=== PATIENT | male | born 1970 | race Caucasian/White ===

== ENCOUNTER 2018-03-02 12:40 | Inpatient (IN) | payer OTHER, MEDICARE ==
[~2018-03-02] VITALS: Ht 177.8 cm; Wt 139.7 kg
[~2018-03-02 12:40] MED LIST: ASTEPRO205.5 MCG1 NASB; AUGMENTIN 875875 MG PO; DULERA1 AR1 INH; FLONASE ALLERG9.9 ML NAS; LEVAQUIN750 M1 PO; MEDROL4 M2 PO; PERCOCET 325 MG1 TA2 PO; PROAIR HFA8.5 GM INH; SINGULAIR10 M1 PO; SPIRIVA18 MCG INH; TRAMADOL HCL50 M1 PO
[2018-03-02 13:38] LABS: ABSOLUTE BASOPHIL COUNT 0.1 /CUMM (0.0-0.2); ABSOLUTE EOSINOPHIL COUNT 0.1 /CUMM (0.0-0.7); ABSOLUTE GRANULOCYTE CT 12.2 /CUMM (1.4-6.5); ABSOLUTE MONOCYTE COUNT 0.9 /CUMM (0.10-0.60); BASOPHIL % 0.6 % (0.0-2.0); EOSINOPHIL % 0.7 % (0-5); HEMATOCRIT 30.9 % (42-52); MEAN CORPUSCULAR HGB 24.2 PG (27.0-31.0); MEAN CORPUSCULAR HGB CONC 31.9 G/DL (33.0-37.0); MEAN CORPUSCULAR VOLUME 75.9 FL (80.0-94.0); MEAN PLATELET VOLUME 7.9 FL (7.4-10.4); PLATELET COUNT 544 /CUMM (130-400); RED BLOOD CELL CT 4.07 /CUMM (4.70-6.10); WHITE BLOOD CELL COUNT 14.3 /CUMM (4.8-10.8)
--- NOTE | 2018-03-02 13:55 | ULTRASOUND REPORT ---
EXAMINATION: US PLEURAL EFFUSION CLINICAL INFORMATION: Shortness of breath and cough. Whiteout of the left hemithorax on chest radiograph. COMPARISON: Same day chest x-ray. Chest CT 07/09/2017 TECHNIQUE: Grayscale imaging was obtained of the left chest FINDINGS: There is only a small left-sided pleural effusion identified by ultrasound imaging. The majority of the left hemithorax appears to represent a combination of consolidation with likely superimposed mass. IMPRESSION: small left-sided pleural effusion. The majority of the left hemithorax appears to represent a combination of consolidation with likely superimposed mass. The patient will require chest CT with IV contrast for further characterization. This was discussed with Joshua Patiño.
--- NOTE | 2018-03-02 14:07 | ED GENERAL ADULT ---
History of Present Illness General Chief Complaint: Dyspnea (COPD, CHF, Other) Stated Complaint: SIB DR. LATIF FOR ?COLLAPSED LUNG Source: patient, old records, Dr Ortiz Exam Limitations: no limitations Vital Signs & Intake/Output Vital Signs & Intake/Output Vital Signs Date Time Temp Pulse Resp B/P B/P Pulse O2 O2 Flow FiO2 Mean Ox Delivery Rate 03/02 1405 97 Nasal 2.0L Cannula 03/02 1308 Nasal 2.0L Cannula 03/02 1246 99.2 106 24 103/70 98 Nasal 2.0L Cannula Allergies Coded Allergies: codeine (Intermediate, MIGRAINES 10/16/15) Reconcile Medications Albuterol Sulfate (Proair Hfa) 0.09 MG/Actuation YARELI 0.09 MG INH Q4 HRS NEEDED PRN COPD (Reported) Azelastine HCl (Astepro) 205.5 MCG (0.15 %) SPRAY.PUMP 2 SPRAY NASB BID CONGESTION (Reported) Fluticasone Propionate (Flonase) 50 MCG/ACTUATION SPRAY.SUSP 1 SPRAY CORRIE BID NASAL BLOCKAGE (Reported) Levofloxacin (Levaquin) 750 MG TABLET 1 TAB PO DAILY pneumonia Methylprednisolone. (Medrol) 4 MG TAB.DS.PK 1 DP PO AD breathing MOMETASONE/FORMOTEROL (Dulera 200 Mcg/5 Mcg Inhaler) 200 MCG-5 MCG/ACTUATION HFA.AER.AD 2 PUF INH BID COPD (Reported) Montelukast Sodium (Singulair) 10 MG TABLET 10 MG PO QHS ASTHMA (Reported) Tiotropium [place] (Spiriva) 18 MCG CAP.W.DEV 18 MCG INH DAILY COPD (Reported ) Tramadol HCl 50 MG TABLET 1 TAB PO TIDPRN BACK PAIN (Reported) Triage Note: SIB DR NOYOLA FOR SOB AND QUESTION OF COLLASPED LUNG. SENT RIGHT IN AFTER CXR. PT HAS HX OF LUNG CA. 02 SAT 98% ON 2LNC IN TRIAGE Triage Nurses Notes Reviewed? yes HPI: This is a 47-year-old male with past medical history significant for COPD on home oxygen, complicated by non-small cell lung cancer for which the patient is not currently undergoing treatment. Patient arrives with 1 month of progressive dyspnea and cough and wheezing. He was seen as an outpatient today by Dr. Ortiz, was found to have a white out of the left side of his chest on outside x-ray. He was sent here for evaluation of possible left sided effusion versus consolidation versus obstructive process in the bronchial tree. Patient arrives complaining of ongoing cough and shortness of breath. He denies any fever/ chills/chest pain. He does complain of some mild epigastric discomfort secondary to increased work of breathing. Past History Travel History Traveled to [place] past 21 day No Medical History Any Pertinent Medical History? 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 No Review of Systems Review of Systems Constitutional: Reports: malaise, weakness. Denies: chills, diaphoresis, fever. EENTM: Reports: no symptoms. Respiratory: Reports: cough, short of breath, sputum production, wheezing. Denies: hemoptysis, orthopnea. Cardiovascular: Reports: no symptoms. GI: Reports: see HPI. Denies: diarrhea, nausea, vomiting. Musculoskeletal: Reports: no symptoms. Skin: Reports: no symptoms. Neurological/Psychological: Reports: no symptoms. Hematologic/Endocrine: Reports: no symptoms. Immunologic/Allergic: Reports: no symptoms. Physical Exam Physical Exam General Appearance: well developed/nourished, alert, mild distress, obese Head: atraumatic, normal appearance Eyes: Bilateral: normal appearance. Ears, Nose, Throat: normal pharynx, normal ENT inspection Neck: normal inspection, supple, full range of motion Respiratory: chest non-tender, decreased LS to the left side diffusely w prolonged expiratory phase, expiratory wheezing and increased WOB Cardiovascular: regular rate/rhythm, edema, normal peripheral pulses Gastrointestinal: normal bowel sounds, soft, non-tender Back: normal inspection, normal range of motion Extremities: normal inspection, normal capillary refill, normal range of motion Neurologic/Psych: no motor/sensory deficits, awake, alert, oriented x 3 Skin: intact, warm/dry, pallor Core Measures ACS in differential dx? Yes CVA/TIA Diagnosis: No Sepsis Present: Yes Sepsis Focused Exam Completed? Yes Progress Differential Diagnoses I considered the following diagnoses in my evaluation of the patient: In this patient with lung cancer and recurrent pneumonia, concern for recurrent pneumonia, pericardial/pleural effusion, metabolic derangement, COPD exacerbation in addition to ACS all considered. Most likely pneumonia with concomitant reactive airway exacerbation in this patient. Low concern for pulmonary embolism or thoracic aortic disease based on exam and history. Plan of Care: Orders Procedure Date/time Status Regular Diet 03/02 D Active LACTIC ACID 03/02 1559 Active BLOOD CULTURE 03/02 1412 Active Code Status 03/02 1403 Active ED Holding Orders 03/02 1401 Active Admit to inpatient 03/02 1400 Active LACTIC ACID 03/02 1301 Complete B-TYPE NATRIURETIC PEP (BNP) 03/02 1301 Complete XRY-CHEST XRAY, TWO VIEWS 03/02 1248 Active TROPONIN LEVEL 03/02 1248 Complete PARTIAL THROMBOPLASTIN TIME 03/02 1248 Active PROTHROMBIN TIME 03/02 1248 Active COMPREHENSIVE METABOLIC PANEL 03/02 1248 Complete CBC WITHOUT DIFFERENTIAL 03/02 1248 Active EKG 03/02 1248 Active Current Medications Sig/Harman Start time Last Medication Dose Stop Time Status Admin Ceftazidime 1,000 MG IQ8 03/02 1600 UNVr (Fortaz) Sodium Chloride 1,000 ML BOLUS ONE 03/02 1415 UNVr (Normal Saline 0.9%) 03/02 1514 Albuterol Sulfate 3 ML ONCE ONE 03/02 1400 UNVr 03/02 (Proventil) 03/02 1401 1405 Ipratropium [place] 2.5 ML ONCE ONE 03/02 1400 UNVr 03/02 (Atrovent) 03/02 1401 1405 Methylprednisolone 125 MG ONCE ONE 03/02 1400 UNVr 03/02 (Solu Medrol) 03/02 1401 1407 Vancomycin HCl 1,000 MG ONCE ONE 03/02 1400 UNir Sodium Chloride 250 ML 03/02 1459 (Normal Saline 0.9%) Laboratory Tests 03/02/18 1352: PT Pending, INR Pending, APTT Pending 03/02/18 1301: Anion Gap 13, Estimated GFR > 60, BUN/Creatinine Ratio 25.0, Glucose 115 H, Lactic Acid 2.4 H, Calcium 9.6, Total Bilirubin 0.4, AST 34, ALT 47, Alkaline Phosphatase 158 H, Troponin I < 0.01, [id number] Pept 383 H, Total Protein 7.5, Albumin 3.2 L, Globulin 4.3 H, Albumin/Globulin Ratio 0.7 L, CBC w Diff MAN DIFF ORDERED, RBC 4.07 L, MCV 75.9 L, MCH 24.2 L, MCHC 31.9 L, RDW 21.0 H, MPV 7.9, Gran % 85.0 H, Lymphocytes % 7.2 L, Monocytes % 6.5, Eosinophils % 0.7, Basophils % 0.6, Absolute Granulocytes 12.2 H, Segmented Neutrophils Pending, Absolute Lymphocytes 1.0 L, Absolute Monocytes 0.9 H, Absolute Eosinophils 0.1, Absolute Basophils 0.1 03/02/18 1259: Lactic Acid Cancelled, [id number] Pept Cancelled Microbiology 03/02 141 BLOOD: Blood Culture - ORD 03/02 1412 BLOOD: Blood Culture - ORD Plan for ultrasound of chest, labs, EKG, IV fluids, DuoNeb and steroids, reassessment, discussion with . Leukocytosis, microcytic anemia, elevated lactate are all noted. Appears consistent with systemic inflammatory reaction/sepsis secondary to pneumonia given white out of left lung. Will start broad-spectrum antibiotics, admit to [facility]. Plan for frequent reassessment and symptom control with DuoNeb, steroids, chest physiotherapy/possible bronchoscopy as inpatient. Decreased amplitude on EKG mildly concerning for worsening of the patient's known pericardial effusion. This is discussed with on-call hospitalist. I have suggested inpatient cardiology consultation. 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 Initial ED EKG: normal axis, Lower amplitude than prior w diffuse TW flattening Departure Departure Time of Disposition: 1413 Disposition: STILL A PATIENT Condition: Stable Clinical Impression Primary Impression: HCAP (healthcare-associated pneumonia) Referrals: Jose Lafleur MD (PCP/Family) Departure Forms: Customer Survey General Discharge Information Admission Note Spoke With: Julieta Corona MD Documentation of Exam: Documentation of any treatments & extenuating circumstances including Concerns Regarding Discharge (functional status, medication knowledge or non-compliance, living conditions, etc.) that warrant an admission rather than observation: IV antibiotics, close monitoring and frequent reassessment, possible bronchoscopy, chest physiotherapy, possible cardiology consultation. Critical Care Note Critical Care Note Critical Care Time: non-applicable
[2018-03-02 14:13] LABS: PT 19.3 SEC (9.4-12.5); PTT 28 SEC (25-37)
--- NOTE | 2018-03-02 14:17 | History & Physical ---
PortilloTiesha 03/02/18 1416: General Information and HPI MD Statement: I have seen and personally examined SID DOCKERY and documented this H&P. The patient is a 47 year old M who presented with a patient stated chief complaint of [Shortness of Breath]. Source of Information: patient, family ( and Mother) Exam Limitations: no limitations History of Present Illness: Patient is a 47-year-old male with a past medical history of stage III non-small cell lung cancer of LLL status post chemotherapy with Braxan 1 year ago, radiation therapy 6 months ago, COPD on 2 L of home oxygen, sleep apnea on CPAP, spinal stenosis, bronchitis. Patient is presenting with complaints of cough with clear/white sputum, shortness of breath with walking and talking, low-grade fevers, chest tightness for the past 1 month. Patient went to see Dr. Ortiz this morning who referred him to the ED for chest x-ray due to the symptoms. Since the beginning of January patient has been feeling as mentioned above. Patient saw Dr. Carbone (PCP) in the beginning of January for similar symptoms of chest tightness shortness of breath low-grade fevers ranging from 100.1-100.2 for about 3-4 nights per week. Patient was prescribed Z-Fox for 5 days upon completion of course since he felt good for 1-2 days. On January [address] aguilar for similar complaints of productive cough chest tightness low-grade fevers was given antibiotics and Medrol for 7 days with taper. Towards the end of January about 2-3 weeks ago patient went back to Dr. Landrum for similar symptoms once again, was given antibiotic which patient does not recall for 7 days. This morning patient went to Dr. Ortiz for presenting symptoms, was sent to emergency department for an chest x-ray. Patient is also complaining of pain in his chest at the end of his sternum which is been going on for 1 week, is constant, steady, about 5 out of 10. Patient believed he had pulled a muscle, has not have any aggravating or alleviating factors. Allergies/Medications Home Med list Albuterol Sulfate (Proair Hfa) 90 MCG HFA.AER.AD 2 PUF INH Q4-6 PRN PRN COPD (Reported) Albuterol Sulfate 2.5 MG/3 ML (0.083 %) VIAL.NEB 1 Vial INH/JOSE Q4P PRN SHORTNESS OF BREATH (Reported) Azelastine HCl (Astepro) 205.5 MCG (0.15 %) SPRAY.PUMP 2 SPRAY NASB BID CONGESTION (Reported) Budesonide/Formoterol Fumarate (Symbicort 160-4.5 Mcg Inhaler) 160 MCG-4.5 MCG/ ACTUATION HFA.AER.AD 2 PUF INH BID BREATHING PROBLEMS (Reported) Fluticasone Propionate (Flonase Allergy Relief) 50 MCG/ACTUATION SPRAY.SUSP 1 SPRAY CORRIE BID ALLERGIES (Reported) Montelukast Sodium (Singulair) 10 MG TABLET 1 TAB PO QPM ASTHMA (Reported) Tiotropium [place] (Spiriva) 18 MCG CAP.W.DEV 1 CAP INH DAILY COPD (Reported) Tramadol HCl 50 MG TABLET 1 TAB PO TIDPRN BACK PAIN (Reported) Compliance With Home Meds: GOOD Past History Travel History Traveled to [place] past 21 day No Medical History Neurological: NONE EENT: NONE Cardiovascular: NONE Respiratory: COPD, emphysema, obstructive sleep apnea, Stage III non-small cell lung cancer Gastrointestinal: NONE Hepatic: NONE Renal: NONE Musculoskeletal: NONE, spinal stenosis Psychiatric: NONE Endocrine: NONE Blood Disorders: NONE 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 Home Who Do You Live With? spouse Services at Home: None (2.0 L), Oxygen Primary Language: Hungarian Smoking Status: Former Smoker (Currently Smokes Marijuana) ETOH Use: occasional use Illicit Drug Use: marijuana Functional Ability ADLs Independent: dressing, eating, toileting, bathing. Ambulation: independent IADLs Independent: shopping, housework, finances, food prep, telephone, transportation , medication admin. Review of Systems Review of Systems Constitutional: Reports: fever. Denies: chills, diaphoresis. EENTM: Reports: double vision. Denies: throat pain. Cardiovascular: Reports: chest pain, orthopena. Denies: palpitations, syncope. Respiratory: Reports: cough, orthopnea, short of breath, sputum production. GI: Reports: constipation. Exam & Diagnostic Data Last 24 Hrs of Vital Signs/I&O Vital Signs Date Time Temp Pulse Resp B/P B/P Pulse O2 O2 Flow FiO2 Mean Ox Delivery Rate 03/02 1621 96 Nasal 2.0L Cannula 03/02 1621 99.0 89 18 148/72 96 Nasal 2.0L Cannula 03/02 1537 98.3 98 22 128/63 98 Nasal 2.0L Cannula 03/02 1405 97 Nasal 2.0L Cannula 03/02 1308 Nasal 2.0L Cannula 03/02 1246 99.2 106 24 103/70 98 Nasal 2.0L Cannula Intake & Output 03/02 1600 03/02 0800 03/02 0000 Intake Total Output Total Balance Patient 288 lb Weight Weight Reported by Patient Measurement Method Physical Exam General Appearance Alert, Oriented X3, Cooperative, Mild Distress Skin No Rashes Sepsis Skin Exam (color): Normal for Ethnicity HEENT Atraumatic, PERRLA, EOMI Neck Supple, No LAD Cardiovascular Regular Rate, Normal S1, Normal S2 Lungs Clear to Auscultation, Normal Air Movement Abdomen Normal Bowel Sounds, Soft, No Tenderness, Hepatomegaly Neurological Normal Speech Extremities No Cyanosis, No Edema, Normal Pulses Vascular Normal Pulses, Pulses Symmetrical Sepsis Peripheral Pulse Location: Dorsalis Pedis Sepsis Peripheral Pulse Exam: Normal Assessment/Plan Assessment: Patient is a 47-year-old male with a past medical history of stage III non-small cell lung cancer of LLL status post chemotherapy with Braxan 1 year ago, radiation therapy 6 months ago, COPD on 2 L of home oxygen, sleep apnea on CPAP, spinal stenosis, bronchitis. Patient is presenting with complaints of cough with clear/white sputum, shortness of breath with walking and talking, low-grade fevers, chest tightness for the past 1 month Problem List: 1. Sepsis 2. Pneumonia 3. Infectious Bronchiolitis 4. Pericardian Effusion 5. Anemia 6. COPD 7. Sleep Apnea 8. Spinal Stenosis #Sepsis Patient meets sepsis criteria with: Elevated: HR, RR, Lactate level, WBC. Source is of pulmonary origin. Plan: - activate sepsis protocol - trend lactate until normal #Pneumonia Concern for gram negative bacteria as cause. Failed multiple outpatient therapies. Plan: - Ceftazidime 2000mg - Vancomycin 1000mg - Azithromycin 500mg #Infectious Bronchiolitis - f/u sputum culture #Pericardial effusion Low Voltage EKG, Moderate pericardian effusion on TTE on 03/02/18 Plan: -Cardiology consult - monitor patient for signs of hemodynamic instability #Acute on Chronic Anemia current H/H at 9.9/30.9 PLan: - order Iron Panel - Order Fecal Occult #COPD Plan: - IV Methyprednisolon 40mg BID - Guaifenesin/Codeine 10mL - Spiriva - Singular 10mg - Nebulizer - TRC #Obstructive Sleep Apnea -Continue CPAP #Spinal Stenosis Plan: -Tramadol 50mg As Ranked By This Provider Problem List: 1. Pneumonia Core Measures/Misc (05/09) Acute Coronary Syndrome ACS Diagnosis: No Congestive Heart Failure Congestive Heart Failure Diagnosis No Cerebrovascular Accident CVA/TIA Diagnosis: No VTE (View Protocol) VTE Risk Factors Cancer/chemo/othr therapy No Mechanical VTE Prophylaxis d/t N/A MechProphylax Ordered No VTE Pharm Prophylaxis d/t NA PharmProphylax ordered Sepsis (View protocol) Sepsis Present: Yes If YES complete Sepsis Event Note If YES complete Sepsis Event Note Abdirahman Garcia MD 03/02/18 1434: General Information and HPI Allergies/Medications Allergies: Coded Allergies: No Known Allergies (03/02/18) Core Measures/Misc (05/09) Sepsis (View protocol) If YES complete Sepsis Event Note If YES complete Sepsis Event Note Resident Review Statement Resident Statement: examined this patient, discussed with art gallery internship, agreed with art gallery internship, discussed with family, reviewed EMR data (avail), discussed with nursing , discussed with case mgmt, reviewed images, amended to note Other Findings: Mr. Dockery is a 47-year-old male with past medical history of COPD on 2 L nasal cannula, MARCI on CPAP followed by Dr. Ortiz, and non-small small cell lung cancer of the left lower lobe status post radiation 6 months ago and chemotherapy 1 year ago followed by Dr. Pink who presents with a productive cough, shortness of breath, and fever of 1 month duration. Patient initially went to his primary care doctor and he received a course of azithromycin but did not see much improvement. He then went to Dr. Bowen and received a steroid and another course of antibiotics. This again resulted in little improvement so the patient represented to his primary care doctor and got a third course of antibiotics. He then went to Dr. Ortiz today who sent him in for chest x-ray and found a complete whiteout of the left hemithorax. He was then sent in to the emergency room for further evaluation. He endorses occasional headaches relieved by Tylenol and Advil as as as well as one episode of transient double vision and chronic constipation. Denies any sore throat, chest pain, or recent travel. Uses medical marijuana, is a former smoker, and denies alcohol use. Of note the patient had a recent PET/CT scan on 02/24/2018 that revealed a left lower lung mass that now appears centrally necrotic, a small to moderate pericardial effusion that increased in size, a right lower lobe nodular opacity is nonspecific but favored inflammatory/infectious etiology. On presentation, vital signs were T 99.2, HR 106, RR 24, BP 103/70, saturating 98% on 2 L nasal cannula.. General: Patient appears stated age, alert and orientedx3. HEENT: PERRL. No goiter. No palpable lymph nodes. Missing teeth and poor dentition Cardiovascular: Regular rate and rhythm, no murmurs, rubs, or gallops. Lungs: Hollow sounds on the left. Abdomen: Normal bowel sounds. Mildly tender in the right upper quadrant with hepatomegaly. Skin: No rashes. Neuro: CN II-XII intact without any focal deficits. Ext: 1+ pitting edema, pulses normal. Laboratories were significant for white blood cell count 14.3, hemoglobin 9.9, MCV 75.9, platelets 544, glucose 115, lactic acid 2.4, alkaline phosphatase 158, BNP 383. Ultrasound of the chest showed a small left-sided effusion concerning for consolidation with underlying mass. Chest x-ray showed complete left white out of the left hemithorax. He will be admitted to general medicine and treated for the following problems: 1. Sepsis with lactic acidosis secondary to pneumonia 2. Pericardial effusion 3. Microcytic anemia 4. Chronic respiratory failure #Sepsis with lactic acidosis secondary to pneumonia: Patient presents from the community but given the duration of his symptoms and his underlying malignancy there is concern for gram-negative pneumonia and so we will give him broad- spectrum coverage. He does meet 3/4 SIRS criteria (tachycardia, tachypnea, leukocytosis). -Blood cultures, sputum culture, urinary antigens -30 mL/kg IV fluid bolus -Vancomycin and ceftazidine -Pulmonology consult -Oncology consult -Trend lactic acid -TRC nebs -CTA chest -Methylprednisone 40 mg every 12 -Guaifenesin/codeine for cough #Pericardial effusion: Patient's EKG shows low voltage and recent PET/CT scan shows mild to moderate pericardial effusion. Possibly a malignant vs infectious effusion. -TTE -Consider cardiology consult if moderate to large effusion is present, may need drainage #Microcytic anemia: No signs of active bleeding, likely chronic disease related. -Iron studies -Stool guaiac #Chronic medical problems -Continue home medications DVT prophylaxis with enoxaparin Regular diet Full code Tino Salcedo MD 03/02/18 2210: Core Measures/Misc (05/09) Sepsis (View protocol) If YES complete Sepsis Event Note If YES complete Sepsis Event Note Attending MD Review Statement Attending Statement Attending MD Statement: examined this patient, discuss w/resident/PA/TRAIN DISPATCHER, agreed w/resident/PA/TRAIN DISPATCHER, discussed with family, reviewed EMR data (avail), reviewed images, amended to note Attending Assessment/Plan: The patient is a 47 yo male with h/o COPD (on chronic 2L nasal oxygen), MARCI (on CPAP at night), and inoperable stage III non-small cell lung ca (LLL and mediastinal nodes) who presented in the [facility] ED after being seen by his pulmonary physician (Dr. Ortiz) with increased dyspnea, and cough/fever as OP. CXR showed opacification of left lung (?atelectasis/collapse, LLL mass, sm effusion). The patient had over last month been seen by his PCP and Dr. Henry and treated with courses of 2 antibiotics (one was Zithromax) and a Medrol dosepak without improvement. He stated he did have fevers at home (?family said up to 101). Has some chest discomfort with coughing and cough is primarily non- productive. He has not required an increase in his usual 2L/min nasal oxygen. He also described some visual symptoms/diplopia on lateral gaze earlier. He had completed last chemotherapy (Braxan - prior reaction to Taxol) [address] Reeves. Last XRT with Dr. Vargas was 6 months ago. He did have a PET/CT scan at [facility] done 02/24 (ordered by Dr. Reeves after follow-up visit). Physical Exam: VS: T 99.2, P 105-89 (post hydration), R 24-18, BP 103/70-148/72, PO 96-98% on 2L nasal HEENT: eyes- PERRL, EOMI ace- dry mucosa, poor dentition Neck: no bruits/JVD Chest: diminished BS diffusely (more in left lung), minimal wheeze (post aerosol & Medrol IV in ED) Cor: RRR nl S1, S2 w/o murm, heart sounds not distant Abd: BS+, soft, NT, liver sl firm and enlarged 4FB below CM Ext: tra edema, pulses 2+ Neuro: alert & oriented x 3, non-focal exam Labs/Tests- as above Impression/Plan: #Sepsis- patient with fever (?101), leukocytosis with left shift, tachycardia and tachypnea, and elevated lactate level with source of infection pneumonia. Meets sepsis criteria. Plan: Admit to medicine and follow sepsis pathway/orders. IV fluids as per sepsis protocol. Payton-culture and IV antibiotics begun in ED (Vanco/Cetaz per Dr. Ortiz) . Follow VS closely- if decompensates transfer to ICU. Check urinary Legionella/strep. #Pneumonia LLL- presume left lung pneumonia. Spoke with Dr. Reeves's office and PET/CT done at [facility] 02/24 did also show ? RLL inflammatory nodularity? Has been on courses of antibiotics x 2 recently and suspect post obstructive pneumonia due to LLL mass. Although this was acquired in the community have concern regarding potential gram negative pneumonia/sepsis. Plan: IV Vanco/Ceftaz as above. Attempt to obtain sputum culture. If post obstructive pneumonia may consider endobronchial stenting. #Pericardial Effusion- noted effusion on PET/CT report from [facility] and on prior CT. EKG today shows no acute ST-T changes or rhythm disturbance, however decreased voltage. No clinical tamponade. Suspect malignant effusion. Plan: CT of chest today and ECHO in morning- pending this will need Cardiology evaluation. May need pericardiocentesis/pericardial window. #COPD- patient had not had an increase in oxygen requirement. Some wheeze, however better post aerosol and IV Medrol in ED. Plan: Will continue nebs and IV Medrol 40 mg 12h. Pulmonary consult- Dr. Ortiz. #Chronic Hypoxic Respiratory Failure- on 2 L oxygen. Plan: Continue oxygen and monitory pulse ox. #Obstructive Sleep Apnea - uses CPAP at night. Plan: Continue CPAP. #Stage III Non-Small Cell Cancer- recent PET/CT shows a decrease in SUV of primary LLL mass and persistent uptake in mediastinal nodes c/w active disease. Completed chemo 1 year ago and XRT 6 months ago. Plan: Will need to discuss with Dr. Reeves any plans for further therapy, once above stabilized. #Chronic Back Pain- secondary to spinal stenosis per patient. Takes prn Tramadol. Plan: Continue prn Tramadol. #Diplopia- none at present. Concern regarding potential brain metastases. Plan: Pending clinical course may consider MRI of brain.
[2018-03-02] MEDS ORDERED: SYMBICORT 16010.2 GM INH (14:57)
[2018-03-02] MEDS ORDERED: ALBUTEROL2.5 MG/3 M INH/SOL (15:00)
--- NOTE | 2018-03-02 16:16 | Admission Certification ---
Admission Certification Certification Statement - As attending physician, I certify that at the time of - admission, based on clinical presentation, severity of - symptoms, need for further diagnostic testing and - therapeutic interventions, and risk of adverse outcomes - without in-hospital treatment, in my clinical assessment, - this patient requires an acute hospital stay for a minimum - of two nights or longer. I have also considered psychsocial - factors such as support system, advanced age, financial - issues, cognitive issues, and failed out-patient treatments, - past re-admission history, safety of patient, and lack of - compliance as applicable. Specific rationale supporting this admission is: The patient presents with fever, leukocytosis, tachycardia/tachypnea, left lung opacification and elevated lactate level c/w sepsis secondary to pneumonia. Has COPD, stage 3 lung ca with pericardial effusion. Needs admit for culture, IV Abx to cover gram neg pneumonia (has been on po abs)- Vanco/Ceftaz, IV solumedrol, aerosol, etc.
[2018-03-02 16:21] VITALS: BP 148/72
--- NOTE | 2018-03-02 17:06 | CT SCAN REPORT ---
EXAMINATION: CT ANGIOGRAM OF THE CHEST WITH CONTRAST (CT PULMONARY ANGIOGRAM FOR PE) CLINICAL INFORMATION: Shortness of breath. Left chest completely opacified on radiograph. Evaluate for pneumonia, cancer, collapsed lung and/or pulmonary embolism. COMPARISON: CXR from 03/02/2018. Chest CT from 07/09/2017. TECHNIQUE: Prior to contrast administration, noncontrast localization images were obtained. Subsequently, multidetector volumetric imaging was performed from the thoracic inlet to below the diaphragms following the administration of 95 mL Optiray 320 intravenous contrast. No contrast reaction reported. Sagittal, coronal, and MIP oblique sagittal reformatted images were obtained on the CT workstation, uploaded to PACS, and reviewed. DLP: Total exam dose-length product 941 mGy-cm FINDINGS: QUALITY OF STUDY/CONTRAST BOLUS: Satisfactory. PULMONARY ARTERIES: Pulmonary arteries are normal in caliber. No embolic filling defects are identified in the main, lobar or segmental vessels. THORACIC AORTA: Mild atherosclerotic calcification of the thoracic aorta without aneurysm or dissection. LUNGS AND PLEURA: The moderate centrilobular emphysema in the right lung has an upper lobe predominance. Mild atelectasis in dependent aspect of right upper lobe. There are some new clustered micronodular opacities in the medial aspect of the posterior right upper lobe. Chronic findings include old 0.3 cm noncalcified nodules of the lateral segment of the right middle lobe adjacent to the major fissure (image 222, series 2) and within the right lower lobe (image 330, series 2). Multiple new clustered nodules are seen in the lateral right lower lobe, likely secondary to infectious bronchiolitis (images 255-280, series 2). Small right pleural effusion produces compressive atelectasis of right lower lobe. At the left hilum, the distal mainstem bronchus is occluded, left lung completely collapsed, and there is associated left-sided shift of the cardiomediastinal structures. It is not possible to measure the size of the previously noted centrally located mass of the left lower lobe due to the pulmonary collapse. Small loculated left pleural effusion is similar in size compared to 07/09/2017 and is surrounded by thickened visceral and parietal pleura. CARDIOVASCULAR: The heart size is normal. No inward bowing of the interventricular septum. [id number] pericardial effusion has increased in size compared to 07/09/2017.. MEDIASTINUM: The esophagus has normal wall thickness. The visualized portion of the thyroid gland is unremarkable. No mediastinal mass. LYMPHATICS: No pathologic sized axillary lymph nodes. The assessment of left hilar lymphadenopathy is limited by the pulmonary collapse. Within the superior mediastinum, a mildly enlarged right paratracheal lymph node is 1 cm short axis dimension, unchanged compared to 07/09/2017 (image 97, series 2). At the level of the aortic arch, a large right paratracheal lymph node with fatty hilum has a transverse dimension of 1.8 cm, unchanged. The other mediastinal lymph nodes remain stable in size, as well. UPPER ABDOMEN: No contrast reflux into the inferior vena cava. No acute findings in the partially visualized solid or hollow viscera of the upper abdomen. CHEST WALL/BONES: Bilateral gynecomastia. No aggressive osseous lesions within the thorax. There is an old epidermal inclusion cyst within subcutaneous tissues of the upper back. IMPRESSION: 1. No pulmonary embolism. 2. At the level of the left hilum, the distal left mainstem bronchus is occluded and left lung completely collapsed. The loculated left pleural effusion remains similar in size compared to 07/09/2017. 3. Within the right lung, there are some new micronodules in the posteromedial aspect of the right upper lobe and in the lateral right lower lobe. These are likely secondary to active infectious bronchiolitis. New, small right pleural effusion is present. 4. Pericardial effusion has increased in size compared to 07/09/2017.
--- NOTE | 2018-03-02 18:54 | ECHOCARDIOGRAM REPORT ---
SID GOMEZ Age: 47 : 1970 Gender: M Exam Date: 03/02/2018 16:51 Exam Location: [address] [place] [address] Ht (in): 70 Wt (lb): 288 BSA: 2.60 BP: 103 / 70 Ordering Physician: Abdirahman Garcia MD Referring Physician: Abdirahman Garcia MD Technologist: Estephanie Juarez [facility] Room Number: 209-01 Indications: PERICARDIAL EFFUSION Rhythm: Sinus Technical Quality: Fair FINDINGS Left Ventricle Normal size left ventricle. Mild concentric left ventricular hypertrophy. No obvious regional wall motion abnormalities. Normal left ventricular ejection fraction visually estimated at 65%. Right Ventricle Normal right ventricular size and function. Right Atrium Normal right atrial size. Left Atrium Normal left atrial size. Mitral Valve Mild mitral annular calcification. Structurally normal mitral valve leaflets with normal excursion. Trace mitral regurgitation. Aortic Valve Aortic valve not well visualized, grossly normal. No aortic valve stenosis or regurgitation. Tricuspid Valve Tricuspid valve not well visualized, grossly normal. Trace tricuspid regurgitation. Unable to estimate the right ventricular systolic pressure. Pulmonic Valve Pulmonic valve not well visualized, grossly normal. Trace pulmonic regurgitation. Pericardium Moderate pericardial effusion. Partial right atrial diastolic collapse consistent with early tamponade physiology. Great Vessels Normal size aortic root. Dilated inferior vena cava. CONCLUSIONS Normal size left ventricle. Mild concentric left ventricular hypertrophy. No obvious regional wall motion abnormalities. Normal left ventricular ejection fraction visually estimated at 65%. Normal right ventricular size and function. Normal atral size. Trace mitral regurgitation. Trace tricuspid regurgitation. Unable to estimate the right ventricular systolic pressure. Trace pulmonic regurgitation. Partial right atrial diastolic collapse consistent with early tamponade physiology. Dilated inferior vena cava. Armen Sampson M.D. (Electronically Signed) Final Date: 02 March 2018 18:52 MEASUREMENTS (Male / Female) Normal Values 2D ECHO LV Diastolic Diameter PLAX 3.9 cm 4.2 - 5.9 / 3.9 - 5.3 cm LV Systolic Diameter PLAX 2.4 cm 2.1 - 4.0 cm LV Fractional Shortening PLAX 38.5 % 25 - 46 % LV Ejection Fraction 2D Teich 69.4 % IVS Diastolic Thickness 1.2 cm LVPW Diastolic Thickness 1.2 cm LV Relative Wall Thickness 0.6 RV Internal Dim ED PLAX 3.0 cm 1.9 - 3.8 cm LVOT Diameter 2.2 cm Aortic Root Diameter 3.5 cm LA Systolic Diameter LX 4.1 cm 3.0 - 4.0 / 2.7 - 3.8 cm Ascending Aorta Diameter 3.1 cm DOPPLER AV Peak Velocity 154.0 cm/s AV Peak Gradient 9.5 mmHg AV Mean Velocity 101.0 cm/s AV Mean Gradient 5.0 mmHg AV Velocity Time Integral 21.1 cm LVOT Peak Velocity 123.0 cm/s LVOT Peak Gradient 6.1 mmHg LVOT Mean Velocity 73.2 cm/s LVOT Mean Gradient 3.0 mmHg LVOT Velocity Time Integral 16.3 cm LVOT Stroke Volume 62.0 cm AV Area Cont Eq vti 2.9 cm AV Area Cont Eq pk 3.0 cm MV Peak Velocity 106.0 cm/s MV Peak Gradient 4.5 mmHg MV Mean Velocity 59.7 cm/s MV Mean Gradient 2.0 mmHg Mitral E Point Velocity 95.8 cm/s Mitral A Point Velocity 101.0 cm/s Mitral E to A Ratio 0.9 MV PHT Velocity 111.0 cm/s MV Deceleration [place] 757.0 cm/s MV Pressure Half Time 44.0 ms MV Area PHT 5.0 cm MV Deceleration Time 306.0 ms PV Peak Velocity 102.0 cm/s PV Peak Gradient 4.2 mmHg PV Mean Velocity 71.3 cm/s PV Mean Gradient 2.0 mmHg PV Velocity Time Integral 19.2 cm LV E' Lateral Velocity 16.2 cm/s Mitral E to LV E' Lateral Ratio 5.9 LV E' Septal Velocity 12.2 cm/s Mitral E to LV E' Septal Ratio 7.9
--- NOTE | 2018-03-02 19:26 | Cons- Cardiology ---
General Information and HPI Consulting Request Date of Consult: 03/02/18 Requested By: Tino Salcedo MD Reason for Consult: Pericardial effusion. Source of Information: patient, old records Exam Limitations: no limitations History of Present Illness: Mr. Carlos Alberto Dockery is a 47-year-old male with a history of obstructive sleep apnea on CPAP, long-standing heavy tobacco use, COPD on 2 L home oxygen, and stage III non-small cell lung carcinoma of left lower lobe status post chemotherapy with Braxan last year and radiation therapy 6 months ago who was referred to the ED by his cold header (ePggy Valdes M.D.) this morning after relating complaints of productive cough of clear to whitish sputum, shortness of breath, chest tightness, and intermittent low-grade fevers (100.1-100.2) over the past month with persistence of the symptoms despite antimicrobial and steroid therapy who we are asked to evaluate after his CXR revealed complete white out of the left hemithorax, mild leftward shift of the trachea, a combination of consolidation and pleural fluid and the follow-up chest CTA revealed no pulmonary embolism, but a completely collapsed left lung, a loculated left pleural effusion, new right micronodules, small right pleural effusion, and an enlarging pericardial effusion when compared to his last chest CT from June 2017. The chest discomfort has been nonexertional, intermittent, mild ("5/10"), and is exacerbated by coughing. Allergies/Medications Allergies: Coded Allergies: No Known Allergies (03/02/18) Home Med List: Albuterol Sulfate (Proair Hfa) 90 MCG HFA.AER.AD 2 PUF INH Q4-6 PRN PRN COPD (Reported) Albuterol Sulfate 2.5 MG/3 ML (0.083 %) VIAL.NEB 1 Vial INH/JOSE Q4P PRN SHORTNESS OF BREATH (Reported) Azelastine HCl (Astepro) 205.5 MCG (0.15 %) SPRAY.PUMP 2 SPRAY [place] BID CONGESTION (Reported) Budesonide/Formoterol Fumarate (Symbicort 160-4.5 Mcg Inhaler) 160 MCG-4.5 MCG/ ACTUATION HFA.AER.AD 2 PUF INH BID BREATHING PROBLEMS (Reported) Fluticasone Propionate (Flonase Allergy Relief) 50 MCG/ACTUATION SPRAY.SUSP 1 SPRAY [place] BID ALLERGIES (Reported) Montelukast Sodium (Singulair) 10 MG TABLET 1 TAB PO QPM ASTHMA (Reported) Tiotropium [place] (Spiriva) 18 MCG CAP.W.DEV 1 CAP INH DAILY COPD (Reported) Tramadol HCl 50 MG TABLET 1 TAB PO TIDPRN BACK PAIN (Reported) Review of Systems Review of Systems: 14 point system review was obtained was noncontributory, other than as above. 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 Home Who Do You Live With? spouse Services at Home: None (2.0 L), Oxygen Primary Language: Libyan Smoking Status: Former Smoker (Currently Smokes Marijuana) ETOH Use: occasional use Illicit Drug Use: marijuana Functional Ability ADLs Independent: dressing, eating, toileting, bathing. Ambulation: independent IADLs Independent: shopping, housework, finances, food prep, telephone, transportation , medication admin. Exam & Diagnostic Data Vital Signs and I&O Vital Signs Date Time Temp Pulse Resp B/P B/P Pulse O2 O2 Flow FiO2 Mean Ox Delivery Rate 03/02 1903 Nasal 2.0L Cannula 03/02 1621 96 Nasal 2.0L Cannula 03/02 1621 99.0 89 18 148/72 96 Nasal 2.0L Cannula 03/02 1537 98.3 98 22 128/63 98 Nasal 2.0L Cannula 03/02 1405 97 Nasal 2.0L Cannula 03/02 1308 Nasal 2.0L Cannula 03/02 1246 99.2 106 24 103/70 98 Nasal 2.0L Cannula Intake & Output 03/02 1600 03/02 0800 03/02 0000 03/01 1600 03/01 0800 03/01 0000 Intake Total Output Total Balance Patient 288 lb Weight Weight Reported by Patient Measurement Method Physical Exam: Well-developed, obese middle-aged male in no acute distress with nasal oxygen in place. Vital signs: See above. HEENT: Normocephalic, atraumatic, EOMI, moist mucous membranes. Neck: No JVD, no bruits. Lungs: Decreased breath sounds bilaterally left greater than right. Heart: S1, S2 (both distant). PMI not well felt. No murmur, gallop, or rub. Abdomen: Soft, nontender, positive bowel sounds. Extremities: No edema. Labs/Christian Results: Laboratory Tests 03/02 03/02 03/02 1900 1739 1644 Chemistry Lactic Acid (0.7 - 2.1 mmol/L) Cancelled 1.4 Urines Urine Color (YEL,AMB,STR) YEL Urine Clarity (CLEAR) CLEAR Urine pH (5.0 - 8.0) 6.0 Ur Specific [place] (1.001 - 1.035) 1.020 Urine Protein (NEG,<30 MG/DL) TRACE H Urine Ketones (NEG) NEG Urine Nitrite (NEG) NEG Urine Bilirubin (NEG) NEG Urine Urobilinogen (0.1 - 1.0 EU/dl) 0.2 Ur Leukocyte Esterase (NEG) NEG Ur Microscopic SEDIMENT EXAMINED Urine WBC (0 - 2 /HPF) RARE Ur Epithelial Cells (NONE,FEW) RARE Urine Mucus (FEW,NONE) RARE Urine Hemoglobin (NEG) NEG Urine Glucose (N MG/DL) NEG 03/02 03/02 03/02 1352 1301 1259 Chemistry Sodium (137 - 145 mmol/L) 137 Potassium (3.5 - 5.1 mmol/L) 4.4 Chloride (98 - 107 mmol/L) 99 Carbon Dioxide (22 - 30 mmol/L) 25 Anion Gap (5 - 16) 13 BUN (9 - 20 mg/dL) 15 Creatinine (0.7 - 1.2 mg/dL) 0.6 L Estimated GFR (>60 ml/min) > 60 BUN/Creatinine Ratio (7 - 25 %) 25.0 Glucose (65 - 99 mg/dL) 115 H Lactic Acid (0.7 - 2.1 mmol/L) 2.4 H Cancelled Calcium (8.4 - 10.2 mg/dL) 9.6 Iron (49 - 181 ug/dL) 27 L TIBC (261 - 462 ug/dL) 283 Ferritin (17.9 - 464 ng/mL) 394.0 Total Bilirubin (0.2 - 1.3 mg/dL) 0.4 AST (17 - 59 U/L) 34 ALT (21 - 72 U/L) 47 Alkaline Phosphatase (< 127 U/L) 158 H Troponin I (<0.11 ng/ml) < 0.01 Wuj-P-Hmkkpinocmb Pept (<125 pg/mL) 383 H Cancelled Total Protein (6.3 - 8.2 g/dL) 7.5 Albumin (3.5 - 5.0 g/dL) 3.2 L Globulin (1.9 - 4.2 gm/dL) 4.3 H Albumin/Globulin Ratio (1.1 - 2.2 %) 0.7 L Coagulation PT (9.4 - 12.5 SEC) 19.3 H INR (0.90 - 1.17) 1.76 H APTT (25 - 37 SEC) 28 Hematology CBC w Diff MAN DIFF ORDERED WBC (4.8 - 10.8 /CUMM) 14.3 H RBC (4.70 - 6.10 /CUMM) 4.07 L Hgb (14.0 - 18.0 G/DL) 9.9 L Hct (42 - 52 %) 30.9 L MCV (80.0 - 94.0 FL) 75.9 L MCH (27.0 - 31.0 PG) 24.2 L MCHC (33.0 - 37.0 G/DL) 31.9 L RDW (11.5 - 14.5 %) 21.0 H Plt Count (130 - 400 /CUMM) 544 H MPV (7.4 - 10.4 FL) 7.9 Gran % (42.2 - 75.2 %) 85.0 H Lymphocytes % (20.5 - 51.1 %) 7.2 L Monocytes % (1.7 - 9.3 %) 6.5 Eosinophils % (0 - 5 %) 0.7 Basophils % (0.0 - 2.0 %) 0.6 Absolute Granulocytes (1.4 - 6.5 /CUMM) 12.2 H Segmented Neutrophils (42.2 - 75.2 %) 77 H Band Neutrophils (0.0 - 5.0 %) 7 H Absolute Lymphocytes (1.2 - 3.4 /CUMM) 1.0 L Lymphocytes (20.5 - 51.1 %) 8 L Monocytes (1.7 - 9.3 %) 7 Absolute Monocytes (0.10 - 0.60 /CUMM) 0.9 H Eosinophils (0 - 5.0 %) 1 Absolute Eosinophils (0.0 - 0.7 /CUMM) 0.1 Absolute Basophils (0.0 - 0.2 /CUMM) 0.1 Platelet Estimate (ADEQUATE) INCREASED Polychromasia 2+ Hypochromic-Microcytic 2+ Anisocytosis 1+ Microcytic Cells 1+ Diagnostic Data EKG Results 03/02/2018: Sinus tachycardia, probable left atrial abnormality, diffuse low voltage, poor right precordial R-wave progression, & nondiagnostic T waves. Lower voltage and faster rate since previous tracing from 07/27/2016. CXR Results 03/02/2018: Complete white out of the left hemithorax. Mild leftward shift of the trachea suggests a combination of consolidation and pleural fluid. Other Results Chest CTA 03/02/2018: 1. No pulmonary embolism. 2. At the level of the left hilum, the distal left mainstem bronchus is occluded and left lung completely collapsed. The loculated left pleural effusion remains similar in size compared to 07/09/2017. 3. Within the right lung, there are some new micronodules in the posteromedial aspect of the right upper lobe and in the lateral right lower lobe. These are likely secondary to active infectious bronchiolitis. New, small right pleural effusion is present. 4. Pericardial effusion has increased in size compared to 07/09/2017. Chest ultrasound 03/02/2018: 1. Small left-sided pleural effusion. The majority of the left hemithorax appears to represent a combination of consolidation with likely superimposed mass. 2. The patient will require chest CT with IV contrast for further characterization. This was discussed with Joshua Patiño. Assessment/Plan Assessment/Plan [id number] w/ hx of MARCI on CPAP, heavy tobacco use, COPD on home O2, & stage III non-small cell lung ca of LLL s/p chemo & radiation Rx who was referred to the ED by his cold header this a.m. w/ c/o productive cough, SOB, CP, & low- grade fevers for the past month w/ persistence of Sxs despite Abx & steroid Rx who we are asked to evaluate after his CXR revealed complete white out of the left hemithorax, mild leftward shift of the trachea, a combination of consolidation & pleural fluid and the follow-up chest CTA revealed no PE, but a completely collapsed L lung, a loculated L pleural effusion, new R micronodules, a small R pleural effusion, and an enlarging pericardial effusion. Recommendations: * Consider telemetry or ICU transfer given the potential for hemodynamic compromise from the enlarging pericardial effusion. * Echocardiogram to assess for tamponade physiology secondary to the enlarging pericardial effusion. * A call has been placed for a CT surgical consultation with Yan Beauchamp M.D. * Make n.p.o. after midnight, in case an urgent pericardial window is required. * Pulmonary consultation. * DVT prophylaxis. Further recommendations will follow, Thank you. Consult Acknowledgment - Thank you for your consult request.
[2018-03-02 21:16] VITALS: BP 116/70
[2018-03-03 06:15] VITALS: BP 120/70
--- NOTE | 2018-03-03 07:26 | PN- Housestaff ---
Subjective Follow-up For: Shortness of breath Subjective: Patient seen and examined at bedside has CPAP machine on, no acute events overnight. Afebrile. Patient states he is feeling better today, breathing is better, cough is better, is nonproductive. Denies shortness of breath, fevers, night sweats, chills, headache, blurred vision. Review of Systems Constitutional: Denies: chills, diaphoresis, fever. EENTM: Denies: visual changes. Cardiovascular: Denies: chest pain, orthopena. Respiratory: Reports: cough. Denies: orthopnea, short of breath. Gastrointestinal: Denies: abdominal pain, constipation, diarrhea. Objective Last 24 Hrs of Vital Signs/I&O Vital Signs Date Time Temp Pulse Resp B/P B/P Pulse O2 O2 Flow FiO2 Mean Ox Delivery Rate 03/03 0615 98.1 74 20 120/70 98 Nasal 2.0L Cannula 03/03 0045 73 98 03/03 0044 96 Nasal 2.0L Cannula 03/03 0000 100 Nasal 2.0L Cannula 03/02 2116 98.0 83 20 116/70 100 03/02 1903 Nasal 2.0L Cannula 03/02 1621 96 Nasal 2.0L Cannula 03/02 1621 99.0 89 18 148/72 96 Nasal 2.0L Cannula 03/02 1537 98.3 98 22 128/63 98 Nasal 2.0L Cannula 03/02 1405 97 Nasal 2.0L Cannula 03/02 1308 Nasal 2.0L Cannula 03/02 1246 99.2 106 24 103/70 98 Nasal 2.0L Cannula Intake & Output 03/03 0800 03/03 0000 03/02 1600 Intake Total 800 2660 Output Total 300 Balance 800 2360 Intake, IV 800 2300 Intake, Oral 0 360 Output, Urine 300 Patient 288 lb 288 lb Weight Weight Reported by Patient Reported by Patient Measurement Method Physical Exam General Appearance: Alert, Oriented X3, Cooperative Skin: No Rashes HEENT: Atraumatic, EOMI, CPAP in place Neck: Supple Cardiovascular: Normal S1, Normal S2, Low pitched heart sounds Lungs: Normal Air Movement, Wheezing appreciated bilat. in lower lung carrera Abdomen: Normal Bowel Sounds, Soft, No Tenderness Neurological: Normal Speech Extremities: No Cyanosis, Normal Pulses, +1 pitting edema bilat Assessment/Plan Assessment: Patient is a 47-year-old male with a past medical history of stage III non-small cell lung cancer of LLL status post chemotherapy with Braxan 1 year ago, radiation therapy 6 months ago, COPD on 2 L of home oxygen, sleep apnea on CPAP, spinal stenosis, bronchitis. Patient is presenting with complaints of cough with clear/white sputum, shortness of breath with walking and talking, low-grade fevers, chest tightness for the past 1 month Problem List: 1. Sepsis 2. Pneumonia 3. Infectious Bronchiolitis 4. Pericardian Effusion 5. Anemia 6. COPD 7. Sleep Apnea 8. Spinal Stenosis #Sepsis Patient meets sepsis criteria with: Elevated: HR, RR, Lactate level, WBC. Source is of pulmonary origin. Plan: - activate sepsis protocol - Lactate normalized on 03/02/18 1.4 - continue ABx - No growth 2/2 blood cultures after day 1 #Pneumonia Concern for gram negative bacteria as cause. Failed multiple outpatient therapies. Neg. Strep Pneumo and Legionella. Plan: - Ceftazidime 2000mg - Vancomycin 1000mg - Azithromycin 500mg #Infectious Bronchiolitis - f/u sputum culture #Pericardial effusion Low Voltage EKG, Moderate pericardian effusion on TTE on 03/02/18 Plan: - Cardiac Window placement on 03/03/18 w/ Dr. Braden - monitor patient for signs of hemodynamic instability #Acute on Chronic Anemia current H/H at 9.9/30.9 PLan: - order Iron Panel - Order Fecal Occult #COPD Plan: - IV Methyprednisolon 40mg BID - Guaifenesin/Codeine 10mL - Spiriva - Singular 10mg - Nebulizer - TRC #Obstructive Sleep Apnea -Continue CPAP #Spinal Stenosis Plan: -Tramadol 50mg Patient was transferred to ICU due to concern of hemodynamic collapse, per Cardiology rec's Problem List: 1. Shortness of breath Pain Ratin Pain Location: n/a Pain Goal: Remain pain free Pain Plan: tramadol Tomorrow's Labs & Rationales: CBC, BEP
--- NOTE | 2018-03-03 07:39 | Event Note ---
Event Note Event Note: S: Mr. Dockery is a 47-year-old male who presented with about one-month history of productive cough, chest tightness, and fevers found to have a complete whiteout on left side on chest x-ray with subsequent CTA revealing the distal left mainstem bronchus occluded with left lung completely collapsed and TTE revealing partial right atrial diastolic collapse consistent with early tamponade physiology in the setting of stable hemodynamics. B: Mr. Dockery is a 47-year-old male with past medical history of stage III non- small cell lung cancer status post radiation and chemotherapy followed by Dr. Pink and COPD on 2 L of home oxygen followed by Dr. Ortiz. A/R: After consulting pulmonology and cardiology, the plan is to perform a bronchoscopy today and possible pericardial window depending on cardiology assessment. Patient will need ICU monitoring post operatively so we will transfer the patient now to the ICU for further care and cardiac monitoring. Patient is currently on vancomycin and ceftazidine as well as methylprednisone [address] Ortiz, Dr. Sampson and Dr. Beauchamp have been consulted and will be following the patient. He is currently n.p.o. for bronchoscopy. Family has been called, left a message on answering machine.
[2018-03-03 08:00] VITALS: BP 118/84
[2018-03-03 08:11] LABS: PT 18.5 SEC (9.4-12.5)
[2018-03-03 08:19] LABS: ABSOLUTE BASOPHIL COUNT 0 /CUMM (0.0-0.2); ABSOLUTE EOSINOPHIL COUNT 0 /CUMM (0.0-0.7); ABSOLUTE GRANULOCYTE CT 9.5 /CUMM (1.4-6.5); ABSOLUTE LYMPH COUNT 0.6 /CUMM (1.2-3.4); ABSOLUTE MONOCYTE COUNT 0.5 /CUMM (0.10-0.60); BASOPHIL % 0 % (0.0-2.0); EOSINOPHIL % 0 % (0-5); HEMATOCRIT 29.3 % (42-52); MEAN CORPUSCULAR HGB 24.1 PG (27.0-31.0); MEAN CORPUSCULAR HGB CONC 31.2 G/DL (33.0-37.0); MEAN CORPUSCULAR VOLUME 77.2 FL (80.0-94.0); MEAN PLATELET VOLUME 7.8 FL (7.4-10.4); PLATELET COUNT 496 /CUMM (130-400); RBC DISTRIBUTION WIDTH 22.1 % (11.5-14.5); RED BLOOD CELL CT 3.79 /CUMM (4.70-6.10); WHITE BLOOD CELL COUNT 10.5 /CUMM (4.8-10.8)
--- NOTE | 2018-03-03 09:42 | Cons- CRCU ---
See Addendum General Information and HPI Consulting Request Date of Consult: 03/03/18 Requested By: Dr. Tino Salcedo Reason for Consult: Left lung collapse and pericardial effusion History of Present Illness: 47 year old male with past medical history of MARCI on CPAP, former smoker, COPD with chronic hypoxemic respiratory failure on 2L home oxygen, and stage III non small cell lung cancer LLL s/p chemoradiation therapy with paclitaxel was sent into the ED by his warp tester with upper respiratory complaints of productive cough, fever, dyspnea, and chest pain for the past month despite azithromycin and steroids after his chest x-ray revealed complete opacification of the left hemithorax, leftward tracheal shift of the trachea. He reported occasional headaches managed with OTC analgesics and one episode transient double vision and chronic constipation. He denied sore throat, chest pain, or recent travel on review of systems. He quit smoking 1-2 years ago, except for occasional cigar and smoking medical marijuana. The patient had a recent PET/CT scan on 02/24 that revealed a left lower lung mass that now appears centrally necrotic, a small to moderate pericardial effusion that increased in size, a right lower lobe nodular opacity is nonspecific but favored inflammatory/infectious etiology. Vital signs were T 99.2, HR 106, RR 24, BP 103/70, saturating 98% on 2 L nasal cannula. Laboratories were significant for white blood cell count 14.3, hemoglobin 9.9, MCV 75.9, platelets 544, glucose 115, lactic acid 2.4, alkaline phosphatase 158, proBNP 383. CTA showed consolidation and pleural fluid, a complete left lung collapse, loculated left pleural effusion, new right nodules, and an enlarging pericardial effusion. Echocardiogram was performed and showed normal LVEF, mild LVH, and moderate pericardial effusion with partial right atrial diastolic collapse consistent with early tamponade physiology. The patient has now been transferred to critical care perioperatively for planned KI, bronchoscopy, and pericardial window today. Allergies/Medications Allergies: Coded Allergies: No Known Allergies (03/02/18) Home Med List: Albuterol Sulfate (Proair Hfa) 90 MCG HFA.AER.AD 2 PUF INH Q4-6 PRN PRN COPD (Reported) Albuterol Sulfate 2.5 MG/3 ML (0.083 %) VIAL.NEB 1 Vial INH/JOSE Q4P PRN SHORTNESS OF BREATH (Reported) Azelastine HCl (Astepro) 205.5 MCG (0.15 %) SPRAY.PUMP 2 SPRAY [place] BID CONGESTION (Reported) Budesonide/Formoterol Fumarate (Symbicort 160-4.5 Mcg Inhaler) 160 MCG-4.5 MCG/ ACTUATION HFA.AER.AD 2 PUF INH BID BREATHING PROBLEMS (Reported) Fluticasone Propionate (Flonase Allergy Relief) 50 MCG/ACTUATION SPRAY.SUSP 1 SPRAY [place] BID ALLERGIES (Reported) Montelukast Sodium (Singulair) 10 MG TABLET 1 TAB PO QPM ASTHMA (Reported) Tiotropium [place] (Spiriva) 18 MCG CAP.W.DEV 1 CAP INH DAILY COPD (Reported) Tramadol HCl 50 MG TABLET 1 TAB PO TIDPRN BACK PAIN (Reported) Current Medications: Current Medications Sig/Harman Start time Last Medication Dose Route Stop Time Status Admin Acetaminophen 1,000 MG Q8P PRN 03/02 1500 AC 03/02 PO 2104 Albuterol Sulfate 3 ML EVERY 4 HRS/AWAKE 03/02 2000 AC 03/03 INH 1104 Albuterol Sulfate 2 PUF Q4-6 PRN PRN 03/02 1515 AC INH Albuterol Sulfate 3 ML ONCE ONE 03/02 1400 DC 03/02 INH 03/02 1401 1405 Azithromycin 500 MG DAILY 03/03 0900 DC Sodium Chloride 250 ML IV Budesonide/ 2 PUF BID 03/02 2100 AC 03/03 Formoterol Fumarate INH 0836 Ceftazidime 1,000 MG IQ8 03/02 1600 CAN IV Ceftazidime 2,000 MG IQ8 03/02 1600 AC 03/03 IV 0838 Ceftriaxone Sodium 1,000 MG DAILY 03/03 0900 CAN IV Docusate Sodium 100 MG BID PRN 03/02 1500 AC PO Enoxaparin Sodium 40 MG DAILY 03/03 0900 DC SC Fluticasone 2 SPRAY DAILY 03/03 0900 DC Propionate CORRIE Fluticasone 2 SPRAY 2100 03/02 2100 AC 03/02 Propionate CORRIE 2224 Guaifenesin/Codeine 10 ML Q4P PRN 03/02 1500 AC Phosphate PO Ipratropium [place] 2.5 ML ONCE ONE 03/02 1400 DC 03/02 INH 03/02 1401 1405 Lactated Ringer's 1,000 ML .Q10H 03/02 1930 AC 03/03 IV 03/03 1529 0939 Lactated Ringer's 1,000 ML Q1H 03/02 1730 DC 07 IV 03/02 1929 2150 Lactated Ringer's 1,000 ML .Q10H 03/02 1715 CAN IV 03/03 2314 Lactated Ringer's 2,919.05 ML ONCE 03/02 1500 CAN IV Lidocaine 1 ML .STK-MED ONE 03/02 1350 DC ID 03/02 1351 Methylprednisolone 40 MG Q12 03/03 0900 AC 03/03 IV 0838 Methylprednisolone 0 .STK-MED ONE 03/02 1403 DC .ROUTE Methylprednisolone 125 MG ONCE ONE 03/02 1400 DC 07 IV 03/02 1401 1407 Montelukast Sodium 10 MG QPM 03/02 2100 AC 03/02 PO 2100 Polyethylene Glycol 17 GM AT BEDTIME PRN 03/02 1500 AC PO Senna/Docusate Sodium 1 TAB AT BEDTIME PRN 03/02 1500 AC PO Sodium Chloride 1,000 ML BOLUS ONE 03/02 1415 DC 03/02 IV 03/02 1514 1436 Tiotropium [place] 1 PUF DAILY 03/03 0900 AC 03/03 INH 0835 Tramadol HCl 50 MG Q8P PRN 03/02 1530 AC 03/03 PO 0837 Vancomycin HCl 1,000 MG Q12 03/03 0900 AC 03/03 Sodium Chloride 250 ML IV 1029 Vancomycin HCl 1,000 MG ONCE ONE 03/02 1530 DC 07 Sodium Chloride 250 ML IV 03/02 1629 1750 Vancomycin HCl 1,000 MG ONCE ONE 03/02 1400 DC 03/02 Sodium Chloride 250 ML IV 03/02 1459 1436 Review of Systems Review of Systems Constitutional: Reports: chills, fever, malaise. EENTM: Reports: double vision. Denies: nasal congestion, nasal pain, throat pain. Cardiovascular: Reports: chest pain. Denies: orthopena, palpitations. Respiratory: Reports: cough, short of breath, sputum production, wheezing. GI: Reports: constipation. Denies: abdominal pain, diarrhea, nausea, vomiting. Genitourinary: Denies: dysuria, frequency. Musculoskeletal: Reports: back pain. Skin: Reports: see HPI. Neurological/Psychological: Reports: no symptoms. Hematologic/Endocrine: Reports: no symptoms. Immunologic/Allergic: Reports: no symptoms. 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 Home Who Do You Live With? spouse Services at Home: None (2.0 L), Oxygen Primary Language: Micronesian Smoking Status: Former Smoker (Currently Smokes Marijuana) ETOH Use: occasional use Illicit Drug Use: marijuana Functional Ability ADLs Independent: dressing, eating, toileting, bathing. Ambulation: independent IADLs Independent: shopping, housework, finances, food prep, telephone, transportation , medication admin. Exam & Diagnostic Data Last 24 Hrs of Vital Signs/I&O Vital Signs Date Time Temp Pulse Resp B/P B/P Pulse O2 O2 Flow FiO2 Mean Ox Delivery Rate 03/03 0745 96 Nasal 2.0L Cannula 03/03 0615 98.1 74 20 120/70 98 Nasal 2.0L Cannula 03/03 0045 73 98 03/03 0044 96 Nasal 2.0L Cannula 03/03 0000 100 Nasal 2.0L Cannula 03/02 2116 98.0 83 20 116/70 100 03/02 1903 Nasal 2.0L Cannula 03/02 1621 96 Nasal 2.0L Cannula 03/02 1621 99.0 89 18 148/72 96 Nasal 2.0L Cannula 03/02 1537 98.3 98 22 128/63 98 Nasal 2.0L Cannula 03/02 1405 97 Nasal 2.0L Cannula 03/02 1308 Nasal 2.0L Cannula 03/02 1246 99.2 106 24 103/70 98 Nasal 2.0L Cannula Intake & Output 03/03 1600 03/03 0800 03/03 0000 Intake Total 800 2660 Output Total 300 Balance 800 2360 Intake, IV 800 2300 Intake, Oral 0 360 Output, Urine 300 Patient 130.635 kg Weight Weight Reported by Patient Measurement Method Physical Exam General Appearance: well developed/nourished, no apparent distress, alert, comfortable, obese, on 2L NC Respiratory: diminished breath sounds L>R, minimal wheezing, R lung rhonchi Cardiovascular: regular rate/rhythm, normal peripheral pulses Gastrointestinal: normal bowel sounds, soft, non-tender Extremities: normal inspection, normal range of motion, trace b/l LE edema Neurologic/Psych: no motor/sensory deficits Last 48 Hrs of Labs/Christian: Laboratory Tests 03/03/18 0730: Anion Gap 11, Estimated GFR > 60, BUN/Creatinine Ratio 28.0 H, Calcium 9.7, Phosphorus 3.5, Magnesium 1.9, PT 18.5 H, INR 1.69 H, CBC w Diff NO MAN DIFF REQ, RBC 3.79 L, MCV 77.2 L, MCH 24.1 L, MCHC 31.2 L, RDW 22.1 H, MPV 7.8, Gran % 90.0 H, Lymphocytes % 5.3 L, Monocytes % 4.7, Eosinophils % 0, Basophils % 0, Absolute Granulocytes 9.5 H, Absolute Lymphocytes 0.6 L, Absolute Monocytes 0.5, Absolute Eosinophils 0, Absolute Basophils 0 03/02/18 1900: Lactic Acid Cancelled 03/02/18 1739: Urine Color YEL, Urine Clarity CLEAR, Urine pH 6.0, Ur Specific [place] 1.020, Urine Protein TRACE H, Urine Ketones NEG, Urine Nitrite NEG, Urine Bilirubin NEG, Urine Urobilinogen 0.2, Ur Leukocyte Esterase NEG, Ur Microscopic SEDIMENT EXAMINED, Urine WBC RARE, Ur Epithelial Cells RARE, Urine Mucus RARE, Urine Hemoglobin NEG, Urine Glucose NEG 03/02/18 1644: Lactic Acid 1.4 03/02/18 1352: PT 19.3 H, INR 1.76 H, APTT 28 03/02/18 1301: Anion Gap 13, Estimated GFR > 60, BUN/Creatinine Ratio 25.0, Glucose 115 H, Lactic Acid 2.4 H, Calcium 9.6, Iron 27 L, TIBC 283, Ferritin 394.0, Total Bilirubin 0.4, AST 34, ALT 47, Alkaline Phosphatase 158 H, Troponin I < 0.01, Pgc-P-Xlvriyjaffo Pept 383 H, Total Protein 7.5, Albumin 3.2 L, Globulin 4.3 H, Albumin/Globulin Ratio 0.7 L, CBC w Diff MAN DIFF ORDERED, RBC 4.07 L, MCV 75.9 L, MCH 24.2 L, MCHC 31.9 L, RDW 21.0 H, MPV 7.9, Gran % 85.0 H, Lymphocytes % 7.2 L, Monocytes % 6.5, Eosinophils % 0.7, Basophils % 0.6, Absolute Granulocytes 12.2 H, Segmented Neutrophils 77 H, Band Neutrophils 7 H, Absolute Lymphocytes 1.0 L, Lymphocytes 8 L, Monocytes 7, Absolute Monocytes 0.9 H, Eosinophils 1, Absolute Eosinophils 0.1, Absolute Basophils 0.1, Platelet Estimate INCREASED, Polychromasia 2+, Hypochromic-Microcytic 2+, Anisocytosis 1+, Microcytic Cells 1+ 03/02/18 1259: Lactic Acid Cancelled, [id number]-C-Debuufqqfjc Pept Cancelled Microbiology 03/02 1739 URINE ROUT: Legionella Antigen - COMP 03/02 1739 URINE ROUT: Streptococcus pneumoniae Antigen (M - COMP Assessment/Plan CRCU Impression/Plan: 47 year old male with past medical history of MARCI on CPAP, former smoker, COPD with chronic hypoxemic respiratory failure on 2L home oxygen, and stage III non small cell lung cancer LLL s/p chemoradiation therapy was sent into the ED by his warp tester with upper respiratory complaints of productive cough, fever, dyspnea, and chest pain for the past month despite antibiotics and steroids after his chest x-ray revealed complete opacification of the left hemithorax, leftward tracheal shift of the trachea. CTA showed consolidation and pleural fluid, a complete left lung collapse, loculated left pleural effusion, new right nodules, and an enlarging pericardial effusion. Echocardiogram was performed and showed normal LVEF, mild LVH, and moderate pericardial effusion with partial right atrial diastolic collapse consistent with early tamponade physiology. The patient has now been transferred to critical care perioperatively for planned KI, bronchoscopy, and pericardial window today. Sepsis with lactic acidemia secondary to pneumonia Leukocytosis with bandemia, tachycardia, tachypnea, lactic acidemia, and opacity on cxr Failed two outpatient courses of antibiotics Fever previously at home, Afebrile from admission, currently on solumedrol and antibiotics Leukocytosis and bandemia improved on today's labs 14.3 -> 10.5, 7 -> 0 Sputum cultures, many squamous cells poor specimen Blood cultures pending Strep pneumo and legionella urinary antigens negative Currently on Vancomycin 1g IV Q12H and Ceftazidime 2g IV Q8H Likely post obstructive pneumonia Loculated left pleural effusion and left lung collapse Plan for bronchoscopy today, probably left distal mainstem obstruction either endobronchial lesion or mucous plugging Pulmonology/critical care consulted Enlarging pericardial effusion Suspected malignant effusion NPO for pericardial window today Low voltage EKG Normotensive Echocardiogram shows moderate pericardial effusion with partial right atrial diastolic collapse consistent with early tamponade physiology Cardiology and Cardiothoracic surgery consulted, appreciate recommendations Intraoperative KI planned today for pericardial window/bronchoscopy Stage III non small cell cancer: PET/CT done at [place] 02/24 Decrease in uptake (25 -> 17 per pt) of primary LLL mass Persistent uptake in mediastinal nodes Completed chemotherapy with paclitaxel 1 year ago and radiation therapy 6 months ago COPD with chronic hypoxemic respiratory failure: Solumedrol 40mg iv q12 TRC evaluation, nebulized albuterol and ipatropium Continue singulair, spiriva, and symbicort On baseline oxygen with no respiratory distress MARCI: Continue nocturnal CPAP Microcytic anemia: Ferritin and TIBC normal, serum iron low Chronic back pain/spinal stenosis: Continue tramadol for analgesia NPO for bronchoscopy/pericardial window DVT ppx-lovenox held preprocedure Full code Consult Acknowledgment - Thank you for your consult request.
--- NOTE | 2018-03-03 15:30 | Cons- Thoracic Surgery ---
General Information and HPI Consulting Request Date of Consult: 03/02/18 Requested By: Flaca Ortiz MD Reason for Consult: Pericardial effusion with early tamponade physiology Source of Information: patient, family, PCP Exam Limitations: no limitations History of Present Illness: The patient is a 47-year-old gentleman who is known to me. I was involved in his initial diagnosis of his stage III left lower lobe lung cancer. He has been treated with chemotherapy and radiation therapy. A recent PET scan had shown what appeared to be stable disease but with some evidence of possible necrosis of the primary tumor. Patient was being seen in the office by his reading recovery teacher yesterday and was sent to the emergency room for evaluation because of a fairly significant resting dyspnea. Evaluation is included CT scan and echocardiogram which is shown a complete obstruction of the left distal mainstem bronchus along with complete consolidation of the left lung and a significant pericardial effusion. Echocardiogram has shown evidence of early tamponade physiology. Cardiothoracic surgical evaluation is asked for help in management and treatment. Allergies/Medications Allergies: Coded Allergies: No Known Allergies (03/02/18) Home Med List: Albuterol Sulfate (Proair Hfa) 90 MCG HFA.AER.AD 2 PUF INH Q4-6 PRN PRN COPD (Reported) Albuterol Sulfate 2.5 MG/3 ML (0.083 %) VIAL.NEB 1 Vial INH/JOSE Q4P PRN SHORTNESS OF BREATH (Reported) Azelastine HCl (Astepro) 205.5 MCG (0.15 %) SPRAY.PUMP 2 SPRAY NASB BID CONGESTION (Reported) Budesonide/Formoterol Fumarate (Symbicort 160-4.5 Mcg Inhaler) 160 MCG-4.5 MCG/ ACTUATION HFA.AER.AD 2 PUF INH BID BREATHING PROBLEMS (Reported) Fluticasone Propionate (Flonase Allergy Relief) 50 MCG/ACTUATION SPRAY.SUSP 1 SPRAY CORRIE BID ALLERGIES (Reported) Montelukast Sodium (Singulair) 10 MG TABLET 1 TAB PO QPM ASTHMA (Reported) Tiotropium [place] (Spiriva) 18 MCG CAP.W.DEV 1 CAP INH DAILY COPD (Reported) Tramadol HCl 50 MG TABLET 1 TAB PO TIDPRN BACK PAIN (Reported) Current Medications: Current Medications Sig/Harman Start time Last Medication Dose Route Stop Time Status Admin Acetaminophen 1,000 MG Q8P PRN 03/02 1500 AC 03/03 PO 1140 Albuterol Sulfate 3 ML EVERY 4 HRS/AWAKE 03/02 2000 AC 03/03 INH 1104 Albuterol Sulfate 2 PUF Q4-6 PRN PRN 03/02 1515 AC INH Azithromycin 500 MG DAILY 03/03 0900 DC Sodium Chloride 250 ML IV Budesonide/ 2 PUF BID 03/02 2100 AC 03/03 Formoterol Fumarate INH 0836 Ceftazidime 2,000 MG IQ8 03/02 1600 AC 03/03 IV 0838 Docusate Sodium 100 MG BID PRN 03/02 1500 AC PO Enoxaparin Sodium 40 MG DAILY 03/03 0900 DC SC Fluticasone 2 SPRAY DAILY 03/03 0900 DC Propionate CORRIE Fluticasone 2 SPRAY 2100 03/02 2100 AC 03/02 Propionate CORRIE 2224 Guaifenesin/Codeine 10 ML Q4P PRN 03/02 1500 AC Phosphate PO Lactated Ringer's 1,000 ML .Q10H 03/02 1930 AC 03/03 IV 03/03 1529 0939 Lactated Ringer's 1,000 ML Q1H 03/02 1730 DC 03/02 IV 03/02 1929 2150 Lactated Ringer's 1,000 ML .Q10H 03/02 1715 CAN IV 03/03 2314 Lactated Ringer's 2,919.05 ML ONCE 03/02 1500 CAN IV Methylprednisolone 40 MG Q12 03/03 0900 AC 03/03 IV 0838 Montelukast Sodium 10 MG QPM 03/02 2100 AC 03/02 PO 2100 Polyethylene Glycol 17 GM AT BEDTIME PRN 03/02 1500 AC PO Senna/Docusate Sodium 1 TAB AT BEDTIME PRN 03/02 1500 AC PO Tiotropium [place] 1 PUF DAILY 03/03 0900 AC 03/03 INH 0835 Tramadol HCl 50 MG Q8P PRN 03/02 1530 AC 03/03 PO 0837 Vancomycin HCl 1,000 MG Q12 03/03 0900 AC 03/03 Sodium Chloride 250 ML IV 1029 Vancomycin HCl 1,000 MG ONCE ONE 03/02 1530 DC 03/02 Sodium Chloride 250 ML IV 03/02 1629 1750 Past History Medical History Blood Transfusion Hx: No Neurological: NONE EENT: NONE Cardiovascular: NONE Respiratory: COPD, emphysema, obstructive sleep apnea, Stage III non-small cell lung cancer Gastrointestinal: NONE Hepatic: NONE Renal: NONE Musculoskeletal: NONE, spinal stenosis Psychiatric: NONE Endocrine: NONE Blood Disorders: NONE 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 Home Who Do You Live With? spouse Services at Home: None (2.0 L), Oxygen Primary Language: Maltese Smoking Status: Former Smoker (Currently Smokes Marijuana) ETOH Use: occasional use Illicit Drug Use: marijuana Functional Ability ADLs Independent: dressing, eating, toileting, bathing. Ambulation: independent IADLs Independent: shopping, housework, finances, food prep, telephone, transportation , medication admin. Review of Systems Review of Systems: He has had significant dyspnea. He has had fevers at home. There is some pleuritic type chest pain on the left side. He is having no anginal type chest pain. He has a cough and there is no hemoptysis. The rest of his 12 point review of systems is on Exam & Diagnostic Data Vital Signs and I&O Vital Signs Date Time Temp Pulse Resp B/P B/P Pulse O2 O2 Flow FiO2 Mean Ox Delivery Rate 03/03 0745 96 Nasal 2.0L Cannula 03/03 0615 98.1 74 20 120/70 98 Nasal 2.0L Cannula 03/03 0045 73 98 03/03 0044 96 Nasal 2.0L Cannula 03/03 0000 100 Nasal 2.0L Cannula 03/02 2116 98.0 83 20 116/70 100 03/02 1903 Nasal 2.0L Cannula 03/02 1621 96 Nasal 2.0L Cannula 03/02 1621 99.0 89 18 148/72 96 Nasal 2.0L Cannula 03/02 1537 98.3 98 22 128/63 98 Nasal 2.0L Cannula Intake & Output 03/03 1600 03/03 0800 03/03 0000 03/02 1600 03/02 0800 03/02 0000 Intake Total 800 2660 Output Total 300 Balance 800 2360 Intake, IV 800 2300 Intake, Oral 0 360 Output, Urine 300 Patient 288 lb 288 lb Weight Weight Reported by Patient Reported by Patient Measurement Method Physical Exam: On physical examination he appears well. His skin is warm and well perfused no suspicious lesions noted. The sclerae are anicteric and his mucous membranes are moist. There is no cervical or subclavicular lymphadenopathy. His breath sounds are diminished to absent on the left side with no wheezes or rhonchi noted on the right. The cardiac exam shows a regular rhythm and rate with no murmurs or sounds. He is tachycardic with a heart rate of 95. The abdomen is soft and nontender with no masses. The periphery shows no cyanosis clubbing or edema. His neurologic exam is grossly normal motor sensory function. Last 24 Hours of Labs: Laboratory Tests 03/03 03/03 03/03 1442 UNK 0730 Chemistry Sodium (137 - 145 mmol/L) 137 Potassium (3.5 - 5.1 mmol/L) 4.8 Chloride (98 - 107 mmol/L) 102 Carbon Dioxide (22 - 30 mmol/L) 25 Anion Gap (5 - 16) 11 BUN (9 - 20 mg/dL) 14 Creatinine (0.7 - 1.2 mg/dL) 0.5 L Estimated GFR (>60 ml/min) > 60 BUN/Creatinine Ratio (7 - 25 %) 28.0 H Calcium (8.4 - 10.2 mg/dL) 9.7 Phosphorus (2.5 - 4.5 mg/dL) 3.5 Magnesium (1.6 - 2.3 mg/dL) 1.9 Coagulation PT (9.4 - 12.5 SEC) 18.5 H INR (0.90 - 1.17) 1.69 H Hematology CBC w Diff NO MAN DIFF REQ WBC (4.8 - 10.8 /CUMM) 10.5 RBC (4.70 - 6.10 /CUMM) 3.79 L Hgb (14.0 - 18.0 G/DL) 9.1 L Hct (42 - 52 %) 29.3 L MCV (80.0 - 94.0 FL) 77.2 L MCH (27.0 - 31.0 PG) 24.1 L MCHC (33.0 - 37.0 G/DL) 31.2 L RDW (11.5 - 14.5 %) 22.1 H Plt Count (130 - 400 /CUMM) 496 H MPV (7.4 - 10.4 FL) 7.8 Gran % (42.2 - 75.2 %) 90.0 H Lymphocytes % (20.5 - 51.1 %) 5.3 L Monocytes % (1.7 - 9.3 %) 4.7 Eosinophils % (0 - 5 %) 0 Basophils % (0.0 - 2.0 %) 0 Absolute Granulocytes (1.4 - 6.5 /CUMM) 9.5 H Absolute Lymphocytes (1.2 - 3.4 /CUMM) 0.6 L Absolute Monocytes (0.10 - 0.60 /CUMM) 0.5 Absolute Eosinophils (0.0 - 0.7 /CUMM) 0 Absolute Basophils (0.0 - 0.2 /CUMM) 0 Other Body Source Fluid WBC Pending Fld Total RBCs Counted Pending Fluid Tot Bilirubin Pending Fluid Amylase Pending 03/02 03/02 03/02 1900 1739 1644 Chemistry Lactic Acid (0.7 - 2.1 mmol/L) Cancelled 1.4 Urines Urine Color (YEL,AMB,STR) YEL Urine Clarity (CLEAR) CLEAR Urine pH (5.0 - 8.0) 6.0 Ur Specific [place] (1.001 - 1.035) 1.020 Urine Protein (NEG,<30 MG/DL) TRACE H Urine Ketones (NEG) NEG Urine Nitrite (NEG) NEG Urine Bilirubin (NEG) NEG Urine Urobilinogen (0.1 - 1.0 EU/dl) 0.2 Ur Leukocyte Esterase (NEG) NEG Ur Microscopic SEDIMENT EXAMINED Urine WBC (0 - 2 /HPF) RARE Ur Epithelial Cells (NONE,FEW) RARE Urine Mucus (FEW,NONE) RARE Urine Hemoglobin (NEG) NEG Urine Glucose (N MG/DL) NEG Imaging Results: CT scan of the chest shows a fairly large circumferential pericardial effusion and complete consolidation of the left lung with an obstructed distal left mainstem bronchus. Echocardiography shows diastolic collapse of the right atrium with features consistent with early tamponade physiology and a concentric circumferential pericardial effusion. Assessment/Plan Assessment/Plan 47-year-old advanced lung cancer with left lung consolidative collapse and a significant pericardial effusion. I suspect that the pericardial effusion is neoplastic and given the physiology seen on echocardiography a pericardial window is indicated. The plan will be for the patient to go to the operating room on 03/03/2018 with intraoperative transesophageal echocardiogram. We will do a bronchoscopy with Dr. Reagan for evaluation of the distal left bronchus and then a subxiphoid pericardial window for drainage of the effusion and obtaining pericardium and fluid for evaluation. The general plan is for a 5 day chest tube drainage to allow for the development of an obliteration of the pericardial space. Risks and benefits of the procedure including cardiac perforation and bleeding of been explained to the patient and he understands and agrees. Consult Acknowledgment - Thank you for your consult request.
--- NOTE | 2018-03-03 15:33 | Operative Report ---
Operative/Inv Procedure Report Surgery Date: 03/03/18 Name of Procedure: Bronchoscopy with bronchoalveolar lavage Pre-Operative Diagnosis: Left lung cancer with lobar collapse Post-Operative Diagnosis: Same Estimated Blood Loss: scant Surgeon/Purchasing Analyst: Flaca Ortiz MD Anesthesia: general endotracheal tube Operative/Procedure Note Note: After placement of monitoring lines and induction of general anesthesia a fiberoptic bronchoscopy was performed through the endotracheal tube. Throughout the airway there was a significant amount of thick appearing secretions that were cleared on the right side easily. On the right side the endobronchial anatomy was normal. On the left side in the distal mainstem bronchus there was a an occlusive thrombus with evidence of some tissue attached to it. This was removed and sent to pathology for further evaluation. Once that was removed it was obvious that there was a significant amount of mucosal disease obstructing both the right upper and right lower lobe. Given the fact that the patient had a known diagnosis of lung cancer biopsies were not taken as there was clearly some oozing from the mucosa and again both lumens were completely obstructed. A bronchoalveolar lavage was done with lidocaine with epinephrine and the fluid was sent for cytology. At the end of the procedure there was no evidence of any oozing or obstruction of the bronchus. The procedure continued as part of the same anesthetic. CC: Flaca Ortiz MD; Lala MURRAY,Justin Jung
--- NOTE | 2018-03-03 15:36 | Operative Report ---
Operative/Inv Procedure Report Surgery Date: 03/03/18 Name of Procedure: Pericardial window with intraoperative transesophageal echocardiogram Pre-Operative Diagnosis: Pericardial effusion with early tamponade physiology Post-Operative Diagnosis: Same Estimated Blood Loss: less than 50ml Surgeon/Conceptor: MD Gabrielle Maldonado Anesthesia: general endotracheal tube Operative/Procedure Note Note: Upon termination of the bronchoscopy the patient's chest and upper abdomen were prepped and draped in a sterile fashion. The procedure was done in its entirety under transesophageal echocardiogram which will be a separate dictation. Incision was made over the lower lower sternal border and carried down to rectus fascia. Fascia was divided in the midline and the xiphoid was freed and resected to allow for better exposure. The diaphragmatic attachments to the undersurface of the sternal edge were divided with electrocautery and this allowed grasping of the pericardium directly. The pericardium was incised and approximately 500 cc of serosanguineous nonclotting fluid was removed and echocardiography showed that cardiac function remains normal. The fluid was sent for cytology cell count chemistries and culture. A small section of anterior pericardium was resected and sent for permanent histology. The pericardium was drained with a 36 Tajik angled chest tube. The fascia was closed in the midline with [id number] Vicryl suture and the skin edges were approximated with running subcuticular suture. The patient tolerated the procedure well and was returned to the intensive care unit extubated in stable condition. CC: Diana MURRAY,Flaca Woods; Lala MURRAY,Justin Jung
--- NOTE | 2018-03-03 16:33 | RADIOLOGY REPORT ---
EXAMINATION: XR PORTABLE CHEST CLINICAL INFORMATION: Status post pericardial window. Chest tube in pericardial space. COMPARISON: CXR and chest CT from 03/02/2018 TECHNIQUE: Portable frontal view of the chest was obtained. FINDINGS: There is a right chest wall medication port with central catheter extending into the distal superior vena cava. The right lung remains well expanded. Again noted is complete opacification of the left hemithorax and left-sided shift of the cardiomediastinal silhouette. No pneumothorax or pneumomediastinum. The pericardial drainage tube is poorly visualized. The drainage tube appears to project over the midline of the lower chest. IMPRESSION: 1. The left hemithorax remains completely opacified. 2. The pericardial drainage tube is suboptimally visualized.
--- NOTE | 2018-03-03 17:37 | PN- Thoracic Surgery ---
Subjective Subjective: PT IN BED ON HUMIDIFIED NASAL O2. PT COMPLAINTS OF SIGNIFICANT INCISIONAL PAIN WHEN HE COUGHS. SAYS OVERALL SHORTNESS OF BREATH HAS IMPROVED SINCE BEFORE THE SURGERY. dENIES CHEST PAIN, CARDOZA OR DIZZINESS. Objective Vital Signs and I&Os Vital Signs Date Time Temp Pulse Resp B/P B/P Pulse O2 O2 Flow FiO2 Mean Ox Delivery Rate 03/03 0745 96 Nasal 2.0L Cannula 03/03 0615 98.1 74 20 120/70 98 Nasal 2.0L Cannula 03/03 0045 73 98 03/03 0044 96 Nasal 2.0L Cannula 03/03 0000 100 Nasal 2.0L Cannula 03/02 2116 98.0 83 20 116/70 100 03/02 1903 Nasal 2.0L Cannula Intake & Output 03/03 1600 03/03 0800 03/03 0000 03/02 1600 03/02 0800 03/02 0000 Intake Total 800 2660 Output Total 300 Balance 800 2360 Intake, IV 800 2300 Intake, Oral 0 360 Output, Urine 300 Patient 288 lb 288 lb Weight Weight Reported by Patient Reported by Patient Measurement Method Physical Exam: GEN- NAD RESP- COARSE BREATH SOUNDS WITH END EXPIRATORY WHEEZES. BREATH SOUNDS ARE DISTANT ON BRANDON LEFT. CARDIAC- RRR ABD- SOFT, TENDER AROUND INCISION. MINIMAL SANG DRAINAGE ON DRESSING. PERICARDIAL CHEST TUBE IN PLACE AT MIDLINE, ON SUCTION, 70CC SANG DRAINAGE IN PLEURAVAC. Current Medications: Current Medications Sig/Harman Start time Last Medication Dose Route Stop Time Status Admin Acetaminophen 1,000 MG Q6H 03/03 2100 UNVr PO Acetaminophen 1,000 MG ONCE ONE 03/03 1645 DC IV 03/03 1646 Acetaminophen 1,000 MG Q8P PRN 03/02 1500 DC 03/03 PO 1140 Albuterol Sulfate 3 ML EVERY 4 HRS/AWAKE 03/02 2000 AC 03/03 INH 1104 Albuterol Sulfate 2 PUF Q4-6 PRN PRN 03/02 1515 AC INH Azithromycin 500 MG DAILY 03/03 0900 DC Sodium Chloride 250 ML IV Budesonide/ 2 PUF BID 03/02 2100 AC 03/03 Formoterol Fumarate INH 0836 Ceftazidime 2,000 MG IQ8 03/02 1600 AC 03/03 IV 0838 Docusate Sodium 100 MG BID 03/03 2100 UNVr PO Docusate Sodium 100 MG BID PRN 03/02 1500 r PO 03/03 2059 Enoxaparin Sodium 40 MG DAILY 03/03 0900 DC SC Fluticasone 2 SPRAY DAILY 03/03 0900 DC Propionate CORRIE Fluticasone 2 SPRAY 2100 03/02 2100 AC 03/02 Propionate CORRIE 2224 Guaifenesin/Codeine 10 ML Q4P PRN 03/02 1500 AC Phosphate PO Heparin Sodium 5,000 UNIT Q8 03/04 0600 UNVr (Porcine) SC Hydromorphone HCl 0.6 MG Q2 HRS NEEDED PRN 03/03 1715 DC IV Hydromorphone HCl 0.4 MG Q10MIN PRN 03/03 1645 DC IV Hydromorphone HCl 0.6 MG Q10MIN PRN 03/03 1645 DC IV Hydromorphone HCl 0.2 MG Q10MIN PRN 03/03 1630 DC IV Lactated Ringer's 1,000 ML .[id number] 03/03 1645 AC IV Lactated Ringer's 1,000 ML .Q10H 03/02 1930 DC 03/03 IV 03/03 1529 0939 Lactated Ringer's 1,000 ML Q1H 03/02 1730 DC 03/02 IV 03/02 1929 2150 Methylprednisolone 40 MG Q12 03/03 0900 AC 03/03 IV 0838 Montelukast Sodium 10 MG QPM 03/02 2100 AC 03/02 PO 2100 Morphine Sulfate 2 MG Q4P PRN 03/03 1730 UNVr IV Morphine Sulfate 2 MG Q4P PRN 03/03 1545 DC 03/03 IV 1555 Ondansetron HCl 4 MG ONCE PRN 03/03 1645 AC IV Oxycodone HCl 5 MG Q6 PRN 03/03 1730 UNVr PO Oxycodone HCl 10 MG Q6H PRN 03/03 1730 UNVr PO Polyethylene Glycol 17 GM AT BEDTIME PRN 03/02 1500 AC PO Senna/Docusate Sodium 1 TAB AT BEDTIME PRN 03/02 1500 AC PO Tiotropium [place] 1 PUF DAILY 03/03 0900 AC 03/03 INH 0835 Tramadol HCl 50 MG Q8P PRN 03/02 1530 AC 03/03 PO 0837 Trimethobenzamide HCl 200 MG ONCE PRN 03/03 1645 AC IM Vancomycin HCl 1,000 MG Q12 03/03 0900 AC 03/03 Sodium Chloride 250 ML IV 1029 Results Last 48 Hours of Labs: Laboratory Tests 03/03 03/03 03/03 1442 UNK 0730 Chemistry Sodium (137 - 145 mmol/L) 137 Potassium (3.5 - 5.1 mmol/L) 4.8 Chloride (98 - 107 mmol/L) 102 Carbon Dioxide (22 - 30 mmol/L) 25 Anion Gap (5 - 16) 11 BUN (9 - 20 mg/dL) 14 Creatinine (0.7 - 1.2 mg/dL) 0.5 L Estimated GFR (>60 ml/min) > 60 BUN/Creatinine Ratio (7 - 25 %) 28.0 H Calcium (8.4 - 10.2 mg/dL) 9.7 Phosphorus (2.5 - 4.5 mg/dL) 3.5 Magnesium (1.6 - 2.3 mg/dL) 1.9 Coagulation PT (9.4 - 12.5 SEC) 18.5 H INR (0.90 - 1.17) 1.69 H Hematology CBC w Diff NO MAN DIFF REQ WBC (4.8 - 10.8 /CUMM) 10.5 RBC (4.70 - 6.10 /CUMM) 3.79 L Hgb (14.0 - 18.0 G/DL) 9.1 L Hct (42 - 52 %) 29.3 L MCV (80.0 - 94.0 FL) 77.2 L MCH (27.0 - 31.0 PG) 24.1 L MCHC (33.0 - 37.0 G/DL) 31.2 L RDW (11.5 - 14.5 %) 22.1 H Plt Count (130 - 400 /CUMM) 496 H MPV (7.4 - 10.4 FL) 7.8 Gran % (42.2 - 75.2 %) 90.0 H Lymphocytes % (20.5 - 51.1 %) 5.3 L Monocytes % (1.7 - 9.3 %) 4.7 Eosinophils % (0 - 5 %) 0 Basophils % (0.0 - 2.0 %) 0 Absolute Granulocytes (1.4 - 6.5 /CUMM) 9.5 H Absolute Lymphocytes (1.2 - 3.4 /CUMM) 0.6 L Lymphocytes (%) 15 Absolute Monocytes (0.10 - 0.60 /CUMM) 0.5 Absolute Eosinophils (0.0 - 0.7 /CUMM) 0 Absolute Basophils (0.0 - 0.2 /CUMM) 0 % Normal PMNs (%) 85 Misc Hematology Test (%) Other Body Source Fluid WBC (0 - 5 /CUMM) 1000 H Fld Total RBCs Counted (0 /CUMM) [id number] H Fluid Tot Bilirubin (mg/dL) 5.4 Fluid Amylase (U/L) 31 03/02 03/02 03/02 1900 1739 1644 Chemistry Lactic Acid (0.7 - 2.1 mmol/L) Cancelled 1.4 Urines Urine Color (YEL,AMB,STR) YEL Urine Clarity (CLEAR) CLEAR Urine pH (5.0 - 8.0) 6.0 Ur Specific [place] (1.001 - 1.035) 1.020 Urine Protein (NEG,<30 MG/DL) TRACE H Urine Ketones (NEG) NEG Urine Nitrite (NEG) NEG Urine Bilirubin (NEG) NEG Urine Urobilinogen (0.1 - 1.0 EU/dl) 0.2 Ur Leukocyte Esterase (NEG) NEG Ur Microscopic SEDIMENT EXAMINED Urine WBC (0 - 2 /HPF) RARE Ur Epithelial Cells (NONE,FEW) RARE Urine Mucus (FEW,NONE) RARE Urine Hemoglobin (NEG) NEG Urine Glucose (N MG/DL) NEG 03/02 03/02 03/02 1352 1301 1259 Chemistry Sodium (137 - 145 mmol/L) 137 Potassium (3.5 - 5.1 mmol/L) 4.4 Chloride (98 - 107 mmol/L) 99 Carbon Dioxide (22 - 30 mmol/L) 25 Anion Gap (5 - 16) 13 BUN (9 - 20 mg/dL) 15 Creatinine (0.7 - 1.2 mg/dL) 0.6 L Estimated GFR (>60 ml/min) > 60 BUN/Creatinine Ratio (7 - 25 %) 25.0 Glucose (65 - 99 mg/dL) 115 H Lactic Acid (0.7 - 2.1 mmol/L) 2.4 H Cancelled Calcium (8.4 - 10.2 mg/dL) 9.6 Iron (49 - 181 ug/dL) 27 L TIBC (261 - 462 ug/dL) 283 Ferritin (17.9 - 464 ng/mL) 394.0 Total Bilirubin (0.2 - 1.3 mg/dL) 0.4 AST (17 - 59 U/L) 34 ALT (21 - 72 U/L) 47 Alkaline Phosphatase (< 127 U/L) 158 H Troponin I (<0.11 ng/ml) < 0.01 [id number] Pept (<125 pg/mL) 383 H Cancelled Total Protein (6.3 - 8.2 g/dL) 7.5 Albumin (3.5 - 5.0 g/dL) 3.2 L Globulin (1.9 - 4.2 gm/dL) 4.3 H Albumin/Globulin Ratio (1.1 - 2.2 %) 0.7 L Coagulation PT (9.4 - 12.5 SEC) 19.3 H INR (0.90 - 1.17) 1.76 H APTT (25 - 37 SEC) 28 Hematology CBC w Diff MAN DIFF ORDERED WBC (4.8 - 10.8 /CUMM) 14.3 H RBC (4.70 - 6.10 /CUMM) 4.07 L Hgb (14.0 - 18.0 G/DL) 9.9 L Hct (42 - 52 %) 30.9 L MCV (80.0 - 94.0 FL) 75.9 L MCH (27.0 - 31.0 PG) 24.2 L MCHC (33.0 - 37.0 G/DL) 31.9 L RDW (11.5 - 14.5 %) 21.0 H Plt Count (130 - 400 /CUMM) 544 H MPV (7.4 - 10.4 FL) 7.9 Gran % (42.2 - 75.2 %) 85.0 H Lymphocytes % (20.5 - 51.1 %) 7.2 L Monocytes % (1.7 - 9.3 %) 6.5 Eosinophils % (0 - 5 %) 0.7 Basophils % (0.0 - 2.0 %) 0.6 Absolute Granulocytes (1.4 - 6.5 /CUMM) 12.2 H Segmented Neutrophils (42.2 - 75.2 %) 77 H Band Neutrophils (0.0 - 5.0 %) 7 H Absolute Lymphocytes (1.2 - 3.4 /CUMM) 1.0 L Lymphocytes (20.5 - 51.1 %) 8 L Monocytes (1.7 - 9.3 %) 7 Absolute Monocytes (0.10 - 0.60 /CUMM) 0.9 H Eosinophils (0 - 5.0 %) 1 Absolute Eosinophils (0.0 - 0.7 /CUMM) 0.1 Absolute Basophils (0.0 - 0.2 /CUMM) 0.1 Platelet Estimate (ADEQUATE) INCREASED Polychromasia 2+ Hypochromic-Microcytic 2+ Anisocytosis 1+ Microcytic Cells 1+ Assessment/Plan Assessment/Plan 46YO M WITH HX OF LEFT LUNG CA NOW HERE WITH PERICARDIAL EFFUSION SP PERICARDIAL WINDOW AND BRONCH. STABLE IN CRITICAL CARE UNIT POST-OP CXR SHOWED CONTINUED WHITE OUT OF LEFT LUNG AND NO PNEUMOTHORAX OR PNEUMOMEDIASTINUM. PAIN MANGEMENT CLEAR LIQUIDS OK TONGIHT CONT 24H SILVERIO-OP ABX DVT PPX- HSQ AND ALPS CONT PERICARDIAL CHEST TUBE TO SUCTION FOR 5 DAYS IS DRESSING CHANGE POD2 CONTINUE PRIMARY MANAGEMENT BY MEDICAL TEAM, SURGERY WILL FOLLOW Core Measures Venous Thromboembolism VTE Risk Factors Cancer/chemo/othr therapy No Mechanical VTE Prophylaxis d/t N/A MechProphylax Ordered No VTE Pharm Prophylaxis d/t NA PharmProphylax ordered
--- NOTE | 2018-03-03 18:25 | PN- Cardiology ---
Subjective Subjective: In ICU s/p pericardial window under KI guidance earlier. Complaining of incisional pain especially with cough. Breathing improved overall since prior to procedure. Objective Vital Signs and I&Os Vital Signs Date Time Temp Pulse Resp B/P B/P Pulse O2 O2 Flow FiO2 Mean Ox Delivery Rate 03/03 0745 96 Nasal 2.0L Cannula 03/03 0615 98.1 74 20 120/70 98 Nasal 2.0L Cannula 03/03 0045 73 98 03/03 0044 96 Nasal 2.0L Cannula 03/03 0000 100 Nasal 2.0L Cannula 03/02 2116 98.0 83 20 116/70 100 03/02 1903 Nasal 2.0L Cannula Intake & Output 03/03 1600 03/03 0800 03/03 0000 03/02 1600 03/02 0800 03/02 0000 Intake Total 800 2660 Output Total 300 Balance 800 2360 Intake, IV 800 2300 Intake, Oral 0 360 Output, Urine 300 Patient 288 lb 288 lb Weight Weight Reported by Patient Reported by Patient Measurement Method Physical Exam: Well-developed, obese middle-aged male in no acute distress with nasal oxygen in place. Vital signs: See above. HEENT: Normocephalic, atraumatic, EOMI, moist mucous membranes. Neck: No JVD, no bruits. Lungs: Decreased breath sounds bilaterally left greater than right. Heart: S1, S2. PMI not well felt. No murmur, gallop, or rub. Abdomen: Soft, nontender, positive bowel sounds. Extremities: No edema. Current Medications: Current Medications Sig/Harman Start time Last Medication Dose Route Stop Time Status Admin Acetaminophen 1,000 MG TID 03/03 2100 AC PO Acetaminophen 1,000 MG ONCE ONE 03/03 1645 DC 03/03 IV 03/03 1646 1730 Acetaminophen 1,000 MG Q8P PRN 03/02 1500 DC 03/03 PO 1140 Albuterol Sulfate 3 ML EVERY 4 HRS/AWAKE 03/02 2000 AC 03/03 INH 1545 Albuterol Sulfate 2 PUF Q4-6 PRN PRN 03/02 1515 AC INH Azithromycin 500 MG DAILY 03/03 0900 DC Sodium Chloride 250 ML IV Budesonide/ 2 PUF BID 03/02 2100 AC 03/03 Formoterol Fumarate INH 0836 Ceftazidime 2,000 MG IQ8 07/11 1600 AC 03/03 IV 1742 Docusate Sodium 100 MG BID 03/03 2100 AC PO Docusate Sodium 100 MG BID PRN 03/02 1500 AC PO 03/03 2059 Enoxaparin Sodium 40 MG DAILY 03/03 0900 DC SC Fluticasone 2 SPRAY DAILY 03/03 0900 DC Propionate CORRIE Fluticasone 2 SPRAY 2100 03/02 2100 AC 03/02 Propionate CORRIE 2224 Gabapentin 300 MG Q8 03/03 1743 AC PO Guaifenesin/Codeine 10 ML Q4P PRN 03/02 1500 AC Phosphate PO Heparin Sodium 5,000 UNIT Q8 03/04 0600 AC (Porcine) SC Hydromorphone HCl 0.6 MG Q2 HRS NEEDED PRN 03/03 1715 DC 03/03 IV 1730 Hydromorphone HCl 0.4 MG Q10MIN PRN 03/03 1645 DC IV Hydromorphone HCl 0.6 MG Q10MIN PRN 03/03 1645 DC IV Hydromorphone HCl 0.2 MG Q10MIN PRN 03/03 1630 DC IV Lactated Ringer's 1,000 ML .[id number] 03/03 1645 AC 03/03 IV 1731 Lactated Ringer's 1,000 ML .Q10H 03/02 1930 DC 03/03 IV 03/03 1529 0939 Lactated Ringer's 1,000 ML Q1H 03/02 1730 DC 03/02 IV 03/02 1929 2150 Methylprednisolone 40 MG Q12 03/03 0900 AC 03/03 IV 0838 Montelukast Sodium 10 MG QPM 03/02 2100 AC 03/02 PO 2100 Morphine Sulfate 2 MG Q4P PRN 03/03 1730 AC IV Morphine Sulfate 2 MG Q4P PRN 03/03 1545 DC 03/03 IV 1555 Ondansetron HCl 4 MG ONCE PRN 03/03 1645 AC IV Oxycodone HCl 5 MG Q6P PRN 03/03 1730 AC PO Oxycodone HCl 10 MG Q6P PRN 03/03 1730 AC PO Polyethylene Glycol 17 GM AT BEDTIME PRN 03/02 1500 AC PO Senna/Docusate Sodium 1 TAB AT BEDTIME PRN 03/02 1500 AC PO Tiotropium [place] 1 PUF DAILY 03/03 0900 AC 03/03 INH 0835 Tramadol HCl 50 MG Q8P PRN 03/02 1530 AC 03/03 PO 0837 Trimethobenzamide HCl 200 MG ONCE PRN 03/03 1645 AC IM Vancomycin HCl 1,000 MG Q12 03/03 0900 AC 03/03 Sodium Chloride 250 ML IV 1029 Results Last 48 Hrs of Labs/Mics: Laboratory Tests 03/03/18 1442: Lymphocytes 15, % Normal PMNs 85, Misc Hematology Test , Fluid WBC 1000 H, Fld Total RBCs Counted 546677 H 03/03/18 1000: Fluid Tot Bilirubin 5.4, Fluid Amylase 31 03/03/18 0730: Anion Gap 11, Estimated GFR > 60, BUN/Creatinine Ratio 28.0 H, Calcium 9.7, Phosphorus 3.5, Magnesium 1.9, PT 18.5 H, INR 1.69 H, CBC w Diff NO MAN DIFF REQ, RBC 3.79 L, MCV 77.2 L, MCH 24.1 L, MCHC 31.2 L, RDW 22.1 H, MPV 7.8, Gran % 90.0 H, Lymphocytes % 5.3 L, Monocytes % 4.7, Eosinophils % 0, Basophils % 0, Absolute Granulocytes 9.5 H, Absolute Lymphocytes 0.6 L, Absolute Monocytes 0.5, Absolute Eosinophils 0, Absolute Basophils 0 03/02/18 1900: Lactic Acid Cancelled 03/02/18 1739: Urine Color YEL, Urine Clarity CLEAR, Urine pH 6.0, Ur Specific [place] 1.020, Urine Protein TRACE H, Urine Ketones NEG, Urine Nitrite NEG, Urine Bilirubin NEG, Urine Urobilinogen 0.2, Ur Leukocyte Esterase NEG, Ur Microscopic SEDIMENT EXAMINED, Urine WBC RARE, Ur Epithelial Cells RARE, Urine Mucus RARE, Urine Hemoglobin NEG, Urine Glucose NEG 03/02/18 1644: Lactic Acid 1.4 03/02/18 1352: PT 19.3 H, INR 1.76 H, APTT 28 03/02/18 1301: Anion Gap 13, Estimated GFR > 60, BUN/Creatinine Ratio 25.0, Glucose 115 H, Lactic Acid 2.4 H, Calcium 9.6, Iron 27 L, TIBC 283, Ferritin 394.0, Total Bilirubin 0.4, AST 34, ALT 47, Alkaline Phosphatase 158 H, Troponin I < 0.01, Sdw-X-Gujrmpajhay Pept 383 H, Total Protein 7.5, Albumin 3.2 L, Globulin 4.3 H, Albumin/Globulin Ratio 0.7 L, CBC w Diff MAN DIFF ORDERED, RBC 4.07 L, MCV 75.9 L, MCH 24.2 L, MCHC 31.9 L, RDW 21.0 H, MPV 7.9, Gran % 85.0 H, Lymphocytes % 7.2 L, Monocytes % 6.5, Eosinophils % 0.7, Basophils % 0.6, Absolute Granulocytes 12.2 H, Segmented Neutrophils 77 H, Band Neutrophils 7 H, Absolute Lymphocytes 1.0 L, Lymphocytes 8 L, Monocytes 7, Absolute Monocytes 0.9 H, Eosinophils 1, Absolute Eosinophils 0.1, Absolute Basophils 0.1, Platelet Estimate INCREASED, Polychromasia 2+, Hypochromic-Microcytic 2+, Anisocytosis 1+, Microcytic Cells 1+ 03/02/18 1259: Lactic Acid Cancelled, Vzp-N-Apjowykwhuv Pept Cancelled Microbiology 03/02 173 URINE ROUT: Legionella Antigen - COMP 03/02 1739 URINE ROUT: Streptococcus pneumoniae Antigen (M - COMP Recent Imaging Studies: CXR 03/03/2018: 1. The left hemithorax remains completely opacified. 2. The pericardial drainage tube is suboptimally visualized. Assessment/Plan Assessment/Plan [id number] w/ hx of MARCI on CPAP, heavy tobacco use, COPD on home O2, & stage III non-small cell lung ca of LLL s/p chemo & radiation Rx who was referred to the ED by his air traffic control specialist this a.m. w/ c/o productive cough, SOB, CP, & low- grade fevers for the past month w/ persistence of Sxs despite Abx & steroid Rx who we were asked to evaluate after his CXR revealed complete white out of the left hemithorax, mild leftward shift of the trachea, a combination of consolidation & pleural fluid and the follow-up chest CTA revealed no PE, but a completely collapsed L lung, a loculated L pleural effusion, new R micronodules, a small R pleural effusion, and an enlarging pericardial effusion. CT surgery was consulted and agreed with the recommendation for a pericardial window for his pericardial effusion with early tamponade physiology. The pericardial window was successfully performed earlier today under [facility] guidance. Recommendations: * Continue ICU management. * Follow-up pericardial pathology. * Repeat ECG. Continue telemetry? Not applicable (In ICU.)
[2018-03-04] VITALS: BP 108/58
[2018-03-04 04:53] LABS: ABSOLUTE BASOPHIL COUNT 0 /CUMM (0.0-0.2); ABSOLUTE EOSINOPHIL COUNT 0 /CUMM (0.0-0.7); ABSOLUTE GRANULOCYTE CT 23.8 /CUMM (1.4-6.5); ABSOLUTE LYMPH COUNT 0.4 /CUMM (1.2-3.4); ABSOLUTE MONOCYTE COUNT 0.6 /CUMM (0.10-0.60); BASOPHIL % 0 % (0.0-2.0); EOSINOPHIL % 0 % (0-5); GRANULOCYTE % 95.9 % (42.2-75.2); HEMATOCRIT 28.4 % (42-52); MEAN CORPUSCULAR HGB 24.4 PG (27.0-31.0); MEAN CORPUSCULAR HGB CONC 31.7 G/DL (33.0-37.0); MEAN PLATELET VOLUME 7.7 FL (7.4-10.4); PLATELET COUNT 408 /CUMM (130-400); RBC DISTRIBUTION WIDTH 22.1 % (11.5-14.5); RED BLOOD CELL CT 3.69 /CUMM (4.70-6.10)
[2018-03-04 04:59] LABS: WHITE BLOOD CELL COUNT 24.8 /CUMM (4.8-10.8)
--- NOTE | 2018-03-04 07:31 | PN- Resident CRCU ---
Subjective HPI/CRCU Issues: enlarging pericardial effusion with early tamponade physiology left endobronchial lesion with complete left lung collapse copd chronic hypoxemic respiratory failure 24 Hour Events: POD#1 s/p bronchoscopy, KI, and pericardial window subxiphoid chest tube put out 60cc overnight and 50cc post procedure, total 110cc pain is well controlled currently CPAP overnight slept well, currently being transitioned to nasal cannula after nebulized meds no new complaints afebrile, new leukocytosis on ceftaz/vanc, likely reactive from surgery Objective Vital Signs & I&O Last 8 Hrs of Vitals and I&O: Temp 97.0, HR 65, BP 108/58, RR 22, SpO2 94% on 5L Exam General Appearance: well developed/nourished, alert, awake, comfortable, obese Respiratory: chest non-tender, no respiratory distress, diminished breath sounds L>R, subxyphoid chest tube 60cc output overnight, right chest wall port, no erythema Cardiovascular: regular rate/rhythm, normal peripheral pulses Gastrointestinal: normal bowel sounds, soft, non-tender Extremities: normal inspection, normal capillary refill, normal range of motion, no edema Current Medications: Current Medications Sig/Harman Start time Last Medication Dose Route Stop Time Status Admin Acetaminophen 1,000 MG TID 03/03 2100 AC 03/03 PO 2013 Acetaminophen 1,000 MG ONCE ONE 03/03 1645 DC 03/03 IV 03/03 1646 1730 Acetaminophen 975 MG .STK-MED ONE 03/03 1138 DC PO 03/03 1139 Acetaminophen 1,000 MG Q8P PRN 03/02 1500 DC 03/03 PO 1140 Albuterol Sulfate 3 ML EVERY 4 HRS/AWAKE 03/02 2000 AC 03/04 INH 0801 Albuterol Sulfate 2 PUF Q4-6 PRN PRN 03/02 1515 AC INH Azithromycin 500 MG DAILY 03/03 0900 DC Sodium Chloride 250 ML IV Budesonide/ 2 PUF BID 03/02 2100 AC 03/03 Formoterol Fumarate INH 2014 Ceftazidime 2,000 MG IQ8 03/02 1600 AC 03/03 IV 2357 Docusate Sodium 100 MG BID 03/03 2100 AC 03/03 PO 2015 Docusate Sodium 100 MG BID PRN 03/02 1500 DC PO 03/03 2059 Enoxaparin Sodium 40 MG DAILY 03/03 0900 DC SC Fentanyl Citrate 200 MCG .STK-MED ONE 03/03 1248 DC IM 03/03 1249 Fluticasone 2 SPRAY DAILY 03/03 0900 DC Propionate CORRIE Fluticasone 2 SPRAY 2100 03/02 2100 AC 03/03 Propionate CORRIE 2016 Gabapentin 300 MG Q8 03/03 1743 AC 03/04 PO 0430 Guaifenesin/Codeine 10 ML Q4P PRN 03/02 1500 AC Phosphate PO Heparin Sodium 5,000 UNIT Q8 03/04 0600 AC 03/04 (Porcine) SC 0430 Hydromorphone HCl 0.6 MG Q2 HRS NEEDED PRN 03/03 1715 DC 03/03 IV 1730 Hydromorphone HCl 0.4 MG Q10MIN PRN 03/03 1645 DC IV Hydromorphone HCl 0.6 MG Q10MIN PRN 03/03 1645 DC IV Hydromorphone HCl 0.2 MG Q10MIN PRN 03/03 1630 DC IV Lactated Ringer's 1,000 ML .[id number] 03/03 1645 AC 03/04 IV 0430 Lactated Ringer's 1,000 ML .Q10H 03/02 1930 DC 07 IV 03/03 1529 0939 Methylprednisolone 40 MG Q12 03/03 0900 AC 03/03 IV 2013 Midazolam HCl 2 MG .STK-MED ONE 03/03 1249 DC IM 03/03 1250 Montelukast Sodium 10 MG QPM 03/02 2100 AC 03/03 PO 2014 Morphine Sulfate 2 MG Q4P PRN 03/03 1730 AC IV Morphine Sulfate 2 MG Q4P PRN 03/03 1545 DC 03/03 IV 1555 Ondansetron HCl 4 MG ONCE PRN 03/03 1645 AC IV Oxycodone HCl 5 MG Q6P PRN 03/03 1730 AC PO Oxycodone HCl 10 MG Q6P PRN 03/03 1730 AC 03/04 PO 0430 Polyethylene Glycol 17 GM AT BEDTIME PRN 03/02 1500 AC PO Senna/Docusate Sodium 1 TAB AT BEDTIME PRN 03/02 1500 AC PO Tiotropium [place] 1 PUF DAILY 03/03 0900 AC 03/03 INH 0835 Tramadol HCl 50 MG Q8P PRN 03/02 1530 AC 03/03 PO 0837 Trimethobenzamide HCl 200 MG ONCE PRN 03/03 1645 AC IM Vancomycin HCl 1,000 MG Q12 03/03 0900 AC 03/03 Sodium Chloride 250 ML IV 2016 CXR Findings: Right-sided Port-A-Cath with the tip at the cavoatrial junction is in stable position. Pericardial drainage tube is not well visualized. Stable complete opacification of the left hemithorax noted again. Right lung demonstrates vascular congestion and interstitial edema. This has increased over the interval. Slightly improved left-sided Cardia mediastinal shift. No acute osseous abnormality. IMPRESSION: 1. Persistent opacification left hemithorax. 2. Increasing vascular congestion and interstitial edema right lung. Impression/Plan Impression/Problem List Impression: 47 year old male with past medical history of MARCI on CPAP, former smoker, COPD with chronic hypoxemic respiratory failure on 2L home oxygen, and stage III non small cell lung cancer LLL s/p chemoradiation therapy was sent into the ED by his vp delivery with upper respiratory complaints of productive cough, fever, dyspnea, and chest pain for the past month despite antibiotics and steroids after his chest x-ray revealed complete opacification of the left hemithorax, leftward tracheal shift of the trachea. CTA showed consolidation and pleural fluid, a complete left lung collapse, loculated left pleural effusion, new right nodules, and an enlarging pericardial effusion. Echocardiogram was performed and showed normal LVEF, mild LVH, and moderate pericardial effusion with partial right atrial diastolic collapse consistent with early tamponade physiology. The patient has now been transferred to critical care perioperatively, currently POD #1 s/p KI, bronchoscopy, and pericardial window. Sepsis with lactic acidemia secondary to pneumonia Leukocytosis with bandemia, tachycardia, tachypnea, lactic acidemia, and opacity on cxr Failed two outpatient courses of antibiotics Fever previously at home, Afebrile from admission, currently on solumedrol and antibiotics Sputum cultures, many squamous cells poor specimen Blood cultures negative, Strep pneumo and legionella urinary antigens negative Currently on Vancomycin 1g IV Q12H and Ceftazidime 2g IV Q8H Likely post obstructive pneumonia with loculated left pleural effusion and left lung collapse Pulmonology/critical care consulted s/p bronchoscopy yesterday, friable endobronchial obstruction without biopsies performed Check chest x-ray Enlarging pericardial effusion Suspected malignant effusion Echocardiogram shows moderate pericardial effusion Partial right atrial diastolic collapse consistent with early tamponade physiology s/p pericardial window POD1, monitor chest tube output Follow up cardiology and CT surgery recommendations Follow up cytology and cultures of pericardial fluid Continue antibiotics Stage III non small cell cancer: PET/CT done at [place] 02/24 Decrease in uptake (25 -> 17 per pt) of primary LLL mass Persistent uptake in mediastinal nodes Completed chemotherapy with paclitaxel 1 year ago and radiation therapy 6 months ago COPD with chronic hypoxemic respiratory failure: Continue Solumedrol 40mg iv q12 TRC evaluation, nebulized albuterol and ipatropium Continue singulair, spiriva, and symbicort On baseline oxygen with no respiratory distress MARCI: Continue nocturnal CPAP Microcytic anemia: Ferritin and TIBC normal, serum iron low Chronic back pain/spinal stenosis: Continue analgesics Full liquid diet, advance as tolerated DVT ppx-heparin sc Full code Problem List: 1. HCAP (healthcare-associated pneumonia) 2. Lung cancer 3. Pneumonia 4. Sepsis 5. Pericardial effusion Pain Ratin Pain Location: post operative chest pain Tomorrow's Labs & Rationales: cbc, icu Plan DVT/Prophylaxis: mechanical, pharmacological
--- NOTE | 2018-03-04 07:58 | PN- CRCU ---
Diana MURRAY,[place] 03/04/18 0737: Subjective HPI/Critical Care Issues: The patient is sleeping comfortably on BiPAP, but arousable, alert and oriented. He continues to have discomfort at the incision site. He has an ongoing cough but has no hemoptysis. He is afebrile on steroids. There were no overnight events. No issues with chest tube. He wants to get up and get dressed today. Objective Current Medications: Current Medications Sig/Harman Start time Last Medication Dose Route Stop Time Status Admin Acetaminophen 1,000 MG TID 03/03 2100 AC 03/03 PO 2013 Acetaminophen 1,000 MG ONCE ONE 03/03 1645 DC 03/03 IV 03/03 1646 1730 Acetaminophen 975 MG .STK-MED ONE 03/03 1138 DC PO 03/03 1139 Acetaminophen 1,000 MG Q8P PRN 03/02 1500 DC 03/03 PO 1140 Albuterol Sulfate 3 ML EVERY 4 HRS/AWAKE 03/02 2000 AC 03/03 INH 2000 Albuterol Sulfate 2 PUF Q4-6 PRN PRN 03/02 1515 AC INH Azithromycin 500 MG DAILY 03/03 0900 DC Sodium Chloride 250 ML IV Budesonide/ 2 PUF BID 03/02 2100 AC 03/03 Formoterol Fumarate INH 2014 Ceftazidime 2,000 MG IQ8 03/02 1600 AC 03/03 IV 2357 Docusate Sodium 100 MG BID 03/03 2100 AC 03/03 PO 2015 Docusate Sodium 100 MG BID PRN 03/02 1500 DC PO 03/03 2059 Enoxaparin Sodium 40 MG DAILY 03/03 0900 DC SC Fentanyl Citrate 200 MCG .STK-MED ONE 03/03 1248 DC IM 03/03 1249 Fluticasone 2 SPRAY DAILY 03/03 0900 DC Propionate CORRIE Fluticasone 2 SPRAY 2100 03/02 2100 AC 03/03 Propionate CORRIE 2016 Gabapentin 300 MG Q8 03/03 1743 AC 03/04 PO 0430 Guaifenesin/Codeine 10 ML Q4P PRN 03/02 1500 AC Phosphate PO Heparin Sodium 5,000 UNIT Q8 03/04 0600 AC 03/04 (Porcine) SC 0430 Hydromorphone HCl 0.6 MG Q2 HRS NEEDED PRN 03/03 1715 DC 03/03 IV 1730 Hydromorphone HCl 0.4 MG Q10MIN PRN 03/03 1645 DC IV Hydromorphone HCl 0.6 MG Q10MIN PRN 03/03 1645 DC IV Hydromorphone HCl 0.2 MG Q10MIN PRN 03/03 1630 DC IV Lactated Ringer's 1,000 ML .[id number] 03/03 1645 AC 03/04 IV 0430 Lactated Ringer's 1,000 ML .Q10H 03/02 1930 DC 07 IV 03/03 1529 0939 Methylprednisolone 40 MG Q12 03/03 0900 AC 03/03 IV 2013 Midazolam HCl 2 MG .STK-MED ONE 03/03 1249 DC IM 03/03 1250 Montelukast Sodium 10 MG QPM 03/02 2100 AC 03/03 PO 2014 Morphine Sulfate 2 MG Q4P PRN 03/03 1730 AC IV Morphine Sulfate 2 MG Q4P PRN 03/03 1545 DC 03/03 IV 1555 Ondansetron HCl 4 MG ONCE PRN 03/03 1645 AC IV Oxycodone HCl 5 MG Q6P PRN 03/03 1730 AC PO Oxycodone HCl 10 MG Q6P PRN 03/03 1730 AC 03/04 PO 0430 Polyethylene Glycol 17 GM AT BEDTIME PRN 03/02 1500 AC PO Senna/Docusate Sodium 1 TAB AT BEDTIME PRN 03/02 1500 AC PO Tiotropium [place] 1 PUF DAILY 03/03 0900 AC 03/03 INH 0835 Tramadol HCl 50 MG Q8P PRN / 1530 AC 03/03 PO 0837 Trimethobenzamide HCl 200 MG ONCE PRN 03/03 1645 AC IM Vancomycin HCl 1,000 MG Q12 03/03 0900 AC 03/03 Sodium Chloride 250 ML IV 2016 Vital Signs & I&O Last 24 Hrs of Vitals and I&O: Vital Signs Date Time Temp Pulse Resp B/P B/P Pulse O2 O2 Flow FiO2 Mean Ox Delivery Rate 03/04 0556 65 97 03/04 0400 97 BIPAP 8L 03/04 0310 58 96 03/04 0144 92 03/04 0017 63 96 03/04 0015 64 97 03/04 0000 97 BIPAP 6.0L 03/04 0000 97.0 64 24 108/58 97 BIPAP 6.0L 03/039 65 95 03/03 2005 96 Nasal 45% Cannula 03/03 2000 96 Nasal 4.0L Cannula 03/03 1600 97 Nasal 2.0L Cannula 03/03 1545 93 Nasal 55% Cannula 03/03 1200 96 Nasal 2.0L Cannula 03/03 0800 95 Nasal 2.0L Cannula 03/03 0800 96.7 76 32 118/84 95 Nasal 2.0L Cannula 03/03 0745 96 Nasal 2.0L Cannula Intake & Output 03/04 0800 03/04 0000 03/03 1600 Intake Total 667 1419 850 Output Total 1470 660 Balance -803 759 850 Intake, IV 567 619 850 Intake, Oral 100 800 Number 0 0 Bowel Movements Output, Chest 20 60 Tube Drainage Output, Urine 1450 600 Physical Exam General Appearance: well developed/nourished, no apparent distress, alert, comfortable, obese Respiratory: diminished breath sounds L>R, minimal wheezing, R lung rhonchi Cardiovascular: regular rate/rhythm, normal peripheral pulses Gastrointestinal: normal bowel sounds, soft, non-tender Extremities: normal inspection, normal range of motion, trace b/l LE edema Neurologic/Psych: no motor/sensory deficits Impression/Plan Impression/Plan Impression/Plan: 1. Sepsis with lactic acidemia secondary to post obstructive pneumonia. 2. Loculated left pleural effusion and left lung collapse, bronchoscopy () showed an occlusive thrombus with some evidence of tissue attached to it and possible endobronchial lesion. 3. Pericardial effusion with early tamponade physiology, s/p pericardial window with intraoperative transesophageal echocardiogram (03/03/18). 4. Oxygen dependent COPD. 5. Chronic hypoxemic respiratory failure. 6. Severe obstructive sleep apnea, on nocturnal positive airway pressure. 7. Stage III non-small cell lung cancer of the left lower lobe, status post chemoradiation. The patient had a PET scan approximately 2 weeks ago that failed to demonstrate any evidence of disease recurrence. There was persistent uptake in the mediastinal nodes reported on that study. 8. Microcytic anemia. 9. Morbid obesity. 10. Severe chronic back pain. 11. Increased leukocytosis which may be related to steroids. Recommendations: * Continue nebs/TRC, and inhaler therapy (Symbicort 2 puffs every 12 hours). * Add Spiriva 1 inhalation every morning. First dose today. * Oxygen for saturations greater than 92%. Can use PAP or high flow/nasal cannula. * Begin incentive spirometry. * Continue Solu-Medrol 40 mg every 12 hours. * Out of bed to chair as tolerated. Increase activity. * Follow-up cultures. * Continue antibiotics pending culture results. Will de-escalate therapy as soon as possible when culture data is available. * Follow-up cytology results. * Check a post bronchoscopy chest x-ray today. * Continue with pain control, being careful to avoid oversedation. * Advance diet. * Monitor off IV fluids. * DVT prophylaxis at all times. * Downgrade vital signs.
[2018-03-04 08:00] VITALS: BP 110/70
--- NOTE | 2018-03-04 10:23 | RADIOLOGY REPORT ---
EXAMINATION: XR PORTABLE CHEST CLINICAL INFORMATION: Left lung collapse COMPARISON: Chest x-ray dated 03/03/2018 TECHNIQUE: Portable frontal view of the chest was obtained. FINDINGS: Right-sided Port-A-Cath with the tip at the cavoatrial junction is in stable position. Pericardial drainage tube is not well visualized. Stable complete opacification of the left hemithorax noted again. Right lung demonstrates vascular congestion and interstitial edema. This has increased over the interval. Slightly improved left-sided Cardia mediastinal shift. No acute osseous abnormality. IMPRESSION: 1. Persistent opacification left hemithorax. 2. Increasing vascular congestion and interstitial edema right lung.
--- NOTE | 2018-03-04 14:54 | PN- Thoracic Surgery ---
Surgical Brief Attending Note Brief Attending Note: Doing well. Chest tube to remain until Wednesday regardless of drainage. OK to [facility].
[2018-03-04 16:00] VITALS: BP 108/70
--- NOTE | 2018-03-04 18:41 | PN- Cardiology ---
Subjective Subjective: Some mild incisional pain POD #1. Chest discomfort he has been experiencing for several months has completely resolved. Had some brief paroxysms of atrial fibrillation intraoperatively and earlier today. Presently in sinus rhythm. Objective Vital Signs and I&Os Vital Signs Date Time Temp Pulse Resp B/P B/P Pulse O2 O2 Flow FiO2 Mean Ox Delivery Rate 03/04 1622 97 Nasal 4.0L Cannula 03/04 1200 95 Nasal 4.0L Cannula 03/04 0859 94 Nasal 5.0L Cannula 03/04 0800 96 Nasal 4.0L Cannula 03/04 0800 98.4 70 20 110/70 96 Nasal 4.0L Cannula 03/04 0556 65 97 03/04 0400 97 BIPAP 8L 03/04 0310 58 96 03/04 0144 92 03/04 0017 63 96 03/04 0015 64 97 03/04 0000 97 BIPAP 6.0L 03/04 0000 97.0 64 24 108/58 97 BIPAP 6.0L 03/03 2059 65 95 03/03 2005 96 Nasal 45% Cannula 03/03 2000 96 Nasal 4.0L Cannula Intake & Output 03/04 1600 03/04 0800 03/04 0000 03/03 1600 03/03 0800 03/03 0000 Intake Total 1363 185 2139 365 154 8228 Output Total 600 1470 660 300 Balance 600 -803 759 808 925 1046 Intake, IV 600 567 619 121 761 8503 Intake, Oral 600 100 800 0 360 Number 0 0 0 Bowel Movements Output, Chest 20 60 Tube Drainage Output, Urine 600 1450 600 300 Patient 288 lb 288 lb Weight Weight Reported by Patient Measurement Method Physical Exam: Well-developed, obese middle-aged male in no acute distress with nasal oxygen in place. Vital signs: See above. HEENT: Normocephalic, atraumatic, EOMI, moist mucous membranes. Neck: No JVD, no bruits. Lungs: Decreased breath sounds bilaterally left greater than right. Heart: S1, S2. PMI not well felt. No murmur, gallop, or rub. Abdomen: Soft, nontender, positive bowel sounds. Extremities: No edema. Current Medications: Current Medications Sig/Harman Start time Last Medication Dose Route Stop Time Status Admin Acetaminophen 1,000 MG TID 03/03 2100 AC 03/04 PO 1422 Albuterol Sulfate 3 ML EVERY 4 HRS/AWAKE 03/02 2000 AC 03/04 INH 1619 Albuterol Sulfate 2 PUF Q4-6 PRN PRN 03/02 1515 AC INH Budesonide/ 2 PUF BID 03/02 2100 AC 03/04 Formoterol Fumarate INH 0819 Ceftazidime 2,000 MG IQ8 03/02 1600 AC 03/04 IV 0820 Docusate Sodium 100 MG BID 03/03 2100 AC 03/04 PO 0819 Docusate Sodium 100 MG BID PRN 03/02 1500 DC PO 03/03 205 Fluticasone 2 SPRAY 2100 03/02 2100 AC 03/03 Propionate CORRIE 2016 Gabapentin 300 MG Q8 03/03 1743 AC 03/04 PO 1422 Guaifenesin/Codeine 10 ML Q4P PRN 03/02 1500 AC Phosphate PO Heparin Sodium 5,000 UNIT Q8 03/04 0600 AC 03/04 (Porcine) SC 1422 Lactated Ringer's 1,000 ML .[id number] 03/03 1645 AC 03/04 IV 0430 Methylprednisolone 40 MG Q12 03/03 0900 AC 03/04 IV 0820 Montelukast Sodium 10 MG QPM 03/02 2100 AC 03/03 PO 2014 Morphine Sulfate 2 MG Q4P PRN 03/03 1730 AC IV Ondansetron HCl 4 MG ONCE PRN 03/03 1645 AC IV Oxycodone HCl 10 MG .STK-MED ONE 03/04 0428 DC PO 03/04 0429 Oxycodone HCl 5 MG Q6P PRN 03/03 1730 AC 03/04 PO 1618 Oxycodone HCl 10 MG Q6P PRN 03/03 1730 AC 03/04 PO 0945 Polyethylene Glycol 17 GM AT BEDTIME PRN 03/02 1500 AC PO Senna/Docusate Sodium 1 TAB AT BEDTIME PRN 03/02 1500 AC PO Tiotropium [place] 1 PUF DAILY 03/03 0900 AC 03/04 INH 0820 Tramadol HCl 50 MG Q8P PRN 03/02 1530 AC 03/03 PO 0837 Trimethobenzamide HCl 200 MG ONCE PRN 03/03 1645 AC IM Vancomycin HCl 1,000 MG Q12 03/03 0900 AC 03/04 Sodium Chloride 250 ML IV 0826 Results Last 48 Hrs of Labs/Mics: Laboratory Tests 03/04/18 0425: Anion Gap 7, Estimated GFR > 60, Glucose 132 H, Calcium 9.3, Phosphorus 3.2, Magnesium 1.8, Total Bilirubin 0.3, AST 24, ALT 59, Albumin 2.6 L, CBC w Diff MAN DIFF ORDERED, RBC 3.69 L, MCV 77.0 L, MCH 24.4 L, MCHC 31.7 L, RDW 22.1 H, MPV 7.7, Gran % 95.9 H, Lymphocytes % 1.6 L, Monocytes % 2.5, Eosinophils % 0, Basophils % 0, Absolute Granulocytes 23.8 H, Segmented Neutrophils 99 H, Absolute Lymphocytes 0.4 L, Monocytes 1 L, Absolute Monocytes 0.6, Absolute Eosinophils 0, Absolute Basophils 0, Platelet Estimate , Polychromasia 1+, Hypochromic-Microcytic 1+, Poikilocytosis 1+, Anisocytosis 1+, Microcytic Cells 1+, Ovalocytes 1+, Stomatocytes FEW, Fld Total RBCs Counted 100 03/03/18 1442: Lymphocytes 15, % Normal PMNs 85, [facility] , Fluid WBC 1000 H, Fld Total RBCs Counted [id number] H 03/03/18 1000: Fluid Tot Bilirubin 5.4, Fluid Amylase 31 03/03/18 0730: Anion Gap 11, Estimated GFR > 60, BUN/Creatinine Ratio 28.0 H, Calcium 9.7, Phosphorus 3.5, Magnesium 1.9, PT 18.5 H, INR 1.69 H, CBC w Diff NO MAN DIFF REQ, RBC 3.79 L, MCV 77.2 L, MCH 24.1 L, MCHC 31.2 L, RDW 22.1 H, MPV 7.8, Gran % 90.0 H, Lymphocytes % 5.3 L, Monocytes % 4.7, Eosinophils % 0, Basophils % 0, Absolute Granulocytes 9.5 H, Absolute Lymphocytes 0.6 L, Absolute Monocytes 0.5, Absolute Eosinophils 0, Absolute Basophils 0 03/02/18 1900: Lactic Acid Cancelled Recent Imaging Studies: CXR 03/04/2018: 1. Persistent opacification left hemithorax. 2. Increasing vascular congestion and interstitial edema right lung. 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 w/ c/o productive cough, SOB, CP, & low- grade fevers for the past month w/ persistence of Sxs despite Abx & steroid Rx who we were asked to evaluate after his CXR revealed complete white out of the left hemithorax, mild leftward shift of the trachea, a combination of consolidation & pleural fluid and the follow-up chest CTA revealed no PE, but a completely collapsed L lung, a loculated L pleural effusion, new R micronodules, a small R pleural effusion, and an enlarging pericardial effusion. Clinically and hemodynamically stable POD #1 s/p pericardial window for pericardial effusion w/ early tamponade physiology. Recommendations: * Stable for transfer to telemetry from cardiac standpoint. * Can gently diurese if vascular congestion persists off IV fluids. * Replete magnesium and maintain at or above 2.0 mg/dl, given PAF. * Continue to follow-up on CT surgery and pulmonary recommendations. * Continue DVT prophylaxis. Continue telemetry? Not applicable (In ICU.)
[2018-03-05] VITALS: BP 126/68
[2018-03-05 05:48] LABS: ABSOLUTE BASOPHIL COUNT 0 /CUMM (0.0-0.2); ABSOLUTE EOSINOPHIL COUNT 0 /CUMM (0.0-0.7); ABSOLUTE LYMPH COUNT 0.3 /CUMM (1.2-3.4); ABSOLUTE MONOCYTE COUNT 0.4 /CUMM (0.10-0.60); BASOPHIL % 0 % (0.0-2.0); EOSINOPHIL % 0 % (0-5); GRANULOCYTE % 95.9 % (42.2-75.2); HEMATOCRIT 29.4 % (42-52); MEAN CORPUSCULAR HGB 24.5 PG (27.0-31.0); MEAN CORPUSCULAR HGB CONC 31.5 G/DL (33.0-37.0); MEAN CORPUSCULAR VOLUME 77.6 FL (80.0-94.0); MEAN PLATELET VOLUME 8.1 FL (7.4-10.4); PLATELET COUNT 395 /CUMM (130-400); RBC DISTRIBUTION WIDTH 21.6 % (11.5-14.5); RED BLOOD CELL CT 3.79 /CUMM (4.70-6.10); WHITE BLOOD CELL COUNT 16.7 /CUMM (4.8-10.8)
--- NOTE | 2018-03-05 07:35 | PN- CRCU ---
Subjective HPI/Critical Care Issues: The patient is awake and alert. He continues to have pain at his incision site. He also has a congested cough. Despite this, the patient feels that he is breathing better. He feels significantly improved since admission. There were no overnight events reported. Objective Current Medications: Current Medications Sig/Harman Start time Last Medication Dose Route Stop Time Status Admin Acetaminophen 1,000 MG .STK-MED ONE 03/04 2052 DC PO 03/04 2053 Acetaminophen 1,000 MG TID 03/03 2100 AC 03/04 PO 214 Albuterol Sulfate 3 ML EVERY 4 HRS/AWAKE 03/02 2000 AC 03/04 INH 1931 Albuterol Sulfate 2 PUF Q4-6 PRN PRN 03/02 1515 AC INH Budesonide/ 2 PUF BID 03/02 2100 AC 03/04 Formoterol Fumarate INH 2253 Ceftazidime 2,000 MG IQ8 03/02 1600 AC 03/05 IV 0033 Docusate Sodium 100 MG .STK-MED ONE 03/04 2053 DC PO 03/04 2054 Docusate Sodium 100 MG BID 03/03 2100 AC 03/04 PO 214 Fluticasone 2 SPRAY 2100 03/02 2100 AC 03/04 Propionate CORRIE 2253 Furosemide 20 MG ONCE ONE 03/04 1900 DC 03/04 IV 03/04 1901 1902 Gabapentin 300 MG Q8 03/03 1743 AC 03/05 PO 0643 Guaifenesin/Codeine 10 ML Q4P PRN 03/02 1500 AC Phosphate PO Heparin Sodium 5,000 UNIT Q8 03/04 0600 AC 03/05 (Porcine) SC 0641 Lactated Ringer's 1,000 ML .[id number] 03/03 1645 DC 03/04 IV 0430 Magnesium Sulfate 1 GM ONCE ONE 03/04 1900 DC 03/04 Dextrose/Water 100 ML IV 03/04 2259 2040 Methylprednisolone 40 MG Q12 03/03 0900 AC 03/04 IV 2158 Montelukast Sodium 10 MG QPM 03/02 2100 AC 03/04 PO 2146 Morphine Sulfate 2 MG Q4P PRN 03/03 1730 AC IV Ondansetron HCl 4 MG ONCE PRN 03/03 1645 AC IV Oxycodone HCl 5 MG Q6P PRN 03/03 1730 AC 03/04 PO 1618 Oxycodone HCl 10 MG Q6P PRN 03/03 1730 AC 03/04 PO 2251 Polyethylene Glycol 17 GM AT BEDTIME PRN 03/02 1500 AC PO Senna/Docusate Sodium 1 TAB AT BEDTIME PRN 03/02 1500 AC PO Tiotropium Mobile 1 PUF DAILY 03/03 09 AC 03/04 INH 0820 Tramadol HCl 50 MG Q8P PRN 03/02 1530 AC 03/03 PO 0837 Trimethobenzamide HCl 200 MG ONCE PRN 03/03 1645 AC IM Vancomycin HCl 1,000 MG Q12 03/03 0900 AC 03/04 Sodium Chloride 250 ML IV 2243 Vital Signs & I&O Last 24 Hrs of Vitals and I&O: Vital Signs Date Time Temp Pulse Resp B/P B/P Pulse O2 O2 Flow FiO2 Mean Ox Delivery Rate 03/05 0558 52 95 03/05 0400 94 CPAP 10L 03/05 0328 61 93 03/05 0212 59 96 03/05 0026 72 94 03/05 0023 68 88 03/05 0000 97.1 64 22 126/68 94 BIPAP 5.0L 03/05 0000 94 BIPAP 6.0L 03/04 2000 92 Nasal 5.0L Cannula 03/04 1622 97 Nasal 4.0L Cannula 03/04 1600 98.8 70 20 108/70 98 Nasal 3.0L Cannula 03/04 1200 95 Nasal 4.0L Cannula 03/04 0859 94 Nasal 5.0L Cannula 03/04 0800 96 Nasal 4.0L Cannula 03/04 0800 98.4 70 20 110/70 96 Nasal 4.0L Cannula Intake & Output 03/05 0800 03/05 0000 03/04 1600 Intake Total 395 039 6849 Output Total 1150 1230 600 Balance -894 -358 600 Intake, IV 156 532 600 Intake, Oral 100 340 600 Number 0 Bowel Movements Output, Chest 0 30 Tube Drainage Output, Urine 1150 1200 600 Patient 288 lb Weight Physical Exam General Appearance: well developed/nourished, no apparent distress, alert, comfortable, obese Respiratory: diminished breath sounds L>R, minimal wheezing, R lung rhonchi Cardiovascular: regular rate/rhythm, normal peripheral pulses Gastrointestinal: normal bowel sounds, soft, non-tender Extremities: normal inspection, normal range of motion, trace b/l LE edema Neurologic/Psych: no motor/sensory deficits Results Last 24 Hrs of Lab Results: Laboratory Tests 03/05/18 0445: Anion Gap 7, Estimated GFR > 60, Glucose 124 H, Calcium 9.4, Phosphorus 3.0, Magnesium 2.2, Total Bilirubin 0.2, AST 14 L, ALT 48, Albumin 2.8 L, CBC w Diff MAN DIFF ORDERED, RBC 3.79 L, MCV 77.6 L, MCH 24.5 L, MCHC 31.5 L, RDW 21.6 H, MPV 8.1, Gran % 95.9 H, Lymphocytes % 1.9 L, Monocytes % 2.2, Eosinophils % 0, Basophils % 0, Absolute Granulocytes 16.0 H, Absolute Lymphocytes 0.3 L, Absolute Monocytes 0.4, Absolute Eosinophils 0, Absolute Basophils 0, Platelet Estimate ADEQUATE, Polychromasia 1+, Basophilic Stippling 1+ Last 24 Hrs of Micro Results: Cultures remain negative to date. Diagnostic Data CXR Findings: 1. Persistent opacification left hemithorax. 2. Increasing vascular congestion and interstitial edema right lung. Impression/Plan Impression/Plan Impression/Plan: 1. Post obstructive pneumonia. 2. Loculated left pleural effusion and left lung collapse, bronchoscopy () showed an occlusive thrombus with some evidence of tissue attached to it and possible endobronchial lesion. 3. Pericardial effusion with early tamponade physiology, s/p pericardial window with intraoperative transesophageal echocardiogram (03/03/18). 4. Oxygen dependent COPD. 5. Chronic hypoxemic respiratory failure. 6. Severe obstructive sleep apnea, on nocturnal positive airway pressure. 7. Stage III non-small cell lung cancer of the left lower lobe, status post chemoradiation. The patient had a PET scan approximately 2 weeks ago that failed to demonstrate any evidence of disease recurrence. There was persistent uptake in the mediastinal nodes reported on that study. 8. Microcytic anemia. 9. Morbid obesity. 10. Severe chronic back pain. 11. Increased leukocytosis which may be related to steroids. Recommendations: * Advance to regular diet MANINDER. * Continue nebs/TRC, and inhaler therapy (Symbicort 2 puffs every 12 hours, Spiriva 1 inhalation every morning). * Oxygen for saturations greater than 92%. Can use PAP or high flow/nasal cannula. * incentive spirometry. * Change to prednisone 40 mg daily. Will taper off quickly. * Out of bed to chair as tolerated. Increase activity. * Follow-up cultures. * Continue antibiotics pending culture results. Will de-escalate therapy as soon as possible when culture data is available. * Follow-up cytology results. * Continue with pain control, being careful to avoid oversedation. * DVT prophylaxis at all times. * Out of bed to chair, ambulate daily.
[2018-03-05 08:00] VITALS: BP 110/60
--- NOTE | 2018-03-05 11:17 | PN- Cardiology ---
Subjective Subjective: The patient is doing well at the present time. Continues to complain of some discomfort at the tube site. Otherwise doing well. No significant arrhythmias detected. Objective Vital Signs and I&Os Vital Signs Date Time Temp Pulse Resp B/P B/P Pulse O2 O2 Flow FiO2 Mean Ox Delivery Rate 03/05 08 97.8 52 22 110/60 96 CPAP 10L 03/05 0800 98 CPAP 10L 03/05 0558 52 95 03/05 0400 94 CPAP 10L 03/05 0328 61 93 03/05 0212 59 96 03/05 0026 72 94 03/05 0023 68 88 03/05 0000 97.1 64 22 126/68 94 BIPAP 5.0L 03/05 0000 94 BIPAP 6.0L 03/04 2000 92 Nasal 5.0L Cannula 03/04 1622 97 Nasal 4.0L Cannula 03/04 1600 98.8 70 20 108/70 98 Nasal 3.0L Cannula 03/04 1200 95 Nasal 4.0L Cannula Intake & Output 03/05 0800 03/05 0000 03/04 1600 03/04 0800 03/04 0000 Intake Total 147 280 0503 667 1419 Output Total 1150 3779 794 9951 660 Balance -894 -358 600 -803 759 Intake, IV 156 532 600 567 619 Intake, Oral 100 340 600 100 800 Number 0 0 0 Bowel Movements Output, Chest 0 30 20 60 Tube Drainage Output, Urine 1150 3441 279 4645 600 Patient 288 lb Weight Physical Exam: General Appearance: well developed/nourished, alert, awake, oriented Head: normal HEENT: Normal Neck: supple, JVP normal, carotid upstrokes normal bilaterally, no masses or thyromegaly Respiratory: chest non-tender, clear to auscultation and percussion bilaterally Cardiovascular: regular rate/rhythm, normal S1, S2, 1/6 systolic murmur Abdomen: normal bowel sounds, soft, non-tender Extremities: normal inspection, no edema Vascular: Pulses are 2+ and equal bilaterally Neurologic: Grossly normal/nonfocal Current Medications: Current Medications Sig/Harman Start time Last Medication Dose Route Stop Time Status Admin Acetaminophen 975 MG ONCE ONE 03/05 0900 DC 03/05 PO 03/05 0901 0859 Acetaminophen 1,000 MG .STK-MED ONE 03/04 2052 DC PO 03/04 2053 Acetaminophen 1,000 MG TID 03/03 2100 AC 03/04 PO 2147 Albuterol Sulfate 3 ML EVERY 4 HRS/AWAKE 03/02 2000 AC 03/05 INH 0834 Albuterol Sulfate 2 PUF Q4-6 PRN PRN 03/02 1515 AC INH Budesonide/ 2 PUF BID 03/02 2100 AC 03/05 Formoterol Fumarate INH 0906 Ceftazidime 2,000 MG IQ8 03/02 1600 AC 03/05 IV 0859 Docusate Sodium 100 MG .STK-MED ONE 03/04 2053 DC PO 03/04 205 Docusate Sodium 100 MG BID 03/03 2100 AC 03/05 PO 0909 Fluticasone 1 SPRAY BID 03/05 2100 AC Propionate CORRIE Fluticasone 2 SPRAY 2100 03/02 2100 DC 03/04 Propionate CORRIE 2253 Furosemide 20 MG ONCE ONE 03/04 1900 DC 03/04 IV 03/04 1901 1902 Gabapentin 300 MG Q8 03/03 1743 AC 03/05 PO 0643 Guaifenesin/Codeine 10 ML Q4P PRN 03/02 1500 AC Phosphate PO Heparin Sodium 5,000 UNIT Q8 03/04 0600 AC 03/05 (Porcine) SC 0641 Lactated Ringer's 1,000 ML .[id number] 03/03 1645 DC 03/04 IV 0430 Magnesium Sulfate 1 GM ONCE ONE 03/04 1900 DC 03/04 Dextrose/Water 100 ML IV 03/04 2259 2040 Methylprednisolone 40 MG Q12 03/03 0900 AC 03/05 IV 0901 Montelukast Sodium 10 MG QPM 03/02 2100 AC 03/04 PO 2146 Morphine Sulfate 2 MG Q4P PRN 03/03 1730 AC IV Ondansetron HCl 4 MG ONCE PRN 03/03 1645 AC IV Oxycodone HCl 5 MG ONCE ONE 03/05 0915 DC 03/05 PO 03/05 0916 0912 Oxycodone HCl 5 MG Q6P PRN 03/03 1730 AC 03/05 PO 0859 Oxycodone HCl 10 MG Q6P PRN 03/03 1730 AC 03/04 PO 2251 Polyethylene Glycol 17 GM AT BEDTIME PRN 03/02 1500 AC PO Senna/Docusate Sodium 1 TAB AT BEDTIME PRN 07/11 1500 AC PO Tiotropium Dunlap 1 PUF DAILY 03/03 0900 AC 03/05 INH 0912 Tramadol HCl 50 MG Q8P PRN 03/02 1530 AC 03/03 PO 0837 Trimethobenzamide HCl 200 MG ONCE PRN 03/03 1645 AC IM Vancomycin HCl 1,000 MG Q12 03/03 0900 AC 03/05 Sodium Chloride 250 ML IV 0901 Results Last 48 Hrs of Labs/Mics: Laboratory Tests 03/05/18 0445: Anion Gap 7, Estimated GFR > 60, Glucose 124 H, Calcium 9.4, Phosphorus 3.0, Magnesium 2.2, Total Bilirubin 0.2, AST 14 L, ALT 48, Albumin 2.8 L, CBC w Diff MAN DIFF ORDERED, RBC 3.79 L, MCV 77.6 L, MCH 24.5 L, MCHC 31.5 L, RDW 21.6 H, MPV 8.1, Gran % 95.9 H, Lymphocytes % 1.9 L, Monocytes % 2.2, Eosinophils % 0, Basophils % 0, Absolute Granulocytes 16.0 H, Absolute Lymphocytes 0.3 L, Absolute Monocytes 0.4, Absolute Eosinophils 0, Absolute Basophils 0, Platelet Estimate ADEQUATE, Polychromasia 1+, Basophilic Stippling 1+ 03/04/18 0425: Anion Gap 7, Estimated GFR > 60, Glucose 132 H, Calcium 9.3, Phosphorus 3.2, Magnesium 1.8, Total Bilirubin 0.3, AST 24, ALT 59, Albumin 2.6 L, CBC w Diff MAN DIFF ORDERED, RBC 3.69 L, MCV 77.0 L, MCH 24.4 L, MCHC 31.7 L, RDW 22.1 H, MPV 7.7, Gran % 95.9 H, Lymphocytes % 1.6 L, Monocytes % 2.5, Eosinophils % 0, Basophils % 0, Absolute Granulocytes 23.8 H, Segmented Neutrophils 99 H, Absolute Lymphocytes 0.4 L, Monocytes 1 L, Absolute Monocytes 0.6, Absolute Eosinophils 0, Absolute Basophils 0, Platelet Estimate , Polychromasia 1+, Hypochromic-Microcytic 1+, Poikilocytosis 1+, Anisocytosis 1+, Microcytic Cells 1+, Ovalocytes 1+, Stomatocytes FEW, Fld Total RBCs Counted 100 03/03/18 1442: Lymphocytes 15, % Normal PMNs 85, Misc Hematology Test , Fluid WBC 1000 H, Fld Total RBCs Counted [id number] H Assessment/Plan Assessment/Plan Assessment: 1. Day #2 post pericardial drainage and window 2. Stage III non-small cell lung cancer with left lung collapse and loculated left pleural effusion 3. Atrial and ventricular ectopy 4. Microcytic anemia Recommendations: -Continue as per the CT surgical team -Okay to transfer to [address] [place] [address] telemetry from my perspective -Maintain telemetry monitoring for now. Continue telemetry? Yes
--- NOTE | 2018-03-05 11:28 | PN- Resident CRCU ---
Impression/Plan Plan DVT/Prophylaxis: mechanical, pharmacological
[2018-03-05 15:11] VITALS: BP 152/74
--- NOTE | 2018-03-05 19:10 | Transfer of Care Summary ---
Hospital Course Course Hospital Course: Reason for ICU admission: Pt was transferred to ICU perioperatively for planned KI, bronchoscopy, and pericardial window on 03/03 with diagnoses of sepsis with lactic acidemia 2/2 pneumonia, pleural effusion and pericardial effusion History of presenting illness: 47 y/o M with PMH of MARCI on CPAP, former smoker, COPD with chronic hypoxemic respiratory failure on 2L home oxygen, and stage III non small cell lung cancer LLL s/p chemorads c/o productive cough, fever, dyspnea, and chest pain for the past month. Interval events in the ICU: No interval events. POD#2. Patient remained afebrile with residual pain from surgical wound on the chest. Mechanical ventilation: No NIPPV: No Antibiotics plan: Vancomycin (day #3) Catheters/ Lines plan: Chest tube in place Things to be followed up in the floor: early ambulation, prednisone taper, follow up cultures and BAL cytology, incentive spirometry, advance to regular diet Nutrition: full liquid DVT prophylaxis:mechanical Code status: FULL CODE Significant Procedures: Surgery Date: 03/03/18 Name of Procedure: Pericardial window with intraoperative transesophageal echocardiogram Pre-Operative Diagnosis: Pericardial effusion with early tamponade physiology Post-Operative Diagnosis: Same Estimated Blood Loss: less than 50ml Surgeon/Crankshaft Grinder: MD Gabrielle Maldonado Anesthesia: general endotracheal tube Operative/Procedure Note Note: Upon termination of the bronchoscopy the patient's chest and upper abdomen were prepped and draped in a sterile fashion. The procedure was done in its entirety under transesophageal echocardiogram which will be a separate dictation. Incision was made over the lower lower sternal border and carried down to rectus fascia. Fascia was divided in the midline and the xiphoid was freed and resected to allow for better exposure. The diaphragmatic attachments to the undersurface of the sternal edge were divided with electrocautery and this allowed grasping of the pericardium directly. The pericardium was incised and approximately 500 cc of serosanguineous nonclotting fluid was removed and echocardiography showed that cardiac function remains normal. The fluid was sent for cytology cell count chemistries and culture. A small section of anterior pericardium was resected and sent for permanent histology. The pericardium was drained with a 36 Amharic angled chest tube. The fascia was closed in the midline with [id number] Vicryl suture and the skin edges were approximated with running subcuticular suture. The patient tolerated the procedure well and was returned to the intensive care unit extubated in stable condition. Pertinent Lab Results: Intake & Output 03/05 1600 03/05 0800 03/05 0000 Intake Total 256 872 Output Total 1150 1230 Balance -894 -358 Intake, IV 156 532 Intake, Oral 100 340 Output, Chest 0 30 Tube Drainage Output, Urine 1150 1200 Vital Signs Date Time Temp Pulse Resp B/P B/P Pulse O2 O2 Flow FiO2 Mean Ox Delivery Rate 03/05 1705 93 Nasal 5.0L Cannula 03/05 1511 98.4 80 18 152/74 94 03/05 1331 93 Nasal 5.0L Cannula 03/05 0800 97.8 52 22 110/60 96 CPAP 10L 03/05 0800 98 CPAP 10L 03/05 0558 52 95 03/05 0400 94 CPAP 10L 03/05 0328 61 93 03/05 0212 59 96 03/05 0026 72 94 03/05 0023 68 88 03/05 0000 97.1 64 22 126/68 94 BIPAP 5.0L 03/05 0000 94 BIPAP 6.0L 03/04 2000 92 Nasal 5.0L Cannula Laboratory Tests 03/05/18 0445: Anion Gap 7, Estimated GFR > 60, Glucose 124 H, Calcium 9.4, Phosphorus 3.0, Magnesium 2.2, Total Bilirubin 0.2, AST 14 L, ALT 48, Albumin 2.8 L, CBC w Diff MAN DIFF ORDERED, RBC 3.79 L, MCV 77.6 L, MCH 24.5 L, MCHC 31.5 L, RDW 21.6 H, MPV 8.1, Gran % 95.9 H, Lymphocytes % 1.9 L, Monocytes % 2.2, Eosinophils % 0, Basophils % 0, Absolute Granulocytes 16.0 H, Absolute Lymphocytes 0.3 L, Absolute Monocytes 0.4, Absolute Eosinophils 0, Absolute Basophils 0, Platelet Estimate ADEQUATE, Polychromasia 1+, Basophilic Stippling 1+ Assessment/Plan: 47 y/o M with PMH of MARCI on CPAP, former smoker, COPD with chronic hypoxemic respiratory failure on 2L home oxygen, and stage III NSCLC s/p chemorads with paclitaxel came to the ED c/o productive cough, fever, dyspnea, and chest pain for the past month. CXR at the time showed complete opacification of the left hemithorax and leftward tracheal shift of the trachea. PET/CT scan on 02/24/2018 showed a left lower lung mass that now appears centrally necrotic, a small to moderate pericardial effusion that increased in size and a right lower lobe nodular opacity likely inflammatory/infectious etiology. Pt was tachycardic, afebrile, tachypneic with a BP of 103/70 pm admit. Pertinent labs showed leukocytosis and anemia with lactic acidemia. CTA showed consolidation and pleural fluid, a complete left lung collapse, loculated left pleural effusion, new right nodules, and an enlarging pericardial effusion. Echocardiogram was performed and showed normal LVEF, mild LVH, and moderate pericardial effusion with partial right atrial diastolic collapse consistent with early tamponade physiology. The patient was transferred to critical care perioperatively for planned KI, bronchoscopy, and pericardial window on 03/03. Patient tolerated well the procedure, stating drastic improvement of symptomatology and only c/o residual pain from surgical wound. Currently on POD# 2 with no acute complains. Sepsis with lactic acidemia secondary to pneumonia, s/p bronchoscopy Leukocytosis with bandemia, now on downward trend, tachycardia, tachypnea, lactic acidemia now resolved. Failed two outpatient courses of antibiotics -Prednisone taper -Vancomycin day #3 -s/p bronchoscopy, friable endobronchial obstruction without biopsies performed -f/u cultures -Legionella/strep pneumo urinary ag negative Pericardial effusion s/p pericardial window, likely malignant etiology -f/u cardiology and CT surgery recommendations -f/uollow up cytology and cultures of pericardial fluid -Continue antibiotics Stage III NSCLC -PET/CT done at [facility] 02/24 -Decrease in uptake (25 -> 17 per pt) of primary LLL mass -Persistent uptake in mediastinal nodes -Completed chemotherapy with paclitaxel 1 year ago and radiation therapy 6 months ago COPD with chronic hypoxemic respiratory failure: -Prednisone taper -TRC evaluation, nebulized albuterol and ipatropium -Continue symbicort 2 puffs q12, Spiriva 1 inhalation every morning MARCI: -Oxygen therapy for O2 sat goal > 92% Advance to regular diet DVT ppx-heparin sc Full code
[2018-03-05 22:03] VITALS: BP 148/62
[2018-03-06 06:47] VITALS: BP 118/62
--- NOTE | 2018-03-06 07:45 | PN- Thoracic Surgery ---
Subjective Subjective: No acute overnight events reported. Has been using cpap. Has been receiving trc breathing treatments with good effect. Denies worsening chest pain and shortness of breath. Acknowledges incisional discomfort but states is tolerable. Objective Vital Signs and I&Os Vital Signs Date Time Temp Pulse Resp B/P B/P Pulse O2 O2 Flow FiO2 Mean Ox Delivery Rate 03/06 0647 97.6 55 20 118/62 98 BIPAP 03/06 0053 54 94 03/06 0000 Nasal 3.0L Cannula 03/05 2305 90 99 03/05 2203 97.9 72 18 148/62 95 Nasal Cannula 03/05 1705 93 Nasal 5.0L Cannula 03/05 1511 98.4 80 18 152/74 94 03/05 1331 93 Nasal 5.0L Cannula 03/05 0800 97.8 52 22 110/60 96 CPAP 10L 03/05 0800 98 CPAP 10L Intake & Output 03/06 0800 /15 0000 /14 1600 14 0800 03/05 0000 03/04 1600 Intake Total 120 370 300 508 117 8628 Output Total 1170 214 721 6911 1230 600 Balance -1050 -530 -100 -894 -358 600 Intake, IV 250 156 532 600 Intake, Oral 120 120 300 100 340 600 Number 0 Bowel Movements Output, Chest 20 0 30 Tube Drainage Output, Urine 1150 677 990 6803 1200 600 Patient 288 lb Weight Physical Exam: General: Alert and oriented x3, no acute distress, in good spirits Cardiac: RRR, s1s2 Pulm: Non-labored respiratory effort, cough remains productive, breath sounds faint on left side, cta right side, chest tube with serous appearing output, lessening Abdomen: Incisional tenderness, non-distended Extremities: Moves all extremities, skin warm and well perfused, bilateral calves soft and non-tender, alps in place. Assessment/Plan Assessment/Plan This is a 47 year old male, POD 3 s/p pericardial window for effusion From surgical standpoint, plan remains to continue chest tube to low wall suction until wednesday regardless of drainage.
[2018-03-06 08:03] LABS: ABSOLUTE BASOPHIL COUNT 0 /CUMM (0.0-0.2); ABSOLUTE EOSINOPHIL COUNT 0 /CUMM (0.0-0.7); ABSOLUTE GRANULOCYTE CT 14.7 /CUMM (1.4-6.5); ABSOLUTE LYMPH COUNT 0.4 /CUMM (1.2-3.4); ABSOLUTE MONOCYTE COUNT 0.6 /CUMM (0.10-0.60); BASOPHIL % 0 % (0.0-2.0); EOSINOPHIL % 0 % (0-5); GRANULOCYTE % 93.4 % (42.2-75.2); HEMATOCRIT 31.8 % (42-52); MEAN CORPUSCULAR HGB 24.6 PG (27.0-31.0); MEAN CORPUSCULAR HGB CONC 31.3 G/DL (33.0-37.0); MEAN CORPUSCULAR VOLUME 78.5 FL (80.0-94.0); MEAN PLATELET VOLUME 8.3 FL (7.4-10.4); PLATELET COUNT 419 /CUMM (130-400); RED BLOOD CELL CT 4.06 /CUMM (4.70-6.10); WHITE BLOOD CELL COUNT 15.8 /CUMM (4.8-10.8)
--- NOTE | 2018-03-06 08:30 | PN- Housestaff ---
See Addendum Rowdy MURRAY,Liliam 03/06/18 0830: Subjective Follow-up For: Postop day 3 patient had pericardial window done. Subjective: Patient seen and examined at bedside no overnight events. Patient is afebrile. Patient denies shortness of breath. Patient is on 4 l of oxygen. He denies cough, chest pain, shortness of breath, palpitations. Review of Systems Constitutional: Reports: no symptoms. Objective Last 24 Hrs of Vital Signs/I&O Vital Signs Date Time Temp Pulse Resp B/P B/P Pulse O2 O2 Flow FiO2 Mean Ox Delivery Rate 03/06 1155 96 Nasal 4.0L Cannula 03/06 0647 97.6 55 20 118/62 98 BIPAP 03/06 0053 54 94 03/06 0000 Nasal 3.0L Cannula 03/05 2305 90 99 03/05 2203 97.9 72 18 148/62 95 Nasal Cannula 03/05 1705 93 Nasal 5.0L Cannula 03/05 1511 98.4 80 18 152/74 94 Intake & Output 03/06 1600 03/06 0800 03/06 0000 Intake Total 120 370 Output Total 1170 900 Balance -1050 -530 Intake, IV 250 Intake, Oral 120 120 Output, Chest 20 Tube Drainage Output, Urine 1150 900 Physical Exam General Appearance: Alert, Oriented X3, Cooperative, No Acute Distress Cardiovascular: Regular Rate, Normal S1, Normal S2 Lungs: b/l wheeze Abdomen: Normal Bowel Sounds, Soft, No Tenderness, No Hepatospenomegaly Neurological: Normal Speech, Strength at 5/5 X4 Ext Current Medications: Current Medications Sig/Harman Start time Last Medication Dose Route Stop Time Status Admin Acetaminophen 1,000 MG .STK-MED ONE 03/05 2058 DC PO 03/05 2059 Acetaminophen 1,000 MG .STK-MED ONE 03/05 1438 DC PO 03/05 143 Acetaminophen 1,000 MG TID 03/03 2100 AC 03/06 PO 0942 Albuterol Sulfate 3 ML EVERY 4 HRS/AWAKE 03/02 2000 AC 03/06 INH 1153 Albuterol Sulfate 2 PUF Q4-6 PRN PRN 03/02 1515 AC INH Budesonide/ 2 PUF BID 03/02 2100 AC 03/06 Formoterol Fumarate INH 0939 Ceftazidime 2,000 MG IQ8 03/02 1600 AC 03/06 IV 0900 Docusate Sodium 100 MG .STK-MED ONE 03/05 2059 DC PO 03/05 2100 Docusate Sodium 100 MG BID 03/03 2100 AC 03/06 PO 0941 Fluticasone 1 SPRAY BID 03/05 2100 AC 03/06 Propionate CORRIE 0941 Gabapentin 300 MG Q8 03/03 1743 AC 03/06 PO 0623 Guaifenesin/Codeine 10 ML Q4P PRN 03/02 1500 AC Phosphate PO Heparin Sodium 5,000 UNIT Q8 03/04 0600 AC 03/06 (Porcine) SC 0623 Methylprednisolone 40 MG Q12 03/03 0900 AC 03/06 IV 0942 Montelukast Sodium 10 MG QPM 03/02 2100 AC 03/05 PO 2103 Morphine Sulfate 2 MG Q4P PRN 03/03 1730 AC IV Ondansetron HCl 4 MG ONCE PRN 03/03 1645 AC IV Oxycodone HCl 5 MG Q6P PRN 03/03 1730 AC 03/05 PO 0859 Oxycodone HCl 10 MG Q6P PRN 03/03 1730 AC 03/06 PO 0623 Polyethylene Glycol 17 GM AT BEDTIME PRN 07 1500 AC 03/06 PO 0947 Senna/Docusate Sodium 1 TAB AT BEDTIME PRN 03/02 1500 AC PO Tiotropium [place] 1 PUF DAILY 03/03 0900 AC 03/06 INH 1000 Tramadol HCl 50 MG Q8P PRN 03/02 1530 AC 03/03 PO 0837 Trimethobenzamide HCl 200 MG ONCE PRN 03/03 1645 AC IM Vancomycin HCl 1,000 MG Q12 03/03 0900 AC 03/06 Sodium Chloride 250 ML IV 1000 Last 24 Hrs of Lab/Christian Results Last 24 Hrs of Labs/Mics: Laboratory Tests 03/06/18 0630: Anion Gap 10, Estimated GFR > 60, BUN/Creatinine Ratio 20.0, CBC w Diff MAN DIFF ORDERED, RBC 4.06 L, MCV 78.5 L, MCH 24.6 L, MCHC 31.3 L, RDW 22.0 H, MPV 8.3, Gran % 93.4 H, Lymphocytes % 2.5 L, Monocytes % 4.1, Eosinophils % 0, Basophils % 0, Absolute Granulocytes 14.7 H, Absolute Lymphocytes 0.4 L, Absolute Monocytes 0.6, Absolute Eosinophils 0, Absolute Basophils 0, Platelet Estimate VERIFIED BY SMEAR, Polychromasia 1+, Hypochromic-Microcytic 1+, Basophilic Stippling SLIGHT, Anisocytosis 1+, Microcytic Cells 1+ Assessment/Plan Assessment: Patient is a 47-year-old male with a past medical history of stage III non-small cell lung cancer of LLL status post chemotherapy with Braxan 1 year ago, radiation therapy 6 months ago, COPD on 2 L of home oxygen, sleep apnea on CPAP, spinal stenosis, bronchitis. Patient is presenting with complaints of cough with clear/white sputum, shortness of breath with walking and talking, low-grade fevers, chest tightness for the past 1 month Problem List: 1. Sepsis-resolved 2. Postobstructive pneumonia with loculated left pleural effusion and left lung collapse. 3. Stage III non-small cell lung cancer of the left lower lobe status post chemoradiation 4. Pericardian Effusion status post pericardial window 5. Anemia 6. COPD-oxygen dependent 7. Sleep Apnea on nocturnal positive airway pressure 8. Spinal Stenosis #Sepsis Patient meets sepsis criteria with: Elevated: HR, RR, Lactate level, WBC. Source is of pulmonary origin. * Patient is on 4 L. Continue TRC nebulization. Keep oxygen saturation more than 92%. Use CPAP the night. * Encouraged to use incentive spirometry. * Continue vancomycin and ceftazidime-appreciate pulmonology follow-up * Continue p.o. prednisone. * Appreciate surgery follow-up. * Follow-up cytology. * Continue gabapentin, morphine for breakthrough pain * Out of bed as tolerated. * Code-full code * Diet-heart healthy diet Problem List: 1. Pericardial effusion Pain Ratin Pain Location: none Pain Goal: Remain pain free Pain Plan: tylenol Tomorrow's Labs & Rationales: cbc,bep Matias MURRAY,Tino 03/06/18 1553: Attending MD Review Statement Attending Statement Attending MD Statement: examined this patient, discuss w/resident/PA/DINKEY ENGINE FIRER, agreed w/resident/PA/DINKEY ENGINE FIRER, discussed with family, reviewed EMR data (avail), discussed with nursing, amended to note Attending Assessment/Plan: The patient was seen and discussed with house staff, nursing and family. Appreciate Pulmonary and Cardiology follow-up. Agree with decrease in Prednisone , ambulate, etc. Await pathology report from thoracentesis. Lab never received sputum cultures from bronch. AFB smear negative.
--- NOTE | 2018-03-06 09:53 | PN- Pulmonary ---
Subjective HPI/Critical Care Issues: The patient is awake and alert. He is coughing up thick hopper sputum. He feels better overall. He is less short of breath. His pain is better controlled. Objective Current Medications: Current Medications Sig/Harman Start time Last Medication Dose Route Stop Time Status Admin Acetaminophen 1,000 MG .STK-MED ONE 03/05 2058 DC PO 03/05 2059 Acetaminophen 1,000 MG .STK-MED ONE 03/05 1438 DC PO 03/05 1439 Acetaminophen 1,000 MG TID 03/03 2100 AC 03/06 PO 0942 Albuterol Sulfate 3 ML EVERY 4 HRS/AWAKE 03/02 2000 AC 03/06 INH 0755 Albuterol Sulfate 2 PUF Q4-6 PRN PRN 03/02 1515 AC INH Budesonide/ 2 PUF BID 03/02 2100 AC 03/06 Formoterol Fumarate INH 0939 Ceftazidime 2,000 MG IQ8 03/02 1600 AC 03/06 IV 0900 Docusate Sodium 100 MG .STK-MED ONE 03/05 2059 DC PO 03/05 2100 Docusate Sodium 100 MG BID 03/03 2100 AC 03/06 PO 0941 Fluticasone 1 SPRAY BID 03/05 2100 AC 03/06 Propionate CORRIE 0941 Fluticasone 2 SPRAY 2100 03/02 2100 DC 03/04 Propionate CORRIE 2253 Gabapentin 300 MG Q8 03/03 1743 AC 03/06 PO 0623 Guaifenesin/Codeine 10 ML Q4P PRN 03/02 1500 AC Phosphate PO Heparin Sodium 5,000 UNIT Q8 03/04 0600 AC 03/06 (Porcine) SC 0623 Methylprednisolone 40 MG Q12 03/03 0900 AC 03/06 IV 0942 Montelukast Sodium 10 MG QPM / 2100 AC 03/05 PO 2103 Morphine Sulfate 2 MG Q4P PRN 03/03 1730 AC IV Ondansetron HCl 4 MG ONCE PRN 03/03 1645 AC IV Oxycodone HCl 5 MG Q6P PRN 03/03 1730 AC 03/05 PO 0859 Oxycodone HCl 10 MG Q6P PRN 03/03 1730 AC 03/06 PO 0623 Polyethylene Glycol 17 GM AT BEDTIME PRN 03/02 1500 AC PO Senna/Docusate Sodium 1 TAB AT BEDTIME PRN 07/11 1500 AC PO Tiotropium [place] 1 PUF DAILY 03/03 09 AC 03/05 INH 0912 Tramadol HCl 50 MG Q8P PRN 03/02 1530 AC 03/03 PO 0837 Trimethobenzamide HCl 200 MG ONCE PRN 03/03 1645 AC IM Vancomycin HCl 1,000 MG Q12 03/03 09 AC 03/05 Sodium Chloride 250 ML IV 2206 Vital Signs & I&O Last 24 Hrs of Vitals and I&O: Vital Signs Date Time Temp Pulse Resp B/P B/P Pulse O2 O2 Flow FiO2 Mean Ox Delivery Rate 03/06 0647 97.6 55 20 118/62 98 BIPAP 03/06 0053 54 94 03/06 0000 Nasal 3.0L Cannula 03/05 2305 90 99 03/05 2203 97.9 72 18 148/62 95 Nasal Cannula 03/05 1705 93 Nasal 5.0L Cannula 03/05 1511 98.4 80 18 152/74 94 03/05 1331 93 Nasal 5.0L Cannula Intake & Output 03/06 1600 03/06 0800 03/06 0000 Intake Total 120 370 Output Total 1170 900 Balance -1050 -530 Intake, IV 250 Intake, Oral 120 120 Output, Chest 20 Tube Drainage Output, Urine 1150 900 Physical Exam General Appearance: well developed/nourished, no apparent distress, alert, comfortable, obese Respiratory: diminished breath sounds L>R, minimal wheezing, R lung rhonchi Cardiovascular: regular rate/rhythm, normal peripheral pulses Gastrointestinal: normal bowel sounds, soft, non-tender Extremities: normal inspection, normal range of motion, trace b/l LE edema Neurologic/Psych: no motor/sensory deficits Results Last 24 Hrs of Lab Results: Laboratory Tests 03/06/18 0630: Anion Gap 10, Estimated GFR > 60, BUN/Creatinine Ratio 20.0, CBC w Diff MAN DIFF ORDERED, RBC 4.06 L, MCV 78.5 L, MCH 24.6 L, MCHC 31.3 L, RDW 22.0 H, MPV 8.3, Gran % 93.4 H, Lymphocytes % 2.5 L, Monocytes % 4.1, Eosinophils % 0, Basophils % 0, Absolute Granulocytes 14.7 H, Absolute Lymphocytes 0.4 L, Absolute Monocytes 0.6, Absolute Eosinophils 0, Absolute Basophils 0, Platelet Estimate VERIFIED BY SMEAR, Polychromasia 1+, Hypochromic-Microcytic 1+, Basophilic Stippling SLIGHT, Anisocytosis 1+, Microcytic Cells 1+ Impression/Plan Impression/Plan Impression/Plan: 1. Post obstructive pneumonia. 2. Loculated left pleural effusion and left lung collapse, bronchoscopy () showed an occlusive thrombus with some evidence of tissue attached to it and possible endobronchial lesion. 3. Pericardial effusion with early tamponade physiology, s/p pericardial window with intraoperative transesophageal echocardiogram (03/03/18). 4. Oxygen dependent COPD. 5. Chronic hypoxemic respiratory failure. 6. Severe obstructive sleep apnea, on nocturnal positive airway pressure. 7. Stage III non-small cell lung cancer of the left lower lobe, status post chemoradiation. The patient had a PET scan approximately 2 weeks ago that failed to demonstrate any evidence of disease recurrence. There was persistent uptake in the mediastinal nodes reported on that study. 8. Microcytic anemia. 9. Morbid obesity. 10. Severe chronic back pain. 11. Increased leukocytosis which may be related to steroids, improving. Recommendations: * Continue nebs/TRC, and inhaler therapy (Symbicort 2 puffs every 12 hours, Spiriva 1 inhalation every morning). * Oxygen for saturations greater than 92%. Can use PAP or high flow/nasal cannula. * Incentive spirometry. * Decrease prednisone to 30 mg daily, will continue to taper off quickly. * Out of bed to chair as tolerated. Increase activity. * Follow-up cultures. * Continue antibiotics pending culture results. * Follow-up cytology results. * Continue with pain control, being careful to avoid oversedation. * DVT prophylaxis at all times.
[2018-03-06 14:34] VITALS: BP 150/62
--- NOTE | 2018-03-06 14:42 | PN- Cardiology ---
Subjective Subjective: Stable. Sitting in bedside chair. Feels better today. Objective Vital Signs and I&Os Vital Signs Date Time Temp Pulse Resp B/P B/P Pulse O2 O2 Flow FiO2 Mean Ox Delivery Rate 03/06 1434 97.1 83 20 150/62 92 03/06 1155 96 Nasal 4.0L Cannula 03/06 0647 97.6 55 20 118/62 98 BIPAP 03/06 0053 54 94 03/06 0000 Nasal 3.0L Cannula 03/05 2305 90 99 03/05 2203 97.9 72 18 148/62 95 Nasal Cannula 03/05 1705 93 Nasal 5.0L Cannula 03/05 1511 98.4 80 18 152/74 94 Intake & Output 03/06 1600 03/06 0800 03/06 0000 03/05 1600 03/05 0800 03/05 0000 Intake Total 120 370 300 256 872 Output Total 1170 602 882 8589 1230 Balance -1050 -530 -100 -894 -358 Intake, IV 250 156 532 Intake, Oral 120 120 300 100 340 Output, Chest 20 0 30 Tube Drainage Output, Urine 1150 453 479 8270 1200 Current Medications: Current Medications Sig/Harman Start time Last Medication Dose Route Stop Time Status Admin Acetaminophen 1,000 MG .STK-MED ONE 03/05 2058 DC PO 03/05 2059 Acetaminophen 1,000 MG TID 03/03 2100 AC 03/06 PO 1432 Albuterol Sulfate 3 ML EVERY 4 HRS/AWAKE 03/02 2000 AC 03/06 INH 1153 Albuterol Sulfate 2 PUF Q4-6 PRN PRN 03/02 1515 AC INH Budesonide/ 2 PUF BID 03/02 2100 AC 03/06 Formoterol Fumarate INH 0939 Ceftazidime 2,000 MG IQ8 03/02 1600 AC 03/06 IV 0900 Docusate Sodium 100 MG .STK-MED ONE 03/05 2059 DC PO 03/05 2100 Docusate Sodium 100 MG BID 03/03 2100 AC 03/06 PO 0941 Fluticasone 1 SPRAY BID 03/05 2100 AC 03/06 Propionate CORRIE 0941 Gabapentin 300 MG Q8 03/03 1743 AC 03/06 PO 1430 Guaifenesin/Codeine 10 ML Q4P PRN 03/02 1500 AC Phosphate PO Heparin Sodium 5,000 UNIT Q8 03/04 0600 AC 03/06 (Porcine) SC 1432 Methylprednisolone 40 MG Q12 03/03 0900 DC 03/06 IV 0942 Montelukast Sodium 10 MG QPM 03/02 2100 AC 03/05 PO 2103 Morphine Sulfate 2 MG Q4P PRN 03/03 1730 AC IV Ondansetron HCl 4 MG ONCE PRN 03/03 1645 AC IV Oxycodone HCl 5 MG Q6P PRN 03/03 1730 AC 03/05 PO 0859 Oxycodone HCl 10 MG Q6P PRN 03/03 1730 AC 03/06 PO 0623 Polyethylene Glycol 17 GM AT BEDTIME PRN 03/02 1500 AC 03/06 PO 0947 Prednisone 40 MG DAILY 03/07 09 AC PO Senna/Docusate Sodium 1 TAB AT BEDTIME PRN 03/02 1500 AC PO Tiotropium [place] 1 PUF DAILY 03/03 0900 AC 03/06 INH 1000 Tramadol HCl 50 MG Q8P PRN 03/02 1530 AC 03/03 PO 0837 Trimethobenzamide HCl 200 MG ONCE PRN 03/03 1645 AC IM Vancomycin HCl 1,000 MG Q12 03/03 0900 AC 03/06 Sodium Chloride 250 ML IV 1000 Results Last 48 Hrs of Labs/Mics: Laboratory Tests 03/06/18 0630: Anion Gap 10, Estimated GFR > 60, BUN/Creatinine Ratio 20.0, CBC w Diff MAN DIFF ORDERED, RBC 4.06 L, MCV 78.5 L, MCH 24.6 L, MCHC 31.3 L, RDW 22.0 H, MPV 8.3, Gran % 93.4 H, Lymphocytes % 2.5 L, Monocytes % 4.1, Eosinophils % 0, Basophils % 0, Absolute Granulocytes 14.7 H, Absolute Lymphocytes 0.4 L, Absolute Monocytes 0.6, Absolute Eosinophils 0, Absolute Basophils 0, Platelet Estimate VERIFIED BY SMEAR, Polychromasia 1+, Hypochromic-Microcytic 1+, Basophilic Stippling SLIGHT, Anisocytosis 1+, Microcytic Cells 1+ 03/05/18 0445: Anion Gap 7, Estimated GFR > 60, Glucose 124 H, Calcium 9.4, Phosphorus 3.0, Magnesium 2.2, Total Bilirubin 0.2, AST 14 L, ALT 48, Albumin 2.8 L, CBC w Diff MAN DIFF ORDERED, RBC 3.79 L, MCV 77.6 L, MCH 24.5 L, MCHC 31.5 L, RDW 21.6 H, MPV 8.1, Gran % 95.9 H, Lymphocytes % 1.9 L, Monocytes % 2.2, Eosinophils % 0, Basophils % 0, Absolute Granulocytes 16.0 H, Absolute Lymphocytes 0.3 L, Absolute Monocytes 0.4, Absolute Eosinophils 0, Absolute Basophils 0, Platelet Estimate ADEQUATE, Polychromasia 1+, Basophilic Stippling 1+ Assessment/Plan Assessment/Plan Assessment: 1. Day #3 post pericardial drainage and window 2. Stage III non-small cell lung cancer with left lung collapse and loculated left pleural effusion 3. Atrial and ventricular ectopy 4. Microcytic anemia Recommendations: -Continue as per the CT surgical team -Maintain telemetry monitoring for now. -Also continue as per pulmonary. Possible follow-up bronchoscopy pending Continue telemetry? Yes
[2018-03-06 23:36] VITALS: BP 132/62
--- NOTE | 2018-03-07 06:54 | PN- Housestaff ---
Subjective Follow-up For: Pericardial window, POD #4 Pneumonia w/ sepsis Subjective: Patient seen resting comfortably in the bed, using the CPAP. Patient says he is feeling the best he has in months, but admits he still has a bit to go before he 's ready to go home. He has some incisional pain at the chest tube site when he coughs, and he has a frequent productive cough. He is aware that the chest tube will continue in place with drainage through tomorrow. He reports that his shortness of breath is improving, and denies any orthopnea, edema or pressure- like chest pain. The patient reports that he is working on getting out of bed to the chair and to the restroom when possible. Review of Systems Constitutional: Denies: chills, malaise. Cardiovascular: Reports: chest pain (At incision site w/ cough). Denies: orthopena, palpitations, peripheral edema, syncope. Respiratory: Reports: cough, short of breath, sputum production. Gastrointestinal: Denies: abdominal pain, nausea, vomiting. Objective Last 24 Hrs of Vital Signs/I&O Vital Signs Date Time Temp Pulse Resp B/P B/P Pulse O2 O2 Flow FiO2 Mean Ox Delivery Rate 03/07 0004 57 95 03/06 2336 98.1 77 18 132/62 96 Nasal 3.0L Cannula 03/06 2300 78 98 03/06 2124 Nasal 4.0L Cannula 03/06 1815 95 Nasal 4.0L Cannula 03/06 1434 97.1 83 20 150/62 92 03/06 1155 96 Nasal 4.0L Cannula 03/06 0800 Nasal 4.0L Cannula Intake & Output 03/07 0800 03/07 0000 03/06 1600 Intake Total 240 360 600 Output Total 2 30 Balance 238 330 600 Intake, Oral 240 360 600 Output, Chest 2 30 Tube Drainage Patient 146.284 kg Weight Physical Exam General Appearance: Alert, Oriented X3, Cooperative, No Acute Distress HEENT: PERRLA, EOMI Neck: Supple, No JVD Cardiovascular: Regular Rate, Normal S1, Normal S2, No Murmurs Lungs: Congestion and wheezing in the upper lung carrera, with congestion throughout the R lung; Diminished air sounds in the lower lung carrera on the left side Abdomen: Soft, No Tenderness Neurological: Normal Speech, Strength at 5/5 X4 Ext Extremities: No Clubbing, No Cyanosis, No Edema Current Medications: Current Medications Sig/Harman Start time Last Medication Dose Route Stop Time Status Admin Acetaminophen 1,000 MG .STK-MED ONE 03/06 2050 DC PO 03/06 2051 Acetaminophen 1,000 MG .STK-MED ONE 03/06 142 DC PO 03/06 142 Acetaminophen 1,000 MG .STK-MED ONE 03/06 921 DC PO 03/06 922 Acetaminophen 1,000 MG TID 03/03 2100 AC 03/06 PO 2053 Albuterol Sulfate 3 ML EVERY 4 HRS/AWAKE 03/02 2000 AC 03/06 INH 2200 Albuterol Sulfate 2 PUF Q4-6 PRN PRN 03/02 1515 AC INH Budesonide/ 2 PUF BID 03/02 2100 AC 03/06 Formoterol Fumarate INH 2054 Ceftazidime 2,000 MG IQ8 03/02 1600 AC 03/06 IV 2301 Docusate Sodium 100 MG .STK-MED ONE 03/06 2050 DC PO 03/06 2051 Docusate Sodium 100 MG .STK-MED ONE 03/06 921 DC PO 03/06 922 Docusate Sodium 100 MG BID 03/03 2100 AC 03/06 PO 2053 Fluticasone 1 SPRAY BID 03/05 2100 AC 03/06 Propionate CORRIE 2051 Gabapentin 300 MG Q8 03/03 1743 AC 03/07 PO 0541 Guaifenesin/Codeine 10 ML Q4P PRN 03/02 1500 AC Phosphate PO Heparin Sodium 5,000 UNIT Q8 03/04 0600 AC 03/07 (Porcine) SC 0541 Methylprednisolone 40 MG Q12 03/03 0900 DC 03/06 IV 0942 Montelukast Sodium 10 MG QPM 03/02 2100 AC 03/06 PO 205 Morphine Sulfate 2 MG Q4P PRN 03/03 1730 AC IV Ondansetron HCl 4 MG ONCE PRN 03/03 1645 AC IV Oxycodone HCl 5 MG Q6P PRN 03/03 1730 AC 03/05 PO 0859 Oxycodone HCl 10 MG Q6P PRN 03/03 1730 AC 03/06 PO 2301 Polyethylene Glycol 17 GM AT BEDTIME PRN 03/02 1500 AC 03/06 PO 0947 Prednisone 40 MG DAILY 03/07 0900 DC PO Prednisone 30 MG DAILY 03/07 0900 AC PO Senna/Docusate Sodium 1 TAB AT BEDTIME PRN 03/02 1500 AC 03/06 PO 2053 Tiotropium [place] 1 PUF DAILY 03/03 0900 AC 03/06 INH 1000 Tramadol HCl 50 MG Q8P PRN 03/02 1530 AC 03/03 PO 08 Trimethobenzamide HCl 200 MG ONCE PRN 03/03 1645 AC IM Vancomycin HCl 1,000 MG Q12 03/03 09 AC 03/06 Sodium Chloride 250 ML IV 2054 Assessment/Plan Assessment: Patient is a 47 year old male with a history of COPD, sleep apnea, stage 3 non- small cell lung cancer and post-obstructive pneumonia in the left lower lobe. Patient is POD #4 s/p pericardial window with chest tube draining. 1. Sepsis-resolved steroid use 2. Postobstructive pneumonia with loculated left pleural effusion and left lung collapse. starting tonight unclear 3. Stage III non-small cell lung cancer of the left lower lobe status post chemoradiation months ago 4. Pericardian Effusion status post pericardial window 5. Anemia respiratory failure/COPD, anemia of chronic disease 6. COPD-oxygen dependent 7. Sleep Apnea on nocturnal positive airway pressure 8. Constipation help alleviate constipation Problem List: 1. Pericardial effusion 2. Pneumonia 3. Sepsis 4. Lung cancer Pain Ratin (At incision, upon coughing) Pain Location: Chest tube site, central chest Pain Goal: Pain 4 or less Pain Plan: Oxycodone, Tylenol, Morphine Tomorrow's Labs & Rationales: CBC & BEP
[2018-03-07 07:13] VITALS: BP 110/52
--- NOTE | 2018-03-07 07:28 | Patient Discharge Instructions ---
Discharge Instructions General Discharge Information You were seen/treated for: Post-obstructive pneumonia, pericardial effusion, COPD, paroxysmal atrial fibrillation You had these procedures: Peridardiocentesis, bronchoscopy, trans-esophageal echocardiogram Watch for these problems: If you have increased shortness of breath or difficulty breathing, chest pain, dizziness/fainting, please seek care at your nearest emergency department Special Instructions: Please follow-up with your primary care doctor, psychologist experimental, decision analyst, cardiothoracic surgeon, and oncologist about your recent hospital stay. Diet Continue normal diet: Yes Recommended Diet: Regular Activity Full Activity/No Limits: No Activity Self Limited: Yes Acute Coronary Syndrome Inclusion Criteria At DC or during hospital stay patient has or had the following: ACS DIAGNOSIS No Discharge Core Measures Meds if any: Prescribed or Continued at Discharge Meds if any: NOT Prescribed or Continued at Discharge Congestive Heart Failure Inclusion Criteria At DC or during hospital stay patient has or had the following: CHF DIAGNOSIS No Discharge Core Measures Meds if any: Prescribed or Continued at Discharge Meds if any: NOT Prescribed or Continued at Discharge Cerebrovascular accident Inclusion Criteria At DC or during hospital stay patient has or had the following: CVA/TIA Diagnosis No Discharge Core Measures Meds if any: Prescribed or Continued at Discharge Meds if any: NOT Prescribed or Continued at Discharge Venous thromboembolism Inclusion Criteria VTE Diagnosis No VTE Type NONE VTE Confirmed by (Test) NONE Discharge Core Measures - Per Current guidelines, there needs to be overlap - treatment for the first 5 days of Warfarin therapy. - If discharged on Warfarin prior to 5 days of - overlap therapy, the patient will need to be - assessed for post discharge needs including - *Post discharge parental anticoagulation - *Warfarin and/or parental anticoagulation education - *Follow up date to check INR post discharge At least 5 days overlap therapy as Inpatient No (Not on coumadin) Meds if any: Prescribed or Continued at Discharge Note: Overlap Therapy is Warfarin and Anticoagulant Meds if any: NOT Prescribed or Continued at Discharge
[2018-03-07 08:21] LABS: ABSOLUTE BASOPHIL COUNT 0 /CUMM (0.0-0.2); ABSOLUTE EOSINOPHIL COUNT 0.1 /CUMM (0.0-0.7); ABSOLUTE GRANULOCYTE CT 11.5 /CUMM (1.4-6.5); ABSOLUTE LYMPH COUNT 0.9 /CUMM (1.2-3.4); ABSOLUTE MONOCYTE COUNT 0.8 /CUMM (0.10-0.60); BASOPHIL % 0.1 % (0.0-2.0); EOSINOPHIL % 0.5 % (0-5); HEMATOCRIT 30.2 % (42-52); MEAN CORPUSCULAR HGB 24.7 PG (27.0-31.0); MEAN CORPUSCULAR HGB CONC 31.7 G/DL (33.0-37.0); MEAN CORPUSCULAR VOLUME 77.9 FL (80.0-94.0); MEAN PLATELET VOLUME 8.5 FL (7.4-10.4); PLATELET COUNT 371 /CUMM (130-400); RBC DISTRIBUTION WIDTH 22.5 % (11.5-14.5); RED BLOOD CELL CT 3.87 /CUMM (4.70-6.10); WHITE BLOOD CELL COUNT 13.3 /CUMM (4.8-10.8)
--- NOTE | 2018-03-07 08:36 | PN- Thoracic Surgery ---
Subjective Subjective: PT IN BED, STATES MINIMASL INCISIONAL PAIN. SHORTNESDS OF BREATH CONTINUES TO IMPROVE WITH BREATHING TREATMENTS. DENIES CP. AMBULATING. TOLERATING DIET. NO BM IN SEVERAL DAYS Objective Vital Signs and I&Os Vital Signs Date Time Temp Pulse Resp B/P B/P Pulse O2 O2 Flow FiO2 Mean Ox Delivery Rate 03/07 713 98.4 60 20 110/52 98 03/07 0004 57 95 03/06 2336 98.1 77 18 132/62 96 Nasal 3.0L Cannula 03/06 2300 78 98 03/06 2124 Nasal 4.0L Cannula 03/06 1815 95 Nasal 4.0L Cannula 03/06 1434 97.1 83 20 150/62 92 03/06 1155 96 Nasal 4.0L Cannula Intake & Output 03/07 1600 03/07 0800 03/07 0000 03/06 1600 03/06 0800 03/06 0000 Intake Total 240 360 600 120 370 Output Total 2 30 1170 900 Balance 238 330 600 -1050 -530 Intake, IV 250 Intake, Oral 240 360 600 120 120 Output, Chest 2 30 20 Tube Drainage Output, Urine 1150 900 Patient 323 lb Weight Physical Exam: GEN- NAD RESP-RHONCHI WORSE ON LEFT, BREATH SOUNDS DISTAL ON LEFT SIDE CARDIAC- RRR ABD- OBESE, SOFT, NT. DRESSING WITH MINIMAL DRAINAGE, INCISION CLEAN AND DRY, NO SIGNS OF INFECTION. CHEST TUBE IN PLACE IN EPIGASTRIC AREA- 2CC SEROSANG DRAINAGE OVERNIGHT, ON LCWS. CLEAN DRY DRESSING APPLIED Current Medications: Current Medications Sig/Harman Start time Last Medication Dose Route Stop Time Status Admin Acetaminophen 1,000 MG .STK-MED ONE 03/06 2050 DC PO 03/06 2051 Acetaminophen 1,000 MG .STK-MED ONE 03/06 1425 DC PO 03/06 1426 Acetaminophen 1,000 MG .STK-MED ONE 03/06 0921 DC PO 03/06 0922 Acetaminophen 1,000 MG TID 03/03 2100 AC 03/07 PO 0830 Albuterol Sulfate 3 ML EVERY 4 HRS/AWAKE 03/02 2000 AC 03/07 INH 0818 Albuterol Sulfate 2 PUF Q4-6 PRN PRN 03/02 1515 AC INH Bisacodyl 5 MG ONCE ONE 03/07 0830 UNVr PO 03/07 0831 Budesonide/ 2 PUF BID 03/02 2100 AC 03/07 Formoterol Fumarate INH 0831 Ceftazidime 2,000 MG IQ8 03/02 1600 AC 03/07 IV 0829 Docusate Sodium 100 MG .STK-MED ONE 03/06 2050 DC PO 03/06 2051 Docusate Sodium 100 MG .STK-MED ONE 03/06 0921 DC PO 03/06 09 Docusate Sodium 100 MG BID 03/03 2100 AC 03/06 PO 205 Fluticasone 1 SPRAY BID 03/05 2100 AC 03/07 Propionate CORRIE 0830 Gabapentin 300 MG Q8 03/03 1743 AC 03/07 PO 0541 Guaifenesin/Codeine 10 ML Q4P PRN 03/02 1500 AC Phosphate PO Heparin Sodium 5,000 UNIT Q8 03/04 0600 AC 03/07 (Porcine) SC 0541 Methylprednisolone 40 MG Q12 03/03 0900 DC 03/06 IV 0942 Montelukast Sodium 10 MG QPM 03/02 2100 AC 03/06 PO 2052 Morphine Sulfate 2 MG Q4P PRN 03/03 1730 AC IV Ondansetron HCl 4 MG ONCE PRN 03/03 1645 AC IV Oxycodone HCl 5 MG Q6P PRN 03/03 1730 AC 03/05 PO 0859 Oxycodone HCl 10 MG Q6P PRN 03/03 1730 AC 03/07 PO 0829 Polyethylene Glycol 17 GM AT BEDTIME PRN 03/02 1500 AC 03/06 PO 0947 Prednisone 40 MG DAILY 03/07 0900 DC PO Prednisone 30 MG DAILY 03/07 0900 AC 03/07 PO 0829 Senna/Docusate Sodium 1 TAB AT BEDTIME PRN 03/02 1500 AC 03/06 PO 2053 Tiotropium [place] 1 PUF DAILY 03/03 0900 AC 03/07 INH 0831 Tramadol HCl 50 MG Q8P PRN 03/02 1530 AC 03/03 PO 0837 Trimethobenzamide HCl 200 MG ONCE PRN 03/03 1645 AC IM Vancomycin HCl 1,000 MG Q12 03/03 0900 AC 03/07 Sodium Chloride 250 ML IV 0830 Results Last 48 Hours of Labs: Laboratory Tests 03/07 03/06 0629 0630 Chemistry Sodium (137 - 145 mmol/L) 139 140 Potassium (3.5 - 5.1 mmol/L) 4.4 4.9 Chloride (98 - 107 mmol/L) 99 99 Carbon Dioxide (22 - 30 mmol/L) 36 H 31 H Anion Gap (5 - 16) 5 10 BUN (9 - 20 mg/dL) 16 14 Creatinine (0.7 - 1.2 mg/dL) 0.5 L 0.7 Estimated GFR (>60 ml/min) > 60 > 60 BUN/Creatinine Ratio (7 - 25 %) 32.0 H 20.0 Hematology CBC w Diff Pending MAN DIFF ORDERED WBC (4.8 - 10.8 /CUMM) Pending 15.8 H RBC (4.70 - 6.10 /CUMM) Pending 4.06 L Hgb (14.0 - 18.0 G/DL) Pending 10.0 L Hct (42 - 52 %) Pending 31.8 L MCV (80.0 - 94.0 FL) Pending 78.5 L MCH (27.0 - 31.0 PG) Pending 24.6 L MCHC (33.0 - 37.0 G/DL) Pending 31.3 L RDW (11.5 - 14.5 %) Pending 22.0 H Plt Count (130 - 400 /CUMM) Pending 419 H MPV (7.4 - 10.4 FL) Pending 8.3 Gran % (42.2 - 75.2 %) 93.4 H Lymphocytes % (20.5 - 51.1 %) 2.5 L Monocytes % (1.7 - 9.3 %) 4.1 Eosinophils % (0 - 5 %) 0 Basophils % (0.0 - 2.0 %) 0 Absolute Granulocytes (1.4 - 6.5 /CUMM) 14.7 H Absolute Lymphocytes (1.2 - 3.4 /CUMM) 0.4 L Absolute Monocytes (0.10 - 0.60 /CUMM) 0.6 Absolute Eosinophils (0.0 - 0.7 /CUMM) 0 Absolute Basophils (0.0 - 0.2 /CUMM) 0 Platelet Estimate (ADEQUATE) VERIFIED BY SMEAR Polychromasia 1+ Hypochromic-Microcytic 1+ Basophilic Stippling SLIGHT Anisocytosis 1+ Microcytic Cells 1+ Assessment/Plan Assessment/Plan This is a 47 year old male, POD 4 s/p pericardial window for effusion. chest tube left in pericardial space. dressing changed today From surgical standpoint, plan remains to continue chest tube to low wall suction until wednesday regardless of drainage. Core Measures Venous Thromboembolism VTE Risk Factors Cancer/chemo/othr therapy No Mechanical VTE Prophylaxis d/t N/A MechProphylax Ordered No VTE Pharm Prophylaxis d/t NA PharmProphylax ordered
--- NOTE | 2018-03-07 09:34 | PN- Pulmonary ---
Subjective HPI/Critical Care Issues: The patient is awake and alert. He continues to have a congested cough, productive of hopper sputum. He feels that his breathing has improved overall. The patient complains of constipation and he has not moved his bowels in 5 days. He offers no other complaints today. Objective Current Medications: Current Medications Sig/Harman Start time Last Medication Dose Route Stop Time Status Admin Acetaminophen 1,000 MG .STK-MED ONE 03/06 2050 DC PO 03/06 2051 Acetaminophen 1,000 MG .STK-MED ONE 03/06 1425 DC PO 03/06 142 Acetaminophen 1,000 MG TID 03/03 2100 AC 03/07 PO 0830 Albuterol Sulfate 3 ML EVERY 4 HRS/AWAKE 03/02 2000 AC 03/07 INH 0818 Albuterol Sulfate 2 PUF Q4-6 PRN PRN 03/02 1515 AC INH Bisacodyl 10 MG DAILY NEEDED PRN 03/07 2000 AC WI Bisacodyl 5 MG ONCE ONE 03/07 0830 DC PO 03/07 0831 Budesonide/ 2 PUF BID 03/02 2100 AC 03/07 Formoterol Fumarate INH 0831 Ceftazidime 2,000 MG IQ8 03/02 1600 AC 03/07 IV 0829 Docusate Sodium 100 MG .STK-MED ONE 03/06 2050 DC PO 03/06 2051 Docusate Sodium 100 MG BID 03/03 2100 AC 03/06 PO 205 Fluticasone 1 SPRAY BID 03/05 2100 AC 03/07 Propionate CORRIE 0830 Gabapentin 300 MG Q8 03/03 1743 AC 03/07 PO 0541 Guaifenesin/Codeine 10 ML Q4P PRN 03/02 1500 AC Phosphate PO Heparin Sodium 5,000 UNIT Q8 03/04 0600 AC 03/07 (Porcine) SC 0541 Methylprednisolone 40 MG Q12 03/03 0900 DC 03/06 IV 0942 Montelukast Sodium 10 MG QPM 03/02 2100 AC 03/06 PO 205 Morphine Sulfate 2 MG Q4P PRN 03/03 1730 AC IV Ondansetron HCl 4 MG ONCE PRN 03/03 1645 AC IV Oxycodone HCl 5 MG Q6P PRN 03/03 1730 AC 03/05 PO 0859 Oxycodone HCl 10 MG Q6P PRN 03/03 1730 AC 03/07 PO 0829 Polyethylene Glycol 17 GM AT BEDTIME PRN 03/02 1500 AC 03/06 PO 0947 Prednisone 40 MG DAILY 03/07 0900 DC PO Prednisone 30 MG DAILY 03/07 0900 AC 03/07 PO 0829 Senna/Docusate Sodium 1 TAB AT BEDTIME PRN 03/02 1500 AC 03/06 PO 205 Tiotropium [place] 1 PUF DAILY 03/03 09 AC 03/07 INH 0831 Tramadol HCl 50 MG Q8P PRN 03/02 1530 AC 03/03 PO 0837 Trimethobenzamide HCl 200 MG ONCE PRN 03/03 1645 AC IM Vancomycin HCl 1,000 MG Q12 03/03 09 AC 03/07 Sodium Chloride 250 ML IV 0830 Vital Signs & I&O Last 24 Hrs of Vitals and I&O: Vital Signs Date Time Temp Pulse Resp B/P B/P Pulse O2 O2 Flow FiO2 Mean Ox Delivery Rate 03/07 0818 95 Nasal 6.0L Cannula 03/07 0713 98.4 60 20 110/52 98 03/07 0004 57 95 03/06 2336 98.1 77 18 132/62 96 Nasal 3.0L Cannula 03/06 2300 78 98 03/06 2124 Nasal 4.0L Cannula 03/06 1815 95 Nasal 4.0L Cannula 03/06 1434 97.1 83 20 150/62 92 03/06 1155 96 Nasal 4.0L Cannula Intake & Output 03/07 1600 03/07 0800 03/07 0000 Intake Total 240 360 Output Total 2 30 Balance 238 330 Intake, Oral 240 360 Output, Chest 2 30 Tube Drainage Patient 323 lb Weight Physical Exam General Appearance: well developed/nourished, no apparent distress, alert, comfortable, obese Respiratory: diminished breath sounds L>R, minimal wheezing, R lung rhonchi Cardiovascular: regular rate/rhythm, normal peripheral pulses Gastrointestinal: normal bowel sounds, soft, non-tender Extremities: normal inspection, normal range of motion, trace b/l LE edema Neurologic/Psych: no motor/sensory deficits Results Last 24 Hrs of Lab Results: Laboratory Tests 03/07/18 0629: Anion Gap 5, Estimated GFR > 60, BUN/Creatinine Ratio 32.0 H, CBC w Diff Pending, WBC Pending, RBC Pending, Hgb Pending, Hct Pending, MCV Pending, MCH Pending, MCHC Pending, RDW Pending, Plt Count Pending, MPV Pending, Gran % Pending, Lymphocytes % Pending, Monocytes % Pending, Eosinophils % Pending, Basophils % Pending, Absolute Granulocytes Pending, Absolute Lymphocytes Pending , Absolute Monocytes Pending, Absolute Eosinophils Pending, Absolute Basophils Pending Impression/Plan Impression/Plan Impression/Plan: 1. Post obstructive pneumonia, cultures negative so far. 2. Loculated left pleural effusion and left lung collapse, bronchoscopy () endobronchial lesion. Will need further work up. 3. Pericardial effusion with early tamponade physiology, s/p pericardial window with intraoperative transesophageal echocardiogram (03/03/18). 4. Oxygen dependent COPD. 5. Chronic hypoxemic respiratory failure. 6. Severe obstructive sleep apnea, on nocturnal positive airway pressure. 7. Stage III non-small cell lung cancer of the left lower lobe, status post chemoradiation. The patient had a PET scan approximately 2 weeks ago that failed to demonstrate any evidence of disease recurrence. There was persistent uptake in the mediastinal nodes reported on that study. 8. Microcytic anemia. 9. Morbid obesity. 10. Severe chronic back pain. 11. Increased leukocytosis which may be related to steroids, improving. 12. Constipation. Recommendations: * Bowel regimen for constipation - consider 1 dose of lactulose this morning. * Pericardial drain to be removed tomorrow per surgery. * Check a PA and lateral CXR post catheter removal tomorrow. * Continue nebs/TRC, and inhaler therapy (Symbicort 2 puffs every 12 hours, Spiriva 1 inhalation every morning). * Oxygen for saturations greater than 92%. * Incentive spirometry. * Decrease prednisone to 20 mg daily, will continue to taper off quickly. * Out of bed to chair as tolerated. * PT for ambulation when tube is out. * Change to oral antibiotics - augmentin x 7 days. * Follow-up cytology results. * Continue with pain control, being careful to avoid oversedation. * DVT prophylaxis at all times.
[2018-03-07 09:36] LABS: GRANULOCYTE % 86.7 % (42.2-75.2)
--- NOTE | 2018-03-07 09:55 | PN- Att Addend ---
Attending Addendum Attending Brief Note Patient seen and examined. Agree with graphic design intern's note. This is a 47-year-old male with past medical history of stage III non-small cell lung CA who was admitted with complete opacification of the left hemithorax and pericardial tamponade. He is status post a and now has a chest tube in the pericardia in the pericardial space. He was on Vanco and ceftaz and we spoke to Dr. Ortiz and will narrow the antibiotics down to Augmentin. The plan is for the chest tube to come out tomorrow Wednesday and for a follow-up chest x-ray. We are actively working on optimizing pain regimen and bowel movements.
[2018-03-07 15:14] VITALS: BP 138/60
--- NOTE | 2018-03-07 17:43 | PN- Cardiology ---
Subjective Subjective: No complaints except for some minor incisional discomfort. Continues to feel as though his breathing has significantly improved. Objective Vital Signs and I&Os Vital Signs Date Time Temp Pulse Resp B/P B/P Pulse O2 O2 Flow FiO2 Mean Ox Delivery Rate 03/07 1514 98.1 68 18 138/60 95 03/07 1150 93 Nasal 4.0L Cannula 03/07 0818 95 Nasal 6.0L Cannula 03/07 0800 97 Nasal 4.0L Cannula 03/07 0713 98.4 60 20 110/52 98 03/07 0004 57 95 03/06 2336 98.1 77 18 132/62 96 Nasal 3.0L Cannula 03/06 2300 78 98 03/06 2124 Nasal 4.0L Cannula 03/06 1815 95 Nasal 4.0L Cannula Intake & Output 03/07 1600 03/07 0800 03/07 0000 03/06 1600 03/06 0800 03/06 0000 Intake Total 750 240 360 600 120 370 Output Total 750 2 30 1170 900 Balance 0 238 330 600 -1050 -530 Intake, IV 250 250 Intake, Oral 500 240 360 600 120 120 Output, Chest 2 30 20 Tube Drainage Output, Urine 750 1150 900 Patient 323 lb Weight Physical Exam: Well-developed, obese middle-aged male in no acute distress with nasal oxygen in place. Vital signs: See above. HEENT: Normocephalic, atraumatic, EOMI, moist mucous membranes. Neck: No JVD, no bruits. Lungs: Decreased breath sounds bilaterally left greater than right. Heart: S1, S2. PMI not well felt. No murmur, gallop, or rub. Abdomen: Soft, nontender, positive bowel sounds. Extremities: No edema. Current Medications: Current Medications Sig/Harman Start time Last Medication Dose Route Stop Time Status Admin Acetaminophen 1,000 MG .STK-MED ONE 03/07 826 DC PO 03/07 827 Acetaminophen 1,000 MG .STK-MED ONE 03/06 2050 DC PO 03/06 2051 Acetaminophen 1,000 MG TID 03/03 2100 AC 03/07 PO 1446 Albuterol Sulfate 3 ML EVERY 4 HRS/AWAKE 03/02 2000 AC 03/07 INH 1148 Albuterol Sulfate 2 PUF Q4-6 PRN PRN 03/02 1515 AC INH Amoxicillin/ 875 MG Q12 03/08 0900 DC Clavulanate Potassium PO Amoxicillin/ 875 MG Q12 03/07 2100 AC Clavulanate Potassium PO Bisacodyl 10 MG DAILY NEEDED PRN 03/07 2000 AC RI Bisacodyl 5 MG ONCE ONE 03/07 0830 DC 03/07 PO 03/07 0831 1045 Budesonide/ 2 PUF BID 03/02 2100 AC 03/07 Formoterol Fumarate INH 0831 Ceftazidime 2,000 MG IQ8 03/02 1600 DC 03/07 IV 0829 Docusate Sodium 100 MG .STK-MED ONE 03/06 2050 DC PO 03/06 205 Docusate Sodium 100 MG BID 03/03 2100 AC 03/07 PO 1045 Fluticasone 1 SPRAY BID 03/05 2100 AC 03/07 Propionate CORRIE 0830 Gabapentin 300 MG Q8 03/03 1743 AC 03/07 PO 1446 Guaifenesin/Codeine 10 ML Q4P PRN 03/02 1500 AC Phosphate PO Heparin Sodium 5,000 UNIT Q8 03/04 0600 AC 03/07 (Porcine) SC 1447 Lactulose 20 GM DAILY 03/07 0945 AC 03/07 PO 1045 Montelukast Sodium 10 MG QPM 03/02 2100 AC 03/06 PO 2053 Morphine Sulfate 2 MG Q4P PRN 03/03 1730 AC IV Ondansetron HCl 4 MG ONCE PRN 03/03 1645 AC IV Oxycodone HCl 5 MG Q6P PRN 03/03 1730 DC 03/05 PO 0859 Oxycodone HCl 10 MG Q6P PRN 03/03 1730 DC 03/07 PO 0829 Polyethylene Glycol 17 GM AT BEDTIME PRN 03/02 1500 DC 03/06 PO 0947 Prednisone 20 MG DAILY 03/08 0900 AC PO Prednisone 30 MG DAILY 03/07 0900 DC 03/07 PO 0829 Senna/Docusate Sodium 1 TAB AT BEDTIME PRN 03/02 1500 AC 03/06 PO 2054 Tiotropium [place] 1 PUF DAILY 03/03 0900 AC 03/07 INH 0831 Tramadol HCl 50 MG Q8P PRN 07 1530 AC 03/07 PO 1446 Trimethobenzamide HCl 200 MG ONCE PRN 03/03 1645 AC IM Vancomycin HCl 1,000 MG Q12 03/03 0900 DC 03/07 Sodium Chloride 250 ML IV 0830 Results Last 48 Hrs of Labs/Mics: Laboratory Tests 03/07/18 0629: Anion Gap 5, Estimated GFR > 60, BUN/Creatinine Ratio 32.0 H, CBC w Diff NO MAN DIFF REQ, RBC 3.87 L, MCV 77.9 L, MCH 24.7 L, MCHC 31.7 L, RDW 22.5 H, MPV 8.5, Gran % 86.7 H, Lymphocytes % 6.9 L, Monocytes % 5.8, Eosinophils % 0.5, Basophils % 0.1, Absolute Granulocytes 11.5 H, Absolute Lymphocytes 0.9 L, Absolute Monocytes 0.8 H, Absolute Eosinophils 0.1, Absolute Basophils 0 03/06/18 0630: Anion Gap 10, Estimated GFR > 60, BUN/Creatinine Ratio 20.0, CBC w Diff MAN DIFF ORDERED, RBC 4.06 L, MCV 78.5 L, MCH 24.6 L, MCHC 31.3 L, RDW 22.0 H, MPV 8.3, Gran % 93.4 H, Lymphocytes % 2.5 L, Monocytes % 4.1, Eosinophils % 0, Basophils % 0, Absolute Granulocytes 14.7 H, Absolute Lymphocytes 0.4 L, Absolute Monocytes 0.6, Absolute Eosinophils 0, Absolute Basophils 0, Platelet Estimate VERIFIED BY SMEAR, Polychromasia 1+, Hypochromic-Microcytic 1+, Basophilic Stippling SLIGHT, Anisocytosis 1+, Microcytic Cells 1+ Assessment/Plan Assessment/Plan [id number]-o-[id number]-m w/ hx of MARCI on CPAP, heavy tobacco use, COPD on home O2, & stage III non-small cell lung ca of LLL s/p chemo & radiation Rx who was 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 w/ c/o productive cough, SOB, CP, & low- grade fevers for the past month w/ persistence of Sxs despite Abx & steroid Rx who we were asked to evaluate after his CXR revealed complete white out of the left hemithorax, mild leftward shift of the trachea, a combination of consolidation & pleural fluid and the follow-up chest CTA revealed no PE, but a completely collapsed L lung, a loculated L pleural effusion, new R micronodules, a small R pleural effusion, and an enlarging pericardial effusion. Clinically and hemodynamically stable POD #4 s/p pericardial window for pericardial effusion w/ early tamponade physiology. Recommendations: * Clinically and hemodynamically stable from a cardiac standpoint. * Continue to follow-up on CT surgery and pulmonary recommendations. * Continue DVT prophylaxis. Continue telemetry? Yes * Replete magnesium and maintain at or above 2.0 mg/dl, given PAF. * Continue to follow-up on CT surgery and pulmonary recommendations. * Continue DVT prophylaxis. 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 w/ c/o productive cough, SOB, CP, & low- grade fevers for the past month w/ persistence of Sxs despite Abx & steroid Rx who we were asked to evaluate after his CXR revealed complete white out of the left hemithorax, mild leftward shift of the trachea, a combination of consolidation & pleural fluid and the follow-up chest CTA revealed no PE, but a completely collapsed L lung, a loculated L pleural effusion, new R micronodules, a small R pleural effusion, and an enlarging pericardial effusion. Clinically and hemodynamically stable POD #4 s/p pericardial window for pericardial effusion w/ early tamponade physiology. 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 Be considered for transfer to [facility] for bronchial stent. Recommendations: * Clinically and hemodynamically stable from a cardiac standpoint. * Continue to follow-up on CT surgery and pulmonary recommendations. * Continue DVT prophylaxis. Continue telemetry? Yes
[2018-03-07 21:34] VITALS: BP 146/80
[2018-03-08 06:48] VITALS: BP 130/74
--- NOTE | 2018-03-08 07:05 | PN- Housestaff ---
Neftaly Bal 03/08/18 0703: Subjective Follow-up For: Pericardial window, POD #5 Pneumonia w/ Sepsis Tele-Events Since Last Visit: Normal sinus rhythm overnight, rate 67-91 Subjective: Patient seen resting comfortably in the bed, removed his CPAP for the interview. Currently complaining of improved shortness of breath, continued cough that is also improving with less mucus brought up. Still complaining of some chest pain upon coughing at the incision site. Overnight patient had 2 bowel movements, and has been up to the bathroom to urinate frequently as well. Patient is on 3 L nasal cannula and tolerating well. Denies palpations, dizziness, orthopnea. Review of Systems Constitutional: Denies: chills, diaphoresis, fever. Cardiovascular: Reports: chest pain (at incision site). Denies: edema, palpitations, syncope. Respiratory: Reports: cough, short of breath, sputum production. Denies: orthopnea. Gastrointestinal: Denies: abdominal pain, nausea, vomiting. Objective Last 24 Hrs of Vital Signs/I&O Vital Signs Date Time Temp Pulse Resp B/P B/P Pulse O2 O2 Flow FiO2 Mean Ox Delivery Rate 03/08 0648 98.4 70 20 130/74 98 CPAP 03/08 0048 73 95 03/07 2305 84 98 03/07 2226 94 Nasal 3.0L Cannula 03/07 2134 98.1 91 20 146/80 95 03/07 1845 96 Nasal 4.0L Cannula 03/07 1514 98.1 68 18 138/60 95 03/07 1150 93 Nasal 4.0L Cannula 03/07 0818 95 Nasal 6.0L Cannula 03/07 0800 97 Nasal 4.0L Cannula 03/07 0713 98.4 60 20 110/52 98 Intake & Output 03/08 0800 03/08 0000 03/07 1600 Intake Total 360 300 750 Output Total 2 0 750 Balance 358 300 0 Intake, IV 250 Intake, Oral 360 300 500 Output, Chest 0 Tube Drainage Output, Stool 2 Output, Urine 750 Patient 143.59 kg Weight Physical Exam General Appearance: Alert, Oriented X3, Cooperative, No Acute Distress HEENT: Atraumatic, PERRLA, EOMI Neck: Supple, No JVD, +2 Carotid Pulse wo Bruit Cardiovascular: Regular Rate, Normal S1, Normal S2, No Murmurs Lungs: Improved aeration of the lower left lung field compared to yesterday, diffuse wheezes appreciated throughout, worst in the right lung carrera Abdomen: Normal Bowel Sounds, Soft, No Tenderness Neurological: Normal Gait, Normal Speech, Strength at 5/5 X4 Ext, Normal Tone Extremities: No Clubbing, No Cyanosis Current Medications: Current Medications Sig/Harman Start time Last Medication Dose Route Stop Time Status Admin Acetaminophen 1,000 MG .STK-MED ONE 03/07 194 DC PO 03/07 194 Acetaminophen 1,000 MG .STK-MED ONE 03/07 08 DC PO 03/07 0827 Acetaminophen 1,000 MG TID 03/03 2100 AC 03/07 PO 2028 Albuterol Sulfate 3 ML EVERY 4 HRS/AWAKE 03/02 2000 AC 03/07 INH 2225 Albuterol Sulfate 2 PUF Q4-6 PRN PRN 03/02 1515 AC INH Amoxicillin/ 875 MG Q12 03/08 0900 DC Clavulanate Potassium PO Amoxicillin/ 875 MG Q12 03/07 2100 AC 03/07 Clavulanate Potassium PO 2028 Bisacodyl 10 MG DAILY NEEDED PRN 03/07 2000 AC NC Bisacodyl 5 MG ONCE ONE 03/07 0830 DC 03/07 PO 03/07 0831 1045 Budesonide/ 2 PUF BID 03/02 2100 AC 03/07 Formoterol Fumarate INH 2234 Ceftazidime 2,000 MG IQ8 03/02 1600 DC 03/07 IV 0829 Docusate Sodium 100 MG BID 03/03 2100 AC 03/07 PO 2028 Fluticasone 1 SPRAY BID 03/05 2100 AC 03/07 Propionate CORRIE 2234 Gabapentin 300 MG Q8 03/03 1743 AC 03/08 PO 0535 Guaifenesin/Codeine 10 ML Q4P PRN 03/02 1500 AC Phosphate PO Heparin Sodium 5,000 UNIT Q8 03/04 0600 AC 03/08 (Porcine) SC 0535 Lactulose 20 GM DAILY 03/07 0945 AC 03/07 PO 1045 Montelukast Sodium 10 MG QPM 03/02 2100 AC 03/07 PO 2234 Morphine Sulfate 2 MG Q4P PRN 03/03 1730 AC IV Ondansetron HCl 4 MG ONCE PRN 03/03 1645 AC IV Oxycodone HCl 5 MG Q6P PRN 03/03 1730 DC 03/05 PO 0859 Oxycodone HCl 10 MG Q6P PRN 03/03 1730 DC 03/07 PO 0829 Polyethylene Glycol 17 GM AT BEDTIME PRN 03/02 1500 DC 03/06 PO 0947 Prednisone 20 MG DAILY 03/08 0900 AC PO Prednisone 30 MG DAILY 03/07 0900 DC 03/07 PO 0829 Senna/Docusate Sodium 1 TAB .STK-MED ONE 03/07 1942 DC PO 03/07 194 Senna/Docusate Sodium 1 TAB AT BEDTIME PRN 03/02 1500 AC 03/07 PO 202 Tiotropium [place] 1 PUF DAILY 03/03 0900 AC 03/07 INH 0831 Tramadol HCl 50 MG Q8P PRN 03/02 1530 AC 03/07 PO 2235 Trimethobenzamide HCl 200 MG ONCE PRN 03/03 1645 AC IM Vancomycin HCl 1,000 MG Q12 03/03 0900 DC 03/07 Sodium Chloride 250 ML IV 0830 Assessment/Plan Assessment: Patient is a 47 year old male with a history of COPD, sleep apnea, stage 3 non- small cell lung cancer and post-obstructive pneumonia in the left lower lobe. Patient is POD #4 s/p pericardial window with chest tube draining. 1. Sepsis-resolved steroid use 2. Postobstructive pneumonia with loculated left pleural effusion and left lung collapse. unclear 3. Stage III non-small cell lung cancer of the left lower lobe status post chemoradiation months ago of thrombus with attached tissue was identified as squamous cell carcinoma 4. Pericardian Effusion status post pericardial window 5. Anemia respiratory failure/COPD, anemia of chronic disease 6. COPD-oxygen dependent for discharge 7. Sleep Apnea on nocturnal positive airway pressure 8. Constipation (resolved) Problem List: 1. Pericardial effusion 2. Pneumonia 3. Sepsis 4. Lung cancer Pain Ratin Pain Location: Chest, incision site Pain Goal: Pain 4 or less Pain Plan: tramadol Tomorrow's Labs & Rationales: Magnesium, keep above 2.0 Cj MURRAY,Julieta 03/08/18 0959: Attending MD Review Statement Attending Statement Attending MD Statement: examined this patient, discuss w/resident/PA/LIABILITY CLAIMS MANAGER, agreed w/resident/PA/LIABILITY CLAIMS MANAGER, reviewed EMR data (avail), discussed with nursing, discussed with case mgmt, reviewed images Attending Assessment/Plan: Patient is feeling much better. His chest tube was taken out. We are awaiting a PA and lateral chest x-ray today. He's also had loose bowel movements and we are de-escalating the bowel regimen. We have him on by mouth Augmentin as per pulmonary and a steroid taper.
--- NOTE | 2018-03-08 08:19 | PN- Pulmonary ---
Subjective HPI/Critical Care Issues: The patient is awake and alert. He reports feeling significantly improved overall. His pericardial drain remains in place. He is less short of breath. His oxygen requirement is slowly improving. There were no overnight events reported. Objective Current Medications: Current Medications Sig/Harman Start time Last Medication Dose Route Stop Time Status Admin Acetaminophen 1,000 MG .STK-MED ONE 03/07 194 DC PO 03/07 194 Acetaminophen 1,000 MG .STK-MED ONE 03/07 08 DC PO 03/07 0827 Acetaminophen 1,000 MG TID 03/03 2100 AC 03/07 PO 2028 Albuterol Sulfate 3 ML EVERY 4 HRS/AWAKE 03/02 2000 AC 03/08 INH 0804 Albuterol Sulfate 2 PUF Q4-6 PRN PRN 03/02 1515 AC INH Amoxicillin/ 875 MG Q12 03/08 0900 DC Clavulanate Potassium PO Amoxicillin/ 875 MG Q12 03/07 2100 AC 03/07 Clavulanate Potassium PO 2028 Bisacodyl 10 MG DAILY NEEDED PRN 03/07 2000 AC NC Bisacodyl 5 MG ONCE ONE 03/07 0830 DC 03/07 PO 03/07 0831 1045 Budesonide/ 2 PUF BID 03/02 2100 AC 03/07 Formoterol Fumarate INH 2234 Ceftazidime 2,000 MG IQ8 03/02 1600 DC 03/07 IV 0829 Docusate Sodium 100 MG BID 03/03 2100 AC 03/07 PO 2028 Fluticasone 1 SPRAY BID 03/05 2100 AC 03/07 Propionate CORRIE 2234 Gabapentin 300 MG Q8 03/03 1743 AC 03/08 PO 0535 Guaifenesin/Codeine 10 ML Q4P PRN 03/02 1500 AC Phosphate PO Heparin Sodium 5,000 UNIT Q8 03/04 0600 AC 03/08 (Porcine) SC 0535 Lactulose 20 GM DAILY 03/07 0945 AC 03/07 PO 1045 Montelukast Sodium 10 MG QPM 03/02 2100 AC 03/07 PO 2234 Morphine Sulfate 2 MG Q4P PRN 03/03 1730 AC IV Ondansetron HCl 4 MG ONCE PRN 03/03 1645 AC IV Oxycodone HCl 5 MG Q6P PRN 03/03 1730 DC 03/05 PO 0859 Oxycodone HCl 10 MG Q6P PRN 03/03 1730 DC 03/07 PO 0829 Polyethylene Glycol 17 GM AT BEDTIME PRN 03/02 1500 DC 03/06 PO 0947 Prednisone 20 MG DAILY 03/08 09 AC PO Prednisone 30 MG DAILY 03/07 0900 DC 03/07 PO 0829 Senna/Docusate Sodium 1 TAB .STK-MED ONE 03/07 1942 DC PO 03/07 194 Senna/Docusate Sodium 1 TAB AT BEDTIME PRN 03/02 1500 AC 03/07 PO 202 Tiotropium [place] 1 PUF DAILY 03/03 0900 AC 03/07 INH 0831 Tramadol HCl 50 MG Q8P PRN 03/02 1530 AC 03/07 PO 2235 Trimethobenzamide HCl 200 MG ONCE PRN 03/03 1645 AC IM Vancomycin HCl 1,000 MG Q12 03/03 09 DC 03/07 Sodium Chloride 250 ML IV 0830 Vital Signs & I&O Last 24 Hrs of Vitals and I&O: Vital Signs Date Time Temp Pulse Resp B/P B/P Pulse O2 O2 Flow FiO2 Mean Ox Delivery Rate 03/08 0809 92 Nasal 3.0L Cannula 03/08 0648 98.4 70 20 130/74 98 CPAP 03/08 0048 73 95 03/07 2305 84 98 03/07 2226 94 Nasal 3.0L Cannula 03/07 2134 98.1 91 20 146/80 95 03/07 1845 96 Nasal 4.0L Cannula 03/07 1514 98.1 68 18 138/60 95 03/07 1150 93 Nasal 4.0L Cannula 03/07 0818 95 Nasal 6.0L Cannula Intake & Output 03/08 1600 03/08 0800 03/08 0000 Intake Total 360 300 Output Total 2 0 Balance 358 300 Intake, Oral 360 300 Output, Chest 0 Tube Drainage Output, Stool 2 Patient 317 lb Weight Physical Exam General Appearance: well developed/nourished, no apparent distress, alert, comfortable, obese Respiratory: diminished breath sounds L>R, minimal wheezing, R lung rhonchi Cardiovascular: regular rate/rhythm, normal peripheral pulses Gastrointestinal: normal bowel sounds, soft, non-tender Extremities: normal inspection, normal range of motion, trace b/l LE edema Neurologic/Psych: no motor/sensory deficits Impression/Plan Impression/Plan Impression/Plan: 1. Post obstructive pneumonia, cultures negative so far. 2. Loculated left pleural effusion and left lung collapse, bronchoscopy () endobronchial lesion. Will need further work up. 3. Pericardial effusion with early tamponade physiology, s/p pericardial window with intraoperative transesophageal echocardiogram (03/03/18). 4. Oxygen dependent COPD. 5. Chronic hypoxemic respiratory failure. 6. Severe obstructive sleep apnea, on nocturnal positive airway pressure. 7. Stage III non-small cell lung cancer of the left lower lobe, status post chemoradiation. Followed by Dr. Reeves. 8. Microcytic anemia. 9. Morbid obesity. 10. Severe chronic back pain. 11. Increased leukocytosis which may be related to steroids, improving. 12. Constipation -improved with bowel regimen. Recommendations: * Pericardial drain to be removed today per surgery. * Check a PA and lateral CXR post catheter removal today. * Continue nebs/TRC, and inhaler therapy (Symbicort 2 puffs every 12 hours, Spiriva 1 inhalation every morning). * Oxygen for saturations greater than 92%. * Incentive spirometry. * Prednisone to 20 mg daily, will continue to taper off quickly. * Out of bed to chair as tolerated. * PT for ambulation when tube is out. * Change to oral antibiotics - augmentin x 7 days. * Follow-up cytology results. * Continue with pain control, being careful to avoid oversedation. * DVT prophylaxis at all times.
--- NOTE | 2018-03-08 09:05 | PN- Thoracic Surgery ---
Subjective Subjective: Pt is sitting in bed eating, says everyday he feels his breathing gets a little bit better. Last ngiht he unintentionally pulled on the tube while he was out of bed and complained of tenderness around the tube site. Denies CP. Denies fevers. Objective Vital Signs and I&Os Vital Signs Date Time Temp Pulse Resp B/P B/P Pulse O2 O2 Flow FiO2 Mean Ox Delivery Rate 03/08 0823 92 Nasal 3.0L Cannula 03/08 0809 92 Nasal 3.0L Cannula 03/08 0648 98.4 70 20 130/74 98 CPAP 03/08 0048 73 95 03/07 2305 84 98 03/07 2226 94 Nasal 3.0L Cannula 03/07 2134 98.1 91 20 146/80 95 03/07 1845 96 Nasal 4.0L Cannula 03/07 1514 98.1 68 18 138/60 95 03/07 1150 93 Nasal 4.0L Cannula Intake & Output 03/08 1600 03/08 0800 03/08 0000 03/07 1600 03/07 0800 03/07 0000 Intake Total 360 300 750 240 360 Output Total 2 0 750 2 30 Balance 358 300 0 238 330 Intake, IV 250 Intake, Oral 360 300 500 240 360 Output, Chest 0 2 30 Tube Drainage Output, Stool 2 Output, Urine 750 Patient 317 lb 323 lb Weight Physical Exam: gen- NAD, mild dyspnea with talking resp- gen rhonchi on the right with some end expiratory wheezes. breath sounds heard at the left lung apex but not breath sounds heard in the left middle and lower lung cardiac- RRR abd- soft, NT. midline incision clean and dry, no erythema or drainage, no signs of infection. CT in pericardial space- 52cc/24h serosang drainage in perivac. No surrounding erythema or drainage Tube was pulled, occlusive dressing placed and covered with clean dry dressing. pt tolerated procedure well Current Medications: Current Medications Sig/Harman Start time Last Medication Dose Route Stop Time Status Admin Acetaminophen 1,000 MG .STK-MED ONE 03/07 1942 DC PO 03/07 1943 Acetaminophen 1,000 MG TID 03/03 2100 AC 03/07 PO 2027 Albuterol Sulfate 3 ML EVERY 4 HRS/AWAKE 03/02 2000 AC 03/08 INH 0804 Albuterol Sulfate 2 PUF Q4-6 PRN PRN 03/02 1515 AC INH Amoxicillin/ 875 MG Q12 03/08 0900 DC Clavulanate Potassium PO Amoxicillin/ 875 MG Q12 03/07 2100 AC 03/08 Clavulanate Potassium PO 0825 Bisacodyl 10 MG DAILY NEEDED PRN 03/07 2000 AC NH Budesonide/ 2 PUF BID 03/02 2100 AC 03/08 Formoterol Fumarate INH 0825 Ceftazidime 2,000 MG IQ8 03/02 1600 DC 03/07 IV 0829 Docusate Sodium 100 MG BID 03/03 2100 AC 03/07 PO 2028 Fluticasone 1 SPRAY BID 03/05 2100 AC 03/08 Propionate CORRIE 0825 Gabapentin 300 MG Q8 03/03 1743 AC 03/08 PO 0535 Guaifenesin/Codeine 10 ML Q4P PRN 03/02 1500 AC Phosphate PO Heparin Sodium 5,000 UNIT Q8 03/04 0600 AC 03/08 (Porcine) SC 0535 Lactulose 20 GM DAILY 03/07 0945 AC 03/07 PO 1045 Montelukast Sodium 10 MG QPM 03/02 2100 AC 03/07 PO 2234 Morphine Sulfate 2 MG Q4P PRN 03/03 1730 AC IV Ondansetron HCl 4 MG ONCE PRN 03/03 1645 AC IV Oxycodone HCl 5 MG Q6P PRN 03/03 1730 DC 03/05 PO 0859 Oxycodone HCl 10 MG Q6P PRN 03/03 1730 DC 03/07 PO 0829 Polyethylene Glycol 17 GM AT BEDTIME PRN 03/02 1500 DC 03/06 PO 0947 Prednisone 20 MG DAILY 03/08 0900 AC 03/08 PO 0825 Prednisone 30 MG DAILY 03/07 0900 DC 03/07 PO 0829 Senna/Docusate Sodium 1 TAB .STK-MED ONE 03/07 1942 DC PO 03/07 194 Senna/Docusate Sodium 1 TAB AT BEDTIME PRN 03/02 1500 AC 03/07 PO 2027 Tiotropium [place] 1 PUF DAILY 03/03 0900 AC 03/07 INH 0831 Tramadol HCl 50 MG Q8P PRN 03/02 1530 AC 03/08 PO 0825 Trimethobenzamide HCl 200 MG ONCE PRN 03/03 1645 AC IM Vancomycin HCl 1,000 MG Q12 03/03 0900 DC 03/07 Sodium Chloride 250 ML IV 0830 Results Last 48 Hours of Labs: Laboratory Tests 03/07 0629 Chemistry Sodium (137 - 145 mmol/L) 139 Potassium (3.5 - 5.1 mmol/L) 4.4 Chloride (98 - 107 mmol/L) 99 Carbon Dioxide (22 - 30 mmol/L) 36 H Anion Gap (5 - 16) 5 BUN (9 - 20 mg/dL) 16 Creatinine (0.7 - 1.2 mg/dL) 0.5 L Estimated GFR (>60 ml/min) > 60 BUN/Creatinine Ratio (7 - 25 %) 32.0 H Hematology CBC w Diff NO MAN DIFF REQ WBC (4.8 - 10.8 /CUMM) 13.3 H RBC (4.70 - 6.10 /CUMM) 3.87 L Hgb (14.0 - 18.0 G/DL) 9.6 L Hct (42 - 52 %) 30.2 L MCV (80.0 - 94.0 FL) 77.9 L MCH (27.0 - 31.0 PG) 24.7 L MCHC (33.0 - 37.0 G/DL) 31.7 L RDW (11.5 - 14.5 %) 22.5 H Plt Count (130 - 400 /CUMM) 371 MPV (7.4 - 10.4 FL) 8.5 Gran % (42.2 - 75.2 %) 86.7 H Lymphocytes % (20.5 - 51.1 %) 6.9 L Monocytes % (1.7 - 9.3 %) 5.8 Eosinophils % (0 - 5 %) 0.5 Basophils % (0.0 - 2.0 %) 0.1 Absolute Granulocytes (1.4 - 6.5 /CUMM) 11.5 H Absolute Lymphocytes (1.2 - 3.4 /CUMM) 0.9 L Absolute Monocytes (0.10 - 0.60 /CUMM) 0.8 H Absolute Eosinophils (0.0 - 0.7 /CUMM) 0.1 Absolute Basophils (0.0 - 0.2 /CUMM) 0 Assessment/Plan Assessment/Plan This is a 47 year old male, POD 5 s/p pericardial window for effusion. chest tube left in pericardial space pulled out today and covered with clean dry dressing. Minimal pericardial drainage over last 24hrs, 50cc. From surgical standpoint, pt is stable. will need daily dry dressing changes Cont primary medical management FU with Dr. Beauchamp as outpatient in [address] Beauchamp agrees with above plan Surgery is signing off for now, please reconsult if needed Core Measures Venous Thromboembolism VTE Risk Factors Cancer/chemo/othr therapy No Mechanical VTE Prophylaxis d/t N/A MechProphylax Ordered No VTE Pharm Prophylaxis d/t NA PharmProphylax ordered
[2018-03-08] MEDS ORDERED: AMOX-CLAV 875-1 EACH PO (10:18)
--- NOTE | 2018-03-08 13:17 | RADIOLOGY REPORT ---
EXAMINATION: XR CHEST CLINICAL INFORMATION: Shortness of breath. Pericardial effusion. COMPARISON: Several prior chest x-rays, most recent of which is dated 03/04/2018. CTA of the chest dated 03/02/2018. TECHNIQUE: 2 views of the chest were obtained. FINDINGS: Right jugular Port-A-Cath is in place with tip in the cavoatrial junction region. Multiple EKG leads overlie the chest. There is complete whiteout of the left hemithorax, unchanged from prior study, consistent with previously demonstrated left-sided pleural effusion and left lung collapse. The right lung remains fully expanded and demonstrates central vascular congestion. Previously seen pulmonary edema has significantly improved. No significant right-sided pleural effusion is seen. No pneumothorax is noted. Bony structures are grossly unremarkable. IMPRESSION: 1. Port-A-Cath tip at the cavoatrial junction. 2. No change in left lung collapse and associated left pleural effusion. 3. Improving pulmonary edema.
[2018-03-08 14:44] VITALS: BP 124/58
--- NOTE | 2018-03-08 16:22 | Discharge Summary ---
Visit Information Visit Dates Admission Date: 03/02/18 Discharge Date: 03/09/18 Hospital Course Course Attending Physician: Julieta Corona MD Primary Care Physician: Jose Lafleur MD Consulting Request: Consulting Specialty: Pulmonary Disease Hospital Course: Mr. Dockery is a 47-year-old male with past medical history of COPD on 2 L nasal cannula, MARCI on CPAP followed by Dr. Ortiz, and non-small small cell lung cancer of the left lower lobe status post radiation 6 months ago and chemotherapy 1 year ago followed by Dr. Pink who presents with a productive cough, shortness of breath, and fever of 1 month duration. Patient initially went to his primary care doctor and he received a course of azithromycin but did not see much improvement. He then went to Dr. Bowen and received a steroid and another course of antibiotics. This again resulted in little improvement so the patient represented to his primary care doctor and got a third course of antibiotics. He then went to Dr. Ortiz today who sent him in for chest x-ray and found a complete whiteout of the left hemithorax. He was then sent in to the emergency room for further evaluation. He endorses occasional headaches relieved by Tylenol and Advil as as as well as one episode of transient double vision and chronic constipation. Denies any sore throat, chest pain, or recent travel. Uses medical marijuana, is a former smoker, and denies alcohol use. Of note the patient had a recent PET/CT scan on 02/24/2018 that revealed a left lower lung mass that now appears centrally necrotic, a small to moderate pericardial effusion that increased in size, a right lower lobe nodular opacity is nonspecific but favored inflammatory/infectious etiology. On presentation, vital signs were T 99.2, HR 106, RR 24, BP 103/70, saturating 98% on 2 L nasal cannula. Assessment and plan 47 y/o M with PMH of MARCI on CPAP, former smoker, COPD with chronic hypoxemic respiratory failure on 2L home oxygen, and stage III NSCLC s/p chemorads with paclitaxel came to the ED c/o productive cough, fever, dyspnea, and chest pain for the past month. CXR at the time showed complete opacification of the left hemithorax and leftward tracheal shift of the trachea. PET/CT scan on 02/24/2018 showed a left lower lung mass that now appears centrally necrotic, a small to moderate pericardial effusion that increased in size and a right lower lobe nodular opacity likely inflammatory/infectious etiology. Pt was tachycardic, afebrile, tachypneic with a BP of 103/70 pm admit. Pertinent labs showed leukocytosis and anemia with lactic acidemia. CTA showed consolidation and pleural fluid, a complete left lung collapse, loculated left pleural effusion, new right nodules, and an enlarging pericardial effusion. Echocardiogram was performed and showed normal LVEF, mild LVH, and moderate pericardial effusion with partial right atrial diastolic collapse consistent with early tamponade physiology. Patient underwent a pericardial window along with bronchoscopy in the on 03 March. Hospital course 1. Sepsis-resolved negative. He was switched to p.o. Augmentin 2. Postobstructive pneumonia with loculated left pleural effusion and left lung collapse. unclear differentiated squamous cell carcinoma. Reports attached. 3. Stage III non-small cell lung cancer of the left lower lobe status post chemoradiation months ago of thrombus with attached tissue was identified as squamous cell carcinoma 4. Pericardian Effusion status post pericardial window 5. Anemia 6. COPD-oxygen dependent and Spiriva. 7. Sleep Apnea on nocturnal positive airway pressure 8. Constipation (resolved) Patient is being transferred to [place] for interventional bronchoscopy with possible stent placement in his left mainstem bronchus as he has complete collapse of the left lung. Allergies: Coded Allergies: No Known Allergies (03/02/18) Pertinent Lab Results: Chest ultrasound March 02 small left-sided pleural effusion. The majority of the left hemithorax appears to represent a combination of consolidation with likely superimposed mass. CTA March 02 1. No pulmonary embolism. 2. At the level of the left hilum, the distal left mainstem bronchus is occluded and left lung completely collapsed. The loculated left pleural effusion remains similar in size compared to 07/09/2017. 3. Within the right lung, there are some new micronodules in the posteromedial aspect of the right upper lobe and in the lateral right lower lobe. These are likely secondary to active infectious bronchiolitis. New, small right pleural effusion is present. 4. Pericardial effusion has increased in size compared to 07/09/2017. Echocardiogram March 02 Normal size left ventricle. Mild concentric left ventricular hypertrophy. No obvious regional wall motion abnormalities. Normal left ventricular ejection fraction visually estimated at 65%. Normal right ventricular size and function. Normal atral size. Trace mitral regurgitation. Trace tricuspid regurgitation. Unable to estimate the right ventricular systolic pressure. Trace pulmonic regurgitation. Partial right atrial diastolic collapse consistent with early tamponade physiology. Dilated inferior vena cava. March 03 chest x-ray 1. The left hemithorax remains completely opacified. 2. The pericardial drainage tube is suboptimally visualized. March 08 Chest x-ray 1. Port-A-Cath tip at the cavoatrial junction. 2. No change in left lung collapse and associated left pleural effusion. 3. Improving pulmonary edema. Pathology Collapsed lung, pericardial effusion with early tamponade physiology; H/O left lung lower lobe biopsy with SCC, [id number], see also [id number] DIAGNOSIS A. LEFT BRONCHIAL MASS, BIOPSY: MUCOID MATERIAL AND BLOOD CLOT CONTAINING FRAGMENTS OF NON-SMALL CELL CARCINOMA, CONSISTENT WITH POORLY DIFFERENTIATED SQUAMOUS CELL CARCINOMA. NOTE: Dr. Arin Laureano has reviewed specimen A and agrees with the above interpretation. B. XIPHOID PROCESS, RESECTION: BENIGN BONE AND CARTILAGE, AND ATTACHED ADIPOSE, SKELETAL MUSCLE, AND FIBROUS TISSUE. C. PORTION OF PERICARDIUM, EXCISION: REACTIVE MESOTHELIAL CELLS, WITH ACUTE AND CHRONIC INFLAMMATION, AND ADJACENT FIBROADIPOSE TISSUE WITH CHRONIC INFLAMMATION AND HISTIOCYTIC INFILTRATION. 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 within 1-2 weeks of discharge and let them know about your recent admission at [facility] Medications at Discharge Discharge Medications: Continue taking these medications: Montelukast Sodium (Singulair) 10 MG TABLET 1 Tablet ORAL Every night Tiotropium [place] (Spiriva) 18 MCG CAP.W.DEV 1 Capsule Inhale through mouth DAILY Albuterol Sulfate (Proair Hfa) 90 MCG HFA.AER.AD 2 Puff Inhale through mouth EVERY 4-6 HOURS NEEDED as needed for COPD Fluticasone Propionate (Flonase Allergy Relief) 50 MCG/ACTUATION SPRAY.SUSP 1 [place] In the nose TWICE DAILY Tramadol HCl (Tramadol HCl) 50 MG TABLET 1 Tablet ORAL THREE TIMES A DAY NEEDED Qty = 60 Azelastine HCl (Astepro) 205.5 MCG (0.15 %) SPRAY.PUMP 2 [place] Both sides of nose TWICE DAILY Qty = 30 Budesonide/Formoterol Fumarate (Symbicort 160-4.5 Mcg Inhaler) 160 MCG-4.5 MCG/ ACTUATION HFA.AER.AD 2 Puff Inhale through mouth TWICE DAILY Albuterol Sulfate (Albuterol Sulfate) 2.5 MG/3 ML (0.083 %) VIAL.NEB 1 Vial Inhale Solution EVERY 4 HOURS NEEDED as needed for SHORTNESS OF BREATH Start taking the following new medications: Amoxicillin/Clavulanate [place] (Amox-Clav 875-125 MG Tablet) 875 MG-125 MG TABLET 875 Milligram ORAL EVERY 12 HOURS Qty = 7 No Refills Copies To: Diana MURRAY,Flaca Woods; Camilla MURRAY,Armen Hayes; Miquel MURRAY,Jose Messi
--- NOTE | 2018-03-08 20:14 | PN- Cardiology ---
Subjective Subjective: Clinically continues to feel improved, but disappointed to learn that the reason for the left lung collapse was secondary to poorly differentiated bronchial squamous cell carcinoma. Off telemetry. Objective Vital Signs and I&Os Vital Signs Date Time Temp Pulse Resp B/P B/P Pulse O2 O2 Flow FiO2 Mean Ox Delivery Rate 03/08 1444 98.9 102 20 124/58 96 Nasal 3.0L Cannula 03/08 0823 92 Nasal 3.0L Cannula 03/08 0809 92 Nasal 3.0L Cannula 03/08 0800 96 Nasal 3.0L Cannula 03/08 0648 98.4 70 20 130/74 98 CPAP 03/08 0048 73 95 03/07 2305 84 98 03/07 2226 94 Nasal 3.0L Cannula 03/07 2134 98.1 91 20 146/80 95 Intake & Output 03/08 1600 03/08 0800 03/08 0000 03/07 1600 03/07 0800 03/07 0000 Intake Total 470 360 300 750 240 360 Output Total 2 0 750 2 30 Balance 470 358 300 0 238 330 Intake, IV 20 250 Intake, Oral 450 360 300 500 240 360 Output, Chest 0 2 30 Tube Drainage Output, Stool 2 Output, Urine 750 Patient 317 lb 323 lb Weight Physical Exam: Well-developed, obese middle-aged male in no acute distress with nasal oxygen in place. Vital signs: See above. HEENT: Normocephalic, atraumatic, EOMI, moist mucous membranes. Neck: No JVD, no bruits. Lungs: Decreased breath sounds bilaterally left greater than right. Heart: S1, S2. PMI not well felt. No murmur, gallop, or rub. Abdomen: Soft, nontender, positive bowel sounds. Extremities: No edema. Current Medications: Current Medications Sig/Harman Start time Last Medication Dose Route Stop Time Status Admin Acetaminophen 1,000 MG TID 03/03 2100 AC 03/08 PO 1622 Albuterol Sulfate 3 ML EVERY 4 HRS/AWAKE 03/02 INH 1651 Albuterol Sulfate 2 PUF Q4-6 PRN PRN 03/02 1515 AC INH Amoxicillin/ 875 MG Q12 03/07 2100 AC 03/08 Clavulanate Potassium PO 0825 Bisacodyl 10 MG DAILY NEEDED PRN 03/07 2000 DC SD Budesonide/ 2 PUF BID 03/02 2100 AC 03/08 Formoterol Fumarate INH 0825 Docusate Sodium 100 MG BID 03/03 2100 DC 03/07 PO 202 Fluticasone 1 SPRAY BID 03/05 2100 AC 03/08 Propionate CORRIE 0825 Gabapentin 300 MG Q8 03/03 1743 AC 03/08 PO 1621 Guaifenesin/Codeine 10 ML Q4P PRN 03/02 1500 AC Phosphate PO Heparin Sodium 5,000 UNIT Q8 03/04 0600 AC 03/08 (Porcine) SC 1621 Lactulose 20 GM DAILY 03/07 0945 DC 03/07 PO 1045 Montelukast Sodium 10 MG QPM 03/02 2100 AC 03/07 PO 2234 Morphine Sulfate 2 MG Q4P PRN 03/03 1730 DC IV Ondansetron HCl 4 MG ONCE PRN 03/03 1645 DC IV Prednisone 20 MG DAILY 03/08 0900 DC 03/08 PO 0825 Senna/Docusate Sodium 1 TAB AT BEDTIME PRN 03/02 1500 AC 03/07 PO 202 Tiotropium [place] 1 PUF DAILY 03/03 0900 AC 03/08 INH 1052 Tramadol HCl 50 MG Q8P PRN 03/02 1530 AC 03/08 PO 1622 Trimethobenzamide HCl 200 MG ONCE PRN 03/03 1645 AC IM Results Last 48 Hrs of Labs/Mics: Laboratory Tests 03/07/18 0629: Anion Gap 5, Estimated GFR > 60, BUN/Creatinine Ratio 32.0 H, CBC w Diff NO MAN DIFF REQ, RBC 3.87 L, MCV 77.9 L, MCH 24.7 L, MCHC 31.7 L, RDW 22.5 H, MPV 8.5, Gran % 86.7 H, Lymphocytes % 6.9 L, Monocytes % 5.8, Eosinophils % 0.5, Basophils % 0.1, Absolute Granulocytes 11.5 H, Absolute Lymphocytes 0.9 L, Absolute Monocytes 0.8 H, Absolute Eosinophils 0.1, Absolute Basophils 0 Recent Imaging Studies: CXR 03/08/2018: 1. Port-A-Cath tip at the cavoatrial junction. 2. No change in left lung collapse and associated left pleural effusion. 3. Improving pulmonary edema. Assessment/Plan Assessment/Plan Assessment/Plan [id number] w/ hx of MARCI on CPAP, heavy tobacco use, COPD on home O2, & stage III non-small cell lung ca of LLL s/p chemo & radiation Rx who was referred to the ED by his manager implementation this a.m. w/ c/o productive cough, SOB, CP, & low- grade fevers for the past month w/ persistence of Sxs despite Abx & steroid Rx who we were asked to evaluate after his CXR revealed complete white out of the left hemithorax, mild leftward shift of the trachea, a combination of consolidation & pleural fluid and the follow-up chest CTA revealed no PE, but a completely collapsed L lung, a loculated L pleural effusion, new R micronodules, a small R pleural effusion, and an enlarging pericardial effusion. Clinically and hemodynamically stable POD #5 s/p pericardial window for pericardial effusion w/ early tamponade physiology. 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 Being considered for transfer to [facility] for bronchial stent. Recommendations: * Clinically and hemodynamically stable from a cardiac standpoint. * Continue to follow-up on CT surgery and pulmonary recommendations. * Continue DVT prophylaxis.
[2018-03-08 21:59] VITALS: BP 118/58
[2018-03-09 06:38] VITALS: BP 108/54
--- NOTE | 2018-03-09 07:05 | PN- Housestaff ---
Neftaly Bal 03/09/18 0704: Subjective Follow-up For: Pericardial window, POD #5 Pneumonia w/ Sepsis Tele-Events Since Last Visit: Patient off telemetry, transfer to general medicine Subjective: Patient seen seated in the bed, with his mother in the room. 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 The patient is still processing this news, but prepared to continue with any treatments possible. In this regard, the patient is ready to be transferred for endoscopy with possible stenting, and to resume chemotherapy. Patient currently reports improved breathing, still using the oxygen but feels less short of breath when ambulating. Still coughing, that is less productive and his airways feel more clear. Review of Systems Constitutional: Denies: chills, fever, malaise. Cardiovascular: Reports: chest pain (incision site). Respiratory: Reports: cough, short of breath, sputum production. Denies: hemoptysis. Gastrointestinal: Denies: abdominal pain, nausea, vomiting. Objective Last 24 Hrs of Vital Signs/I&O Vital Signs Date Time Temp Pulse Resp B/P B/P Pulse O2 O2 Flow FiO2 Mean Ox Delivery Rate 03/09 0638 98.4 72 20 108/54 97 CPAP 03/09 0340 54 96 03/09 0034 58 96 03/08 2310 89 93 03/08 2238 Nasal 3.0L Cannula 03/08 2159 98.6 79 20 118/58 95 Nasal Cannula 03/08 1444 98.9 102 20 124/58 96 Nasal 3.0L Cannula 03/08 0823 92 Nasal 3.0L Cannula 03/08 0809 92 Nasal 3.0L Cannula 03/08 0800 96 Nasal 3.0L Cannula Intake & Output 03/09 0800 03/09 0000 03/08 1600 Intake Total 480 360 470 Output Total Balance 480 360 470 Intake, IV 20 Intake, Oral 480 360 450 Patient 139.706 kg Weight Weight Bed scale Measurement Method Physical Exam General Appearance: Alert, Oriented X3, Cooperative, No Acute Distress HEENT: Atraumatic, PERRLA, EOMI Neck: Supple, No JVD, No thryomegaly Cardiovascular: Regular Rate, Normal S1, Normal S2 Lungs: Minimal wheezing, diminished breath sounds in the lower left lung field Abdomen: Normal Bowel Sounds, Soft, No Tenderness Neurological: Normal Gait, Normal Speech, Strength at 5/5 X4 Ext, Normal Tone, Sensation Intact Extremities: No Clubbing, No Cyanosis, No Edema Current Medications: Current Medications Sig/Harman Start time Last Medication Dose Route Stop Time Status Admin Acetaminophen 1,000 MG TID 03/03 2100 AC 03/08 PO 203 Albuterol Sulfate 3 ML EVERY 4 HRS/AWAKE 03/02 2000 AC 03/08 INH 2142 Albuterol Sulfate 2 PUF Q4-6 PRN PRN 03/02 1515 AC INH Alprazolam 0.5 MG ONCE ONE 03/08 2030 DC 03/08 PO 03/08 2031 203 Amoxicillin/ 875 MG Q12 03/07 2100 AC 03/08 Clavulanate Potassium PO 2034 Bisacodyl 10 MG DAILY NEEDED PRN 03/07 2000 DC VT Budesonide/ 2 PUF BID 03/02 2100 AC 03/08 Formoterol Fumarate INH 2235 Docusate Sodium 100 MG BID 03/03 2100 DC 03/07 PO 202 Fluticasone 1 SPRAY BID 03/05 2100 AC 03/08 Propionate CORRIE 2234 Gabapentin 300 MG Q8 03/03 1743 AC 03/09 PO 0520 Guaifenesin/Codeine 10 ML Q4P PRN 03/02 1500 AC Phosphate PO Heparin Sodium 5,000 UNIT Q8 03/04 0600 AC 03/09 (Porcine) SC 0521 Lactulose 20 GM DAILY 03/07 0945 DC 03/07 PO 1045 Montelukast Sodium 10 MG QPM 03/02 2100 AC 03/08 PO 203 Morphine Sulfate 2 MG Q4P PRN 03/03 1730 DC IV Ondansetron HCl 4 MG ONCE PRN 03/03 1645 DC IV Prednisone 20 MG DAILY 03/08 0900 DC 03/08 PO 0825 Senna/Docusate Sodium 1 TAB AT BEDTIME PRN 03/02 1500 AC 03/07 PO 2027 Tiotropium [place] 1 PUF DAILY 03/03 0900 AC 03/08 INH 1052 Tramadol HCl 50 MG Q8P PRN 03/02 1530 AC 03/08 PO 2235 Trimethobenzamide HCl 200 MG ONCE PRN 03/03 1645 AC IM Assessment/Plan Assessment: Patient is a 47 year old male with a history of COPD, sleep apnea, stage 3 non- small cell lung cancer and post-obstructive pneumonia in the left lower lobe. Patient is POD #5 s/p pericardial window with chest tube draining, and to be transferred to [place] for interventional bronchoscopy with possible stenting today. 1. Postobstructive pneumonia with loculated left pleural effusion and left lung collapse. 2. Stage III non-small cell lung cancer of the left lower lobe status post chemoradiation months ago of thrombus with attached tissue was identified as squamous cell carcinoma possible treatment at this moment stenting 3. Pericardial Effusion status post pericardial window 4. Anemia respiratory failure/COPD, anemia of chronic disease 5. COPD-oxygen dependent 6. Sleep Apnea on nocturnal positive airway pressure 7. Sepsis-resolved 8. Constipation (resolved) Problem List: 1. Pericardial effusion 2. Lung cancer 3. Pneumonia 4. Sepsis Pain Ratin Pain Location: Chest, at incision site Pain Goal: Pain 4 or less Pain Plan: Tramadol Tomorrow's Labs & Rationales: None Cj MURRAY,Julieta 03/09/18 1010: Attending MD Review Statement Attending Statement Attending MD Statement: examined this patient, discuss w/resident/PA/DIE EQUIPMENT OPERATOR, agreed w/resident/PA/DIE EQUIPMENT OPERATOR, discussed with family, reviewed EMR data (avail), discussed with nursing, discussed with case mgmt, reviewed images Attending Assessment/Plan: I spoke to Dr. Ortiz extensively about the patient. We discussed with the patient and his mother as well. He has recurrence of his tumor with a positive biopsy from the Bronch that she did. He is going to be transferred to [place] for the possibility of interventional pulmonology putting a stent as he has complete collapse of his left lung with left mainstem bronchus tumor. He is in agreement with this plan, he understands it is totally palliative at this point and will transfer to [place].
--- NOTE | 2018-03-09 08:54 | PN- Pulmonary ---
Subjective HPI/Critical Care Issues: The patient is awake and alert. He reports that his breathing has improved overall. He denies any chest pain, fever, chills, abdominal pain, nausea or vomiting. He has no hemoptysis. Overall he feels better and denies any new complaints. There were no overnight events reported. Objective Current Medications: Current Medications Sig/Harman Start time Last Medication Dose Route Stop Time Status Admin Acetaminophen 1,000 MG TID 03/03 2100 AC 03/08 PO 203 Albuterol Sulfate 3 ML EVERY 4 HRS/AWAKE 03/02 2000 AC 03/09 INH 0745 Albuterol Sulfate 2 PUF Q4-6 PRN PRN 03/02 1515 AC INH Alprazolam 0.5 MG ONCE ONE 03/08 2030 DC 03/08 PO 03/08 2031 203 Amoxicillin/ 875 MG Q12 03/07 2100 AC 03/08 Clavulanate Potassium PO 2034 Bisacodyl 10 MG DAILY NEEDED PRN 03/07 2000 DC ND Budesonide/ 2 PUF BID 03/02 2100 AC 03/08 Formoterol Fumarate INH 2235 Docusate Sodium 100 MG BID 03/03 2100 DC 03/07 PO 202 Fluticasone 1 SPRAY BID 03/05 2100 AC 03/08 Propionate CORRIE 2234 Gabapentin 300 MG Q8 03/03 1743 AC 03/09 PO 0520 Guaifenesin/Codeine 10 ML Q4P PRN 03/02 1500 AC Phosphate PO Heparin Sodium 5,000 UNIT Q8 03/04 0600 AC 03/09 (Porcine) SC 0521 Lactulose 20 GM DAILY 03/07 0945 DC 03/07 PO 1045 Montelukast Sodium 10 MG QPM 03/02 2100 AC 03/08 PO 2035 Morphine Sulfate 2 MG Q4P PRN 03/03 1730 DC IV Ondansetron HCl 4 MG ONCE PRN 03/03 1645 DC IV Prednisone 20 MG DAILY 03/08 0900 DC 03/08 PO 0825 Senna/Docusate Sodium 1 TAB AT BEDTIME PRN 03/02 1500 AC 03/07 PO 202 Tiotropium [place] 1 PUF DAILY 03/03 0900 AC 03/08 INH 1052 Tramadol HCl 50 MG Q8P PRN 03/02 1530 AC 03/08 PO 223 Trimethobenzamide HCl 200 MG ONCE PRN 03/03 1645 AC IM Vital Signs & I&O Last 24 Hrs of Vitals and I&O: Vital Signs Date Time Temp Pulse Resp B/P B/P Pulse O2 O2 Flow FiO2 Mean Ox Delivery Rate 03/09 0638 98.4 72 20 108/54 97 CPAP 03/09 0340 54 96 03/09 0034 58 96 03/08 2310 89 93 03/08 2238 Nasal 3.0L Cannula 03/08 2159 98.6 79 20 118/58 95 Nasal Cannula 03/08 1444 98.9 102 20 124/58 96 Nasal 3.0L Cannula Intake & Output 03/09 1600 03/09 0800 03/09 0000 Intake Total 480 360 Output Total Balance 480 360 Intake, Oral 480 360 Patient 308 lb Weight Weight Bed scale Measurement Method Physical Exam General Appearance: well developed/nourished, no apparent distress, alert, comfortable, obese Respiratory: diminished breath sounds L>R, minimal wheezing, R lung rhonchi Cardiovascular: regular rate/rhythm, normal peripheral pulses Gastrointestinal: normal bowel sounds, soft, non-tender Extremities: normal inspection, normal range of motion, trace b/l LE edema Neurologic/Psych: no motor/sensory deficits Results Last 24 Hrs of Lab Results: BAL/bronchoscopy specimens are positive for poorly differentiated squamous cell carcinoma. Impression/Plan Impression/Plan Impression/Plan: 1. Recurrent squamous cell lung cancer, with left mainstem bronchus obstructing lesion resulting in total left lung collapse. 2. Enlarging pericardial effusion, status post pericardial window on 03/03/2018. Cytology is pending. 3. Postobstructive pneumonia. 4. Oxygen dependent COPD. 5. Chronic hypoxemic respiratory failure, the patient remains on 3 L nasal cannula which is above his baseline. 6. Severe obstructive sleep apnea, on nocturnal positive airway pressure. 7. Microcytic anemia. 8. Morbid obesity. 9. Severe chronic back pain. 10. Leukocytosis, likely related to steroids. Recommendations: * Continue nebs/TRC, and inhaler therapy (Symbicort 2 puffs every 12 hours, Spiriva 1 inhalation every morning). * Oxygen for saturations greater than 92%. * Incentive spirometry. * Prednisone to 10 mg for the next 4 days, 5 mg for 4 days then discontinue. * Complete antibiotic course. * Follow-up cytology results of pericardial fluid. * Continue with pain control. * I discussed the patient's issues with radiation oncology (Dr. Vargas), oncology (Dr. Patel), and interventional pulmonology at [place] (Dr. Ly). I presented the options for further treatment to the patient. The patient is an unlikely candidate for radiation given his previous history of radiation exposure and the central location of the tumor. Urgent chemotherapy would not be helpful and therefore will only be offered as an outpatient after follow-up with oncology. Finally, the patient is in agreement to be transferred to [facility] to be evaluated by interventional pulmonology for stent placement. The patient is aware that this is palliative only, and that there is a 50% chance that his obstruction will be alleviated. Regardless, the patient is agreeable to proceed with intervention for palliation. The general medical team will make arrangements for transfer to [place]. * DVT prophylaxis at all times.
[2018-03-09 09:01] VITALS: BP 108/50
[2018-03-09] MEDS ORDERED: AMOX-CLAV 875-1 EACH PO (09:48)
--- NOTE | 2018-03-10 16:21 | ECHOCARDIOGRAM REPORT ---
SID GOMEZ Age: 47 : Gender: M 6 Exam Date: 03/03/2018 12:25 Exam Location: [facility] Ht (in): 70 Wt (lb): 288 BSA: 2.60 BP: 132 / 76 Ordering Physician: Gerardo Alegria MD Referring Physician: Gerardo Alegria MD Technologist: Justin Cardoso [facility] Room Number: 107-1 Indications: PERICARDIAL EFFUSION Rhythm: Sinus Technical Quality: good Medications Propofol administered by Anesthesiology. Ease of Transducer Insertion No Difficulty Complications None. Technical Difficulty FINDINGS Left Ventricle Normal global left ventricular size, wall thickness, systolic function with no obvious regional wall motion abnormalities. Right Ventricle Normal right ventricular size and function. Right Atrium Normal right atrial size. Left Atrium Normal left atrial size. LA Appendage Normal left atrial appendage. IA Septum Normal interatrial septum. Mitral Valve Mitral valve thickened. Mild mitral regurgitation. Aortic Valve Trileaflet aortic valve. Focal thickening of the aortic valve cusps. No aortic stenosis. Trace aortic regurgitation. Tricuspid Valve Tricuspid valve is normal in structure and function. Mild tricuspid regurgitation. Pulmonic Valve Pulmonic valve not well visualized. Pericardium Large pericardial effusion. Right atrial diastolic collapse. Great Vessels Aortic root and proximal ascending aorta not well visualized, grossly normal. Grade II plaque seen in the aortic arch. CONCLUSIONS KI performed for intraoperative monitoring during Pericardial drainage and window. 1. Mild aortic sclerosis is present with no valvular stenosis but with minimal aortic insufficiency present. 2. Mild mitral leaflet thickening is present with minimal to mild mitral insufficiency. 3. The left atrium and left atrial appendage appear normal. 4. The pulmonary venous anatomy appears normal 5. The left ventricular chamber size and systolic function are normal. 6. The right heart structures are grossly normal; mild tricuspid insufficiency is present. 7. The ascending aorta was not well visualized. There is grade I to II plaque in the distal arch noted. 8. There is no evidence of atrial level shunt by color flow imaging. 9. A moderate to large pericardial effusion is present. The effusion is circumferential but is much more pronounced at the level of the right atrial cavity. There are no obvious loculations present. Early systolic right atrial collapse is presence consistent with hemodynamic compromise. Doppler findings consistent with hemodynamic compromise were also noted. The patient was monitored throughout the course of the surgical procedure. THe effusion was drained successfully (500cc) and no complications were identified by KI imaging. The right atrial collapse resolved immediately upon drainage of the fluid as did the doppler abnormalities. No complications were incurred from the KI procedure. THIS STUDY WAS AMENDED TO CORRECT PATIENT IDENTIFIERS [place] M.D. (Electronically Signed) Final Date: 04 March 2018 09:49 Amended: 10 March 2018 06:44 MEASUREMENTS (Male / Female) Normal Values
== END 2018-03-09 11:25 | disposition short-term general hospital (02) | DRG 853 ==
LOC: ERH 12:40 → ERHI 14:00 → CRI 14:00 → ENRESERV 14:43 → EDTRNSPTSTS 15:51 → EDTRNSPT 15:51 → ENTRNSPT 15:51 → CRI 15:57 → 2NB 16:00 → CMPTRNSPT 16:05 → CRI 03-03 08:14 → 1NO 03-05 11:38 → ENPENDDIS 03-09 10:10 → 1NO 03-09 11:25
PROVIDERS: Internal Medicine; Physician Assistant; Preventive Medicine Public Health & General Preventive Medicine; Student in an Organized Health Care Education/Training Program
PROC: 5A09557 Assistance with Respiratory Ventilation, Greater than 96 Consecutive Hours, Continuous Positive Airway Pressure (ICD-10-PCS; 2018-03-02)
PROC: 0B9F8ZX Drainage of Right Lower Lung Lobe, Via Natural or Artificial Opening Endoscopic, Diagnostic (ICD-10-PCS; principal; 2018-03-03)
PROC: 0B9C8ZX Drainage of Right Upper Lung Lobe, Via Natural or Artificial Opening Endoscopic, Diagnostic (ICD-10-PCS; principal; 2018-03-03)
PROC: B24BZZ4 Ultrasonography of Heart with Aorta, Transesophageal (ICD-10-PCS; principal; 2018-03-03)
PROC: 0W9D40Z Drainage of Pericardial Cavity with Drainage Device, Percutaneous Endoscopic Approach (ICD-10-PCS; 2018-03-03)
DX: A41.9 Sepsis, unspecified organism (principal); J18.8 Other pneumonia, unspecified organism; J90 Pleural effusion, not elsewhere classified; E87.2 Acidosis; J96.11 Chronic respiratory failure with hypoxia; I31.4 Cardiac tamponade; Z68.41 Body mass index [BMI] 40.0-44.9, adult; J98.11 Atelectasis; J93.83 Other pneumothorax; C34.92 Malignant neoplasm of unspecified part of left bronchus or lung; J44.9 Chronic obstructive pulmonary disease, unspecified; Z99.81 Dependence on supplemental oxygen; G47.33 Obstructive sleep apnea (adult) (pediatric); Z79.51 Long term (current) use of inhaled steroids; F12.90 Cannabis use, unspecified, uncomplicated; D50.9 Iron deficiency anemia, unspecified; Z92.21 Personal history of antineoplastic chemotherapy; I49.3 Ventricular premature depolarization; E66.01 Morbid (severe) obesity due to excess calories; K59.03 Drug induced constipation
CPT/HCPCS: 1NP; 2NBSP; 87075; CCU; 36415; 36592; 71045; 71046; 81001; 82436; 87040; 87070; 87449; 87450; 88305; 93005; 93010; 93306; 93325; 97110-GO; 97116-GO; 97161-GP; C9290; J0131; J0713; J1644; J1650; J1940; J2001; J2920; J2930; J3370; J3490; J7040; J7120; J7512

== ENCOUNTER 2018-03-12 12:21 | Inpatient (IN) | payer OTHER, MEDICARE ==
[~2018-03-12] VITALS: Ht 177.8 cm; Wt 124.7 kg
[~2018-03-12 12:21] MED LIST changes: +ALBUTEROL2.5 MG/3 M INH/SOL; +AMOX-CLAV 875-1 EACH PO; -FLONASE ALLERG9.9 ML NAS; +FLONASE ALLERG9.9 ML NASB; +SYMBICORT 16010.2 GM INH
--- NOTE | 2018-03-12 12:41 | ED CARDIAC/CP/PALPITATIONS ---
History of Present Illness General Chief Complaint: General Adult Stated Complaint: SENT BY [facility] FOR HIGH HEART RATE Source: patient, old records Exam Limitations: no limitations Vital Signs & Intake/Output Vital Signs & Intake/Output Vital Signs Date Time Temp Pulse Resp B/P B/P Pulse O2 O2 Flow FiO2 Mean Ox Delivery Rate 03/12 1335 97.2 109 20 108/53 03/12 1333 109 108/53 03/12 1327 127 20 128/55 98 Nasal 4.0L Cannula 03/12 1315 96 Nasal 3.0L Cannula 03/12 1301 132 18 124/86 96 Nasal 3.0L Cannula 03/12 1253 97.2 144 22 134/78 03/12 1225 97.2 144 22 134/78 95 Nasal 3.0L Cannula Allergies Coded Allergies: paclitaxel (From TAXOL) (BP WENT VERY HIGH AND PALE, SWEATING ALMOST PASSED OUT 03/12/18) Reconcile Medications Albuterol Sulfate (Proair Hfa) 90 MCG HFA.AER.AD 2 PUF INH Q4-6 PRN PRN COPD (Reported) Albuterol Sulfate 2.5 MG/3 ML (0.083 %) VIAL.NEB 1 Vial INH/JOSE Q4P PRN SHORTNESS OF BREATH (Reported) Amoxicillin/Clavulanate Potass (Amox-Clav 875-125 MG Tablet) 875 MG-125 MG TABLET 875 MG PO Q12 pneumonia Azelastine HCl (Astepro) 205.5 MCG (0.15 %) SPRAY.PUMP 1 SPRAY NASB BID CONGESTION (Reported) Budesonide/Formoterol Fumarate (Symbicort 160-4.5 Mcg Inhaler) 160 MCG-4.5 MCG/ ACTUATION HFA.AER.AD 2 PUF INH BID BREATHING PROBLEMS (Reported) Cannabis (Marijuana Oil) 1 amp AMP 1 A PO AD PRN ANXIETY/STRESS/DEPRESSION ( Reported) Fluticasone Propionate (Flonase Allergy Relief) 50 MCG/ACTUATION SPRAY.SUSP 2 SPRAY NASB QPM ALLERGIES (Reported) Montelukast Sodium (Singulair) 10 MG TABLET 1 TAB PO QPM ASTHMA (Reported) Tiotropium [place] (Spiriva Respimat) 2.5 MCG/ACTUATION MIST.INHAL 2 PUFF INH QAM COPD (Reported) Tramadol HCl 50 MG TABLET 1 TAB PO TIDPRN BACK PAIN (Reported) Triage Note: 47 YEAR OLD MALE HISTORY OF LUNG CANCER AND STATES THAT THE [facility] NURSE CAME TO HIS HOME THIS AM AND FOUND HIS HR TO BE 161 AND SENT HIM TO ER, HR 140 AT TRIAGE, DENIES FEELING LIKE HIS HEART IS RACING/CP. PT IS O2 DEPENDENT 3L AND O2 SAT 95 % . PT TO EKG [place] Triage Nurses Notes Reviewed? yes HPI: Patient was recently admitted for lung cancer. During the hospitalization he was found to have a pericardial effusion and had a pericardial window performed. Patient was then transferred to [place] for a bronchial stent. The stent was unsuccessful and the patient was discharged yesterday. Patient's visiting nurse came to change the bandage from the incision for the pericardial window today and found him to be tachycardic in new onset A. fib. Patient denies any chest pain or palpitations. There is no increased shortness of breath. There are no fevers or chills. Patient was sent in for evaluation. Past History Travel History Traveled to [place] past 21 day No Medical History Any Pertinent Medical History? see below for history Neurological: NONE EENT: NONE Cardiovascular: NONE Respiratory: COPD, emphysema, obstructive sleep apnea, Stage III non-small cell lung cancer Gastrointestinal: NONE Hepatic: NONE Renal: NONE Musculoskeletal: NONE, spinal stenosis Psychiatric: NONE Endocrine: NONE Blood Disorders: NONE Cancer(s): LUNG CA LLL VENETIAN [employer]/Reproductive: NONE Other Medical Hx: Multiple skin infections History of MRSA: No History of VRE: No History of CDIFF: No Pneumonia Vaccine: 06/23/16 Influenza Vaccine: 06/23/16 Surgical History Surgical History: SCROTAL CYST Psychosocial History Who do you live with Family Services at Home None (2.0 L), Oxygen What is your primary language Panamanian Tobacco Use: Never used ETOH Use: denies use Illicit Drug Use: denies illicit drug use Family History Family History, If Any: MOTHER FHx: diabetes mellitus FATHER FH: CAD (coronary artery disease) Hx Contributory? No Review of Systems Review of Systems Constitutional: Reports: no symptoms. EENTM: Reports: no symptoms. Respiratory: Reports: no symptoms. Cardiovascular: Reports: no symptoms. GI: Reports: no symptoms. Genitourinary: Reports: no symptoms. Musculoskeletal: Reports: no symptoms. Skin: Reports: no symptoms. Neurological/Psychological: Reports: no symptoms. Hematologic/Endocrine: Reports: no symptoms. Immunologic/Allergic: Reports: no symptoms. All Other Systems: Reviewed and Negative Physical Exam Physical Exam General Appearance: well developed/nourished, alert, awake, anxious, moderate distress Head: atraumatic, normal appearance Eyes: Bilateral: PERRL, EOMI. Ears, Nose, Throat: normal pharynx, normal ENT inspection, hearing grossly normal Neck: normal inspection, supple, full range of motion Respiratory: normal breath sounds, chest non-tender, no respiratory distress, decreased breath sounds Cardiovascular: normal peripheral pulses, tachycardia, irregularly irregular Gastrointestinal: normal bowel sounds, soft, non-tender, no organomegaly Back: normal inspection, normal range of motion Extremities: normal inspection, normal capillary refill Neurologic/Psych: no motor/sensory deficits, awake, alert, oriented x 3, normal gait, normal mood/affect Skin: intact, normal color, warm/dry Core Measures ACS in differential dx? Yes CVA/TIA Diagnosis No Sepsis Present: No Sepsis Focused Exam Completed? No Progress Differential Diagnosis: AMI, atrial fibrillation, pulmonary embolism Plan of Care: Orders Procedure Date/time Status Heart Healthy Diet 03/12 D Active ED Holding Orders 03/12 1411 Active Admit to inpatient 03/12 1411 Active Vital Signs 03/12 1411 Active Code Status 03/12 1411 Active Telemetry/Teacher Instrumental 03/12 1238 Active TSH REFLEX 03/12 1238 Active TROPONIN LEVEL 03/12 1238 Active D-DIMER 03/12 1238 Complete COMPREHENSIVE METABOLIC PANEL 03/12 1238 Active CBC WITHOUT DIFFERENTIAL 03/12 1238 Complete EKG 03/12 1221 Active Current Medications Sig/Harman Start time Last Medication Dose Stop Time Status Admin Diltiazem HCl 10 MG ONCE ONE 03/12 1415 UNVr (Cardizem) 03/12 1416 Diltiazem HCl 125 MG Q12H 03/12 1415 UNVr (Cardizem DRIP) Dextrose/Water 100 ML (D5W) Heparin Sodium 25,000 UNIT Q24H 03/12 1300 UNVr 03/12 (Porcine) 1312 (Heparin) Sodium Chloride 500 ML Laboratory Tests 03/12/18 1256: Anion Gap 12, Estimated GFR > 60, BUN/Creatinine Ratio 30.0 H, Glucose 111 H, Calcium 9.1, Total Bilirubin 0.6, AST 14 L, ALT 36, Alkaline Phosphatase 93, Troponin I < 0.01, Total Protein 6.8, Albumin 3.1 L, Globulin 3.7, Albumin/ Globulin Ratio 0.8 L, TSH &T3 &Free T4 Intrp Pending, D-Dimer High Sensitivty 1048 H, CBC w Diff NO MAN DIFF REQ, RBC 4.66 L, MCV 77.8 L, MCH 24.1 L, MCHC 31.0 L, RDW 22.8 H, MPV 7.9, Gran % 80.6 H, Lymphocytes % 7.5 L, Monocytes % 9.2, Eosinophils % 2.6, Basophils % 0.1, Absolute Granulocytes 11.8 H, Absolute Lymphocytes 1.1 L, Absolute Monocytes 1.3 H, Absolute Eosinophils 0.4, Absolute Basophils 0 Initial ED EKG: AFIB (WITH RVR) Prior EKG: changed Rhythm Strip: atrial fibrillation Comments: Discussed with Dr. Sampson and VANDANA Vernon TO ANTICOAGULATE Patient had a CT angiogram back on March 02. Patient has had multiple radiological procedures lately. Patient is already anticoagulated. Departure Departure Disposition: STILL A PATIENT Condition: Guarded Clinical Impression Primary Impression: New onset a-fib Referrals: Jose Lafleur MD (PCP/Family) Departure Forms: Customer Survey General Discharge Information Admission Note Spoke With: Julieta Corona MD Documentation of Exam: Documentation of any treatments & extenuating circumstances including Concerns Regarding Discharge (functional status, medication knowledge or non-compliance, living conditions, etc.) that warrant an admission rather than observation: [ Cardizem drip, heparin drip, cardiology consultation, telemetry, serial enzymes, rate control, anticoagulation call pulmonary consultation] Critical Care Note Critical Care Note Critical Care Time: mins: (90 MIN)
[2018-03-12 13:34] LABS: ABSOLUTE BASOPHIL COUNT 0 /CUMM (0.0-0.2); ABSOLUTE EOSINOPHIL COUNT 0.4 /CUMM (0.0-0.7); ABSOLUTE GRANULOCYTE CT 11.8 /CUMM (1.4-6.5); ABSOLUTE LYMPH COUNT 1.1 /CUMM (1.2-3.4); ABSOLUTE MONOCYTE COUNT 1.3 /CUMM (0.10-0.60); BASOPHIL % 0.1 % (0.0-2.0); EOSINOPHIL % 2.6 % (0-5); GRANULOCYTE % 80.6 % (42.2-75.2); MEAN CORPUSCULAR HGB 24.1 PG (27.0-31.0); MEAN CORPUSCULAR VOLUME 77.8 FL (80.0-94.0); MEAN PLATELET VOLUME 7.9 FL (7.4-10.4); PLATELET COUNT 522 /CUMM (130-400); RBC DISTRIBUTION WIDTH 22.8 % (11.5-14.5); RED BLOOD CELL CT 4.66 /CUMM (4.70-6.10); WHITE BLOOD CELL COUNT 14.6 /CUMM (4.8-10.8)
[2018-03-12] MEDS ORDERED: SPIRIVA RESPIMAT4 GM INH (13:56)
[2018-03-12] MEDS ORDERED: MARI PO (13:58)
[2018-03-12 13:59] LABS: HEMATOCRIT 36.3 % (42-52)
--- NOTE | 2018-03-12 14:38 | History & Physical ---
General Information and HPI History of Present Illness: Allergies/Medications Allergies: Coded Allergies: paclitaxel (From TAXOL) (BP WENT VERY HIGH AND PALE, SWEATING ALMOST PASSED OUT 03/12/18) Home Med list Albuterol Sulfate (Proair Hfa) 90 MCG HFA.AER.AD 2 PUF INH Q4-6 PRN PRN COPD (Reported) Albuterol Sulfate 2.5 MG/3 ML (0.083 %) VIAL.NEB 1 Vial INH/JOSE Q4P PRN SHORTNESS OF BREATH (Reported) Amoxicillin/Clavulanate Potass (Amox-Clav 875-125 MG Tablet) 875 MG-125 MG TABLET 875 MG PO Q12 pneumonia Azelastine HCl (Astepro) 205.5 MCG (0.15 %) SPRAY.PUMP 1 SPRAY NASB BID CONGESTION (Reported) Budesonide/Formoterol Fumarate (Symbicort 160-4.5 Mcg Inhaler) 160 MCG-4.5 MCG/ ACTUATION HFA.AER.AD 2 PUF INH BID BREATHING PROBLEMS (Reported) Cannabis (Marijuana Oil) 1 amp AMP 1 A PO AD PRN ANXIETY/STRESS/DEPRESSION ( Reported) Fluticasone Propionate (Flonase Allergy Relief) 50 MCG/ACTUATION SPRAY.SUSP 2 SPRAY NASB QPM ALLERGIES (Reported) Montelukast Sodium (Singulair) 10 MG TABLET 1 TAB PO QPM ASTHMA (Reported) Tiotropium [place] (Spiriva Respimat) 2.5 MCG/ACTUATION MIST.INHAL 2 PUFF INH QAM COPD (Reported) Tramadol HCl 50 MG TABLET 1 TAB PO TIDPRN BACK PAIN (Reported) Compliance With Home Meds: GOOD Past History Travel History Traveled to [place] past 21 day No Medical History Neurological: NONE EENT: NONE Cardiovascular: NONE Respiratory: COPD, emphysema, obstructive sleep apnea, Stage III non-small cell lung cancer Gastrointestinal: NONE Hepatic: NONE Renal: NONE Musculoskeletal: NONE, spinal stenosis Psychiatric: NONE Endocrine: NONE Blood Disorders: NONE 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 spouse Services at Home: None (2.0 L), Oxygen Primary Language: Icelandic ETOH Use: denies use Illicit Drug Use: denies illicit drug use Functional Ability ADLs Independent: dressing, eating, toileting, bathing. Ambulation: independent IADLs Independent: shopping, housework, finances, food prep, telephone, transportation , medication admin. Exam & Diagnostic Data Last 24 Hrs of Vital Signs/I&O Vital Signs Date Time Temp Pulse Resp B/P B/P Pulse O2 O2 Flow FiO2 Mean Ox Delivery Rate 03/12 1429 97.2 106 20 108/53 03/12 1335 97.2 109 20 108/53 03/12 1333 109 108/53 03/12 1327 127 20 128/55 98 Nasal 4.0L Cannula 03/12 1315 96 Nasal 3.0L Cannula 03/12 1301 132 18 124/86 96 Nasal 3.0L Cannula 03/12 1253 97.2 144 22 134/78 03/12 1225 97.2 144 22 134/78 95 Nasal 3.0L Cannula Intake & Output 03/12 1600 03/12 0800 03/12 0000 Intake Total 0 Output Total Balance 0 Intake, Oral 0 Patient 288 lb Weight Assessment/Plan Assessment: Core Measures/Misc (05/09) Cerebrovascular Accident CVA/TIA Diagnosis: No Sepsis (View protocol) Sepsis Present: Yes If YES complete Sepsis Event Note If YES complete Sepsis Event Note Weight Assessment/Plan Assessment: Patient is a 47-year-old male with a past medical history of stage III non-small cell lung cancer of LLL status post chemotherapy with Braxan 1 year ago, radiation therapy 6 months ago, COPD on 2 L of home oxygen, sleep apnea on CPAP, spinal stenosis, bronchitis who was brought into the [facility] on 2017 after visiting nurse found the patient to be tachycardic with a heart rate up to 161. New onset rapid atrial fibrillation. Recent left pleural effusion with left lung collapse and postobstructive pneumonia. Stage III non-small cell lung cancer of the left lower lobe status post chemoradiation Pericardian Effusion status post pericardial window Oxygen dependent COPD. Admit patient to telemetry service. So troponins and EKG rule out ACS. Consider repeating echo on recommendations of blade aligner. Obtain formal cartilage consultation. Continue diltiazem drip with heart rate below 110. Continue IV heparin drip. Obtain records from [place]. Obtain formal pulmonology consultation in a.m. Patient is a full code. Core Measures/Misc (05/09) Cerebrovascular Accident CVA/TIA Diagnosis: No Sepsis (View protocol) Sepsis Present: Yes If YES complete Sepsis Event Note If YES complete Sepsis Event Note
--- NOTE | 2018-03-12 14:41 | History & Physical ---
Bobby MURRAY,[facility] 03/12/18 1439: General Information and HPI MD Statement: I have seen and personally examined SID DOCKERY and documented this H&P. The patient is a 47 year old M who presented with a patient stated chief complaint of tachycardia. Source of Information: patient, family, old records Exam Limitations: no limitations History of Present Illness: Mr Dockery is a 47-year-old male with a past medical history of stage III non- small cell lung cancer of LLL status post chemotherapy with Braxan 1 year ago, radiation therapy 6 months ago, COPD on 2 L of home oxygen, sleep apnea on CPAP, spinal stenosis, bronchitis who was brought into the [facility] on 2017 after visiting nurse found the patient to be tachycardic with a heart rate up to 161. Patient was admitted prior to [facility] on March 02 when he was admitted after meeting sepsis criteria at which point he was complaining of cough, shortness of breath and fever. His CXR at this time revealed complete white out of the left hemithorax, mild leftward shift of the trachea, a combination of consolidation & pleural fluid. A follow-up chest CTA revealed no PE, but a completely collapsed L lung, a loculated L pleural effusion, new R micronodules, a small R pleural effusion, and an enlarging pericardial effusion. He was subsequently transferred to [place] for interventional bronchoscopy possible stent placement in left mainstem bronchus due to collapse of left lung. Patient was discharged from [facility] on 03/11/2018 after it appears that a stent was not able to be placed. He was subsequently managed medically and sent home on Augmentin. Patient states that since he got home he felt well. On the morning prior to admission he was sitting in the kitchen and had no complaints. During the time that the visiting nurse was with the patient, he felt diaphoretic and visiting nurse checked his vitals at which point an elevated heart rate 161 BPM was noted. Patient called his mom who brought him into the emergency department. During the time of our clinical interaction the patient was asymptomatic and he had no specific complaints. The patient's and mother were present during the course of our clinical interaction. PCP is Reji Lafleur MD. Patient's grant writer is Dr. Ortzi. Allergies/Medications Allergies: Coded Allergies: paclitaxel (From TAXOL) (BP WENT VERY HIGH AND PALE, SWEATING ALMOST PASSED OUT 03/12/18) Home Med list Albuterol Sulfate (Proair Hfa) 90 MCG HFA.AER.AD 2 PUF INH Q4-6 PRN PRN COPD (Reported) Albuterol Sulfate 2.5 MG/3 ML (0.083 %) VIAL.NEB 1 Vial INH/JOSE Q4P PRN SHORTNESS OF BREATH (Reported) Amoxicillin/Clavulanate Potass (Amox-Clav 875-125 MG Tablet) 875 MG-125 MG TABLET 875 MG PO Q12 pneumonia Azelastine HCl (Astepro) 205.5 MCG (0.15 %) SPRAY.PUMP 1 SPRAY NASB BID CONGESTION (Reported) Budesonide/Formoterol Fumarate (Symbicort 160-4.5 Mcg Inhaler) 160 MCG-4.5 MCG/ ACTUATION HFA.AER.AD 2 PUF INH BID BREATHING PROBLEMS (Reported) Cannabis (Marijuana Oil) 1 amp AMP 1 A PO AD PRN ANXIETY/STRESS/DEPRESSION ( Reported) Fluticasone Propionate (Flonase Allergy Relief) 50 MCG/ACTUATION SPRAY.SUSP 2 SPRAY NASB QPM ALLERGIES (Reported) Montelukast Sodium (Singulair) 10 MG TABLET 1 TAB PO QPM ASTHMA (Reported) Tiotropium [place] (Spiriva Respimat) 2.5 MCG/ACTUATION MIST.INHAL 2 PUFF INH QAM COPD (Reported) Tramadol HCl 50 MG TABLET 1 TAB PO TIDPRN BACK PAIN (Reported) Compliance With Home Meds: GOOD Past History Travel History Traveled to [place] past 21 day No Medical History Neurological: NONE EENT: NONE Cardiovascular: NONE Respiratory: COPD, emphysema, obstructive sleep apnea, Stage III non-small cell lung cancer Gastrointestinal: NONE Hepatic: NONE Renal: NONE Musculoskeletal: NONE, spinal stenosis Psychiatric: NONE Endocrine: NONE Blood Disorders: NONE 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 Home Who Do You Live With? spouse Services at Home: None (2.0 L), Oxygen Primary Language: Tamazight Smoking Status: Former Smoker ETOH Use: denies use Illicit Drug Use: denies illicit drug use Functional Ability ADLs Independent: dressing, eating, toileting, bathing. Ambulation: independent IADLs Independent: shopping, housework, finances, food prep, telephone, transportation , medication admin. Review of Systems Review of Systems Constitutional: Reports: see HPI. Exam & Diagnostic Data Last 24 Hrs of Vital Signs/I&O Vital Signs Date Time Temp Pulse Resp B/P B/P Pulse O2 O2 Flow FiO2 Mean Ox Delivery Rate 03/12 1440 97.6 92 22 104/53 99 Nasal 3.0L Cannula 03/12 1429 97.2 106 20 108/53 03/12 1335 97.2 109 20 108/53 03/12 1333 109 108/53 03/12 1327 127 20 128/55 98 Nasal 4.0L Cannula 03/12 1315 96 Nasal 3.0L Cannula 03/12 1301 132 18 124/86 96 Nasal 3.0L Cannula 03/12 1253 97.2 144 22 134/78 03/12 1225 97.2 144 22 134/78 95 Nasal 3.0L Cannula Intake & Output 03/12 1600 03/12 0800 03/12 0000 Intake Total 0 Output Total Balance 0 Intake, Oral 0 Patient 130.635 kg Weight Physical Exam General Appearance Alert, Oriented X3, Cooperative Skin No Rashes HEENT PERRLA, Mucous Membr. moist/pink Cardiovascular Normal S1, Normal S2 Lungs Clear to Auscultation, Normal Air Movement Abdomen Normal Bowel Sounds, Soft, No Tenderness Neurological Sensation Intact, Cranial Nerves 3-12 NL Extremities No Cyanosis, No Edema Vascular Normal Pulses, Pulses Symmetrical Last 24 Hrs of Labs/Christian: Laboratory Tests 03/12/18 1845: APTT Pending 03/12/18 1256: Anion Gap 12, Estimated GFR > 60, BUN/Creatinine Ratio 30.0 H, Glucose 111 H, Calcium 9.1, Magnesium Pending, Total Bilirubin 0.6, AST 14 L, ALT 36, Alkaline Phosphatase 93, Troponin I < 0.01, Total Protein 6.8, Albumin 3.1 L, Globulin 3.7, Albumin/Globulin Ratio 0.8 L, TSH &T3 &Free T4 Intrp 1.770, D-Dimer High Sensitivty 1048 H, CBC w Diff NO MAN DIFF REQ, RBC 4.66 L, MCV 77.8 L, MCH 24.1 L, MCHC 31.0 L, RDW 22.8 H, MPV 7.9, Gran % 80.6 H, Lymphocytes % 7.5 L, Monocytes % 9.2, Eosinophils % 2.6, Basophils % 0.1, Absolute Granulocytes 11.8 H, Absolute Lymphocytes 1.1 L, Absolute Monocytes 1.3 H, Absolute Eosinophils 0.4, Absolute Basophils 0 Diagnostic Data EKG Results Atrial Flutter Rate 164 Qtc 496 Assessment/Plan Assessment: Patient is a 47-year-old male with a past medical history of stage III non-small cell lung cancer of LLL status post chemotherapy with Braxan 1 year ago, radiation therapy 6 months ago, COPD on 2 L of home oxygen, sleep apnea on CPAP, spinal stenosis, bronchitis who was brought into the [facility] on 2017 after visiting nurse found the patient to be tachycardic with a heart rate up to 161. Patient's elevated heart rate is likely attributed to recent hospitalization. While in the emergency department the patient received diltiazem and was started on a heparin drip. Below is a patient's problem list and plan. Problem List: New onset rapid atrial flutter. Recent left pleural effusion with left lung collapse (unable to place stent) Stage III non-small cell lung cancer of the left lower lobe status post chemoradiation Pericardian Effusion status post pericardial window Elevated d-dimer on admission. Oxygen dependent COPD recently increased to 3L Admit patient to telemetry service. Serial troponins and EKG rule out ACS. Consider repeating echo on recommendations of mail messenger. Obtain formal cardilogy consultation. Continue diltiazem drip with heart rate below 110. Continue IV heparin drip. May consider transitioning to by mouth anticoagulation in a.m. Given history of oncological process and recent hospitalization May consider ruling out a PE. Courtesy call to service of Dr. Pink to inform them that the patient has been admitted. Obtain formal pulmonology consultation in a.m. [facility] nebs and continue supplemental oxygen. Continue Augmentin for an additional 4 doses. Maintain electrolytes potassium above 4 and magnesium 2. Continue home medications. DVT prophylaxis with IV heparin. Patient is a full code. As Ranked By This Provider Problem List: 1. Atrial flutter with rapid ventricular response Core Measures/Misc (05/09) Acute Coronary Syndrome ACS Diagnosis: No Congestive Heart Failure Congestive Heart Failure Diagnosis No Cerebrovascular Accident CVA/TIA Diagnosis: No VTE (View Protocol) VTE Risk Factors Cancer/chemo/othr therapy No Mechanical VTE Prophylaxis d/t N/A MechProphylax Ordered No VTE Pharm Prophylaxis d/t NA PharmProphylax ordered Sepsis (View protocol) Sepsis Present: Yes If YES complete Sepsis Event Note If YES complete Sepsis Event Note Julieta Corona MD 03/12/18 1529: Core Measures/Misc (05/09) Sepsis (View protocol) If YES complete Sepsis Event Note If YES complete Sepsis Event Note Attending MD Review Statement Attending Statement Attending MD Statement: examined this patient, discuss w/resident/PA/MACHINE CLOTHING WORKER, agreed w/resident/PA/MACHINE CLOTHING WORKER, reviewed EMR data (avail), reviewed images Attending Assessment/Plan: 47-year-old male well known to me from recent previous admission. He has alung CA and was recently here at [place] with left lower lobe collapse from tumor. On that admission he had a bronhcoscopic biopsy and he had a pericardial window placed on March 03 for tamponade. After the window he was transferred to telemetry and subsequently transferred to [place] with the idea of doing a endobronchial stent as he had recurrence of his tumor. He says at [place] they attempted to do the stent but were unsuccessful and he was discharged. He comes in today with new onset rapid atrial fibrillation. The etiology of this fibrillation could be related to the recent procedure. We'll bring him into telemetry, the ED spoke to the cardiothoracic surgeons and the mail messenger and we are anticoagulating him with IV heparin and using Cardizem for rate control. Will follow-up as per cardiology, he recently had an echo on the question is does he need a repeat one. Will call a formal pulmonary consult is well-known to Dr. Ortiz, will continue his other medications and follow-up.
--- NOTE | 2018-03-12 15:33 | Admission Certification ---
Admission Certification Certification Statement - As attending physician, I certify that at the time of - admission, based on clinical presentation, severity of - symptoms, need for further diagnostic testing and - therapeutic interventions, and risk of adverse outcomes - without in-hospital treatment, in my clinical assessment, - this patient requires an acute hospital stay for a minimum - of two nights or longer. I have also considered psychsocial - factors such as support system, advanced age, financial - issues, cognitive issues, and failed out-patient treatments, - past re-admission history, safety of patient, and lack of - compliance as applicable. Specific rationale supporting this admission is: New onset rapid atrial fibrillation in patient with lung CA and recent pericardial window
--- NOTE | 2018-03-12 16:15 | Cons- Cardiology ---
General Information and HPI Consulting Request Date of Consult: 03/12/18 Requested By: Cj MURRAY,Julieta Jung Reason for Consult: Atrial flutter with a rapid ventricular response. Source of Information: patient, old records Exam Limitations: poor historian History of Present Illness: Mr. Carlos Alberto Dockery is a 47 year-old male with a hx of MARCI on CPAP, heavy tobacco use, COPD on home O2, & stage III non-small cell lung ca of LLL s/p chemo & radiation Rx who was recently hospitalized here (03/02-03/09/2018) w/ c/ o productive cough, SOB, CP, & low-grade fevers for the past month w/ persistence of Sxs despite Abx & steroid Rx whose CXR revealed complete white out of the left hemithorax, mild leftward shift of the trachea, a combination of consolidation & pleural fluid and whose follow-up chest CTA revealed a completely collapsed L lung, a loculated L pleural effusion, new R micronodules, a small R pleural effusion, and an enlarging pericardial effusion that required a pericardial window for signs of early cardiac tamponade and was transferred and admitted to [facility] (03/09-03/11/2018) for an unsuccessful attempted bronchial stent after it was discovered that the mass responsible for the left lung collapse was poorly differentiated squamous cell ca and who returned to the ED this morning after his visiting nurse found him to have a rapid irregular pulse. Allergies/Medications Allergies: Coded Allergies: paclitaxel (From TAXOL) (BP WENT VERY HIGH AND PALE, SWEATING ALMOST PASSED OUT 03/12/18) Home Med List: Albuterol Sulfate (Proair Hfa) 90 MCG HFA.AER.AD 2 PUF INH Q4-6 PRN PRN COPD (Reported) Albuterol Sulfate 2.5 MG/3 ML (0.083 %) VIAL.NEB 1 Vial INH/JOSE Q4P PRN SHORTNESS OF BREATH (Reported) Amoxicillin/Clavulanate Potass (Amox-Clav 875-125 MG Tablet) 875 MG-125 MG TABLET 875 MG PO Q12 pneumonia Azelastine HCl (Astepro) 205.5 MCG (0.15 %) SPRAY.PUMP 1 SPRAY NASB BID CONGESTION (Reported) Budesonide/Formoterol Fumarate (Symbicort 160-4.5 Mcg Inhaler) 160 MCG-4.5 MCG/ ACTUATION HFA.AER.AD 2 PUF INH BID BREATHING PROBLEMS (Reported) Cannabis (Marijuana Oil) 1 amp AMP 1 A PO AD PRN ANXIETY/STRESS/DEPRESSION ( Reported) Fluticasone Propionate (Flonase Allergy Relief) 50 MCG/ACTUATION SPRAY.SUSP 2 SPRAY NASB QPM ALLERGIES (Reported) Montelukast Sodium (Singulair) 10 MG TABLET 1 TAB PO QPM ASTHMA (Reported) Tiotropium Sayre (Spiriva Respimat) 2.5 MCG/ACTUATION MIST.INHAL 2 PUFF INH QAM COPD (Reported) Tramadol HCl 50 MG TABLET 1 TAB PO TIDPRN BACK PAIN (Reported) Review of Systems Review of Systems: A 14 point system review was obtained and was noncontributory, other than as above. 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 Home Who Do You Live With? spouse Services at Home: None (2.0 L), Oxygen Primary Language: Japanese Smoking Status: Former Smoker ETOH Use: denies use Illicit Drug Use: denies illicit drug use Functional Ability ADLs Independent: dressing, eating, toileting, bathing. Ambulation: independent IADLs Independent: shopping, housework, finances, food prep, telephone, transportation , medication admin. Exam & Diagnostic Data Vital Signs and I&O Vital Signs Date Time Temp Pulse Resp B/P B/P Pulse O2 O2 Flow FiO2 Mean Ox Delivery Rate 03/12 1644 Nasal 3.0L Cannula 03/12 1622 98.7 99 16 128/70 97 03/12 1555 97.2 95 22 110/69 98 Nasal 3.0L Cannula 03/12 1440 97.6 92 22 104/53 99 Nasal 3.0L Cannula 03/12 1429 97.2 106 20 108/53 03/12 1335 97.2 109 20 108/53 03/12 1333 109 108/53 03/12 1327 127 20 128/55 98 Nasal 4.0L Cannula 03/12 1315 96 Nasal 3.0L Cannula 03/12 1301 132 18 124/86 96 Nasal 3.0L Cannula 03/12 1253 97.2 144 22 134/78 03/12 1225 97.2 144 22 134/78 95 Nasal 3.0L Cannula Intake & Output 03/12 0803/12 0000 03/11 0803/11 0000 Intake Total 0 Output Total Balance 0 Intake, Oral 0 Patient 288 lb Weight Physical Exam: Well-developed, obese middle-aged male no acute distress with nasal oxygen in place. Vital signs: See above. HEENT: Normocephalic, atraumatic, EOMI, moist mucous membranes. Neck: No JVD, no bruits. Lungs: Decreased breath sounds bilaterally. Heart: S1, S2. Abdomen: Soft, nontender, positive bowel sounds. Extremities: No edema. Labs/Christian Results: Laboratory Tests 03/12 1256 Chemistry Sodium (137 - 145 mmol/L) 137 Potassium (3.5 - 5.1 mmol/L) 4.4 Chloride (98 - 107 mmol/L) 98 Carbon Dioxide (22 - 30 mmol/L) 28 Anion Gap (5 - 16) 12 BUN (9 - 20 mg/dL) 15 Creatinine (0.7 - 1.2 mg/dL) 0.5 L Estimated GFR (>60 ml/min) > 60 BUN/Creatinine Ratio (7 - 25 %) 30.0 H Glucose (65 - 99 mg/dL) 111 H Calcium (8.4 - 10.2 mg/dL) 9.1 Total Bilirubin (0.2 - 1.3 mg/dL) 0.6 AST (17 - 59 U/L) 14 L ALT (21 - 72 U/L) 36 Alkaline Phosphatase (< 127 U/L) 93 Troponin I (<0.11 ng/ml) < 0.01 Total Protein (6.3 - 8.2 g/dL) 6.8 Albumin (3.5 - 5.0 g/dL) 3.1 L Globulin (1.9 - 4.2 gm/dL) 3.7 Albumin/Globulin Ratio (1.1 - 2.2 %) 0.8 L TSH &T3 &Free T4 Intrp (0.27 - 4.20 uIU/mL) 1.770 Coagulation D-Dimer High Sensitivty (0 - 243 ng/ml) 1048 H Hematology CBC w Diff NO MAN DIFF REQ WBC (4.8 - 10.8 /CUMM) 14.6 H RBC (4.70 - 6.10 /CUMM) 4.66 L Hgb (14.0 - 18.0 G/DL) 11.2 L Hct (42 - 52 %) 36.3 L MCV (80.0 - 94.0 FL) 77.8 L MCH (27.0 - 31.0 PG) 24.1 L MCHC (33.0 - 37.0 G/DL) 31.0 L RDW (11.5 - 14.5 %) 22.8 H Plt Count (130 - 400 /CUMM) 522 H MPV (7.4 - 10.4 FL) 7.9 Gran % (42.2 - 75.2 %) 80.6 H Lymphocytes % (20.5 - 51.1 %) 7.5 L Monocytes % (1.7 - 9.3 %) 9.2 Eosinophils % (0 - 5 %) 2.6 Basophils % (0.0 - 2.0 %) 0.1 Absolute Granulocytes (1.4 - 6.5 /CUMM) 11.8 H Absolute Lymphocytes (1.2 - 3.4 /CUMM) 1.1 L Absolute Monocytes (0.10 - 0.60 /CUMM) 1.3 H Absolute Eosinophils (0.0 - 0.7 /CUMM) 0.4 Absolute Basophils (0.0 - 0.2 /CUMM) 0 Assessment/Plan Assessment/Plan 47-yo-w-m w/ hx of MARCI on CPAP, heavy tobacco use, COPD on home O2, & stage III non-small cell lung ca of LLL s/p chemo & radiation Rx who was recently hospitalized here (03/02-03/09/2018) w/ c/o productive cough, SOB, CP, & low- grade fevers for the past month w/ persistence of Sxs despite Abx & steroid Rx whose CXR revealed complete white out of the left hemithorax, mild leftward shift of the trachea, a combination of consolidation & pleural fluid and whose follow-up chest CTA revealed a completely collapsed L lung, a loculated L pleural effusion, new R micronodules, a small R pleural effusion, & an enlarging pericardial effusion that required a pericardial window for signs of early cardiac tamponade and who was transferred and admitted to [facility] (03/09-03/11/2018 ) for an unsuccessful attempted bronchial stent after it was discovered that the mass responsible for the left lung collapse was poorly differentiated squamous cell ca and who returned to the ED this morning after his visiting nurse found him to have a rapid irregular pulse secondary to atrial flutter with a rapid variable ventricular response. Atrial flutter can occur in any of the disorders that cause atrial fibrillation including thyrotoxicosis, obesity, MARCI, SSS, pericarditis, pulmonary disease, and pulmonary embolism. It can also occur after cardiac surgery, both as a postoperative complication and as of late arrhythmia. It is a relatively uncommon complication of an acute NV. In the ED he received IV diltiazem 10 mg 3 and was placed on an IV diltiazem drip at 10 mg/hr with the ventricular response now under 100 bpm. Recommendations: * Telemetry admission, follow-up troponins, follow-up ECGs. * Continue IV diltiazem at 10 mg/hr and titrate up as necessary. Can hopefully switch over to oral diltiazem tomorrow if necessary. * Continue on IV heparin for the short term and if he remains in atrial flutter will start him on a DOAC such as Eliquis (apixaban). * Check magnesium level and maintain at or above 2.0 mg/dl. * Normal TSH noted. * Given his recent hospitalization need to exclude the possibility of a pulmonary embolism. * DVT prophylaxis being addressed. Consult Acknowledgment - Thank you for your consult request.
[2018-03-12 16:22] VITALS: BP 128/70
--- NOTE | 2018-03-12 16:46 | PN- Student ---
Subjective Subjective: ID: The pt is a 47YOM with a 2yr hx of poorly differentiated non small cell lung cancer in the LLL and L mainstem bronchus s/p chemo with paclitaxel and radiation, COPD on 3 L of O2 at home, and spinal stenosis with degenerative disk disease. CC: Tachycardia Source: Patient and Family HPI: Pt presented to the ED today when VNA found tachycardia in the 160s. He is s/p failed L mainstem bronchus stenting at [facility] 2 days ago, after being d/c from [facility] on 03/08/18 during which he was tx for sepsis, pericardial effusion for which cardiac window was performed, and L lung collapse tx with chest tube. CTA chest performed on 03/02/18 showed no PE. On admission, pt said he only felt a "strange sensation" in the sternal area along with mild diaphoresis before coming to the hospital and is feeling the best he has felt in weeks. Pt had slept well last night, was eating his normal diet at home (protein shake + regular diet), and reports adherence to all medications with improvement in a lingering cough. Pt denies changes in his breathing and has been using 3L of O2 at home as per [facility] team with albuterol nebs and inhaler. Pt denies CARDOZA, chest pain, dyuria, fever, chills, nausea, vomiting, diarrhea. Pt reports PCP is Dr. Valenzuela, Dr. Ortiz is floor polisher, and Dr. Sampson and Quynh have seen him in house for cardiology. PMH: * Non small cell lung cancer, poorly differentiated, s/p chemo w/ paclitaxel and radiation, chemo planned for next week, s/p failed L mainstem bronchus stent placement at [facility] * COPD on 3L O2 at home * Spinal stenosis and degenerative disk disease Social: Pt lives with and several children at home. He reports losing >100lbs in the last year with healthier eating and exercise. His mother helps to care for him and lives nearby. Pt denies smoking ever, denies EtOH, and denies drugs. Objective Objective: Laboratory Tests 03/12/18 1256: Anion Gap 12, Estimated GFR > 60, BUN/Creatinine Ratio 30.0 H, Glucose 111 H, Calcium 9.1, Total Bilirubin 0.6, AST 14 L, ALT 36, Alkaline Phosphatase 93, Troponin I < 0.01, Total Protein 6.8, Albumin 3.1 L, Globulin 3.7, Albumin/ Globulin Ratio 0.8 L, TSH &T3 &Free T4 Intrp 1.770, D-Dimer High Sensitivty 1048 H, CBC w Diff NO MAN DIFF REQ, RBC 4.66 L, MCV 77.8 L, MCH 24.1 L, MCHC 31.0 L, RDW 22.8 H, MPV 7.9, Gran % 80.6 H, Lymphocytes % 7.5 L, Monocytes % 9.2, Eosinophils % 2.6, Basophils % 0.1, Absolute Granulocytes 11.8 H, Absolute Lymphocytes 1.1 L, Absolute Monocytes 1.3 H, Absolute Eosinophils 0.4, Absolute Basophils 0 Vital Signs Date Time Temp Pulse Resp B/P B/P Pulse O2 O2 Flow FiO2 Mean Ox Delivery Rate 03/12 1622 98.7 99 16 128/70 97 03/12 1555 97.2 95 22 110/69 98 Nasal 3.0L Cannula 03/12 1440 97.6 92 22 104/53 99 Nasal 3.0L Cannula 03/12 1429 97.2 106 20 108/53 03/12 1335 97.2 109 20 108/53 03/12 1333 109 108/53 03/12 1327 127 20 128/55 98 Nasal 4.0L Cannula 03/12 1315 96 Nasal 3.0L Cannula 03/12 1301 132 18 124/86 96 Nasal 3.0L Cannula 03/12 1253 97.2 144 22 134/78 03/12 1225 97.2 144 22 134/78 95 Nasal 3.0L Cannula Intake & Output 03/12 1600 03/12 0800 03/12 0000 Intake Total 0 Output Total Balance 0 Intake, Oral 0 Patient 288 lb Weight EKG: Aflutter with RVR, question of Afib Gen: resting comfortably in bed, breathing is labored with O2 via nasal cannula Psych: Good attitude, cooperative, AOx4 Neuro: CN 3-12 intact Skin: warm and dry, no rashes apparent HEENT: normocephalic, atraumatic, PERRLA, poor dentition, moist mucous membranes CV: Irregularly irregular, S1 and S2, no JVP evident Pulm: Crackles apparent on r during inspiration throughout, poor air entry on L with very diminished breath sounds Abd: +BS, soft, nontender, obese Ext: no edema, well perfused, 2+ radial pulse, 2+ DP/PT pulses Back: pain to palpation in lumbar region Assessment/Plan Assessment: 47YOM with COPD on 3L O2 and poorly differentiated non small cell lung cancer s/ p paclitaxel and radiation with failed stenting of left mainstem bronchus who presented to the ED with tachycardia in the 160s and diaphoresis. He was found to have new onset atrial flutter (question of Afib) in the ED with rapid ventricular rate. Problems/Plan 1. New onset atrial fibrillation * Atrial fibrillation found on EKG perfomed in the ED though patient was symptomatic. D/t hemodynamic stability, patient is candidate for medical therapy and has been started on cardizem and heparin. Continue cardizem and monitor on tele. If Afib does not resolve, pt may be candidate for cardioversion. 2. Elevated D-dimer * D-dimer elevated to 1048 on presentation to the ED. Pt is moderate/high risk with Well's criteria for PE. CTA could be considered. However, pt has recently had increased exposure to radiation with multiple studies and demonstrates no clinical findings different from baseline. Additionally, D-dimer may be elevated in patients post-surgically, so this patient's level may be falsely elevated d/t recent bronchoscopy at [facility]. As patient is already receiving IV heparin and is clinically stable, he may be monitored at this time. 3. NSCLC * Pt is followed by Dr. Reeves for tx. He has completed therapy with paclitaxel and has completed radiation therapy. At this time, pt reports original tumor in LLL has decreased in size but that cancer has occluded L mainstem bronchus. He and Dr. Reeves have planned to begin new chemotherapy regimen next week. 4. COPD * Pt is stable on 3L of O2 at home. However, respiratory status is compromized d /t occlusion of L mainstem bronchus d/t NSCLC. 5. Spinal stenosis and degenerative disk disease * Pt has long hx of back problems for which he uses toradol and cannabis oil. Diet: Regular DVTP: Heparin Code: Full
[2018-03-12 20:02] LABS: PTT 31 SEC (25-37)
--- NOTE | 2018-03-12 20:30 | CT SCAN REPORT ---
EXAMINATION: CT CHEST PE protocol CLINICAL INFORMATION: Hypoxia tachycardia rule out PE COMPARISON: March 02 2018 TECHNIQUE: Volumetric imaging was performed through the chest. Reformatted coronal and sagittal imaging was performed. CONTRAST: 95 mL Optiray 320 injected. FINDINGS: PULMONARY ARTERIES: No large emboli. The main RIGHT and LEFT pulmonary artery and its main branches are widely open. The distal branches are difficult to assess due to heavy artifacts, suboptimal opacification likely artifactual rather than true emboli. LINES/TUBES: There is a Port-A-Cath in place with its tip in the SVC RA junction. LUNGS: Lung Parenchyma: There is complete collapse atelectasis of the LEFT lung redemonstrated on today's exam. There is a small LEFT pleural effusion. Lung Nodules: Right lung relatively spared. Redemonstration of mild patchy infiltrates RIGHT lower lobe. Reticulonodular infiltrates most likely sequela of infection pneumonia. Newly developed nodule RIGHT upper lobe measures 6 mm image 65 series 210. AIRWAYS: Left main bronchus is occluded. PLEURA: Small LEFT pleural effusion unchanged. MEDIASTINUM AND SILVINA: The visualized thyroid gland is unremarkable. Few mediastinal lymph nodes slightly prominent might be reactive. No bulky adenopathy. There is no mediastinal mass. VESSELS: Thoracic aorta is normal in size. HEART AND PERICARDIUM: Pericardial effusion seen on prior study significantly improved, only minimal pericardial effusion present. There are coronary calcifications. CHEST WALL, LOWER NECK, SURROUNDING SOFT TISSUES: Normal VISUALIZED ABDOMEN: Unremarkable BONES: The visualized bony thorax is within normal limits. IMPRESSION: 1. Unfortunately artifacts preclude evaluation of distal subsegmental branches however the main pulmonary artery and their main branches are widely open. No large emboli present. 2. Improved pericardial effusion. 3. Redemonstration of complete collapse of the LEFT lung and occlusion of the LEFT main bronchus, 4. Stable LEFT pleural effusion. 5. Reticulonodular densities in the RIGHT lung patchy opacity likely sequela of pneumonia, new nodule 6 mm. Follow-up recommended when patient's condition improves. 6. Mildly prominent mediastinal lymph nodes likely reactive. 2.
[2018-03-12 22:06] VITALS: BP 122/84
[2018-03-13 03:25] LABS: ABSOLUTE BASOPHIL COUNT 0 /CUMM (0.0-0.2); ABSOLUTE EOSINOPHIL COUNT 0.3 /CUMM (0.0-0.7); ABSOLUTE GRANULOCYTE CT 8.3 /CUMM (1.4-6.5); ABSOLUTE MONOCYTE COUNT 1.3 /CUMM (0.10-0.60); BASOPHIL % 0.2 % (0.0-2.0); EOSINOPHIL % 2.6 % (0-5); GRANULOCYTE % 75.7 % (42.2-75.2); MEAN CORPUSCULAR HGB 24.3 PG (27.0-31.0); MEAN CORPUSCULAR HGB CONC 31.6 G/DL (33.0-37.0); MEAN CORPUSCULAR VOLUME 77.1 FL (80.0-94.0); MEAN PLATELET VOLUME 7.6 FL (7.4-10.4); PLATELET COUNT 432 /CUMM (130-400); RED BLOOD CELL CT 3.99 /CUMM (4.70-6.10)
[2018-03-13 03:30] LABS: HEMATOCRIT 30.7 % (42-52)
[2018-03-13 03:37] LABS: PTT 38 SEC (25-37)
[2018-03-13 06:32] VITALS: BP 122/70
--- NOTE | 2018-03-13 09:41 | PN- Att Addend ---
Attending Addendum Attending Brief Note Patient seen and examined. He feels okay today. On exam temperature is 98.7, blood pressure is 120/70, pulse is 70 and appears regular now and breathing at 16-18. He is obese, lungs have decreased breath sounds bilaterally with almost absent breath sounds in the left site, heart is S1-S2 regular, abdomen is obese nontender and he has trace pedal edema bilaterally. He is a 47-year-old male with lung cancer, admitted initially to [facility] with complete collapse of the left side of his lung. Also found to have a pericardial effusion with pericardial tamponade and he got a window placed. I had transferred him to [place] early last week for the possibility of palliative bronchial stent to relieve the left lower lobe collapse in the setting of recurrent cancer. However at [place] they were unsuccessful and putting it in. He was admitted overnight with new onset atrial fibrillation- rapid heart rate and was started on IV Cardizem and IV heparin. He converted spontaneously and will need to talk to Dr. Sampson about questionable p.o. Cardizem. He recently had a CTA so I am holding off for now, if he needs anticoagulation anyway then will avoid that but if he have to decide on long- term anticoagulation then will likely need a CTA to make sure there is no PE given the recent hospitalization and the underlying malignancy.
[2018-03-13 11:53] LABS: PTT 34 SEC (25-37)
[2018-03-13 15:28] VITALS: BP 128/72
--- NOTE | 2018-03-13 17:35 | PN- Cardiology ---
Subjective Subjective: No complaints. Converted back to sinus rhythm atrial flutter at ~12:18 a.m. and has been maintaining sinus rhythm since that time. Objective Vital Signs and I&Os Vital Signs Date Time Temp Pulse Resp B/P B/P Pulse O2 O2 Flow FiO2 Mean Ox Delivery Rate 03/13 1528 98.6 75 20 128/72 98 03/13 0824 96 Nasal 3.0L Cannula 03/13 0800 96 Nasal 3.0L Cannula 03/13 0632 98.3 70 22 122/70 99 03/13 0312 74 98 03/13 0010 80 97 03/13 0008 97 Nasal 3.0L Cannula 03/12 2206 98.5 100 26 122/84 99 03/12 2008 Nasal 3.0L Cannula 03/12 180 Nasal 3.0L Cannula Intake & Output 03/13 1600 03/13 0800 03/13 0000 03/12 1600 03/12 0800 03/12 0000 Intake Total 700 340 0 Output Total Balance 700 340 0 Intake, IV 300 100 Intake, Oral 400 240 0 Patient 272 lb 274 lb 288 lb Weight Weight Bed scale Bed scale Measurement Method Physical Exam: Well-developed, obese middle-aged male no acute distress with nasal oxygen in place. Vital signs: See above. HEENT: Normocephalic, atraumatic, EOMI, moist mucous membranes. Neck: No JVD, no bruits. Lungs: Decreased breath sounds bilaterally. Heart: S1, S2. Abdomen: Soft, nontender, positive bowel sounds. Extremities: No edema. Current Medications: Current Medications Sig/Harman Start time Last Medication Dose Route Stop Time Status Admin Acetaminophen 650 MG Q4P PRN 03/13 1130 AC 03/13 PO 1141 Albuterol Sulfate 3 ML EVERY 4 HRS/AWAKE 03/12 2000 AC 03/13 INH 1537 Albuterol Sulfate 2 PUF Q4-6 PRN PRN 03/12 1515 AC INH Amoxicillin/ 875 MG Q12 03/12 Clavulanate Potassium PO 03/13 2101 0843 Budesonide/ 2 PUF BID 03/12 2100 03/13 Formoterol Fumarate INH 0844 Diltiazem HCl 125 MG Q12H 03/13 0215 AC 03/13 Sodium Chloride 100 ML IV 1414 Diltiazem HCl 125 MG Q12H 03/12 1415 DC 03/12 Dextrose/Water 100 ML IV 03/13 0214 1450 Fluticasone 2 SPRAY QPM 03/12 2100 AC 03/12 Propionate CORRIE 2206 Heparin Sodium 9,270 UNIT 1330 03/13 1330 DC 03/13 (Porcine) IV 03/13 1331 1413 Heparin Sodium 9,270 UNIT BOLUS ONE 03/13 0430 DC 03/13 (Porcine) IV 03/13 0431 0616 Heparin Sodium 9,270 UNIT ONCE ONE 03/12 2100 DC 03/12 (Porcine) IV 03/12 210 2208 Heparin Sodium 25,000 UNIT Q24H 03/12 1300 AC 03/13 (Porcine) IV 1649 Sodium Chloride 500 ML Montelukast Sodium 10 MG QPM 03/12 2100 AC 03/12 PO 2200 Nystatin 1 EARNEST BID 03/13 2100 TOP Tiotropium [place] 1 PUF QAM 03/13 0900 AC 03/13 INH 0844 Tramadol HCl 50 MG TIDPRN PRN 03/12 1500 AC 03/13 PO 1648 Results Last 48 Hrs of Labs/Mics: Laboratory Tests 03/13/18 1100: APTT 34 03/13/18 0300: Anion Gap 11, Estimated GFR > 60, BUN/Creatinine Ratio 24.0, Troponin I < 0.01, APTT 38 H, CBC w Diff NO MAN DIFF REQ, RBC 3.99 L, MCV 77.1 L, MCH 24.3 L, MCHC 31.6 L, RDW 24.0 H, MPV 7.6, Gran % 75.7 H, Lymphocytes % 9.3 L, Monocytes % 12.2 H, Eosinophils % 2.6, Basophils % 0.2, Absolute Granulocytes 8.3 H, Absolute Lymphocytes 1.0 L, Absolute Monocytes 1.3 H, Absolute Eosinophils 0.3, Absolute Basophils 0 03/12/18 2100: Troponin I < 0.01 03/12/18 1845: APTT 31 03/12/18 1256: Anion Gap 12, Estimated GFR > 60, BUN/Creatinine Ratio 30.0 H, Glucose 111 H, Calcium 9.1, Magnesium 1.9, Total Bilirubin 0.6, AST 14 L, ALT 36, Alkaline Phosphatase 93, Troponin I < 0.01, Total Protein 6.8, Albumin 3.1 L, Globulin 3.7, Albumin/Globulin Ratio 0.8 L, TSH &T3 &Free T4 Intrp 1.770, D-Dimer High Sensitivty 1048 H, CBC w Diff NO MAN DIFF REQ, RBC 4.66 L, MCV 77.8 L, MCH 24.1 L, MCHC 31.0 L, RDW 22.8 H, MPV 7.9, Gran % 80.6 H, Lymphocytes % 7.5 L, Monocytes % 9.2, Eosinophils % 2.6, Basophils % 0.1, Absolute Granulocytes 11.8 H, Absolute Lymphocytes 1.1 L, Absolute Monocytes 1.3 H, Absolute Eosinophils 0.4, Absolute Basophils 0 Recent Imaging Studies: CTA 03/12/2018 1. Unfortunately artifacts preclude evaluation of distal subsegmental branches however the main pulmonary artery and their main branches are widely open. No large emboli present. 2. Improved pericardial effusion. 3. Redemonstration of complete collapse of the LEFT lung and occlusion of the LEFT main bronchus, 4. Stable LEFT pleural effusion. 5. Reticulonodular densities in the RIGHT lung patchy opacity likely sequela of pneumonia, new nodule 6 mm. Follow-up recommended when patient's condition improves. 6. Mildly prominent mediastinal lymph nodes likely reactive. Assessment/Plan Assessment/Plan 47-yo-w-m w/ hx of MARCI on CPAP, heavy tobacco use, COPD on home O2, & stage III non-small cell lung ca of LLL s/p chemo & radiation Rx who was recently hospitalized here (03/02-03/09/2018) w/ c/o productive cough, SOB, CP, & low- grade fevers for the past month w/ persistence of Sxs despite Abx & steroid Rx whose CXR revealed complete white out of the left hemithorax, mild leftward shift of the trachea, a combination of consolidation & pleural fluid and whose follow-up chest CTA revealed a completely collapsed L lung, a loculated L pleural effusion, new R micronodules, a small R pleural effusion, & an enlarging pericardial effusion that required a pericardial window for signs of early cardiac tamponade and who was transferred and admitted to [facility] (03/09-03/11/2018 ) for an unsuccessful attempted bronchial stent after it was discovered that the mass responsible for the left lung collapse was poorly differentiated squamous cell ca and who returned to the ED this morning after his visiting nurse found him to have a rapid irregular pulse secondary to atrial flutter with a rapid variable ventricular response. Fortunately, Mr. Dockery converted back to sinus rhythm early this morning and has been maintaining sinus rhythm since that time. As he was asymptomatic during the atrial flutter, despite a rapid ventricular response, it would be reasonable maintaining him on anticoagulation for the short-term. Recommendations: * Continue on telemetry. * Switch from IV diltiazem to by mouth diltiazem. * Switch from IV heparin to DOAC such as Eliquis (apixaban), if no contraindication. * Given his recent hospitalization need to exclude the possibility of a pulmonary embolism. * DVT prophylaxis being addressed. Continue telemetry? Yes
[2018-03-13 21:10] LABS: PTT 64 SEC (25-37)
[2018-03-13 22:27] VITALS: BP 126/60
[2018-03-14 06:49] VITALS: BP 118/60
--- NOTE | 2018-03-14 07:08 | PN- Housestaff ---
Geovanny Dacosta 03/14/18 0707: Subjective Follow-up For: Atrial Flutter NSCLC COPD Tele-Events Since Last Visit: NSR, 68 HR Subjective: Patient seen and examined at bedside this morning. Patietn in bed on 3L NC saturating at 96% with IV heparin drip. He claims his back is sore from being on hospital bed for so long. He denies chest pain, palpitations or shortness of breath today. Toleratign diet with normal bowel bladder movements. Review of Systems Constitutional: Denies: see HPI. Objective Last 24 Hrs of Vital Signs/I&O Vital Signs Date Time Temp Pulse Resp B/P B/P Pulse O2 O2 Flow FiO2 Mean Ox Delivery Rate 03/14 0830 96 Nasal 3.0L Cannula 03/14 0800 71 96 03/14 0649 98.1 70 20 118/60 99 03/14 0203 65 98 03/13 2237 78 97 03/13 2227 98.7 79 20 126/60 96 Nasal 3.0L Cannula 03/13 2034 Nasal 3.0L Cannula 03/13 1528 98.6 75 20 128/72 98 Intake & Output 03/14 1600 03/14 0800 03/14 0000 Intake Total 380 Output Total Balance 380 Intake, IV 180 Intake, Oral 200 Patient 279 lb Weight Weight Bed scale Measurement Method Physical Exam General Appearance: Alert, Oriented X3, Cooperative, No Acute Distress HEENT: PERRLA, EOMI, Mucous Membr. moist/pink Cardiovascular: Regular Rate, Normal S1, Normal S2 Lungs: Ronchi bilaterally Abdomen: Normal Bowel Sounds, Soft Neurological: Normal Speech, Strength at 5/5 X4 Ext, Normal Tone, Reflexes 2+ Extremities: No Clubbing, No Cyanosis, No Edema Vascular: Normal Pulses, Pulses Symmetrical Current Medications: Current Medications Sig/Harman Start time Last Medication Dose Route Stop Time Status Admin Acetaminophen 650 MG Q4P PRN 03/13 1130 AC 03/14 PO 0907 Albuterol Sulfate 3 ML EVERY 4 HRS/AWAKE 03/12 2000 AC 03/14 INH 1145 Albuterol Sulfate 2 PUF Q4-6 PRN PRN 03/12 1515 AC INH Amoxicillin/ 875 MG Q12 03/12 2100 DC 03/13 Clavulanate Potassium PO 03/13 2101 2232 Budesonide/ 2 PUF BID 03/12 2100 AC 03/14 Formoterol Fumarate INH 0904 Diltiazem HCl 240 MG DAILY 03/13 1907 AC 03/14 PO 0904 Diltiazem HCl 125 MG Q12H 03/13 0215 DC 03/13 Sodium Chloride 100 ML IV 03/13 2350 1414 Fluticasone 2 SPRAY QPM 03/12 2100 AC 03/14 Propionate CORRIE 0913 Heparin Sodium 25,000 UNIT .STK-MED ONE 03/14 0256 DC (Porcine) IV 03/14 0257 Heparin Sodium 25,000 UNIT Q24H 03/12 1300 AC 03/14 (Porcine) IV 1210 Sodium Chloride 500 ML Montelukast Sodium 10 MG QPM 03/12 2100 AC 03/13 PO 2233 Nystatin 1 EARNEST BID 03/13 2100 AC 03/14 TOP 0913 Tiotropium [place] 1 PUF QAM 03/13 0900 AC 03/14 INH 0904 Tramadol HCl 50 MG TIDPRN PRN 03/12 1500 AC 03/14 PO 1356 Last 24 Hrs of Lab/Christian Results Last 24 Hrs of Labs/Mics: Laboratory Tests 03/14/18 0810: Anion Gap 11, Estimated GFR > 60, BUN/Creatinine Ratio 20.0, Magnesium 1.9, APTT 61 H, CBC w Diff NO MAN DIFF REQ, RBC 3.89 L, MCV 77.8 L, MCH 24.4 L, MCHC 31.3 L, RDW 23.1 H, MPV 7.8, Gran % 80.2 H, Lymphocytes % 7.0 L, Monocytes % 10.1 H, Eosinophils % 2.1, Basophils % 0.6, Absolute Granulocytes 7.0 H, Absolute Lymphocytes 0.6 L, Absolute Monocytes 0.9 H, Absolute Eosinophils 0.2 , Absolute Basophils 0.1 03/13/182007: APTT 64 H Assessment/Plan Assessment: 47 year old with past medical history of COPD on 3L O2 at home and NSCLC tx by Dr. Reeves with paclitaxel and radiation 2 yrs ago who has recently been found to have a new lesion in the L lung that occludes the L mainstem bronchus. He recently underwent pericardial window for malignant pericardial effusion at [facility] and failed L mainstem bronchus stenting at [place]. Patietns left lung remains collapsed with minimal air entry. He was admitted to [facility] 2 days ago with new onset Atrial flutter w/ RVR which converted to NSR with IV cardizem. PE has been ruled out with CTA after elevated D-Dimer. Problem List: 1. Atrial Flutter 2. NSCLC 3. COPD-stable 4. Anticoagulation-IV Heparin Atrial Flutter * new onset atriall flutter rates in 160s at home. Startedon IV cardizem as per cardiology * switched to PO Cardizem today; converted NSR. Currently asymptomatic no complaints * Tele: NSR, HR 68 this morning; denies chest pain, palpitations, sob NSCLC * Patient NSCLC known to be occluded left mainstem bronchus after failed stenting at [place]. * Dr. Ortiz has been following patients case * Dr. Pink is [facility] oncologist * Advised to follow up with Dr. Reeves after discharge * Dr. Reeves has been contacted and courtesy consult has been placed COPD * stable on 3L NC * follow recommendations of pulmonology; continue current pulmonary regimen; continue anticoagulation for now as per pulmonology Anticoagulation * patient currently on IV heparin given elevated D Dimer * Will follow up with cardiology for possibility of oral anticoagulation or whether it is needed given patients stage III NSCLC Code Status: Full Code DVT PPX: IV Heparin Diet: Heart Healthy Diet Problem List: 1. Shortness of breath 2. COPD (chronic obstructive pulmonary disease) 3. Atrial flutter 4. Lung cancer Pain Ratin Pain Location: back pain Pain Goal: Pain 4 or less Pain Plan: as per pain pathway Tomorrow's Labs & Rationales: cbc bep DVT/Prophylaxis: mechanical, pharmacological Jose Barboza 03/14/18 1514: Attending MD Review Statement Attending Statement Attending MD Statement: examined this patient, discuss w/resident/PA/ACADEMIC ADVISEMENT DIRECTOR, agreed w/resident/PA/ACADEMIC ADVISEMENT DIRECTOR, reviewed EMR data (avail), discussed with nursing, discussed with case mgmt Attending Assessment/Plan: afib with rvr- will d/w cardio about need for intermediate anticoagulation especially with poor long term care pharmacist prognosis. Plan would be to dc him home with close f/u with Dr Reeves to discuss further treatment options given his relapse of NSCLC . d/w pulmonary Dr Ortiz the care plan.
[2018-03-14 08:34] LABS: ABSOLUTE BASOPHIL COUNT 0.1 /CUMM (0.0-0.2); ABSOLUTE EOSINOPHIL COUNT 0.2 /CUMM (0.0-0.7); ABSOLUTE LYMPH COUNT 0.6 /CUMM (1.2-3.4); ABSOLUTE MONOCYTE COUNT 0.9 /CUMM (0.10-0.60); BASOPHIL % 0.6 % (0.0-2.0); EOSINOPHIL % 2.1 % (0-5); GRANULOCYTE % 80.2 % (42.2-75.2); HEMATOCRIT 30.3 % (42-52); MEAN CORPUSCULAR HGB 24.4 PG (27.0-31.0); MEAN CORPUSCULAR HGB CONC 31.3 G/DL (33.0-37.0); MEAN CORPUSCULAR VOLUME 77.8 FL (80.0-94.0); MEAN PLATELET VOLUME 7.8 FL (7.4-10.4); PLATELET COUNT 382 /CUMM (130-400); RBC DISTRIBUTION WIDTH 23.1 % (11.5-14.5); RED BLOOD CELL CT 3.89 /CUMM (4.70-6.10); WHITE BLOOD CELL COUNT 8.7 /CUMM (4.8-10.8)
[2018-03-14 08:42] LABS: PTT 61 SEC (25-37)
--- NOTE | 2018-03-14 10:48 | Cons- Pulmonary ---
General Information and HPI Consulting Request Date of Consult: 03/14/18 Requested By: Dr. Barboza Reason for Consult: Lung cancer Source of Information: patient, old records Exam Limitations: no limitations History of Present Illness: The patient is a 47 year old male with past medical history of MARCI on CPAP, former smoker, COPD with chronic hypoxemic respiratory failure on 2L home oxygen , and stage III non small cell lung cancer LLL s/p chemoradiation therapy. He quit smoking 1-2 years ago, except for occasional cigar and smoking medical marijuana. The patient had a recent PET/CT scan on 02/24/2018 that revealed a left lower lung mass that now appears centrally necrotic, a small to moderate pericardial effusion that increased in size, a right lower lobe nodular opacity is nonspecific but favored inflammatory/infectious etiology. The patient was recently admitted to [facility] following an episode of increased shortness of breath. The patient was found to have a pericardial effusion with early tamponade physiology as well as complete left lung atelectasis. The patient underwent a bronchoscopy noting he had nonobstructing left mainstem tumor which was biopsied and positive for poorly differentiated squamous cell carcinoma. The patient also underwent pericardial window for the effusion. The patient was subsequently transferred to [place] to determine if he was amenable to endobronchial stent placement. The patient underwent interventional bronchoscopy at that facility, noting the significant obstructing tumor was identified and a stent was not able to be placed. At home, the patient was being evaluated by his visiting nurse. I received a phone call stating that the patient was tachycardic. It was advised to send him to the emergency department. In the ED, the patient was found to be in atrial fibrillation with rapid ventricular response. His rate was initially controlled and he is now converted back into sinus rhythm. The patient feels stable from a respiratory perspective. He has chronic shortness of breath and a chronic cough but denies any new respiratory complaints today. Allergies/Medications Allergies: Coded Allergies: paclitaxel (From TAXOL) (BP WENT VERY HIGH AND PALE, SWEATING ALMOST PASSED OUT 03/12/18) Home Med List: Albuterol Sulfate (Proair Hfa) 90 MCG HFA.AER.AD 2 PUF INH Q4-6 PRN PRN COPD (Reported) Albuterol Sulfate 2.5 MG/3 ML (0.083 %) VIAL.NEB 1 Vial INH/JOSE Q4P PRN SHORTNESS OF BREATH (Reported) Amoxicillin/Clavulanate Potass (Amox-Clav 875-125 MG Tablet) 875 MG-125 MG TABLET 875 MG PO Q12 pneumonia Azelastine HCl (Astepro) 205.5 MCG (0.15 %) SPRAY.PUMP 1 SPRAY NASB BID CONGESTION (Reported) Budesonide/Formoterol Fumarate (Symbicort 160-4.5 Mcg Inhaler) 160 MCG-4.5 MCG/ ACTUATION HFA.AER.AD 2 PUF INH BID BREATHING PROBLEMS (Reported) Cannabis (Marijuana Oil) 1 amp AMP 1 A PO AD PRN ANXIETY/STRESS/DEPRESSION ( Reported) Fluticasone Propionate (Flonase Allergy Relief) 50 MCG/ACTUATION SPRAY.SUSP 2 SPRAY NASB QPM ALLERGIES (Reported) Montelukast Sodium (Singulair) 10 MG TABLET 1 TAB PO QPM ASTHMA (Reported) Tiotropium [place] (Spiriva Respimat) 2.5 MCG/ACTUATION MIST.INHAL 2 PUFF INH QAM COPD (Reported) Tramadol HCl 50 MG TABLET 1 TAB PO TIDPRN BACK PAIN (Reported) Current Medications: Current Medications Sig/Harman Start time Last Medication Dose Route Stop Time Status Admin Acetaminophen 650 MG Q4P PRN 03/13 1130 AC 03/14 PO 0907 Albuterol Sulfate 3 ML EVERY 4 HRS/AWAKE 03/12 2000 AC 03/14 INH 0803 Albuterol Sulfate 2 PUF Q4-6 PRN PRN 03/12 1515 AC INH Amoxicillin/ 875 MG Q12 03/12 2100 DC 03/13 Clavulanate Potassium PO 03/13 2101 2232 Budesonide/ 2 PUF BID 03/12 2100 AC 03/14 Formoterol Fumarate INH 0904 Diltiazem HCl 240 MG DAILY 03/13 1907 AC 03/14 PO 0904 Diltiazem HCl 125 MG Q12H 03/13 0215 DC 03/13 Sodium Chloride 100 ML IV 03/13 2350 1414 Fluticasone 2 SPRAY QPM 03/12 2100 AC 03/14 Propionate CORRIE 0913 Heparin Sodium 9,270 UNIT 1330 03/13 1330 DC 03/13 (Porcine) IV 03/13 1331 1413 Heparin Sodium 25,000 UNIT Q24H 03/12 1300 AC 03/14 (Porcine) IV 0307 Sodium Chloride 500 ML Montelukast Sodium 10 MG QPM 03/12 2100 AC 03/13 PO 2233 Nystatin 1 EARNEST BID 03/13 2100 AC 03/14 TOP 0913 Tiotropium [place] 1 PUF QAM 03/13 0900 AC 03/14 INH 0904 Tramadol HCl 50 MG TIDPRN PRN 03/12 1500 AC 03/14 PO 0637 Review of Systems Review of Systems All Other Systems: Reviewed and Negative Past History Travel History Traveled to [place] past 21 day No Medical History Neurological: NONE EENT: NONE Respiratory: COPD, emphysema, obstructive sleep apnea, Stage III non-small cell lung cancer Gastrointestinal: constipation Hepatic: NONE Renal: NONE Musculoskeletal: NONE, spinal stenosis Psychiatric: NONE Endocrine: NONE Blood Disorders: NONE Cancer(s): LUNG CA LLL LPN PRIVATE DUTY/Reproductive: NONE Other Medical Hx: Multiple skin infections Surgical History Surgical History: SCROTAL CYST Family History Relations & Conditions If Any: MOTHER FHx: diabetes mellitus FATHER FH: CAD (coronary artery disease) Psychosocial History Where Do You Live? Home Who Do You Live With? spouse Services at Home: None (2.0 L), Oxygen Primary Language: [place] Smoking Status: Former Smoker ETOH Use: denies use Illicit Drug Use: denies illicit drug use Functional Ability ADLs Independent: dressing, eating, toileting, bathing. Ambulation: independent IADLs Independent: shopping, housework, finances, food prep, telephone, transportation , medication admin. Exam & Diagnostic Data Last 24 Hrs of Vital Signs/I&O Vital Signs Date Time Temp Pulse Resp B/P B/P Pulse O2 O2 Flow FiO2 Mean Ox Delivery Rate 03/14 0830 96 Nasal 3.0L Cannula 03/14 0649 98.1 70 20 118/60 99 03/14 0203 65 98 03/13 2237 78 97 03/137 98.7 79 20 126/60 96 Nasal 3.0L Cannula 03/13 2034 Nasal 3.0L Cannula 03/13 1528 98.6 75 20 128/72 98 Intake & Output 03/14 1600 03/14 0800 03/14 0000 Intake Total 380 Output Total Balance 380 Intake, IV 180 Intake, Oral 200 Patient 279 lb Weight Weight Bed scale Measurement Method Physical Exam General Appearance: no apparent distress, alert, awake, comfortable Eyes: Bilateral: PERRL. Neck: supple Respiratory: abscent breath sounds left lung Cardiovascular: regular rate/rhythm Gastrointestinal: normal bowel sounds, soft, non-tender Extremities: no edema Skin: intact, normal color, warm/dry Last 48 Hrs of Labs/Christian: Laboratory Tests 03/14/18 0810: Anion Gap 11, Estimated GFR > 60, BUN/Creatinine Ratio 20.0, Magnesium 1.9, APTT 61 H, CBC w Diff NO MAN DIFF REQ, RBC 3.89 L, MCV 77.8 L, MCH 24.4 L, MCHC 31.3 L, RDW 23.1 H, MPV 7.8, Gran % 80.2 H, Lymphocytes % 7.0 L, Monocytes % 10.1 H, Eosinophils % 2.1, Basophils % 0.6, Absolute Granulocytes 7.0 H, Absolute Lymphocytes 0.6 L, Absolute Monocytes 0.9 H, Absolute Eosinophils 0.2 , Absolute Basophils 0.1 03/13/18 2008: APTT 64 H 03/13/18 1100: APTT 34 03/13/18 0300: Anion Gap 11, Estimated GFR > 60, BUN/Creatinine Ratio 24.0, Troponin I < 0.01, APTT 38 H, CBC w Diff NO MAN DIFF REQ, RBC 3.99 L, MCV 77.1 L, MCH 24.3 L, MCHC 31.6 L, RDW 24.0 H, MPV 7.6, Gran % 75.7 H, Lymphocytes % 9.3 L, Monocytes % 12.2 H, Eosinophils % 2.6, Basophils % 0.2, Absolute Granulocytes 8.3 H, Absolute Lymphocytes 1.0 L, Absolute Monocytes 1.3 H, Absolute Eosinophils 0.3, Absolute Basophils 0 03/12/18 2100: Troponin I < 0.01 03/12/18 1845: APTT 31 03/12/18 1256: Anion Gap 12, Estimated GFR > 60, BUN/Creatinine Ratio 30.0 H, Glucose 111 H, Calcium 9.1, Magnesium 1.9, Total Bilirubin 0.6, AST 14 L, ALT 36, Alkaline Phosphatase 93, Troponin I < 0.01, Total Protein 6.8, Albumin 3.1 L, Globulin 3.7, Albumin/Globulin Ratio 0.8 L, TSH &T3 &Free T4 Intrp 1.770, D-Dimer High Sensitivty 1048 H, CBC w Diff NO MAN DIFF REQ, RBC 4.66 L, MCV 77.8 L, MCH 24.1 L, MCHC 31.0 L, RDW 22.8 H, MPV 7.9, Gran % 80.6 H, Lymphocytes % 7.5 L, Monocytes % 9.2, Eosinophils % 2.6, Basophils % 0.1, Absolute Granulocytes 11.8 H, Absolute Lymphocytes 1.1 L, Absolute Monocytes 1.3 H, Absolute Eosinophils 0.4, Absolute Basophils 0 Diagnostic Data Other Results CTA: 1. Unfortunately artifacts preclude evaluation of distal subsegmental branches however the main pulmonary artery and their main branches are widely open. No large emboli present. 2. Improved pericardial effusion. 3. Redemonstration of complete collapse of the LEFT lung and occlusion of the LEFT main bronchus, 4. Stable LEFT pleural effusion. 5. Reticulonodular densities in the RIGHT lung patchy opacity likely sequela of pneumonia, new nodule 6 mm. Follow-up recommended when patient's condition improves. 6. Mildly prominent mediastinal lymph nodes likely reactive. Assessment/Plan Impression/Plan: 1. New onset atrial fibrillation with rapid ventricular response, now in sinus rhythm. 2. Recurrent non-small cell lung cancer with left mainstem bronchus obstructing tumor, not amenable to stent placement. 3. Chronic hypoxemic rotatory failure. 4. History of COPD. 5. Severe obstructive sleep apnea, on nocturnal CPAP. 6. New right-sided opacity, of unclear etiology. Recommendations: * Continue nebs/TRC. * Oxygen for sats greater than 92%. * Continue home inhaler regimen. * Continue anticoagulation. * Follow-up cardiology recommendations. * The patient will need to proceed with oncology evaluation as an outpatient. * Thank you for the consultation. Will follow along with you and provide further recommendations if able. As always if you have any comments or questions, please do not hesitate to contact me at any time. Consult Acknowledgment - Thank you for your consult request.
--- NOTE | 2018-03-14 11:25 | PN- Student ---
Subjective Subjective: Pt was seen and examined at bedside. He is feeling like his normal self this morning and has no complaints. He is tolerating a regular diet and urinating and stooling independently. He denies chest pain, abdominal pain, leg pain. He has his normal SOB d/t COPD and lung cancer but feels no change. Objective Objective: Vital Signs Date Time Temp Pulse Resp B/P B/P Pulse O2 O2 Flow FiO2 Mean Ox Delivery Rate 03/14 0830 96 Nasal 3.0L Cannula 03/14 0649 98.1 70 20 118/60 99 03/14 0203 65 98 03/13 2237 78 97 03/13 2227 98.7 79 20 126/60 96 Nasal 3.0L Cannula 03/13 2034 Nasal 3.0L Cannula 03/13 1528 98.6 75 20 128/72 98 Intake & Output 03/14 1600 03/14 0800 03/14 0000 Intake Total 380 Output Total Balance 380 Intake, IV 180 Intake, Oral 200 Patient 279 lb Weight Weight Bed scale Measurement Method Tele: NSR with rate in 60s PE: Gen - NAD, obese, eating breakfast in bed Psych - good affect, alert and oriented x4 CV - RRR Pulm - R lung has crackles throughout, L lung breath sounds significantly diminished, voice is hoarse as usual Abd - obese, soft, nontender Ext - mild pitting edema BL, DP/PT pulses 2+ BL Skin - multiple tatoos, no rashes apparent Results Results: Laboratory Tests 03/14/18 0810: Anion Gap 11, Estimated GFR > 60, BUN/Creatinine Ratio 20.0, Magnesium 1.9, APTT 61 H, CBC w Diff NO MAN DIFF REQ, RBC 3.89 L, MCV 77.8 L, MCH 24.4 L, MCHC 31.3 L, RDW 23.1 H, MPV 7.8, Gran % 80.2 H, Lymphocytes % 7.0 L, Monocytes % 10.1 H, Eosinophils % 2.1, Basophils % 0.6, Absolute Granulocytes 7.0 H, Absolute Lymphocytes 0.6 L, Absolute Monocytes 0.9 H, Absolute Eosinophils 0.2 , Absolute Basophils 0.1 03/13/18 2008: APTT 64 H 03/13/18 1100: APTT 34 03/13/18 0300: Anion Gap 11, Estimated GFR > 60, BUN/Creatinine Ratio 24.0, Troponin I < 0.01, APTT 38 H, CBC w Diff NO MAN DIFF REQ, RBC 3.99 L, MCV 77.1 L, MCH 24.3 L, MCHC 31.6 L, RDW 24.0 H, MPV 7.6, Gran % 75.7 H, Lymphocytes % 9.3 L, Monocytes % 12.2 H, Eosinophils % 2.6, Basophils % 0.2, Absolute Granulocytes 8.3 H, Absolute Lymphocytes 1.0 L, Absolute Monocytes 1.3 H, Absolute Eosinophils 0.3, Absolute Basophils 0 03/12/18 2100: Troponin I < 0.01 03/12/18 1845: APTT 31 03/12/18 1256: Anion Gap 12, Estimated GFR > 60, BUN/Creatinine Ratio 30.0 H, Glucose 111 H, Calcium 9.1, Magnesium 1.9, Total Bilirubin 0.6, AST 14 L, ALT 36, Alkaline Phosphatase 93, Troponin I < 0.01, Total Protein 6.8, Albumin 3.1 L, Globulin 3.7, Albumin/Globulin Ratio 0.8 L, TSH &T3 &Free T4 Intrp 1.770, D-Dimer High Sensitivty 1048 H, CBC w Diff NO MAN DIFF REQ, RBC 4.66 L, MCV 77.8 L, MCH 24.1 L, MCHC 31.0 L, RDW 22.8 H, MPV 7.9, Gran % 80.6 H, Lymphocytes % 7.5 L, Monocytes % 9.2, Eosinophils % 2.6, Basophils % 0.1, Absolute Granulocytes 11.8 H, Absolute Lymphocytes 1.1 L, Absolute Monocytes 1.3 H, Absolute Eosinophils 0.4, Absolute Basophils 0 Assessment/Plan Assessment: 47YOM w/ PMH of COPD on 3L O2 at home and NSCLC tx by Dr. Reeves with paclitaxel and radiation 2 yrs ago who has recently been found to have a new lesion in the L lung that occludes the L mainstem bronchus. He recently underwent pericardial window for malignant pericardial effusion at [facility] and failed L mainstem bronchus stenting at [place]. His L lung remains collapsed with minimal air entry. He was admitted to [facility] 2 days ago with new onset Atrial flutter w/ RVR which converted to NSR with IV cardizem. PE has been r/o with CTA after elevated D-Dimer. 1. Atrial Flutter * Pt's atrial flutter was new onset. He was put on IV cardizem and per cardiology has been switched to PO cardizem after converting to NSR. Pt remains in NSR today and is asymptomatic. * Continue PO cardizem. Switch from IV heparin to PO eliquis for anticoagulation and CVA prevention. F/u outpatient with cardiology. * Pt ready for discharge to home with VNA. 2. NSCLC * Pt's NSCLC is known to be occluding his L mainstem bronchus after failed stenting. His managing jeweler, Dr. Ortiz, has been notified and believes that pt is ready for conversation regarding palliative care options. Dr. Reeves is pt' s oncologist. Pt should f/u with Dr. Reeves as soon as possible after discharge for planning. 3. COPD * Stable on 3L O2 via nasal cannula. Continue f/u with Dr. Ortiz.
[2018-03-14 15:00] VITALS: BP 130/58
[2018-03-14 22:00] VITALS: BP 122/54
[2018-03-15 06:16] VITALS: BP 116/64
--- NOTE | 2018-03-15 07:08 | PN- Housestaff ---
Geovanny Dacosta 03/15/18 0708: Subjective Follow-up For: New Onset Atrial Flutter NSCLC COPD-Stable Tele-Events Since Last Visit: Normal sinus rhythm, 62, 0.08, 0.18 0139 AM: Atrial flutter, 72 Normal sinus rhythm by 0140 Subjective: Patient seen and examined at bedside this morning. Patient denies any complaints at this time. He denies any chest pain, palpitations, shortness of breath. Tolerating diet well with normal bowel and bladder movements. Patient no longer on anticoagulation. Review of Systems Constitutional: Denies: see HPI. Objective Last 24 Hrs of Vital Signs/I&O Vital Signs Date Time Temp Pulse Resp B/P B/P Pulse O2 O2 Flow FiO2 Mean Ox Delivery Rate 03/15 0749 97 Nasal 3.0L Cannula 03/15 0616 98.1 64 20 116/64 99 CPAP 03/15 0000 BIPAP 03/14 2303 78 96 03/14 2200 98.4 80 18 122/54 98 Nasal Cannula 03/14 2133 98 Nasal 3.0L Cannula 03/14 1615 Nasal 3.0L Cannula 03/14 1500 97.9 74 20 130/58 97 Intake & Output 03/15 1600 03/15 0800 03/15 0000 Intake Total 120 500 Output Total Balance 120 500 Intake, Oral 120 500 Patient 275 lb 281 lb Weight Weight Bed scale Bed scale Measurement Method Physical Exam General Appearance: Alert, Oriented X3, Cooperative, No Acute Distress Skin: No Rashes, No Breakdown HEENT: PERRLA, EOMI Cardiovascular: Regular Rate, Normal S1, Normal S2 Lungs: decrased breath sounds in left lower lung Abdomen: Normal Bowel Sounds, Soft, No Tenderness Neurological: Strength at 5/5 X4 Ext, Normal Tone, Sensation Intact, Cranial Nerves 3-12 NL, Reflexes 2+ Extremities: No Clubbing, No Cyanosis, +1 edema in bilateral lower extremities Vascular: Normal Pulses, Pulses Symmetrical Current Medications: Current Medications Sig/Harman Start time Last Medication Dose Route Stop Time Status Admin Acetaminophen 650 MG Q4P PRN 03/13 1130 DCD 03/15 PO 0915 Albuterol Sulfate 3 ML EVERY 4 HRS/AWAKE 03/12 2000 DCD 03/15 INH 1141 Albuterol Sulfate 2 PUF Q4-6 PRN PRN 03/12 1515 DCD INH Budesonide/ 2 PUF BID 03/12 2100 DCD 03/15 Formoterol Fumarate INH 0915 Diltiazem HCl 240 MG DAILY 03/13 1907 DCD 03/15 PO 0915 Fluticasone 2 SPRAY QPM 03/12 2100 DCD 03/14 Propionate CORRIE 0913 Heparin Sodium 25,000 UNIT Q24H 03/12 1300 DC 03/14 (Porcine) IV 1210 Sodium Chloride 500 ML Montelukast Sodium 10 MG QPM 03/12 2100 DCD 03/14 PO 2157 Nystatin 1 EARNEST BID 03/13 2100 DCD 03/15 TOP 0916 Tiotropium [place] 1 PUF QAM 03/13 0900 DCD 03/15 INH 0916 Tramadol HCl 50 MG TIDPRN PRN 03/12 1500 DCD 03/15 PO 1400 Last 24 Hrs of Lab/Christian Results Last 24 Hrs of Labs/Mics: Laboratory Tests 03/15/18 0635: Anion Gap 12, Estimated GFR > 60, BUN/Creatinine Ratio 16.0, CBC w Diff NO MAN DIFF REQ, RBC 3.80 L, MCV 77.5 L, MCH 24.6 L, MCHC 31.7 L, RDW 23.3 H, MPV 7.9, Gran % 78.9 H, Lymphocytes % 7.0 L, Monocytes % 11.4 H, Eosinophils % 2.4, Basophils % 0.3, Absolute Granulocytes 6.0, Absolute Lymphocytes 0.5 L, Absolute Monocytes 0.9 H, Absolute Eosinophils 0.2, Absolute Basophils 0 Assessment/Plan Assessment: Pt is a 47 year old male w/ COPD on 3L O2 at home tx by Dr. Ortiz and NSCLC tx with paclitaxol and radiation by Dr. Reeves. He also has a hx of lumbar stenosis. After admission to [facility] about 12 days prior during which the pt received a pericardial window for a malignant pericardial effusion, pt was transferred to [place] after being found to have collapse of L lung with occlusion by tumor of L mainstem bronchus. Stenting procedure failed. He was admitted to [place] 4 days prior with new onset Aflutter and RVR which corrected on IV cardizem. He has had one episode of Aflutter since which has since again corrected on PO cardizem. On admission CTA r/o PE after elevated D-dimer in the ED. At this time, pt is ready for discharge home with nursing services to f/u outpatient with cardiology, pulmonology, oncology, and cardiovascular surgery. 1. New onset Aflutter * Cardiology consult indicated that the patient is stable at this time and PO cardizem should be continued. At this time, IV heparin has been discontinued. Pt does not need senior living anticoagulation at this point as CHADVASC score is 0. * Pt is recommended to f/u with cardiology outpatient. Repeat ECHO may be obtained at that time if indicated. * While Aflutter occurred once overnight, pt is stable for discharge at this time because Aflutter corrected on PO cardizem within 2 minutes. Pt is reliable and known to f/u well. He can be discharged with visiting nurse services at home for monitoring of pericardial window. 2. NSCLC * Dr. Reeves saw the patient this morning and recommends outpatient follow up for the patient in order to complete tumor profiling and begin systemic therapy in order to decrease tumor burden occluding L mainstem bronchus. 3. COPD * Dr. Ortiz indicated yesterday that pt's COPD is stable and that he can be discharged with nebs and continue medications. * Continue home O2 and CPAP at night * F/U Dr. Ortiz outpatient Wednesday03/18/18 at 1 pm. 4. Chronic back pain * Continue tramidol PRN for pain. 5. Pericardial window * Stable with no evidence of wound infection. * Continue with VNA for dressing changes at home. * F/u outpatient with CT surgery Diet: Regular DVT prophy: consider ALPS if patient is not discharged Code: Full Problem List: 1. Lung cancer 2. Atrial flutter Pain Ratin Pain Location: back pain Pain Goal: Remain pain free Pain Plan: as per pain pathway Tomorrow's Labs & Rationales: discharge DVT/Prophylaxis: pharmacological Discharge Plan Discharge Disposition: home Jose Barboza 03/15/18 1326: Attending MD Review Statement Attending Statement Attending MD Statement: examined this patient, discuss w/resident/PA/PRODUCTION LEADER, agreed w/resident/PA/PRODUCTION LEADER, reviewed EMR data (avail), discussed with nursing, discussed with case mgmt Attending Assessment/Plan: Pt being dced home today. Pt will f/u with oncology as an outpatient for his recurrent lung cancer. dw pt the care plan.
--- NOTE | 2018-03-15 07:09 | Cons- Oncology ---
General Information and HPI Consulting Request Date of Consult: 03/15/18 Requested By: Jabari MURRAY,Jose Hayes History of Present Illness: 47-year-old man well known to me as non-small cell lung carcinoma now admitted with shortness of breath and found to be in atrial fibrillation. Patient's recent past has been complicated pericardial effusion/tamponade. Patient was recently transferred to [place] for an attempt at a bronchial stent which was unsuccessful. The patient was noted home to be tachycardic and referred to the hospital. Currently he feels quite well. His breathing is back to baseline not associated with productive sputum or hemoptysis. The patient has been off systemic therapy for over a year. He was treated for stage III non-small cell lung carcinoma is combined radiation and carboplatin/ Taxol chemotherapy. Recent PET scan revealed improved lung uptake, minimal lymphadenopathy and no widespread distant metastatic disease. Allergies/Medications Allergies: Coded Allergies: paclitaxel (From TAXOL) (BP WENT VERY HIGH AND PALE, SWEATING ALMOST PASSED OUT 03/12/18) Home Med List: Albuterol Sulfate (Proair Hfa) 90 MCG HFA.AER.AD 2 PUF INH Q4-6 PRN PRN COPD (Reported) Albuterol Sulfate 2.5 MG/3 ML (0.083 %) VIAL.NEB 1 Vial INH/JOSE Q4P PRN SHORTNESS OF BREATH (Reported) Amoxicillin/Clavulanate Potass (Amox-Clav 875-125 MG Tablet) 875 MG-125 MG TABLET 875 MG PO Q12 pneumonia Azelastine HCl (Astepro) 205.5 MCG (0.15 %) SPRAY.PUMP 1 SPRAY NASB BID CONGESTION (Reported) Budesonide/Formoterol Fumarate (Symbicort 160-4.5 Mcg Inhaler) 160 MCG-4.5 MCG/ ACTUATION HFA.AER.AD 2 PUF INH BID BREATHING PROBLEMS (Reported) Cannabis (Marijuana Oil) 1 amp AMP 1 A PO AD PRN ANXIETY/STRESS/DEPRESSION ( Reported) Fluticasone Propionate (Flonase Allergy Relief) 50 MCG/ACTUATION SPRAY.SUSP 2 SPRAY NASB QPM ALLERGIES (Reported) Montelukast Sodium (Singulair) 10 MG TABLET 1 TAB PO QPM ASTHMA (Reported) Tiotropium [place] (Spiriva Respimat) 2.5 MCG/ACTUATION MIST.INHAL 2 PUFF INH QAM COPD (Reported) Tramadol HCl 50 MG TABLET 1 TAB PO TIDPRN BACK PAIN (Reported) Current Medications: Current Medications Sig/Harman Start time Last Medication Dose Route Stop Time Status Admin Acetaminophen 650 MG .STK-MED ONE 03/14 0906 DC PO 03/14 0907 Acetaminophen 650 MG Q4P PRN 03/13 1130 AC 03/14 PO 0907 Albuterol Sulfate 3 ML EVERY 4 HRS/AWAKE 03/12 2000 AC 03/14 INH 2133 Albuterol Sulfate 2 PUF Q4-6 PRN PRN 03/12 1515 AC INH Budesonide/ 2 PUF BID 03/12 2100 AC 03/14 Formoterol Fumarate INH 2157 Diltiazem HCl 240 MG DAILY 03/13 1907 AC 03/14 PO 0904 Fluticasone 2 SPRAY QPM 03/12 2100 AC 03/14 Propionate CORRIE 0913 Heparin Sodium 25,000 UNIT .STK-MED ONE 03/14 1204 DC (Porcine) IV 03/14 1205 Heparin Sodium 25,000 UNIT Q24H 03/12 1300 DC 03/14 (Porcine) IV 1210 Sodium Chloride 500 ML Montelukast Sodium 10 MG QPM 03/12 2100 AC 03/14 PO 2157 Nystatin 1 EARNEST BID 03/13 2100 AC 03/14 TOP 2157 Tiotropium [place] 1 PUF QAM 03/13 0900 AC 03/14 INH 0904 Tramadol HCl 50 MG TIDPRN PRN 03/12 1500 AC 03/15 PO 0631 Review of Systems Review of Systems: Patient denies headaches or dizziness. Patient denies nausea vomiting diarrhea change in bowel habits. Patient denies dysuria hematuria. Patient denies new bone aches or focal neurologic deficit. Past History Travel History Traveled to [place] past 21 day No Medical History Neurological: NONE EENT: NONE Respiratory: COPD, emphysema, obstructive sleep apnea, Stage III non-small cell lung cancer Gastrointestinal: constipation Hepatic: NONE Renal: NONE Musculoskeletal: NONE, spinal stenosis Psychiatric: NONE Endocrine: NONE Blood Disorders: NONE Cancer(s): LUNG CA LLL GASTROENTEROLOGY NURSE/Reproductive: NONE Other Medical Hx: Multiple skin infections Surgical History Surgical History: SCROTAL CYST Family History Relations & Conditions If Any: MOTHER FHx: diabetes mellitus FATHER FH: CAD (coronary artery disease) Psychosocial History Where Do You Live? Home Who Do You Live With? spouse Services at Home: None (2.0 L), Oxygen Primary Language: Brazilian Smoking Status: Former Smoker ETOH Use: denies use Illicit Drug Use: denies illicit drug use Functional Ability ADLs Independent: dressing, eating, toileting, bathing. Ambulation: independent IADLs Independent: shopping, housework, finances, food prep, telephone, transportation , medication admin. Exam & Diagnostic Data Vital Signs and I&O Vital Signs Date Time Temp Pulse Resp B/P B/P Pulse O2 O2 Flow FiO2 Mean Ox Delivery Rate 03/15 0616 98.1 64 20 116/64 99 CPAP 03/15 0000 BIPAP 03/14 2303 78 96 03/14 2200 98.4 80 18 122/54 98 Nasal Cannula 03/14 2133 98 Nasal 3.0L Cannula 03/14 1615 Nasal 3.0L Cannula 03/14 1500 97.9 74 20 130/58 97 03/14 0830 96 Nasal 3.0L Cannula 03/14 0800 71 96 Intake & Output 03/15 0800 03/15 0000 03/14 1600 Intake Total 120 500 Output Total 600 Balance 120 500 -600 Intake, Oral 120 500 Number 1 Bowel Movements Output, Urine 600 Patient 275 lb 281 lb Weight Weight Bed scale Bed scale Measurement Method Gen.: in NAD ENT: Sclera anicteric Chest: Normal respiratory effort, markedly decreased breath sounds on the left Cor: RRR, no rub Abdomen: Soft, bowel sounds present, no tenderness, no rebound Extremities: Without clubbing, cyanosis, or asymmetric edema Neurology: Alert and oriented 3, no gross deficit Skin: No rashes Last 48 Hours of Lab Results: Laboratory Tests 03/15 03/14 03/13 03/13 0635 0810 2007 1100 Chemistry Sodium (137 - 145 mmol/L) Pending 136 L Potassium (3.5 - 5.1 mmol/L) Pending 4.2 Chloride (98 - 107 mmol/L) Pending 99 Carbon Dioxide (22 - 30 mmol/L) Pending 25 Anion Gap (5 - 16) Pending 11 BUN (9 - 20 mg/dL) Pending 10 Creatinine (0.7 - 1.2 mg/dL) Pending 0.5 L Estimated GFR (>60 ml/min) > 60 BUN/Creatinine Ratio (7 - 25 %) Pending 20.0 Magnesium (1.6 - 2.3 mg/dL) 1.9 Coagulation APTT (25 - 37 SEC) 61 H 64 H 34 Hematology CBC w Diff Pending NO MAN DIFF REQ WBC (4.8 - 10.8 /CUMM) Pending 8.7 RBC (4.70 - 6.10 /CUMM) Pending 3.89 L Hgb (14.0 - 18.0 G/DL) Pending 9.5 L Hct (42 - 52 %) Pending 30.3 L MCV (80.0 - 94.0 FL) Pending 77.8 L MCH (27.0 - 31.0 PG) Pending 24.4 L MCHC (33.0 - 37.0 G/DL) Pending 31.3 L RDW (11.5 - 14.5 %) Pending 23.1 H Plt Count (130 - 400 /CUMM) Pending 382 MPV (7.4 - 10.4 FL) Pending 7.8 Gran % (42.2 - 75.2 %) 80.2 H Lymphocytes % (20.5 - 51.1 %) 7.0 L Monocytes % (1.7 - 9.3 %) 10.1 H Eosinophils % (0 - 5 %) 2.1 Basophils % (0.0 - 2.0 %) 0.6 Absolute Granulocytes (1.4 - 6.5 /CUMM) 7.0 H Absolute Lymphocytes (1.2 - 3.4 /CUMM) 0.6 L Absolute Monocytes (0.10 - 0.60 /CUMM) 0.9 H Absolute Eosinophils (0.0 - 0.7 /CUMM) 0.2 Absolute Basophils (0.0 - 0.2 /CUMM) 0.1 Imaging/Other Studies: [id number] definite pulmonary emboli, decreased pericardial effusion, occlusion of the left mainstem bronchus, stable left pleural effusion Assessment/Plan Assessment: 1. Atrial fibrillation-as per cardiology,? Indication for repeat echocardiogram 2. Squamous cell lung carcinoma-patient now will require systemic therapy Recommend- Tumor profiling Systemic therapy as an outpatient I have discussed this with the patient Recommendations: .. Consult Acknowledgment - Thank you for your consult request.
[2018-03-15 07:44] LABS: ABSOLUTE BASOPHIL COUNT 0 /CUMM (0.0-0.2); ABSOLUTE EOSINOPHIL COUNT 0.2 /CUMM (0.0-0.7); ABSOLUTE LYMPH COUNT 0.5 /CUMM (1.2-3.4); ABSOLUTE MONOCYTE COUNT 0.9 /CUMM (0.10-0.60); BASOPHIL % 0.3 % (0.0-2.0); EOSINOPHIL % 2.4 % (0-5); GRANULOCYTE % 78.9 % (42.2-75.2); HEMATOCRIT 29.5 % (42-52); MEAN CORPUSCULAR HGB 24.6 PG (27.0-31.0); MEAN CORPUSCULAR HGB CONC 31.7 G/DL (33.0-37.0); MEAN CORPUSCULAR VOLUME 77.5 FL (80.0-94.0); MEAN PLATELET VOLUME 7.9 FL (7.4-10.4); PLATELET COUNT 385 /CUMM (130-400); RBC DISTRIBUTION WIDTH 23.3 % (11.5-14.5); WHITE BLOOD CELL COUNT 7.6 /CUMM (4.8-10.8)
--- NOTE | 2018-03-15 08:03 | PN- Student ---
Subjective Subjective: Pt was seen and examined this morning at bedside. He was in and out of bed easily with no changes in breathing since yesterday. He denies chest pain/ tightness except slight tenderness at site of pericardial window. Pt denies palpitations, abdominal pain, leg pain. Pt endorses that he has his usual amount of lumbar back pain d/t spinal stenosis. He desires to go home today. Objective Objective: Vital Signs Date Time Temp Pulse Resp B/P B/P Pulse O2 O2 Flow FiO2 Mean Ox Delivery Rate 03/15 0616 98.1 64 20 116/64 99 CPAP 03/15 0000 BIPAP 03/14 2303 78 96 03/14 2200 98.4 80 18 122/54 98 Nasal Cannula 03/14 2133 98 Nasal 3.0L Cannula 03/14 1615 Nasal 3.0L Cannula 03/14 1500 97.9 74 20 130/58 97 03/14 0830 96 Nasal 3.0L Cannula 03/14 0800 71 96 Tele: Sinus rafi/NSR through night with rate from 59-72bpm with one episode of Aflutter, rate 72bpm at 1:39am for 2 minutes which corrected spontaneously. PE: Gen - NAD, good mood, cooperative Neuro - AO x4 CV - RRR no MRG Pulm - diminished breath sounds with crackles throughout R lung field, minimal breath sounds on the L lung field Abd - obese, nontender, nondistended Ext - trace pitting edema unchanged from yesterday, DP/PT pulses 2+ BL Results Results: Laboratory Tests 03/15/18 0635: Sodium Pending, Potassium Pending, Chloride Pending, Carbon Dioxide Pending, Anion Gap Pending, BUN Pending, Creatinine Pending, BUN/Creatinine Ratio Pending , CBC w Diff NO MAN DIFF REQ, RBC 3.80 L, MCV 77.5 L, MCH 24.6 L, MCHC 31.7 L, RDW 23.3 H, MPV 7.9, Gran % 78.9 H, Lymphocytes % 7.0 L, Monocytes % 11.4 H, Eosinophils % 2.4, Basophils % 0.3, Absolute Granulocytes 6.0, Absolute Lymphocytes 0.5 L, Absolute Monocytes 0.9 H, Absolute Eosinophils 0.2, Absolute Basophils 0 03/14/18 0810: Anion Gap 11, Estimated GFR > 60, BUN/Creatinine Ratio 20.0, Magnesium 1.9, APTT 61 H, CBC w Diff NO MAN DIFF REQ, RBC 3.89 L, MCV 77.8 L, MCH 24.4 L, MCHC 31.3 L, RDW 23.1 H, MPV 7.8, Gran % 80.2 H, Lymphocytes % 7.0 L, Monocytes % 10.1 H, Eosinophils % 2.1, Basophils % 0.6, Absolute Granulocytes 7.0 H, Absolute Lymphocytes 0.6 L, Absolute Monocytes 0.9 H, Absolute Eosinophils 0.2 , Absolute Basophils 0.1 03/13/18 2008: APTT 64 H 03/13/18 1100: APTT 34 03/13/18 0300: Anion Gap 11, Estimated GFR > 60, BUN/Creatinine Ratio 24.0, Troponin I < 0.01, APTT 38 H, CBC w Diff NO MAN DIFF REQ, RBC 3.99 L, MCV 77.1 L, MCH 24.3 L, MCHC 31.6 L, RDW 24.0 H, MPV 7.6, Gran % 75.7 H, Lymphocytes % 9.3 L, Monocytes % 12.2 H, Eosinophils % 2.6, Basophils % 0.2, Absolute Granulocytes 8.3 H, Absolute Lymphocytes 1.0 L, Absolute Monocytes 1.3 H, Absolute Eosinophils 0.3, Absolute Basophils 0 03/12/18 2100: Troponin I < 0.01 03/12/18 1845: APTT 31 03/12/18 1256: Anion Gap 12, Estimated GFR > 60, BUN/Creatinine Ratio 30.0 H, Glucose 111 H, Calcium 9.1, Magnesium 1.9, Total Bilirubin 0.6, AST 14 L, ALT 36, Alkaline Phosphatase 93, Troponin I < 0.01, Total Protein 6.8, Albumin 3.1 L, Globulin 3.7, Albumin/Globulin Ratio 0.8 L, TSH &T3 &Free T4 Intrp 1.770, D-Dimer High Sensitivty 1048 H, CBC w Diff NO MAN DIFF REQ, RBC 4.66 L, MCV 77.8 L, MCH 24.1 L, MCHC 31.0 L, RDW 22.8 H, MPV 7.9, Gran % 80.6 H, Lymphocytes % 7.5 L, Monocytes % 9.2, Eosinophils % 2.6, Basophils % 0.1, Absolute Granulocytes 11.8 H, Absolute Lymphocytes 1.1 L, Absolute Monocytes 1.3 H, Absolute Eosinophils 0.4, Absolute Basophils 0 Assessment/Plan Assessment: Pt is a 47YOM w/ COPD on 3L O2 at home tx by Dr. Ortiz and NSCLC tx with paclitaxol and radiation by Dr. Reeves. He also has a hx of lumbar stenosis. After admission to [facility] about 12 days prior during which the pt received a pericardial window for a malignant pericardial effusion, pt was transferred to [place] after being found to have collapse of L lung with occlusion by tumor of L mainstem bronchus. Stenting procedure failed. He was admitted to [place] 4 days prior with new onset Aflutter and RVR which corrected on IV cardizem. He has had one episode of Aflutter since which has since again corrected on PO cardizem. On admission CTA r/o PE after elevated Ddimer in the ED. At this time, pt is ready for discharge home with nursing services to f/u outpatient with cardiology, pulmonology, oncology, and cardiovascular surgery. 1. New onset Aflutter * Cardiology consult indicated that the patient is stable at this time and PO cardizem should be continued. At this time, IV heparin has been discontinued. Pt does not need senior care anticoagulation at this point as CHADVASC score is 0. * Pt is recommended to f/u with cardiology outpatient. Repeat ECHO may be obtained at that time if indicated. * While Aflutter occurred once overnight, pt is stable for discharge at this time because Aflutter corrected on PO cardizem within 2 minutes. Pt is reliable and known to f/u well. He can be discharged with visiting nurse services at home for monitoring of pericardial window. 2. NSCLC * Dr. Reeves saw the patient this morning and recommends outpatient follow up for the patient in order to complete tumor profiling and begin systemic therapy in order to decrease tumor burden occluding L mainstem bronchus. 3. COPD * Dr. Ortiz indicated yesterday that pt's COPD is stable and that he can be discharged with nebs and continue medications. Continue home O2 and CPAP at night. Continue f/u with Dr. Ortiz outpatient. 4. Chronic back pain * Continue tramidol PRN for pain. 5. Pericardial window * Stable with no evidence of wound infection. Continue with VNA for dressing changes at home. F/u outpatient with cardiovascular surgeon. Diet: Regular DVT prophy: consider ALPS if patient is not discharged Code: Full
--- NOTE | 2018-03-15 08:52 | PN- Pulmonary ---
Subjective HPI/Critical Care Issues: The patient is awake and alert. He went into atrial fibrillation yesterday morning but is back in sinus rhythm. He denies any increased shortness of breath, chest pressure, chest pain, fever, chills, nausea or vomiting. He has chronic, physically limiting dyspnea on exertion which has not changed. Objective Current Medications: Current Medications Sig/Harman Start time Last Medication Dose Route Stop Time Status Admin Acetaminophen 650 MG .STK-MED ONE 03/14 0906 DC PO 03/14 0907 Acetaminophen 650 MG Q4P PRN 03/13 1130 AC 03/14 PO 0907 Albuterol Sulfate 3 ML EVERY 4 HRS/AWAKE 03/12 2000 AC 03/15 INH 0748 Albuterol Sulfate 2 PUF Q4-6 PRN PRN 03/12 1515 AC INH Budesonide/ 2 PUF BID 03/12 2100 AC 03/14 Formoterol Fumarate INH 2157 Diltiazem HCl 240 MG DAILY 03/13 1907 AC 03/14 PO 0904 Fluticasone 2 SPRAY QPM 03/12 2100 AC 03/14 Propionate CORRIE 0913 Heparin Sodium 25,000 UNIT .STK-MED ONE 03/14 1204 DC (Porcine) IV 03/14 1205 Heparin Sodium 25,000 UNIT Q24H 03/12 1300 DC 03/14 (Porcine) IV 1210 Sodium Chloride 500 ML Montelukast Sodium 10 MG QPM 03/12 2100 AC 03/14 PO 2157 Nystatin 1 EARNEST BID 03/13 2100 AC 03/14 TOP 2157 Tiotropium Cato 1 PUF QAM 03/13 0900 AC 03/14 INH 0904 Tramadol HCl 50 MG TIDPRN PRN 03/12 1500 AC 03/15 PO 0631 Vital Signs & I&O Last 24 Hrs of Vitals and I&O: Vital Signs Date Time Temp Pulse Resp B/P B/P Pulse O2 O2 Flow FiO2 Mean Ox Delivery Rate 03/15 0749 97 Nasal 3.0L Cannula 03/15 0616 98.1 64 20 116/64 99 CPAP 03/15 0000 BIPAP 03/14 2303 78 96 03/14 2200 98.4 80 18 122/54 98 Nasal Cannula 03/14 2133 98 Nasal 3.0L Cannula 03/14 1615 Nasal 3.0L Cannula 03/14 1500 97.9 74 20 130/58 97 Intake & Output 03/15 1600 03/15 0800 03/15 0000 Intake Total 120 500 Output Total Balance 120 500 Intake, Oral 120 500 Patient 275 lb 281 lb Weight Weight Bed scale Bed scale Measurement Method Physical Exam General Appearance: no apparent distress, alert, awake, comfortable Eyes: Bilateral: PERRL. Neck: supple Respiratory: abscent breath sounds left lung Cardiovascular: regular rate/rhythm Gastrointestinal: normal bowel sounds, soft, non-tender Extremities: no edema Skin: intact, normal color, warm/dry Results Last 24 Hrs of Lab Results: Laboratory Tests 03/15/18 0635: Anion Gap 12, Estimated GFR > 60, BUN/Creatinine Ratio 16.0, CBC w Diff NO MAN DIFF REQ, RBC 3.80 L, MCV 77.5 L, MCH 24.6 L, MCHC 31.7 L, RDW 23.3 H, MPV 7.9, Gran % 78.9 H, Lymphocytes % 7.0 L, Monocytes % 11.4 H, Eosinophils % 2.4, Basophils % 0.3, Absolute Granulocytes 6.0, Absolute Lymphocytes 0.5 L, Absolute Monocytes 0.9 H, Absolute Eosinophils 0.2, Absolute Basophils 0 Impression/Plan Impression/Plan Impression/Plan: 1. New onset atrial fibrillation with rapid ventricular response, now in sinus rhythm. 2. Recurrent non-small cell lung cancer with left mainstem bronchus obstructing tumor, not amenable to stent placement. 3. Chronic hypoxemic rotatory failure. 4. History of COPD. 5. Severe obstructive sleep apnea, on nocturnal CPAP. 6. New right-sided opacity, of unclear etiology. No obvious clinical evidence to suggest pneumonia. Recommendations: * Continue nebs/TRC. * Oxygen for sats greater than 92%. * Continue home inhaler regimen. * Continue anticoagulation. * Follow-up cardiology recommendations. * Will see the patient in my clinic on Wednesday03/18/18 at 1 pm. * Will continue to follow.
[2018-03-15] MEDS ORDERED: CARDIZEM CD240 M1 PO ×2 (11:12→13:21)
--- NOTE | 2018-03-15 11:21 | Patient Discharge Instructions ---
Discharge Instructions General Discharge Information You were seen/treated for: New Onset Atriall Flutter NSCLC COPD-stable Watch for these problems: Chest pain, palpitations, tightness, shortness of breath, blood in sputum Special Instructions: Please follow up with PCP within 1 week of discharge. Please follow up with Dr. Reeves within 1 week of discharge. Please follow up with Dr. Ortiz for Pulmonology on Wednesday03/18/18 at 1PM and continue nebs/TRC, home inhaler regimen. Follow up with Dr. Beauchamp within 1 week of discharge. Hold off on anticoagulation for now as decided per cardiology. Continue new medication Cardizem by mouth daily. Return to ED with worsening chest pain, palpitations, shortness of breath. Diet Continue normal diet: Yes Acute Coronary Syndrome Inclusion Criteria At DC or during hospital stay patient has or had the following: ACS DIAGNOSIS No Discharge Core Measures Meds if any: Prescribed or Continued at Discharge Meds if any: NOT Prescribed or Continued at Discharge Congestive Heart Failure Inclusion Criteria At DC or during hospital stay patient has or had the following: CHF DIAGNOSIS No Discharge Core Measures Meds if any: Prescribed or Continued at Discharge Meds if any: NOT Prescribed or Continued at Discharge Cerebrovascular accident Inclusion Criteria At DC or during hospital stay patient has or had the following: CVA/TIA Diagnosis No Discharge Core Measures Meds if any: Prescribed or Continued at Discharge Meds if any: NOT Prescribed or Continued at Discharge Venous thromboembolism Inclusion Criteria VTE Diagnosis No VTE Type NONE VTE Confirmed by (Test) NONE Discharge Core Measures - Per Current guidelines, there needs to be overlap - treatment for the first 5 days of Warfarin therapy. - If discharged on Warfarin prior to 5 days of - overlap therapy, the patient will need to be - assessed for post discharge needs including - *Post discharge parental anticoagulation - *Warfarin and/or parental anticoagulation education - *Follow up date to check INR post discharge At least 5 days overlap therapy as Inpatient No Meds if any: Prescribed or Continued at Discharge Note: Overlap Therapy is Warfarin and Anticoagulant Meds if any: NOT Prescribed or Continued at Discharge
--- NOTE | 2018-03-15 15:34 | Discharge Summary ---
Visit Information Visit Dates Admission Date: 03/12/18 Discharge Date: 03/15/18 Hospital Course Course Attending Physician: Jose Barboza MD Primary Care Physician: Miquel MURRAY,[facility] Course: HOSPITAL COURSE: Mr. Dockery is a 47-year-old male with a past medical history of stage III non- small cell lung cancer of LLL status post chemotherapy with Braxan 1 year ago, radiation therapy 6 months ago, COPD on 2 L of home oxygen, sleep apnea on CPAP, spinal stenosis, bronchitis who was brought into the [facility] on 2017 after visiting nurse found the patient to be tachycardic with a heart rate up to 161. Patient was admitted prior to [facility] on 03/02/18 when he was admitted after meeting sepsis criteria at which point he was complaining of cough, shortness of breath and fever. His CXR at this time revealed complete white out of the left hemithorax, mild leftward shift of the trachea, a combination of consolidation & pleural fluid. A follow-up chest CTA revealed no PE, but a completely collapsed L lung, a loculated L pleural effusion, new R micronodules, a small R pleural effusion, and an enlarging pericardial effusion. He was subsequently transferred to [place] for interventional bronchoscopy possible stent placement in left mainstem bronchus due to collapse of left lung. Patient was discharged from [facility] on 03/11/2018 after it appears that a stent was not able to be placed. He was subsequently managed medically and sent home on Augmentin. Patient states that since he got home he felt well. On the morning of admission, the visiting nurse was with the patient, he felt diaphoretic and the visiting nurse checked his vitals at which point an elevated heart rate 161 BPM was noted. Patient called his mom who brought him into the emergency department. PCP is Reji Lafleur MD. Patient's senior care manager is Dr. Ortiz. Patients oncologist is Dr. Reeves. EMERGENCY DEPARTMENT: Vitals: 97.2, 144, 22, 134/78, 95% 3L NC Pertinent Labs: WBC: 14.5, Hgb: 11.2, HCT: 36.3, MCV: 77.8, PLT: 522, D-Dimer: 1048 Initial ED EKG: Afib-w/ RVR Discussed with Dr. Sampson and Dr. Beauchamp in the ED for anticoagulation IV Heparin. Diltiazem 10mg given once and Cardizem drip was began at 125mg 100mL/Q12Hr. Serial Troponins: Negative X 3 CTA CHEST: 1. Unfortunately artifacts preclude evaluation of distal subsegmental branches however the main pulmonary artery and their main branches are widely open. No large emboli present. 2. Improved pericardial effusion. 3. Redemonstration of complete collapse of the LEFT lung and occlusion of the LEFT main bronchus, 4. Stable LEFT pleural effusion. 5. Reticulonodular densities in the RIGHT lung patchy opacity likely sequela of pneumonia, new nodule 6 mm. Follow-up recommended when patient's condition improves. 6. Mildly prominent mediastinal lymph nodes likely reactive. TELEMETRY ADMISSION: Patient admitted to Telemetry unit for further monitoring of patients new onset arrhythmia. Problem List: 1. New Onset A-Fib 2. Elevated D-Dimer 3. NSCLC 4. COPD 5. Spinal Stenosis/Degeneratie Disc Disease NEW ONSET ATRIAL FIBRILLATION/ATRIAL FLUTTER * Atrial fibrillation found on EKG perfomed in the ED though patient was symptomatic. D/t hemodynamic stability, patient is candidate for medical therapy and was started on cardizem and heparin IV. Patient was continued on cardizem drip and monitored on the telemetry unit. Serial troponins were negative for any acute cardiac pathology. Discussion was made with cardiology consultations about switching patient to oral anticoagulation. Patient had also had events of atrial flutter. However, it was decided to keep patient off anticoagulation given his low JEANNIE VAS score and possible upcoming procedures that may require him to be off anticoagulation for now. Patient was subsequently switched to oral cardizem after switching to normal sinus rythm. Advised to follow up outpatient with cardiology. ELEVATED D-DIMER * D-dimer elevated to 1048 on presentation to the ED. Pt is moderate/high risk with Well's criteria for PE. CTA of the chest was negative for any pulmonary embolism. However, pt has recently had increased exposure to radiation with multiple studies and demonstrates no clinical findings different from baseline. Additionally, D-dimer may be elevated in patients post-surgically, so this patient's level may be falsely elevated d/t recent bronchoscopy at [facility]. As patient is already receiving IV heparin and is clinically stable, he may be monitored at this time. Heparin was discontinued prior to admission. It was decided not to switch patient on oral anticoagulation. Advised to follow up outpatient with cardiology and pulmonology and pcp. NSCLC * Pt is followed by Dr. Reeves for tx. He has completed therapy with paclitaxel and has completed radiation therapy. At this time, pt reports original tumor in LLL has decreased in size but that cancer has occluded L mainstem bronchus. He and Dr. Reeves have planned to begin new chemotherapy regimen next week. Dr. Reeves had been consulted during patients admission. Advised to follow up with pulmonology as well. COPD * Pt is stable on 3L of O2 at home. However, respiratory status is compromized d /t occlusion of L mainstem bronchus d/t NSCLC. Patient was seen by his senior care manager Dr. Ortiz who recommended to continue his home inhaler regimen, nebs/TRCs and to follow up outpatient on Wednesday03/18/18. SPINAL STENOSIS AND DEGENERATIVE DISC DISEASE * Pt has long hx of back problems for which he uses toradol and cannabis oil. Diet: Regular DVTP: Heparin Code: Full Allergies: Coded Allergies: paclitaxel (From TAXOL) (BP WENT VERY HIGH AND PALE, SWEATING ALMOST PASSED OUT 03/12/18) Disposition Summary Disposition Principal Diagnosis: New Onset Atrial Fibrillation/Atrial Flutter Additional Diagnosis: NSCLC Discharge Disposition: home or self care Discharge Instructions General Discharge Information Code Status: Full Code Patient's Diet: Regular Diet Patient's Activity: As tolerated Follow-Up Instructions/Appts: Please follow up with PCP within 1 week of discharge. Please follow up with Oncology within 1 week of discharge. Please follow up with Pulmonology with Dr. Ortiz accordingly on Wednesday. Please follow up with Cardiology within 1 week of discharge. Medications at Discharge Discharge Medications: Stop taking the following medications: Amoxicillin/Clavulanate Potass (Amox-Clav 875-125 MG Tablet) 875 MG-125 MG TABLET ORAL EVERY 12 HOURS Qty = 7 Continue taking these medications: Montelukast Sodium (Singulair) 10 MG TABLET 1 Tablet ORAL Every night Comments: Last Taken: Time: Albuterol Sulfate (Proair Hfa) 90 MCG HFA.AER.AD 2 Puff Inhale through mouth EVERY 4-6 HOURS NEEDED as needed for COPD Comments: NOT GIVEN WHILE IN HOSPITAL Fluticasone Propionate (Flonase Allergy Relief) 50 MCG/ACTUATION SPRAY.SUSP 2 Aspers Both sides of nose Every night Comments: Last Taken: Time: Tramadol HCl (Tramadol HCl) 50 MG TABLET 1 Tablet ORAL THREE TIMES A DAY NEEDED Qty = 60 Comments: Last Taken: Time: Azelastine HCl (Astepro) 205.5 MCG (0.15 %) SPRAY.PUMP 1 Aspers Both sides of nose TWICE DAILY Qty = 30 Comments: Last Taken: Time: Budesonide/Formoterol Fumarate (Symbicort 160-4.5 Mcg Inhaler) 160 MCG-4.5 MCG/ ACTUATION HFA.AER.AD 2 Puff Inhale through mouth TWICE DAILY Comments: Last Taken: Time: Albuterol Sulfate (Albuterol Sulfate) 2.5 MG/3 ML (0.083 %) VIAL.NEB 1 Vial Inhale Solution EVERY 4 HOURS NEEDED as needed for SHORTNESS OF BREATH Comments: Last Taken: Time: Tiotropium [place] (Spiriva Respimat) 2.5 MCG/ACTUATION MIST.INHAL 2 PUFF Inhale through mouth Every Morning Cannabis (Marijuana Oil) 1 amp AMP 1 Applicator ORAL As Directed as needed for ANXIETY/STRESS/DEPRESSION Start taking the following new medications: Diltiazem HCl (Cardizem Cd) 240 MG CAP.ER.24H 1 Capsule ORAL DAILY Qty = 30 No Refills Instructions: . Copies To: Diana MURRAY,Flaca Woods; Camilla MURRAY,Armen Hayes; Lala MURRAY,Justin Jung; Miquel MURRAY,Ronal Messi
[2018-03-16] MEDS ORDERED: CARDIZEM CD300 M1 PO (18:21)
[2018-03-16] MEDS ORDERED: HYDROXYZINE HCL10 M2 PO (18:21)
== END 2018-03-15 15:00 | disposition home health service (06) | DRG 309 ==
LOC: ERH 12:21 → 1NO 14:11 → ERHI 14:11 → ENRESERV 14:54 → ENTRNSPT 15:50 → EDTRNSPTSTS 15:58 → EDTRNSPT 15:58 → 1NO 16:01 → CMPTRNSPT 16:17 → 1NO 03-13 08:52 → ENPENDDIS 03-15 13:21 → 1NO 03-15 15:00
PROVIDERS: Emergency Medicine; Internal Medicine; Internal Medicine Adolescent Medicine; Physical Medicine & Rehabilitation Pain Medicine; Student in an Organized Health Care Education/Training Program
PROC: 5A09357 Assistance with Respiratory Ventilation, Less than 24 Consecutive Hours, Continuous Positive Airway Pressure (ICD-10-PCS; principal; 2018-03-13)
DX: I48.92 Unspecified atrial flutter (principal); J96.11 Chronic respiratory failure with hypoxia; C34.32 Malignant neoplasm of lower lobe, left bronchus or lung; Z99.81 Dependence on supplemental oxygen; I48.91 Unspecified atrial fibrillation; J44.9 Chronic obstructive pulmonary disease, unspecified; G47.33 Obstructive sleep apnea (adult) (pediatric); G89.29 Other chronic pain; M54.5 Low back pain; M48.061 Spinal stenosis, lumbar region without neurogenic claudication; M51.36 Other intervertebral disc degeneration, lumbar region; M54.9 Dorsalgia, unspecified; Z92.21 Personal history of antineoplastic chemotherapy; Z87.891 Personal history of nicotine dependence; Z88.8 Allergy status to other drugs, medicaments and biological substances
CPT/HCPCS: 1NP; 36592; 82436; 93005; 93010; 96374; 96375; 96376; 99291; J1644; J3490

== ENCOUNTER 2018-03-16 14:01 | Emergency (ER) | payer OTHER, MEDICARE ==
[~2018-03-16 14:01] MED LIST changes: +CARDIZEM CD240 M1 PO; +MARI PO; +SPIRIVA RESPIMAT4 GM INH
--- NOTE | 2018-03-16 14:37 | ED CARDIAC/CP/PALPITATIONS ---
History of Present Illness General Chief Complaint: General Adult Stated Complaint: BIBA TACHYCARDIA Source: patient, old records Exam Limitations: no limitations Allergies Coded Allergies: paclitaxel (From TAXOL) (BP WENT VERY HIGH AND PALE, SWEATING ALMOST PASSED OUT 03/12/18) Reconcile Medications Albuterol Sulfate (Proair Hfa) 90 MCG HFA.AER.AD 2 PUF INH Q4-6 PRN PRN COPD (Reported) Albuterol Sulfate 2.5 MG/3 ML (0.083 %) VIAL.NEB 1 Vial INH/JOSE Q4P PRN SHORTNESS OF BREATH (Reported) Azelastine HCl (Astepro) 205.5 MCG (0.15 %) SPRAY.PUMP 1 SPRAY NASB BID CONGESTION (Reported) Budesonide/Formoterol Fumarate (Symbicort 160-4.5 Mcg Inhaler) 160 MCG-4.5 MCG/ ACTUATION HFA.AER.AD 2 PUF INH BID BREATHING PROBLEMS (Reported) Cannabis (Marijuana Oil) 1 amp AMP 1 A PO AD PRN ANXIETY/STRESS/DEPRESSION ( Reported) Diltiazem HCl (Cardizem Cd) 240 MG CAP.ER.24H 1 CAP PO DAILY Atrial Flutter . Diltiazem HCl (Cardizem Cd) 300 MG CAP.ER.24H 1 CAP PO DAILY heart rate Fluticasone Propionate (Flonase Allergy Relief) 50 MCG/ACTUATION SPRAY.SUSP 2 SPRAY NASB QPM ALLERGIES (Reported) Hydroxyzine HCl (hydrOXYzine HCl) 10 MG TABLET 1 TAB PO BID anxiety Montelukast Sodium (Singulair) 10 MG TABLET 1 TAB PO QPM ASTHMA (Reported) Tiotropium [place] (Spiriva Respimat) 2.5 MCG/ACTUATION MIST.INHAL 2 PUFF INH QAM COPD (Reported) Tramadol HCl 50 MG TABLET 1 TAB PO TIDPRN BACK PAIN (Reported) Triage Note: RECEIVED 47 YO MALE BIBA FROM HOME. PT WITH HX OF LUNG CA AND COPD WITH RECENT PERICARDIAL WINDOW. PT WAS JUST DISCHARGED FROM [facility] AFTER AN ADMISSION ON 03/12 FOR RAPID HEART RATE. A VISITING NURSE WAS OVER THE PATIENTS HOME THIS AM TO CHANGE PATIENTS CHEST DRESSING WHEN SHE FOUND THE PATIENTS HEART RATE TO BE ELEVATED, 120 +. PT ARRIVES TO THE ED WITH HEART RATE IRREGULAR AND VENTRICULAR RATE BETWEEN 100 TO 120. PT DENIES WORSENING CP OR SOB. PT WAS ALSO ADMITTED ON 03/02 FOR 8 DAYS AND TRANSFERRED TO [facility]. Triage Nurses Notes Reviewed? yes Onset: Gradual Duration: minute(s): Timing: single episode today Quality/Severity: moderate HPI: 47YO MALE with hx of a fib on cardizem, MARCI on CPAP, heavy tobacco use, COPD on home O2, & stage III non-small cell lung ca of LLL s/p chemo & radiation Rx with recent pleural and pericardial effusions requiring pericarial window procedure presents to ED complaining of elevated heart rate. Patient states that visiting nurse came to check on his bandage from pericardial window. She informed him that his heart rate was elevated at 108 bpm. visiting nurse informed him he should return to the hospital and patient began becoming upset and anxious, heart rate increased to 150s. Patient took his Cardizem as prescribed today. Patient reports baseline chest tenderness however no recent or new symptoms, no worsening chest pain or shortness of breath, no palpitations. Patient was just recently discharged yesterday. He was last admitted for tachycardia, treated with IV Cardizem and then switch to oral Cardizem. Patient was on IV heparin however oral Anticoagulation was not continued as patient is due for a bronchial stent soon. (Ava BRANCH,Mabel Ewing) Vital Signs & Intake/Output Vital Signs & Intake/Output Vital Signs Date Time Temp Pulse Resp B/P B/P Pulse O2 O2 Flow FiO2 Mean Ox Delivery Rate 03/16 1729 97 Nasal 3.0L Cannula 03/16 1715 100.6 89 18 135/79 97 Nasal 3.0L Cannula 03/16 1602 97 Nasal 3.0L Cannula 03/16 1419 99.5 110 18 150/66 98 Nasal 3.0L Cannula (Fox Dockery DO) Past History Travel History Traveled to [place] past 21 day No Medical History Any Pertinent Medical History? see below for history Neurological: NONE EENT: NONE Cardiovascular: aflutter Respiratory: COPD, emphysema, obstructive sleep apnea, Stage III non-small cell lung cancer Gastrointestinal: constipation Hepatic: NONE Renal: NONE Musculoskeletal: NONE, spinal stenosis Psychiatric: NONE Endocrine: NONE Blood Disorders: NONE Cancer(s): LUNG CA LLL YOUTH ADVOCATE/Reproductive: NONE Other Medical Hx: Multiple skin infections History of MRSA: No History of VRE: No History of CDIFF: No Surgical History Surgical History: SCROTAL CYST Psychosocial History Who do you live with Family Services at Home None (2.0 L), Oxygen What is your primary language Kyrgyz Tobacco Use: Quit >30 days ago Family History Family History, If Any: MOTHER FHx: diabetes mellitus FATHER FH: CAD (coronary artery disease) Hx Contributory? No (Mabel Husain) Review of Systems Review of Systems Constitutional: Reports: no symptoms. EENTM: Reports: no symptoms. Respiratory: Reports: see HPI. Cardiovascular: Reports: see HPI. GI: Reports: no symptoms. Genitourinary: Reports: no symptoms. Musculoskeletal: Reports: no symptoms. Skin: Reports: see HPI. Neurological/Psychological: Reports: see HPI. Hematologic/Endocrine: Reports: no symptoms. Immunologic/Allergic: Reports: no symptoms. All Other Systems: Reviewed and Negative (Mabel Husain) Physical Exam Physical Exam General Appearance: well developed/nourished, no apparent distress, alert, awake Head: atraumatic, normal appearance Eyes: Bilateral: normal appearance. Ears, Nose, Throat: hearing grossly normal Neck: normal inspection, supple, full range of motion Respiratory: no respiratory distress, CORSE BREATH SOUNDS BILATERALLY WITH DIMINISHED BREATH SOUNDS LEFT LUNG CHAMBERLAIN Cardiovascular: tachycardia Peripheral Pulses: 2+ radial (R), 2+ radial (L) Gastrointestinal: normal bowel sounds, soft, non-tender, no organomegaly, HEALING SURGICAL SCAR MIDLINE IS C/D/I Back: normal inspection, normal range of motion Extremities: normal inspection, normal range of motion Neurologic/Psych: awake, alert, oriented x 3 Skin: normal color, warm/dry Core Measures ACS in differential dx? Yes CVA/TIA Diagnosis No Sepsis Present: No Sepsis Focused Exam Completed? No (Mabel Husain) Progress Differential Diagnosis: AMI, atrial fibrillation, CHF/pulm edema, hyperventilation, myocarditis, pericarditis, pneumonia, pneumothorax, PSVT, pulmonary embolism, respiratory failure, unstable angina Diagnostic Imaging: Viewed by Me: Radiology Read. Discussed w/RAD: Radiology Read. CXR Impression: PATIENT: SID DOCKERY PRESENT AGE: 47 PATIENT ACCOUNT NO: [id number] : 68 LOCATION: [facility] ORDERING PHYSICIAN: Mabel BRANCH SERVICE DATE: 03/16/18 EXAM TYPE: RAD - XRY-CHEST XRAY, TWO VIEWS EXAMINATION: XR CHEST CLINICAL INFORMATION: Tachycardia. Recent cardiac procedure. COMPARISON: Chest CTA 03/12/2018 and chest x-ray 03/08/2018 TECHNIQUE: 2 views of the chest were obtained. FINDINGS: Persistent opacification of the left hemithorax consistent with previously demonstrated consolidation and likely a small amount of pleural fluid. The right hemithorax remains well aerated. Stable position of right-sided Port-A-Cath. Cardiac silhouette is poorly evaluated secondary to silhouetting from left lung opacification. No gross osseous abnormality. IMPRESSION: Stable examination with persistent opacification of the left hemithorax. DICTATED BY: Kahlil Gabriel MD DATE/TIME DICTATED:03/16/181544 COMMUNITY CHEST OFFICER:ANTWON DATE/TIME TRANSCRIBED:03/16/181544 CONFIDENTIAL, DO NOT COPY WITHOUT APPROPRIATE AUTHORIZATION. <Electronically signed in Other Vendor System> SIGNED BY: Kahlil Gabriel MD 03/16/18 1552 Initial ED EKG: ATRIAL FLUTTER RATE 105BPM, NONSPECIFIC ST CHANGES Prior EKG: changed (03/13/18) (Ava BRANCH,Mabel Ewing) Plan of Care: Orders Procedure Date/time Status TROPONIN LEVEL 03/16 1425 Complete PARTIAL THROMBOPLASTIN TIME 03/16 142 Complete PROTHROMBIN TIME 03/16 1425 Complete LACTIC ACID 03/16 1425 Complete COMPREHENSIVE METABOLIC PANEL 03/16 1425 Complete CBC WITHOUT DIFFERENTIAL 03/16 142 Complete EKG 03/16 142 Active Laboratory Tests 03/16/18 1725: Lactic Acid Cancelled 03/16/18 1436: Anion Gap 12, Estimated GFR > 60, BUN/Creatinine Ratio 26.0 H, Glucose 103 H, Lactic Acid 0.8, Calcium 9.0, Total Bilirubin 0.5, AST 18, ALT 30, Alkaline Phosphatase 92, Troponin I < 0.01, Total Protein 6.5, Albumin 3.1 L, Globulin 3.4, Albumin/Globulin Ratio 0.9 L, PT 16.0 H, INR 1.46 H, APTT 30, CBC w Diff NO MAN DIFF REQ, RBC 4.09 L, MCV 77.4 L, MCH 24.3 L, MCHC 31.4 L, RDW 22.6 H, MPV 7.8, Gran % 89.1 H, Lymphocytes % 5.0 L, Monocytes % 4.4, Eosinophils % 1.4, Basophils % 0.1, Absolute Granulocytes 9.0 H, Absolute Lymphocytes 0.5 L, Absolute Monocytes 0.5, Absolute Eosinophils 0.1, Absolute Basophils 0 Patient's chest x-ray stable compared to his baseline. Patient also has stable anemia. Troponin Enzyme is negative. Patient's EKG shows atrial flutter, patient has history of A. fib/flutter which he is being treated with Cardizem. Heart rate here in the emergency department has reduced on its own to 80s without IV Cardizem. Patient has no worsening symptoms today, he feels at his baseline. Patient states that when he gets anxious his heart rate goes up, he states that while waiting here in the emergency department his family members upset him and during that time His heart rate briefly went up however since he is calmed down heart rate has also come down. Patient is requesting something to take for anxiety-related symptoms. Review EKG discussed all findings with Dr. Love. Because patient has upcoming procedure for bronchial stent Oral anticoagulation was withheld. Dr. Love agrees with this, he recommends increasing dose of Cardizem to 300 mg and close follow-up in the office. Patient feels comfortable going home at this time. Heart rate has been reduced, he is in no acute distress. Patient has had low-grade fevers during previous admission, vital signs are stable. The patient agrees with the plan of care. The patient was seen and evaluated by Dr. Dockery who agrees with this plan. (Ava BRANCH,Mabel Ewing) (Sarkis FOLEY,Fox) Departure Departure Disposition: HOME OR SELF CARE Condition: Stable Clinical Impression Primary Impression: Tachycardia Secondary Impressions: Atrial flutter Qualifiers: Atrial flutter type: unspecified Qualified Code: I48.92 - Unspecified atrial flutter Referrals: Miquel MURRAY,Jose Swenson (PCP/Family) Additional Instructions: Begin Cardizem 300 mg instead of your current 240 mg dose. You may also take hydroxyzine for anxiety-related symptoms. Follow-up with your merchandise handler. Return if worsening symptoms or concerns. Please note that there might be incidental findings in your evaluation that are unrelated to the current emergency department visit. Please notify your primary care doctor about this emergency department visit in order to obtain and review all of the testing performed so that these incidental findings can be monitored as needed. If you had an x-ray performed, please understand that some fractures may not be seen on the initial set of x-rays. If your symptoms persist you might need a repeat set of x-rays to check for such a fracture. If you had a laceration evaluated, please understand that foreign bodies such as glass or wood may not be visible to the naked eye or on plain x-rays. If the wound becomes red, swollen, increasingly more painful or if there is any drainage from the wound, please have it reevaluated by a physician for the possibility of a retained foreign body. If you're unable to follow up as outlined in the discharge instructions please return to the emergency department. Thank you for choosing the [facility] Emergency Department for your care. It was a pleasure to serve you today. Departure Forms: Customer Survey General Discharge Information Prescriptions: Current Visit Scripts Diltiazem HCl (Cardizem Cd) 1 CAP PO DAILY #30 CAP Hydroxyzine HCl (hydrOXYzine HCl) 1 TAB PO BID #20 TAB (Mabel Husain) PA/ANIMAL PHYSIOLOGY TEACHER Co-Sign Statement Statement: ED Attending supervision documentation- [x] I saw and evaluated the patient. I have also reviewed all the pertinent lab results and diagnostic results. I agree with the findings and the plan of care as documented in the PA's/ANIMAL PHYSIOLOGY TEACHER's documentation. [] I have reviewed the ED Record and agree with the PA's/ANIMAL PHYSIOLOGY TEACHER's documentation. [] Additions or exceptions (if any) to the PAs/ANIMAL PHYSIOLOGY TEACHER's note and plan are summarized below: [] (Fox Dockery DO) Critical Care Note Critical Care Note Critical Care Time: non-applicable (Mabel Husain)
[2018-03-16 14:43] LABS: ABSOLUTE BASOPHIL COUNT 0 /CUMM (0.0-0.2); ABSOLUTE EOSINOPHIL COUNT 0.1 /CUMM (0.0-0.7); ABSOLUTE LYMPH COUNT 0.5 /CUMM (1.2-3.4); ABSOLUTE MONOCYTE COUNT 0.5 /CUMM (0.10-0.60); BASOPHIL % 0.1 % (0.0-2.0); EOSINOPHIL % 1.4 % (0-5); HEMATOCRIT 31.7 % (42-52); MEAN CORPUSCULAR HGB 24.3 PG (27.0-31.0); MEAN CORPUSCULAR HGB CONC 31.4 G/DL (33.0-37.0); MEAN CORPUSCULAR VOLUME 77.4 FL (80.0-94.0); MEAN PLATELET VOLUME 7.8 FL (7.4-10.4); RBC DISTRIBUTION WIDTH 22.6 % (11.5-14.5); RED BLOOD CELL CT 4.09 /CUMM (4.70-6.10); WHITE BLOOD CELL COUNT 10.1 /CUMM (4.8-10.8)
[2018-03-16 15:04] LABS: PTT 30 SEC (25-37)
[2018-03-16 15:05] LABS: PLATELET COUNT 409 /CUMM (130-400)
[2018-03-16 15:06] LABS: GRANULOCYTE % 89.1 % (42.2-75.2)
--- NOTE | 2018-03-16 15:52 | RADIOLOGY REPORT ---
EXAMINATION: XR CHEST CLINICAL INFORMATION: Tachycardia. Recent cardiac procedure. COMPARISON: Chest CTA 03/12/2018 and chest x-ray 03/08/2018 TECHNIQUE: 2 views of the chest were obtained. FINDINGS: Persistent opacification of the left hemithorax consistent with previously demonstrated consolidation and likely a small amount of pleural fluid. The right hemithorax remains well aerated. Stable position of right-sided Port-A-Cath. Cardiac silhouette is poorly evaluated secondary to silhouetting from left lung opacification. No gross osseous abnormality. IMPRESSION: Stable examination with persistent opacification of the left hemithorax.
[2018-03-16] MEDS ORDERED: HYDROXYZINE HCL10 M2 PO (18:21)
[2018-03-16] MEDS ORDERED: CARDIZEM CD300 M1 PO (18:21)
[2018-03-16 18:57] VITALS: BP 137/85
== END 2018-03-16 18:36 ==
LOC: ERH 14:01
PROVIDERS: Physician Assistant
DX: R00.0 Tachycardia, unspecified (principal); I48.92 Unspecified atrial flutter; J44.9 Chronic obstructive pulmonary disease, unspecified; Z87.891 Personal history of nicotine dependence
CPT/HCPCS: 1263; 71046; 93005; 93010; 96374

== ENCOUNTER 2018-04-21 11:28 | Emergency (ER) | payer OTHER, MEDICARE ==
[~2018-04-21 11:28] MED LIST changes: +CARDIZEM CD300 M1 PO; +HYDROXYZINE HCL10 M2 PO
[2018-04-21] MEDS ORDERED: ATIVAN1 M1 PO (12:05)
[2018-04-21] MEDS ORDERED: LEXAPRO5 M1 PO (12:05)
[2018-04-21] MEDS ORDERED: VICODIN 5-3001 EACH PO (12:06)
[2018-04-21 12:11] LABS: ABSOLUTE BASOPHIL COUNT 0 /CUMM (0.0-0.2); ABSOLUTE EOSINOPHIL COUNT 0.1 /CUMM (0.0-0.7); ABSOLUTE LYMPH COUNT 0.9 /CUMM (1.2-3.4); BASOPHIL % 0 % (0.0-2.0); EOSINOPHIL % 0.7 % (0-5); GRANULOCYTE % 84.4 % (42.2-75.2); MEAN CORPUSCULAR HGB 23.8 PG (27.0-31.0); MEAN CORPUSCULAR HGB CONC 31.6 G/DL (33.0-37.0); MEAN CORPUSCULAR VOLUME 75.3 FL (80.0-94.0); MEAN PLATELET VOLUME 7.8 FL (7.4-10.4); PLATELET COUNT 600 /CUMM (130-400); RBC DISTRIBUTION WIDTH 20.9 % (11.5-14.5); RED BLOOD CELL CT 3.31 /CUMM (4.70-6.10); WHITE BLOOD CELL COUNT 13.1 /CUMM (4.8-10.8)
--- NOTE | 2018-04-21 12:18 | ED GENERAL ADULT ---
History of Present Illness General Chief Complaint: Dyspnea (COPD, CHF, Other) Stated Complaint: BIBA SOB Source: patient, PCP Exam Limitations: no limitations Vital Signs & Intake/Output Vital Signs & Intake/Output Vital Signs Date Time Temp Pulse Resp B/P B/P Pulse O2 O2 Flow FiO2 Mean Ox Delivery Rate 04/21 1400 98.3 68 20 118/62 97 Room Air 04/21 1143 Nasal Cannula 04/21 1143 97.9 68 22 118/72 99 Nasal 3.0L Cannula Allergies Coded Allergies: paclitaxel (From TAXOL) (BP WENT VERY HIGH AND PALE, SWEATING ALMOST PASSED OUT 03/12/18) Reconcile Medications Albuterol Sulfate (Proair Hfa) 90 MCG HFA.AER.AD 2 PUF INH Q4-6 PRN PRN COPD (Reported) Albuterol Sulfate 2.5 MG/3 ML (0.083 %) VIAL.NEB 1 Vial INH/JOSE Q4P PRN SHORTNESS OF BREATH (Reported) Azelastine HCl (Astepro) 205.5 MCG (0.15 %) SPRAY.PUMP 1 SPRAY NASB BID CONGESTION (Reported) Budesonide/Formoterol Fumarate (Symbicort 160-4.5 Mcg Inhaler) 160 MCG-4.5 MCG/ ACTUATION HFA.AER.AD 2 PUF INH BID BREATHING PROBLEMS (Reported) Cannabis (Marijuana Oil) 1 amp AMP 1 A PO AD PRN ANXIETY/STRESS/DEPRESSION ( Reported) Ciprofloxacin HCl 750 MG TABLET 1 TAB PO BID INFECTION Diltiazem HCl (Cardizem Cd) 300 MG CAP.ER.24H 1 CAP PO DAILY heart rate Escitalopram Oxalate (Lexapro) 5 MG TABLET 1 TAB PO DAILY ANXIETY (Reported) Fluticasone Propionate (Flonase Allergy Relief) 50 MCG/ACTUATION SPRAY.SUSP 2 SPRAY NASB QPM ALLERGIES (Reported) Hydrocodone/Acetaminophen (Vicodin 5-300 MG Tablet) 5 MG-300 MG TABLET 1 TAB PO Q4-6 PRN PAIN (Reported) Hydroxyzine HCl (hydrOXYzine HCl) 10 MG TABLET 1 TAB PO BID anxiety LORazepam (Ativan) 1 MG TAB 1 TAB PO TID PRN ANXIETY (Reported) Montelukast Sodium (Singulair) 10 MG TABLET 1 TAB PO QPM ASTHMA (Reported) Tiotropium [place] (Spiriva Respimat) 2.5 MCG/ACTUATION MIST.INHAL 2 PUFF INH QAM COPD (Reported) Triage Note: PT BROUGHT IN FROM MD REMY'S OFFICE FOR A FOLLOW UP VISIT. PT REPORTS HE WAS RECENTLY TREATED FOR PNA AND FINISHED A COURSE OF DOXYCYCLINE WITH NO IMPROVEMENT OF SYMPTOMS. PT WEARS 3 L OF O2 AT BASELINE. PT HAS INTERMITTENT NON PRODUCTIVE COUGH. Triage Nurses Notes Reviewed? yes HPI: 48-year-old male with past medical history significant for non-small cell lung cancer currently undergoing chemo and radiation presents from Dr. Maravilla office with hypotension and subacute productive cough with greenish sputum. Recently finished outpatient course of doxycycline. Patient states that he has no new complaints. Past History Travel History Traveled to [place] past 21 day No Medical History Any Pertinent Medical History? see below for history Neurological: NONE EENT: NONE Cardiovascular: aflutter Respiratory: COPD, emphysema, obstructive sleep apnea, Stage III non-small cell lung cancer Gastrointestinal: constipation Hepatic: NONE Renal: NONE Musculoskeletal: NONE, spinal stenosis Psychiatric: NONE Endocrine: NONE Blood Disorders: NONE Cancer(s): LUNG CA LLL AIR BOX TESTER/Reproductive: NONE Other Medical Hx: Multiple skin infections History of MRSA: No History of VRE: No History of CDIFF: No Surgical History Surgical History: SCROTAL CYST Psychosocial History Who do you live with Family Services at Home None (2.0 L), Oxygen What is your primary language Grenadian Tobacco Use: Refused to answer Family History Family History, If Any: MOTHER FHx: diabetes mellitus FATHER FH: CAD (coronary artery disease) Hx Contributory? Yes Review of Systems Review of Systems Constitutional: Denies: chills, diaphoresis, fever, malaise, weakness. Respiratory: Reports: cough, sputum production. Denies: hemoptysis, short of breath, wheezing (chrn whz, denies exacerbation). Cardiovascular: Denies: chest pain, palpitations, peripheral edema. Genitourinary: Denies: discharge, dysuria, pain. Musculoskeletal: Denies: back pain, muscle pain, muscle stiffness, neck pain. Skin: Reports: no symptoms. Neurological/Psychological: Reports: no symptoms. Physical Exam Physical Exam General Appearance: well developed/nourished, no apparent distress Respiratory: wheezing, Decreased breath sounds left lung. Cardiovascular: regular rate/rhythm Gastrointestinal: soft, non-tender Neurologic/Psych: no motor/sensory deficits, awake, oriented x 3 Core Measures ACS in differential dx? No CVA/TIA Diagnosis: No Sepsis Present: No Sepsis Focused Exam Completed? Yes Progress Differential Diagnoses I considered the following diagnoses in my evaluation of the patient: Plan of Care: Orders Procedure Date/time Status UPPER RESPIRATORY CULTURE 04/21 1216 Active CULTURE,URINE 04/21 1216 Active BLOOD CULTURE 04/21 115 Active URINALYSIS 04/21 115 Complete TROPONIN LEVEL 04/21 115 Complete LACTIC ACID 04/21 115 Complete COMPREHENSIVE METABOLIC PANEL 04/21 115 Complete CBC WITHOUT DIFFERENTIAL 04/21 115 Complete EKG 04/21 1136 Active Laboratory Tests 04/21/18 1451: Lactic Acid Cancelled 04/21/18 1313: Urine Color YEL, Urine Clarity HAZY H, Urine pH 6.0, Ur Specific [place] 1.020, Urine Protein NEG, Urine Ketones NEG, Urine Nitrite NEG, Urine Bilirubin NEG, Urine Urobilinogen 0.2, Ur Leukocyte Esterase NEG, Ur Microscopic EXAM NOT REQUIRED, Urine Hemoglobin NEG, Urine Glucose NEG 04/21/18 1155: Anion Gap 7, Estimated GFR > 60, BUN/Creatinine Ratio 26.7 H, Glucose 109 H, Lactic Acid 1.0, Calcium 11.4 H, Total Bilirubin 0.4, AST 13 L, ALT 20 L, Alkaline Phosphatase 141 H, Troponin I < 0.01, Total Protein 7.0, Albumin 2.8 L, Globulin 4.2, Albumin/Globulin Ratio 0.7 L, CBC w Diff NO MAN DIFF REQ, RBC 3.31 L, MCV 75.3 L, MCH 23.8 L, MCHC 31.6 L, RDW 20.9 H, MPV 7.8, Gran % 84.4 H, Lymphocytes % 7.0 L, Monocytes % 7.9, Eosinophils % 0.7, Basophils % 0 , Absolute Granulocytes 11.0 H, Absolute Lymphocytes 0.9 L, Absolute Monocytes 1.0 H, Absolute Eosinophils 0.1, Absolute Basophils 0 Microbiology 04/21 1313 URINE ROUT: Urine Culture - RECD 04/21 1220 BLOOD: Blood Culture - RECD 04/21 1216 UPPER RESP: Upper Respiratory Culture - ORD 04/21 1155 BLOOD: Blood Culture - RECD Initial ED EKG: normal axis, Sinus rhythm of 67. T-wave inversion 1 and aVL which is present on prior. No STEMI. Appropriate r-wave progression. Departure Departure Disposition: HOME OR SELF CARE Condition: Stable Clinical Impression Primary Impression: Productive cough Referrals: Jose Lafleur MD (PCP/Family) Departure Forms: Customer Survey General Discharge Information Prescriptions: Current Visit Scripts Ciprofloxacin HCl 1 TAB PO BID #20 TAB Critical Care Note Critical Care Note Critical Care Time: non-applicable
--- NOTE | 2018-04-21 13:08 | RADIOLOGY REPORT ---
EXAMINATION: XR CHEST CLINICAL INFORMATION: Shortness of breath. COMPARISON: Chest x-rays 03/16/2018, 03/31/2018 and 04/07/2018. TECHNIQUE: PA and lateral views of the chest were obtained. FINDINGS: There is almost complete whiteout of the left hemithorax, similar compared to prior imaging. A minimal amount of aeration is demonstrated in the left midzone. The mediastinum is shifted to the left. The left heart border is not visualized. The configuration of the heart appears similar compared to the prior study. The right lung is well-expanded, and there are reticular changes in the right mid and lower zone, which appear stable. No pneumothoraces are demonstrated. Mild thickening of the bronchial esteban in the right hilar region also appear stable. There has been no interval change in the configuration or position of the right chest port, and the tip of the catheter is at the cavoatrial junction. There are degenerative changes of both shoulder joints. IMPRESSION: 1. There is no interval change in the complete white out of the left hemithorax, with mediastinal shift to the left. 2. No acute changes are seen in the right lung.
[2018-04-21] MEDS ORDERED: CIPROFLOXACIN750 M1 PO (13:42)
[2018-04-21 14:00] VITALS: BP 118/62
== END 2018-04-21 14:32 ==
LOC: ERH 11:28
PROVIDERS: Emergency Medicine
DX: R05 Cough (principal); I95.9 Hypotension, unspecified; C34.90 Malignant neoplasm of unspecified part of unspecified bronchus or lung; I48.92 Unspecified atrial flutter; J44.9 Chronic obstructive pulmonary disease, unspecified; J43.9 Emphysema, unspecified; G47.33 Obstructive sleep apnea (adult) (pediatric)
CPT/HCPCS: 71046; 81003; 87040; 87070; 87086; 93005; 93010; 96361; 96374; J0744; J7060